=== PATIENT | male | born 1980 | race Two or more races ===

== ENCOUNTER 2020-06-02 22:15 | Inpatient (IN) | payer OTHER, SELFPAY ==
[2020-06-02 22:19] VITALS: BP 147/74; PULSE 101; RESP 20; TEMP 36.7; O2SAT 98; BMI 30.7
[2020-06-03 01:22] LABS: MANUAL DIFF FLAG NO
[2020-06-03 01:32] LABS: Basophils Percent Auto 0.3 % (0-2); Eosinophils Absolute Auto 0.1 X10*3/uL (0.0-0.4); Eosinophils Percent Auto 0.8 % (0-4); Hematocrit 43.1 % (42-52); Hemoglobin 14.4 g/dl (14.0-18.0); Imm Gran Abs Auto 0.09 X10*3/uL (0.00-0.03); Imm Gran Pct Auto 0.6 % (0.0-0.4); Lymphocytes Absolute Auto 3.4 X10*3/uL (1.2-4.9); Lymphocytes Percent Auto 22.2 % (20-40); Mean Corpuscular HGB Conc 33.4 g/dl (31.0-36.0); Mean Corpuscular Hemoglobin 28.8 pg (27.0-33.0); Mean Corpuscular Volume 86.2 fL (80-98); Mean Platelet Volume 9.8 fL (9.4-12.4); Monocytes Absolute Auto 1.2 X10*3/uL (0.1-1.2); Monocytes Percent Auto 7.8 % (2-11); Neutrophils Absolute Auto 10.4 X10*3/uL (2.0-8.3); Neutrophils Percent Auto 68.3 % (45-73); Platelet Count 327 X10*3/uL (160-400); Red Cell Distribution Width 13.2 % (11.0-16.0); White Blood Count 15.2 X10*3/uL (4.8-10.8)
[2020-06-03 01:47] LABS: Alanine Aminotransferase 82 U/L (0-40); Albumin Level 4.4 g/dL (3.5-5.0); Alkaline Phosphatase 220 U/L (39-117); Anion Gap 14 (12-20); Aspartate Amino Transferase 33 U/L (5-37); Blood Urea Nitrogen 10 mg/dL (9-16); Calcium 8.8 mg/dL (8.4-10.2); Carbon Dioxide 25 mmol/L (22-29); Chloride 101 mmol/L (96-108); Creatinine Clr Calc Pharmacy 116.5; Estimated Glomerular Filt Rate > 60; Glucose Random 114 mg/dL (60-115); Potassium 3.8 mmol/l (3.3-5.1); Sodium 136 mmol/L (135-145); Total Protein 8.1 g/dL (6.5-8.0)
--- NOTE | 2020-06-03 01:53 | CT_ITS ---
EXAMINATION: CT ABDOMEN AND PELVIS WITH CONTRAST CLINICAL INFORMATION: Left lower quadrant pain COMPARISON: None TECHNIQUE: Multidetector volumetric images were obtained from the superior aspect of the liver through the pubic symphysis following administration of 85 mL of Omnipaque 350 intravenous contrast. Sagittal and coronal reformatted images were obtained on the technologist's workstation. Oral contrast: No This CT examination was performed using dose optimization techniques as appropriate, variously including the following: *Automated exposure control *Adjustment of mA and/or kV according to patient size (this includes techniques or standardized protocols for targeted exams where dose is matched to indication/reason for exam; i.e. extremities or head) *Use of iterative reconstruction technique DLP: 642 mGy-cm FINDINGS: LUNG BASES: The visualized lung bases demonstrate mild subsegmental atelectasis. LIVER, GALLBLADDER, AND BILIARY TREE: The liver is normal in size, shape, and attenuation. No focal hepatic lesion or biliary ductal dilatation is present. The gallbladder is unremarkable with no evidence of radiopaque gallstones, gallbladder wall thickening, or obvious pericholecystic inflammatory changes. PANCREAS: Unremarkable. SPLEEN: Unremarkable. ADRENAL GLANDS: Unremarkable. KIDNEYS AND URETERS: The kidneys are normal in size, shape, and attenuation. No hydronephrosis, hydroureter, or obstructing calculi seen. Subcentimeter hypodensity off the lateral right kidney is suggestive of a cyst. No perinephric stranding. BLADDER: Unremarkable. GASTROINTESTINAL TRACT: There is a thick-walled appearance of the midportion of the descending colon with surrounding stranding, consistent with colitis. A few scattered colonic diverticula are noted. There is a small amount of fluid in the left paracolic gutter. No free air is seen. No evidence of bowel obstruction. ABDOMINAL WALL: No significant hernia is appreciated. LYMPH NODES: Normal. VASCULAR: Unremarkable. PELVIC VISCERA: Unremarkable. OSSEOUS STRUCTURES: Unremarkable. CT/CT abdomen pelvis w con IMPRESSION: Inflammation of the midportion of the descending colon, consistent with a colitis which may be infectious or inflammatory. A few scattered diverticula are present, though the length of inflamed colon is greater than typically seen with diverticulitis.
--- NOTE | 2020-06-03 01:54 | ED_ITS ---
HPI - Abdominal Pain General Chief Complaint: Abdominal Pain Stated Complaint: Abdominal Pain Time Seen by Provider: 06/02/20 22:44 Source: patient and chief technologist Mode of arrival: ambulatory Limitations: no limitations History of Present Illness HPI narrative: This is a 40-year-old male without significant past medical history who presents with 3-4 days of left lower quadrant pain that is worsening and sharp in nature but not associated with any fevers, nausea, vomiting, diarrhea, but does have chills. In addition, patient denies any urinary pain /burning /frequency or back pain. Related Data Home Medications Medication Instructions Recorded Confirmed diclofenac sodium 50 mg PO DAILY 06/03/20 06/03/20 Allergies Allergy/AdvReac Type Severity Reaction Status Date / Time No Known Allergies Allergy Verified 06/02/20 22:22 Review of Systems Review of Systems Pertinent positives and negatives as stated in HPI 10 point review systems is otherwise negative. Physical Exam Vital Signs: Vital Signs: Last Vital Signs Temp 99.1 F 06/03/20 02:48 Pulse 97 06/03/20 02:48 Resp 15 06/03/20 02:48 BP 144/76 H 06/03/20 02:48 Pulse Ox 95 06/03/20 02:48 Body Mass Index 30.7 VITAL SIGNS: Reviewed. GENERAL: Well developed, well nourished, in no acute distress. HEAD: Normocephalic/atraumatic, EYES: PERRLA, EOMI intact without pain, no nystagmus/pallor/icterus noted EARS: Ext canals without abnormality, TMs non-bulging and non-erythematous NOSE: Nares patent bilateral OROPHARYNX: no oral lesions noted, posterior pharynx clear and non-erythematous without noted tonsillar enlargement/erythema/exudates NECK: Supple, no adenopathy LUNGS: Normal breath sounds. No adventitious sounds or accessory muscle use. SpO2<98> CARDIOVASCULAR: Regular rate and rhythm without noted murmurs, no JVD or lower extremity edema. ABDOMEN: Soft, tenderness at the left lower quadrant without rebound, non- distended with bowel sounds. No rigidity. No guarding. No palpable masses or hernias noted MUSCULOSKELETAL: No tenderness, deformities, or effusions noted on gross inspec tion. EXTREMITIES: No cyanosis, clubbing or edema. SKIN: Inspection of the skin reveals no rashes, ulcerations, jaundice, pallor, or petechiae. NEUROLOGIC: Alert and oriented x 4. Strength and sensation to light touch were grossly intact x 4. Course Course Course Narrative: This is a 40-year-old male with history and clinical presentation consistent with diverticulitis and doubt constipation or renal colic or UTI. Patient also meets sepsis criteria in was given antibiotics and blood cultures as well as lactic acid were obtained. Sepsis fluids are not indicated at this time. On review of all investigations there is a noted leukocytosis and CT findings described as colitis with trace paracolic gutter fluid. This case was discussed with Dr Franklin who is agreeable for admission. MDM - Abdominal Pain Lab Data Result diagrams: 06/03/20 01:16 06/03/20 01:16 Labs: Lab Results 06/03/20 06/03/20 06/03/20 Range/Units 01:16 01:16 02:00 WBC 15.2 H (4.8-10.8) X10*3/uL RBC 5.00 (4.60-5.80) X10*6/uL Hgb 14.4 (14.0-18.0) g/dl Hct 43.1 (42-52) % MCV 86.2 (80-98) fL MCH 28.8 (27.0-33.0) pg MCHC 33.4 (31.0-36.0) g/dl RDW 13.2 (11.0-16.0) % Plt Count 327 (160-400) X10*3/uL MPV 9.8 (9.4-12.4) fL Immature Gran % (Auto) 0.6 H (0.0-0.4) % Neut % (Auto) 68.3 (45-73) % Lymph % (Auto) 22.2 (20-40) % Bremer % (Auto) 7.8 (2-11) % Eos % (Auto) 0.8 (0-4) % Baso % (Auto) 0.3 (0-2) % Lymph # (Auto) 3.4 (1.2-4.9) X10*3/uL Bremer # (Auto) 1.2 (0.1-1.2) X10*3/uL Eos # (Auto) 0.1 (0.0-0.4) X10*3/uL Baso # (Auto) 0.0 (0.0-0.2) X10*3/uL Abs Immat Gran (auto) 0.09 H (0.00-0.03) X10*3/uL Absolute Neuts (auto) 10.4 H (2.0-8.3) X10*3/uL Absolute Nucleated RBC 0.000 (0.0-0.012) X10*3/uL Nucleated RBC % (auto) 0.0 (0.0-0.2) /100WBC Sodium 136 (135-145) mmol/L Potassium 3.8 (3.3-5.1) mmol/l Chloride 101 (96-108) mmol/L Carbon Dioxide 25 (22-29) mmol/L Anion Gap 14 (12-20) BUN 10 (9-16) mg/dL Creatinine 0.84 (0.5-1.4) mg/dL Estim Creat Clear Calc 116.5 Estimated GFR > 60 Random Glucose 114 (60-115) mg/dL Lactic Acid 1.0 (0.5-2.0) mmol/L Calcium 8.8 (8.4-10.2) mg/dL Total Bilirubin 1.0 (0.0-1.0) mg/dL AST 33 (5-37) U/L ALT 82 H (0-40) U/L Alkaline Phosphatase 220 H (39-117) U/L Total Protein 8.1 H (6.5-8.0) g/dL Albumin 4.4 (3.5-5.0) g/dL Discharge Plan Discharge Clinical Impression: Colitis, Diverticulitis Patient Disposition: Admitted As Inpatient [facility] Past Medical History Source: nursing notes reviewed Surgical History (Updated 06/03/20 @ 02:31 by Romana Pendleton MD) Hx of appendectomy Social History Social History Advance Directives: No Advance Directives Information Provided: No
[2020-06-03] MEDS: iohexoL 350 MG/ML 100 ML INFUS..BTL 85 ML IV (02:23)
[2020-06-03] MEDS: 0.9 % Sodium Chloride 1,000 ML 999 ML IV (02:29)
[2020-06-03] MEDS: fentaNYL citrate/PF 100 MCG/2 ML VIAL 25 MCG IVPUSH (02:42)
[2020-06-03] MEDS: Piperacillin Sodium/Tazobactam 3.375 GM in 0.9 % Sodium Chloride 50 ML IV ×4 (02:44→23:54)
[2020-06-03 02:48] VITALS: BP 144/76; PULSE 97; RESP 15; TEMP 37.3; O2SAT 95
[2020-06-03 03:38] LABS: Influenza A PCR NEGATIVE (Negative); Influenza B PCR NEGATIVE (Negative); Resp Syncy Virus RNA Qual PCR NEGATIVE (Negative); SARS COV2 PCR INHOUSE NEGATIVE (Negative)
[2020-06-03 06:15] VITALS: BP 138/87; PULSE 89; RESP 16; O2SAT 99
--- NOTE | 2020-06-03 07:10 | PC.NURSE ---
report taken from nila ramos pt here as surgical admit r/t colitis dx. ambulating w steady gait in room upon first contact. asking if there is a garden consultant to use for his phone. nad, awaiting report from floor nurse.
--- NOTE | 2020-06-03 07:37 | PM.HPGS ---
History of Present Illness History of Present Illness Date of Service: 06/03/20 Chief complaint: SIGMOID DIVERTICULITIS Narrative: Bernardo Whalen is a 40 year old male Presenting with complaints of abdominal pain in the left lower quadrant. The symptoms began approximately 4 days ago and increased in severity. He denies migration of the pain to the other quadrants. The pain is not associated with nausea, vomiting, diarrhea, or constipation. He denies a previous history of similar pains. He denies a previous history of abdominal surgeries other than appendectomy. Patient presented to the emergency department and was noted to have an elevated WBC. CT of the abdomen revealed inflammation of the descending colon suggestive of colitis. This was felt to be either due to a colitis or diverticulitis. He is admitted to the surgical service for further management. Review of Systems Constitutional: Constitutional: Denies chills, Denies fever(s), Denies headache(s) and Reports poor appetite ENT: Denies dizziness and Denies headache(s) Cardiovascular: Cardiovascular: Denies chest pain, Denies rapid heart rate, Denies palpitations and Denies slow heart rate Respiratory: Respiratory: Denies chest congestion, Denies cough, Denies pain on inspiration and Denies wheezing Gastrointestinal: Gastrointestinal: Reports abdominal pain, Reports bloating, Denies change in stool character, Denies constipation, Denies diarrhea, Denies nausea, Denies vomiting and Denies hematemesis Musculoskeletal: Musculoskeletal: Denies back pain, Denies arthralgias, Denies joint swelling and Denies numbness Integumentary/Breasts: Skin/Breast: Denies change in pigmentation, Denies erythema and Denies rash Neurologic: Denies confusion, Denies dizziness, Denies headache(s) and Denies numbness Psychiatric: Psychiatric: Denies anxiety, Denies confusion and Denies depression Endocrine: Endocrine: Denies palpitations Hematologic/Lymphatic: Hematologic/Lymphatic: Denies easy bleeding, Denies easy bruising and Denies lymphadenopathy Allergic/Immunologic: Allergic/Immunologic: Denies wheezing PMFSH Surgical History Surgical History Hx of appendectomy Social History Social History Alcohol intake: never Smoked in Last 30 Days: No Use of substances other than those prescribed or required for medical reasons: No Advance Directives: No Advance Directives Information Provided: No Meds Allergies Allergy/AdvReac Type Severity Reaction Status Date / Time No Known Allergies Allergy Verified 06/02/20 22:22 Home Medications Medication Instructions Recorded Confirmed Type diclofenac sodium 50 mg PO DAILY 06/03/20 06/03/20 History Physical Exam Vital Signs: Vital Signs: Last Vital Signs Temp 99.1 F 06/03/20 02:48 Pulse 89 06/03/20 06:15 Resp 16 06/03/20 06:15 BP 138/87 06/03/20 06:15 Pulse Ox 99 06/03/20 06:15 Body Mass Index 30.7 Const: General: cooperative, comfortable and well developed; No confusion Nutritional Appearance: well nourished Orientation/consciousness: patient oriented x3 and No confusion Eyes: Sclerae: sclerae normal EOM: EOMs intact bilaterally Neck: Neck: Yes normal visual inspection Resp: Effort & Inspection: normal respiratory effort, no cough and no respiratory distress Cardio: Jugular venous distension: no JVD Rate: regular rate Rhythm: regular rhythm GI: Inspection: Yes normal to inspection Palpation (GI): Soft to palpation, Tenderness to palpation present (GI) in the LLQ, no guarding, not rigid and No hepatosplenomegaly present Percussion: Yes normal to percussion Auscultation: normal bowel sounds Skin: General skin exam: dry skin Rashes: no rashes Neuro: General: patient oriented x3, no focal motor deficits and No confusion Extrem: General: Yes full ROM and Yes no clubbing, cyanosis or edema Results Results Labs: Short CBC 06/03/20 Range/Units 01:16 WBC 15.2 H (4.8-10.8) X10*3/uL Hgb 14.4 (14.0-18.0) g/dl Hct 43.1 (42-52) % Plt Count 327 (160-400) X10*3/uL BMP 06/03/20 01:16 Sodium 136 Potassium 3.8 Chloride 101 Carbon Dioxide 25 BUN 10 Creatinine 0.84 Calcium 8.8 Liver Function 06/03/20 Range/Units 01:16 Total Bilirubin 1.0 (0.0-1.0) mg/dL AST 33 (5-37) U/L ALT 82 H (0-40) U/L Alkaline Phosphatase 220 H (39-117) U/L Albumin 4.4 (3.5-5.0) g/dL EXAMINATION: CT ABDOMEN AND PELVIS WITH CONTRAST CLINICAL INFORMATION: Left lower quadrant pain COMPARISON: None TECHNIQUE: Multidetector volumetric images were obtained from the superior aspect of the liver through the pubic symphysis following administration of 85 mL of Omnipaque 350 intravenous contrast. Sagittal and coronal reformatted images were obtained on the technologist's workstation. Oral contrast: No This CT examination was performed using dose optimization techniques as appropriate, variously including the following: *Automated exposure control *Adjustment of mA and/or kV according to patient size (this includes techniques or standardized protocols for targeted exams where dose is matched to indication/reason for exam; i.e. extremities or head) *Use of iterative reconstruction technique DLP: 642 mGy-cm FINDINGS: LUNG BASES: The visualized lung bases demonstrate mild subsegmental atelectasis. LIVER, GALLBLADDER, AND BILIARY TREE: The liver is normal in size, shape, and attenuation. No focal hepatic lesion or biliary ductal dilatation is present. The gallbladder is unremarkable with no evidence of radiopaque gallstones, gallbladder wall thickening, or obvious pericholecystic inflammatory changes. PANCREAS: Unremarkable. SPLEEN: Unremarkable. ADRENAL GLANDS: Unremarkable. KIDNEYS AND URETERS: The kidneys are normal in size, shape, and attenuation. No hydronephrosis, hydroureter, or obstructing calculi seen. Subcentimeter hypodensity off the lateral right kidney is suggestive of a cyst. No perinephric stranding. BLADDER: Unremarkable. GASTROINTESTINAL TRACT: There is a thick-walled appearance of the midportion of the descending colon with surrounding stranding, consistent with colitis. A few scattered colonic diverticula are noted. There is a small amount of fluid in the left paracolic gutter. No free air is seen. No evidence of bowel obstruction. ABDOMINAL WALL: No significant hernia is appreciated. LYMPH NODES: Normal. VASCULAR: Unremarkable. PELVIC VISCERA: Unremarkable. OSSEOUS STRUCTURES: Unremarkable. CT/CT abdomen pelvis w con IMPRESSION: Inflammation of the midportion of the descending colon, consistent with a colitis which may be infectious or inflammatory. A few scattered diverticula are present, though the length of inflamed colon is greater than typically seen with diverticulitis. Assessment and Plan (1) Colitis: Status: Acute The patient presents with a 4 day history of abdominal pain in the left lower quadrant increasing in [place] [address] revealing thickening of the descending colon suggestive of colitis in less likely diverticulitis. He is admitted to the surgical service for IV antibiotics. I will consult Gastroenterology to assist in the diagnosis and treatment. Patient understands and agrees with the plan.
--- NOTE | 2020-06-03 08:13 | PC.NURSE ---
first attempt to call for pt report unsuccesful, will call back
--- NOTE | 2020-06-03 08:57 | PC.NURSE ---
floor nurse w pt during time of second call for report, nurse will call back when available.
--- NOTE | 2020-06-03 09:29 | MHC.CM.PN ---
pt lives c his friend in their apt. he reports that he is independent in his care. his friend will provide transportation [place]. dc plan is home no svcs. cm to cont. to follow.
--- NOTE | 2020-06-03 09:33 | PC.NURSE ---
report given to s3 rn
[2020-06-03 09:52] VITALS: BP 147/78; PULSE 88; RESP 18; TEMP -13.4; TEMP 7.8
[2020-06-03] MEDS: Dextrose 5 % and Lactated Ring 1,000 ML 125 ML IVCONT (10:17)
[2020-06-03] MEDS: 0.9 % Sodium Chloride Flush 3 ML SYRINGE IVFLUSH (10:18)
[2020-06-03] MEDS: Morphine Sulfate 4 MG/ML CARTRIDGE IVPUSH (10:34)
--- NOTE | 2020-06-03 14:49 | P.CNGI_ITS ---
History of Present Illness Data of Consult Service Date: 06/03/20 Primary Care Provider: None Physician HPI Reason for consult: abdominal pain and abnormal colon on CT scan 40 Year old [place]egalese-speaking male presented to [facility] morning with abdominal pain: This is a 40-year-old male without significant past medical history who presents with 3-4 days of left lower quadrant pain that is worsening and sharp in nature but not associated with any fevers, nausea, vomiting, diarrhea, but does have chills. In addition, patient denies any urinary pain /burning /frequency or back pain. IMAGING STUDIES: 06/02/[address] SCAN SHOWED: Inflammation of the midportion of the descending colon, consistent with a colitis which may be infectious or inflammatory. A few scattered diverticula are present, though the length of inflamed colon is greater than typically seen with diverticulitis. Patient was started on IV Zosyn and admitted for further management TODAY'S VISIT: History was obtained with the help of a animal eviscerator. Patient complains of sudden onset of left-sided abdominal pain since 05/31/2020 few hours after he ate pasta and shrimp for lunch. Pain is 10/ 10 in intensity, squeezing in character and came in waves - every 5 minutes. The following day pain decreased to every 30 minutes in frequency. He noted chills and denies fever, nausea or vomiting, change in BM. Pain is associated with gas and bloating. Patient notes improvement in abdominal pain to 3/10 today He reports having a normal BM today without blood of mucous. Patient denies symptoms of heartburn, dysphagia, nausea, vomiting, change in appetite or weight. Pt reports having a similar episode of abd pain 1.5 yrs ago - pain resolved after 3 days. Patient denies major cardiac or pulmonary problems, and admits to having sleep apnea (does not use a CPAP machine) Denies problems with anesthesia in the past. Denies being on chronic anticoagulation. Patient denies known family history IBD, colon polyps, colon cancer or other GI malignancies. 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 He states he is unable to have scheduled meals or drink adequate amounts of fluids while at work due to his busy schedule. PAST EGD/COLONOSCOPY: Patient denies having an endoscopy or colonoscopy in the past. Review of Systems Constitutional: Constitutional: Denies headache(s) and Reports poor appetite Eyes: Eyes: Denies eye discharge and Denies irritation ENT: Denies dysphagia, Denies dizziness and Denies headache(s) Cardiovascular: Cardiovascular: Denies chest pain, Denies leg edema and Denies dyspnea on exertion Respiratory: Respiratory: Denies cough and Denies dyspnea on exertion Gastrointestinal: Gastrointestinal: Reports abdominal pain, Denies change in bowel habits, Denies dysphagia and Denies heartburn Genitourinary: Genitourinary: Denies dysuria Musculoskeletal: Musculoskeletal: Denies numbness Integumentary/Breasts: Skin/Breast: Denies pruritus, Denies rash and Denies jaundice Neurologic: Denies confusion, Denies dizziness, Denies headache(s) and Denies numbness Psychiatric: Psychiatric: Denies confusion Endocrine: Endocrine: Denies cold intolerance, Denies flushing and Denies heat intolerance PMFSH Surgical History Surgical History Hx of appendectomy Social History Social History Household Members: Friend(s) Housing: House Alcohol intake: never Smoking Status: Never smoker Second Hand Smoke Exposure: Yes service: No Current occupational status: unemployed Meds Allergies Allergy/AdvReac Type Severity Reaction Status Date / Time No Known Allergies Allergy Verified 06/02/20 22:22 Home Medications Medication Instructions Recorded Confirmed Type diclofenac sodium 50 mg PO DAILY 06/03/20 06/03/20 History Physical Exam Vital Signs: Vital Signs: Last Vital Signs Temp 7.8 F L 06/03/20 09:52 Pulse 88 06/03/20 09:52 Resp 18 06/03/20 09:52 BP 147/78 H 06/03/20 09:52 Pulse Ox 99 06/03/20 06:15 Body Mass Index 30.7 Const: General: No confusion Nutritional Appearance: average body habitus Orientation/consciousness: No confusion Limitations: no limitations HENMT: Head: Yes normal to inspection Ears: hearing grossly normal bilaterally Mouth: Normal oral and palatal mucosa present Eyes: Sclerae: sclerae normal Pupils: Equal, round and reactive pupils present Neck: Neck: Yes normal visual inspection Chest: Chest palpation & inspection: normal inspection of the chest Resp: Effort & Inspection: normal respiratory effort Auscultation: clear to auscultation bilaterally Cardio: Palpation: normal PMI Rate: regular rate Rhythm: regular rhythm Heart sounds: S1 normal heart sound present, S2 normal heart sound present and no murmurs GI: Palpation (GI): Soft to palpation, Tenderness to palpation present (GI) (LUQ and LLQ tenderness) and No hepatosplenomegaly present Auscultation: normal bowel sounds Rectal Exam - Male: Yes deferred Skin: General skin exam: no rashes or lesions noted Neuro: General: No confusion Cranial nerves: Yes Equal, round and reactive pupils present Psych: Appearance: grossly normal Mental Status: mental status grossly normal Results Labs CBC & Chem 7: 06/04/20 06:08 06/04/20 06:08 Labs: Short CBC 06/03/20 Range/Units 01:16 WBC 15.2 H (4.8-10.8) X10*3/uL Hgb 14.4 (14.0-18.0) g/dl Hct 43.1 (42-52) % Plt Count 327 (160-400) X10*3/uL BMP 06/03/20 01:16 Sodium 136 Potassium 3.8 Chloride 101 Carbon Dioxide 25 BUN 10 Creatinine 0.84 Calcium 8.8 Liver Function 06/03/20 Range/Units 01:16 Total Bilirubin 1.0 (0.0-1.0) mg/dL AST 33 (5-37) U/L ALT 82 H (0-40) U/L Alkaline Phosphatase 220 H (39-117) U/L Albumin 4.4 (3.5-5.0) g/dL Assessment and Plan (1) Left sided abdominal pain: Status: Acute (2) Colitis: Status: Acute 40 Year old [place]egalese-speaking male admitted with sudden onset of left sided abdominal pain for the past 2-3 days. patient denies any recent change in bowel habits. Abd CT scan showed inflammation of the midportion of the descending colon, consistent with colitis (?infectious or inflammatory). Symptoms are likely due to ischemic or infectious colitis. IBD is less likely given sudden onset of symptoms and lack of diarrhea. RECOMMENDATIONS: 1. Continue IV antibiotics 2. Ok to start on a liquid diet in the am and advance diet as tolerated. 3. If symptoms persist, I will schedule him for a left sided colonoscopy/flexible sigmoidoscopy on 06/06/2020. Procedure and potential complications including bleeding, perforation, reaction to anesthetics were reviewed with the patient with the help of a animal eviscerator.
[2020-06-03 15:10] VITALS: BP 139/66; PULSE 81; RESP 16; TEMP 36.9; O2SAT 99
[2020-06-03 23:41] VITALS: BP 135/68; PULSE 96; RESP 18; TEMP 36.7; O2SAT 99
[2020-06-04] MEDS: Morphine Sulfate 4 MG/ML CARTRIDGE IVPUSH (00:12)
[2020-06-04] MEDS: 0.9 % Sodium Chloride Flush 3 ML SYRINGE IVFLUSH (00:26)
[2020-06-04] MEDS: Dextrose 5 % and Lactated Ring 1,000 ML 125 ML IVCONT ×3 (00:26→17:53)
[2020-06-04] MEDS: Piperacillin Sodium/Tazobactam 3.375 GM in 0.9 % Sodium Chloride 50 ML IV ×4 (05:06→22:04)
[2020-06-04 06:32] LABS: MANUAL DIFF FLAG NO
[2020-06-04 07:12] LABS: Basophils Percent Auto 0.3 % (0-2); Eosinophils Absolute Auto 0.2 X10*3/uL (0.0-0.4); Eosinophils Percent Auto 1.8 % (0-4); Hematocrit 41.7 % (42-52); Hemoglobin 13.4 g/dl (14.0-18.0); Imm Gran Abs Auto 0.03 X10*3/uL (0.00-0.03); Imm Gran Pct Auto 0.3 % (0.0-0.4); Lymphocytes Absolute Auto 2.5 X10*3/uL (1.2-4.9); Lymphocytes Percent Auto 26.5 % (20-40); Mean Corpuscular HGB Conc 32.1 g/dl (31.0-36.0); Mean Corpuscular Hemoglobin 28.4 pg (27.0-33.0); Mean Corpuscular Volume 88.3 fL (80-98); Mean Platelet Volume 10.1 fL (9.4-12.4); Monocytes Percent Auto 10.3 % (2-11); Neutrophils Absolute Auto 5.6 X10*3/uL (2.0-8.3); Neutrophils Percent Auto 60.8 % (45-73); Platelet Count 312 X10*3/uL (160-400); Red Blood Count 4.72 X10*6/uL (4.60-5.80); Red Cell Distribution Width 13.2 % (11.0-16.0); White Blood Count 9.3 X10*3/uL (4.8-10.8)
[2020-06-04 07:21] LABS: Anion Gap 12 (12-20); Blood Urea Nitrogen 9 mg/dL (9-16); Carbon Dioxide 29 mmol/L (22-29); Chloride 101 mmol/L (96-108); Creatinine Clr Calc Pharmacy 111.2; Estimated Glomerular Filt Rate > 60; Glucose Random 101 mg/dL (60-115); Potassium 4.2 mmol/l (3.3-5.1); Sodium 138 mmol/L (135-145)
[2020-06-04 07:31] LABS: Calcium 8.4 mg/dL (8.4-10.2)
[2020-06-04 07:52] VITALS: BP 135/68; PULSE 77; RESP 18; TEMP 36.2; O2SAT 99
--- NOTE | 2020-06-04 10:21 | PM.PNGS ---
Subjective Subjective Date of Service: 06/04/20 <RUSTY Velazquez - Last Filed: 06/04/20 10:27> 06/04/20 <Carlin Penn MD - Last Filed: 06/04/20 12:52> Patient reports: no new complaints <RUSTY Velazquez - Last Filed: 06/04/20 10:27> Interval history: He states he is feeling well and denies any ongoing ABD discomfort. He is resting comfotably in bed. Continues to be NPO, Dneies N/V. <RUSTY Velazquez - Last Filed: 06/04/20 10:27> Physical Exam Vital Signs: Vital Signs: Last Vital Signs Temp 97.2 F 06/04/20 07:52 Pulse 77 06/04/20 07:52 Resp 18 06/04/20 07:52 BP 135/68 06/04/20 07:52 Pulse Ox 99 06/04/20 07:52 Body Mass Index 30.7 <RUSTY Velazquez - Last Filed: 06/04/20 10:27> Const: General: cooperative, healthy appearing and no acute distress <RUSTY Velazquez - Last Filed: 06/04/20 10:27> Resp: Effort & Inspection: normal respiratory effort <RUSTY Velazquez Last Filed: 06/04/20 10:27> Auscultation: clear to auscultation bilaterally <RUSTY Velazquez - Last Filed: 06/04/20 10:27> Cardio: Rate: regular rate <RUSTY Velazquez Last Filed: 06/04/20 10:27> Heart sounds: S1 normal heart sound present and S2 normal heart sound present <RUSTY Velazquez Last Filed: 06/04/20 10:27> GI: Other: Non tender to plapation <RUSTY Velazquez Last Filed: 06/04/20 10:27> Inspection: Yes normal to inspection <RUSTY Velazquez Last Filed: 06/04/20 10:27> Palpation (GI): Soft to palpation <RUSTY Velazquez Last Filed: 06/04/20 10:27> Auscultation: normal bowel sounds <RUSTY Velazquez Last Filed: 06/04/20 10:27> Skin: General skin exam: no rashes or lesions noted <RUSTY Velazquez Last Filed: 06/04/20 10:27> Extrem: General: Yes no calf tenderness <RUSTY Velazquez Last Filed: 06/04/20 10:27> Progress Note: A&P Assessment and plan (1) Diverticulitis: Problem details: WBC improving, WNL, from 15k---9.3K. ABD exam is benign, soft, non tender <RUSTY Velazquez - Last Filed: 06/04/20 10:27> Status: Acute <RUSTY Velazquez Last Filed: 06/04/20 10:27> Assessment and Plan: Continue NPO IV ABX and pain mgmt. May switch to PO. [place] OOB. Will consider advancing diet to liquids. <RUSTY Velazquez Last Filed: 06/04/20 10:27> (2) Colitis: Status: Acute <RUSTY Velazquez Last Filed: 06/04/20 10:27> (3) Left sided abdominal pain: Status: Acute <RUSTY Velazquez Last Filed: 06/04/20 10:27> Assessment and Plan: . General Surgery Attending - Radha Penn M.D. Patient was evaluated and examined at the bedside with Mr. Franklin Mckeon PA-C. I confirm above findings and plan as documented. Abdomen is only minimall tender. Improvement from last night per report. Continue same treatment principally with IV antibiotics and pain medication. <Carlin Penn MD - Last Filed: 06/04/20 12:52> Fall Risk Details Current Medications: Current Medications Generic Name Dose Route Start Last Admin Trade Name Freq PRN Reason Stop Dose Admin Acetaminophen 650 mg 06/03/20 09:51 Acetaminophen 325 Mg Tablet PO Q6H PRN Pain, Mild (Pain Scale 1-3) Piperacillin Sod/Tazobactam 50 mls @ 100 mls/hr 06/03/20 10:00 06/04/20 09:38 Sod 3.375 gm/ Sodium Chloride IV 100 mls/hr Q6H KIKO Administration Dextrose/Lactated Ringer's 1,000 mls @ 125 mls/hr 06/03/20 09:51 1205/20 09:41 D5lr IVCONT 0 mls/hr .Q8H KIKO Infusion Morphine Sulfate 4 mg 06/03/20 09:51 06/04/20 00:12 Morphine Sulfate 4 Mg/Ml Cartridge IVPUSH 4 mg Q4H PRN Administration Pain, Severe (Pain Scale 7-10) Ondansetron HCl 4 mg 06/03/20 09:51 Ondansetron Hcl 4 Mg/2 Ml Vial IVPUSH Q8H PRN Nausea and Vomiting Oxycodone HCl 5 mg 06/03/20 09:51 Oxycodone Hcl Immed Release 5 Mg Tablet PO Q6H PRN Pain, Moderate (Pain Scale 4-6 Sodium Chloride 3 ml 06/03/20 09:51 06/04/20 07:56 0.9 % Sodium Chloride Flush 3 Ml Syringe IVFLUSH Not Given QSHIFT KIKO Zolpidem Tartrate 5 mg 06/03/20 09:51 Zolpidem Tartrate 5 Mg Tablet PO BEDTIME PRN Insomnia <RUSTY Velazquez - Last Filed: 06/04/20 10:27> Time Spent With Patient Time: Total time spent is greater than 50% in coordination of care (as documented) at patient's floor/unit and/or counseling patient: <RUSTY Velazquez - Last Filed: 06/04/20 10:27> Time with patient: 15 - 24 minutes <Carlin Penn MD - Last Filed: 06/04/20 12:52>
[2020-06-04 15:27] VITALS: BP 134/76; PULSE 74; RESP 18; TEMP 36.4; O2SAT 99
[2020-06-04 23:43] VITALS: BP 149/64; PULSE 73; RESP 16; TEMP 36.4; O2SAT 99
[2020-06-05] MEDS: Dextrose 5 % and Lactated Ring 1,000 ML 125 ML IVCONT ×3 (00:50→16:30)
[2020-06-05 03:18] VITALS: BP 109/60; PULSE 77; RESP 16; TEMP 36.6; O2SAT 99
[2020-06-05] MEDS: Piperacillin Sodium/Tazobactam 3.375 GM in 0.9 % Sodium Chloride 50 ML IV ×4 (04:47→22:47)
[2020-06-05 07:55] VITALS: BP 102/58; PULSE 67; RESP 20; TEMP 36.1; O2SAT 98
[2020-06-05] MEDS: oxyCODONE HCl Immed Release 5 MG TABLET PO (08:30)
--- NOTE | 2020-06-05 10:13 | MHC.CM.PN ---
CASE MANAGEMENT FOLLOWING FOR DISCHARGE NEEDS. OF 06/04 NOTE, PLAN WAS TO ATTEMPT TO ADVANCE DIET.
--- NOTE | 2020-06-05 10:32 | MHC.CM.PN ---
PATIENT VERIFIES THAT HE DOES NOT HAVE INSURANCE BENEFITS. HE GIVES PERMISSION FOR THIS FINANCIAL DIRECTOR TO REACH OUT TO [facility] DEPT FACE SHEET FAXED TO [phone], ALONG WITH THIS FINANCIAL DIRECTOR'S NAME AND CONTACT INFO.
[2020-06-05 11:15] VITALS: BP 78/30; PULSE 82; RESP 18; TEMP 36.4; O2SAT 99
[2020-06-05 11:16] VITALS: BP 129/81; PULSE 80; RESP 15; TEMP 36.4; O2SAT 99
--- NOTE | 2020-06-05 12:34 | P.PNGS_ITS ---
Subjective Subjective Date of Service: 06/05/20 <RUSTY Velazquez - Last Filed: 06/05/20 12:38> 06/05/20 <Carlin Penn MD - Last Filed: 06/05/20 21:38> Patient reports: no new complaints <RUSTY Velazquez - Last Filed: 06/05/20 12:38> Interval history: Bernardo states that he is feeling much better. <RUSTY Velazquez - Last Filed: 06/05/20 12:38> Physical Exam Vital Signs: Vital Signs: Last Vital Signs Temp 97.6 F 06/05/20 11:16 Pulse 80 06/05/20 11:16 Resp 15 06/05/20 11:16 BP 129/81 06/05/20 11:16 Pulse Ox 99 06/05/20 11:16 Body Mass Index 30.7 <RUSTY Velazquez - Last Filed: 06/05/20 12:38> Const: General: healthy appearing, alert and awake <RUSTY Velazquez - Last Filed: 06/05/20 12:38> GI: Palpation (GI): Soft to palpation <RUTSY Velazquez - Last Filed: 06/05/20 12:38> Skin: General skin exam: no rashes or lesions noted <RUSTY Velazquez - Last Filed: 06/05/20 12:38> Extrem: General: Yes no calf tenderness <RUSTY Velazquez - Last Filed: 06/05/20 12:38> Progress Note: A&P Assessment and plan (1) Diverticulitis: Problem details: ABD exam is benign, soft, non tender <RUSTY Velazquez - Last Filed: 06/05/20 12:38> Status: Acute <RUSTY Velazquez - Last Filed: 06/05/20 12:38> Assessment and Plan: We will advance his diet to clear liquids Encourage OOB <RUSTY Velazquez - Last Filed: 06/05/20 12:38> . General Surgery Attending - Radha Penn M.D. Patient was evaluated and examined at the bedside with Mr. Franklin Mcekon PA-C. I confirm above findings and plan as documented. I agree w/ advancing to clear liquids. <Carlin Penn MD - Last Filed: 06/05/20 21:38> Fall Risk Details Current Medications: Current Medications Generic Name Dose Route Start Last Admin Trade Name Freq PRN Reason Stop Dose Admin Acetaminophen 650 mg 06/03/20 09:51 Acetaminophen 325 Mg Tablet PO Q6H PRN Pain, Mild (Pain Scale 1-3) Piperacillin Sod/Tazobactam 50 mls @ 100 mls/hr 06/03/20 10:00 06/05/20 12:27 Sod 3.375 gm/ Sodium Chloride IV 100 mls/hr Q6H KIKO Administration Dextrose/Lactated Ringer's 1,000 mls @ 125 mls/hr 06/03/20 09:51 06/05/20 08:24 D5lr IVCONT 125 mls/hr .Q8H KIKO Administration Morphine Sulfate 4 mg 06/03/20 09:51 06/04/20 00:12 Morphine Sulfate 4 Mg/Ml Cartridge IVPUSH 4 mg Q4H PRN Administration Pain, Severe (Pain Scale 7-10) Ondansetron HCl 4 mg 06/03/20 09:51 Ondansetron Hcl 4 Mg/2 Ml Vial IVPUSH Q8H PRN Nausea and Vomiting Oxycodone HCl 5 mg 06/03/20 09:51 06/05/20 08:30 Oxycodone Hcl Immed Release 5 Mg Tablet PO 5 mg Q6H PRN Administration Pain, Moderate (Pain Scale 4-6 Sodium Chloride 3 ml 06/03/20 09:51 06/05/20 08:25 0.9 % Sodium Chloride Flush 3 Ml Syringe IVFLUSH [facility] Zolpidem Tartrate 5 mg 06/03/20 09:51 Zolpidem Tartrate 5 Mg Tablet PO BEDTIME PRN Insomnia <RUSTY Velazquez - Last Filed: 06/05/20 12:38> Time Spent With Patient Time: Total time spent is greater than 50% in coordination of care (as documented) at patient's floor/unit and/or counseling patient: <RUSTY Velazquez - Last Filed: 06/05/20 12:38> Time with patient: 15 - 24 minutes <Carlin Penn MD - Last Filed: 06/05/20 21:38>
[2020-06-05 15:29] VITALS: BP 117/70; PULSE 69; RESP 17; TEMP 36.6; O2SAT 99
[2020-06-06] VITALS (12 sets, daily range): BP systolic 78–147; BP diastolic 30–79; PULSE 68–88; RESP 15–20; TEMP 36.1–36.6; O2SAT 97–100; BMI 30.7
[2020-06-06] MEDS: Dextrose 5 % and Lactated Ring 1,000 ML 125 ML IVCONT (00:52)
[2020-06-06] MEDS: Piperacillin Sodium/Tazobactam 3.375 GM in 0.9 % Sodium Chloride 50 ML IV (04:18)
--- NOTE | 2020-06-06 10:00 | HO.ANESPROP2 ---
HPI - Anesthesia Eval Consult details Narrative: 40 year old male patient here for colonoscopy [facility] Family History Family history of problems with anesthesia: No Surgical History Surgical History Hx of appendectomy History of Problems with Anesthesia: No Social History Social History Household Members: Friend(s) Housing: House Alcohol intake: never Smoking Status: Never smoker Second Hand Smoke Exposure: Yes service: No Current occupational status: unemployed Meds Allergies Allergy/AdvReac Type Severity Reaction Status Date / Time No Known Allergies Allergy Verified 06/02/20 22:22 Home Medications Medication Instructions Recorded Confirmed Type diclofenac sodium 50 mg PO DAILY 06/03/20 06/03/20 History Exam Exam Date and Time: June 06, 2020 1000 Height,Weight and Vital Signs: Height 5 ft 5 in Weight 83.915 kg Last Vital Signs Temp 97.6 F 06/06/20 09:27 Pulse 88 06/06/20 09:27 Resp 16 06/06/20 09:27 BP 147/71 H 06/06/20 09:27 Pulse Ox 99 06/06/20 09:27 Pertinent Lab Results Pertinent Lab Results: Laboratory Tests 06/03/20 06/03/20 06/03/20 01:16 01:16 02:00 WBC 15.2 H RBC 5.00 Hgb 14.4 Hct 43.1 MCV 86.2 MCH 28.8 MCHC 33.4 RDW 13.2 Plt Count 327 MPV 9.8 Immature Gran % (Auto) 0.6 H Neut % (Auto) 68.3 Lymph % (Auto) 22.2 [place] % (Auto) 7.8 Eos % (Auto) 0.8 Baso % (Auto) 0.3 Lymph # (Auto) 3.4 [place] # (Auto) 1.2 Eos # (Auto) 0.1 Baso # (Auto) 0.0 Abs Immat Gran (auto) 0.09 H Absolute Neuts (auto) 10.4 H Absolute Nucleated RBC 0.000 Nucleated RBC % (auto) 0.0 Sodium 136 Potassium 3.8 Chloride 101 Carbon Dioxide 25 Anion Gap 14 BUN 10 Creatinine 0.84 Estim Creat Clear Calc 116.5 Estimated GFR > 60 Random Glucose 114 Lactic Acid 1.0 Calcium 8.8 Total Bilirubin 1.0 AST 33 ALT 82 H Alkaline Phosphatase 220 H Total Protein 8.1 H Albumin 4.4 Coronavirus (PCR) Influenza Type A (PCR) Influenza Type B (PCR) RSV RNA Qual (PCR) 06/03/20 06/04/20 06/04/20 02:55 06:08 06:08 WBC Cancelled RBC Cancelled Hgb Cancelled Hct Cancelled MCV Cancelled MCH Cancelled MCHC Cancelled RDW Cancelled Plt Count Cancelled MPV Cancelled Immature Gran % (Auto) Cancelled Neut % (Auto) Cancelled Lymph % (Auto) Cancelled [place] % (Auto) Cancelled Eos % (Auto) Cancelled Baso % (Auto) Cancelled Lymph # (Auto) Cancelled [place] # (Auto) Cancelled Eos # (Auto) Cancelled Baso # (Auto) Cancelled Abs Immat Gran (auto) Cancelled Absolute Neuts (auto) Cancelled Absolute Nucleated RBC Cancelled Nucleated RBC % (auto) Cancelled Sodium 138 Potassium 4.2 Chloride 101 Carbon Dioxide 29 Anion Gap 12 BUN 9 Creatinine 0.88 Estim Creat Clear Calc 111.2 Estimated GFR > 60 Random Glucose 101 Lactic Acid Calcium 8.4 Total Bilirubin AST ALT Alkaline Phosphatase Total Protein Albumin Coronavirus (PCR) NEGATIVE Influenza Type A (PCR) NEGATIVE Influenza Type B (PCR) NEGATIVE RSV RNA Qual (PCR) NEGATIVE 06/04/20 06:08 WBC 9.3 RBC 4.72 Hgb 13.4 L Hct 41.7 L MCV 88.3 MCH 28.4 MCHC 32.1 RDW 13.2 Plt Count 312 MPV 10.1 Immature Gran % (Auto) 0.3 Neut % (Auto) 60.8 Lymph % (Auto) 26.5 [place] % (Auto) 10.3 Eos % (Auto) 1.8 Baso % (Auto) 0.3 Lymph # (Auto) 2.5 [place] # (Auto) 1.0 Eos # (Auto) 0.2 Baso # (Auto) 0.0 Abs Immat Gran (auto) 0.03 Absolute Neuts (auto) 5.6 Absolute Nucleated RBC 0.000 Nucleated RBC % (auto) 0.0 Sodium Potassium Chloride Carbon Dioxide Anion Gap BUN Creatinine Estim Creat Clear Calc Estimated GFR Random Glucose Lactic Acid Calcium Total Bilirubin AST ALT Alkaline Phosphatase Total Protein Albumin Coronavirus (PCR) Influenza Type A (PCR) Influenza Type B (PCR) RSV RNA Qual (PCR) Airway Mallampati Class: II TM Dist: >3cm Neck ROM: Full Loose/Missing/Broken Teeth: Yes (Broken top right back. Missing left back) Heart: RRR Lungs: CTAB Assessment and Plan Assessment Anesthesia Assessment: Anesthesia Plan Discussed Final Anesthetic Review NPO: Yes ASA Class: II Final Preanesthetic Review: No Changes in Pt Med Stat, Meds/Allgs Chart Reviewed, Consent Obtained/Reviewed and Anes Risks/Benef Reviewed Patient Risk: Low Procedure Risk: Low Anesthetic Plan Anesthetic Plan: MAC: Disposition: Standard PACU
--- NOTE | 2020-06-06 10:39 | MHC.SHP ---
Pre-Procedural Eval Section A The patient is an INPATIENT: Yes Changes since office visit: Yes New Medical Problems, Yes Changes in Medication and Yes Patient answered all questions; No Cold of Flu in the past 2 weeks The History & Physical has been completed within 30 days and I have reviewed it.: Yes Section B Chief Complaint: SIGMOID DIVERTICULITIS Allergies: Allergies Allergy/AdvReac Type Severity Reaction Status Date / Time No Known Allergies Allergy Verified 06/02/20 22:22 Plan Patient has been examined and remains a candidate for the planned procedure
--- NOTE | 2020-06-06 10:41 | P.OP_ITS ---
Operative Note Operative Note Date of Service: 06/06/20 Narrative: Pre-op diagnosis: Left sided abdominal pain, abnormal CT scan of descending colon Post-op diagnosis: other (Left sided colitis, diverticulosis, hemorrhoids) Procedure: COLONOSCOPY TILL CECUM WITH BIOPSIES Consent: Indications for the procedure and potential complications of bleeding, perforation, reaction to medications and missed diagnosis were discussed with the patient and informed consent was obtained. Instrument: Olympus PCF H 190 L variable stiffness pediatric colonoscope Monitoring: Vital signs and clinical assessment, intermittent blood pressure monitoring, continuous EKG monitoring, Pulse oximetry and Carbon Dioxide monitoring were done throughout the procedure. Colon withdrawl time was 18 minutes. Procedure: The patient was placed in the left lateral decubitis position and pre-procedure medications were administered. After a digital rectal examination of the ano-rectum, the video colonoscope was inserted into the rectum and advanced through the colon to the cecum. The colonoscope was slowly withdrawn in a retrograde panoramic fashion and the colon mucosa was carefully examined including a retroflexed view of the rectum. Findings and interventions are described below. Procedure Difficulty: Without difficulty Findings: Terminal Ileum: Not evaluated Cecum: Partially evaluated and mucosa appeared normal Ascending Colon: Partially evaluated and mucosa appeared normal Transverse Colon: Partially evaluated and mucosa appeared normal Descending Colon: Edema, patchy erythema with submucosal hemorrhages from 30 to 40 cms - biopsies were obtained. Sigmoid Colon: Partially evaluated and mucosa appeared normal. Moderate diverticulosis Rectum: Normal Ano-rectum: Small internal hemorrhoids Colon preparation: Fair to poor since procedure was performed on unprepped colon. Impression and Post Procedure Diagnosis: Colonoscopy Findings: No polyps were seen. Edema, patchy erythema with submucosal hemorrhages from 30 to 40 cms in the descending colon - likely resolving ischemic colitis - biopsies were obtained. Moderate diverticulosis seen in the sigmoid colon Small hemorrhoids on retroflexed exam. Plan: Await pathology results Patient will be contacted with biopsy results and can FU prn in the GI Clinic with Rupesh Marinelli M.D if he has continuing abdominal pain. Repeat Colonoscopy interval based on path results - in 5 years if biopsies are normal. Above findings were reviewed with the patient and diverticulosis handouts were given. Surgeon: Rupesh Marinelli MD Anesthesia: MAC (BUSINESS OBJECTS REPORT DEVELOPER Jose Airoarjun) Estimated blood loss (mL): 0 Pathology: other (A. Right colon, B. Left colon) Condition: stable Disposition: floor
--- NOTE | 2020-06-06 12:02 | MHC.CM.PN ---
THIS CHEMICAL MAKER RECEIVED A CALL FROM [facility] [employer]. PATIENT HAS HEALTH SAFETY NET, AND IS NOT YET ELIGIBLE FOR AN INCREASE IN INSURANCE BENEFIT COVERAGE, HE HAS BEEN HERE FOR LESS THAN 5 YEARS. INSURANCE UPDATED IN EXPANSE.
--- NOTE | 2020-06-06 14:32 | PM.PNGS ---
Subjective Subjective Date of Service: 06/06/20 Interval history: Patient seen following colonoscopy today. Feels comfortable. Colonoscopy results noted. Physical Exam Vital Signs: Vital Signs: Last Vital Signs Temp 97.5 F 06/06/20 11:15 Pulse 78 06/06/20 12:03 Resp 16 06/06/20 12:03 BP 127/79 06/06/20 12:03 Pulse Ox 99 06/06/20 12:03 Body Mass Index 30.7 Const: General: cooperative, healthy appearing, comfortable and no acute distress Resp: Effort & Inspection: normal respiratory effort, no cough, no stridor and not tachypneic GI: Inspection: Yes normal to inspection Palpation (GI): Soft to palpation, Tenderness to palpation present (GI) (LLQ) in the LLQ and no masses Skin: General skin exam: no rashes or lesions noted Progress Note: A&P Assessment and plan (1) Colitis: Status: Acute Assessment and Plan: Patient presents with complaints of abdominal pain left lower quadrant was found to have thickening of the descending colon on CT of the abdomen and pelvis. On examination the patient has tenderness in left lower quadrant. He subsequently underwent a colonoscopy today by Dr. Marinelli which revealed findings suggestive of ischemic colitis. Patient does feel improved today with decreased abdominal pain. Will advance diet as tolerated. Continue to monitor her his abdominal pain. Fall Risk Details Current Medications: Current Medications Generic Name Dose Route Start Last Admin Trade Name Freq PRN Reason Stop Dose Admin Acetaminophen 650 mg 06/06/20 12:48 Acetaminophen 325 Mg Tablet PO Q6H PRN Pain, Mild (Pain Scale 1-3) Diclofenac Sodium 50 mg 06/07/20 09:00 Diclofenac Sodium Delayed Rel 50 Mg Tablet.Dr PO DAILY KIKO Magnesium Hydroxide 30 ml 06/06/20 12:48 Milk Of Magnesia 30 Ml Oral.Susp PO DAILY PRN Constipation Morphine Sulfate 4 mg 06/06/20 12:55 Morphine Sulfate 4 Mg/Ml Cartridge IVPUSH Q4H PRN Pain, Severe (Pain Scale 7-10) Ondansetron HCl 4 mg 06/06/20 12:48 Ondansetron Hcl 4 Mg/2 Ml Vial IVPUSH Q8H PRN Nausea and Vomiting Oxycodone HCl 5 mg 06/06/20 12:55 Oxycodone Hcl Immed Release 5 Mg Tablet PO Q6H PRN Pain, Moderate (Pain Scale 4-6 Sodium Chloride 3 ml 06/06/20 16:00 0.9 % Sodium Chloride Flush 3 M[facility] Zolpidem Tartrate 5 mg 06/06/20 12:48 Zolpidem Tartrate 5 Mg Tablet PO BEDTIME PRN Insomnia Time Spent With Patient Time: Total time spent is greater than 50% in coordination of care (as documented) at patient's floor/unit and/or counseling patient: Time with patient: 15 - 24 minutes
[2020-06-06] MEDS: 0.9 % Sodium Chloride Flush 3 ML SYRINGE IVFLUSH (22:37)
[2020-06-06 22:52] LABS: Glucose Urine UA NEG (NEG); Leukocyte Esterase Urine NEG (NEG); Nitrite Urine NEG (NEG); Specific Gravity - Urine 1.015 (1.005-1.025); Urine Blood 1+ (NEG); Urine Ketones NEG (NEG); Urine Protein NEG (NEG-TRACE)
[2020-06-06 22:53] LABS: Appearance Urine CLEAR; Color Urine YELLOW
[2020-06-06 22:59] LABS: Squamous Epithelial Cell Urine 1+ /LPF; WBC Urine 0 /HPF (0-4)
[2020-06-07] MEDS: Diclofenac Sodium Delayed Rel 50 MG TABLET.DR PO (07:23)
[2020-06-07] MEDS: 0.9 % Sodium Chloride Flush 3 ML SYRINGE IVFLUSH (07:24)
--- NOTE | 2020-06-07 07:54 | PM.PNGS ---
Subjective Subjective Date of Service: 06/07/20 Interval history: Bernardo feels much improved today with no abdominal pain, nausea or vomiting. He reports not eating much but denies nausea. Feels hungry today. Physical Exam Vital Signs: Vital Signs: Last Vital Signs Temp 97.8 F 06/06/20 23:09 Pulse 79 06/06/20 23:09 Resp 20 06/06/20 23:09 BP 133/71 06/06/20 23:09 Pulse Ox 97 06/06/20 23:09 Body Mass Index 30.7 Const: General: cooperative, healthy appearing, comfortable and no acute distress Neck: Neck: Yes normal visual inspection Resp: Effort & Inspection: normal respiratory effort, no cough, no stridor and not tachypneic GI: Inspection: Yes normal to inspection Palpation (GI): Soft to palpation, nontender, no guarding and not rigid Skin: General skin exam: no rashes or lesions noted Extrem: General: Yes normal to inspection and Yes no clubbing, cyanosis or edema Psych: Affect: normal affect Progress Note: A&P Assessment and plan (1) Colitis: Status: Acute Assessment and Plan: Patient found to have findings suggestive of ischemic colitis, perhaps due to dehydration at work. He is much improved symptomatically today. Will see how he does with his diet today and possibly discharge to home later today. Fall Risk Details Current Medications: Current Medications Generic Name Dose Route Start Last Admin Trade Name Freq PRN Reason Stop Dose Admin Acetaminophen 650 mg 06/06/20 12:48 Acetaminophen 325 Mg Tablet PO Q6H PRN Pain, Mild (Pain Scale 1-3) Diclofenac Sodium 50 mg 06/07/20 09:00 06/07/20 07:23 Diclofenac Sodium Delayed Rel 50 Mg Tablet.Dr PO 50 mg DAILY KIKO Administration Magnesium Hydroxide 30 ml 06/06/20 12:48 Milk Of Magnesia 30 Ml Oral.Susp PO DAILY PRN Constipation Morphine Sulfate 4 mg 06/06/20 12:55 Morphine Sulfate 4 Mg/Ml Cartridge IVPUSH Q4H PRN Pain, Severe (Pain Scale 7-10) Ondansetron HCl 4 mg 06/06/20 12:48 Ondansetron Hcl 4 Mg/2 Ml Vial IVPUSH Q8H PRN Nausea and Vomiting Oxycodone HCl 5 mg 06/06/20 12:55 Oxycodone Hcl Immed Release 5 Mg Tablet PO Q6H PRN Pain, Moderate (Pain Scale 4-6 Sodium Chloride 3 ml 06/06/20 16:00 06/07/20 07:24 0.9 % Sodium Chloride Flush 3 Ml Syringe IVFLUSH 3 ml QSHIFT KIKO Administration Zolpidem Tartrate 5 mg 06/06/20 12:48 Zolpidem Tartrate 5 Mg Tablet PO BEDTIME PRN Insomnia Time Spent With Patient Time: Total time spent is greater than 50% in coordination of care (as documented) at patient's floor/unit and/or counseling patient: Time with patient: 15 - 24 minutes
[2020-06-07 07:55] VITALS: BP 131/61; PULSE 74; RESP 18; TEMP 36.6; O2SAT 97
--- NOTE | 2020-06-07 08:19 | HO.POSTANES ---
Post Anesthesia Evaluation Post Anesthesia Evaluation Vital Signs: Vital Signs Temp Pulse Resp BP Pulse Ox 06/07/20 07:55 97.9 F 74 18 131/61 97 06/06/20 23:09 97.8 F 79 20 133/71 97 Anesthesia: Monitored Mental Status: Awake Pain Control: Satisfactory Nausea/Vomiting: None Hydration: Adequate Anesthesia-Related Issues: No Anes. Related Issues
--- NOTE | 2020-06-07 13:11 | MHC.CM.PN ---
nurse care connector note electronic medical record reviewed ALONG WITH CASE DISCUSSED ON M[employer] DISCIPLINARY ROUNDS AND WITH STAFF NURSE . DISCHARGE HOME NO SERVICES\ PCP PATIENT TO CALL FOR POST HOSPITAL DISCHARGE FOLLOW UP TRANSPORTATION HIS
--- NOTE | 2020-06-07 17:20 | PM.DS ---
DS: Providers Provider Date of admission: 06/03/20 03:25 Date of discharge: 06/07/20 Primary care physician: Geoff Physician Admitting clinician: Anthony rFanklin Discharging clinician: Anthony Franklin DS: Diagnosis Discharge Diagnosis (1) Colitis: Status: Acute DS: Medications Discharge Medications Home Medications: Home Medications Medication Instructions Recorded Confirmed diclofenac sodium 50 mg PO DAILY 06/03/20 06/03/20 DS: Summary Hospital Course Hospital Course: Bernardo Whalen is a 40 year old male presenting with complaints of abdominal pain in the left lower quadrant. The symptoms began approximately 4 days prior to admission and increased in severity. He denied migration of the pain to the other quadrants. The pain was not associated with nausea, vomiting, diarrhea, or constipation. He denied a previous history of similar pains. He denied a previous history of abdominal surgeries other than appendectomy. Patient presented to the emergency department and was noted to have an elevated WBC. CT of the abdomen revealed inflammation of the descending colon suggestive of colitis. This was felt to be either due to a colitis or diverticulitis. He is admitted to the surgical service for further management. The patient was admitted to the hospitalist service, placed on IV antibiotics and IV fluids. Consultation was requested of gastroenterology. He was evaluated by Dr. Marinelli. Over the next two days he reported an improvement in his abdominal symptoms with decreased pain and no tenderness on examination. He was started on a clear liquid diet which was well tolerated without increased pain. On 06/06/2020, he underwent a colonoscopy by Dr. Marinelli which revealed mucosal changes in the left colon suggestive of ischemic colitis rather than an infectious colitis. He was subsequently advanced to a regular diet which again was well tolerated. He is discharged to home on 06/07/2020 in stable condition. He was encouraged to stay well hydrated especially at work. He will follow up with Dr. Marinelli as an outpatient and should follow up with his PCP. Time Spent with Patient Time attestation: Total time spent providing and/or coordinating discharge services: Physical Exam Vital Signs: Vital Signs: Last Vital Signs Temp 97.9 F 06/07/20 07:55 Pulse 74 06/07/20 07:55 Resp 18 06/07/20 07:55 BP 131/61 06/07/20 07:55 Pulse Ox 97 06/07/20 07:55 Body Mass Index 30.7 Const: General: cooperative, healthy appearing, comfortable and no acute distress Neck: Neck: Yes normal visual inspection Resp: Effort & Inspection: normal respiratory effort, no cough and no stridor GI: Inspection: Yes normal to inspection Palpation (GI): Soft to palpation, nontender, no guarding and not rigid Skin: General skin exam: no rashes or lesions noted Extrem: General: Yes full ROM DS: Data Data Completed and Pending Pending studies at discharge: Pending at discharge 06/06/20 10:54 Surgical [PTH] Routine Labs on day of discharge: 06/02/20 22:46 IV insert/maintain .Now Complete Blood Count Auto Diff Stat Comprehensive Met. Panel Stat 06/03/20 01:43 0.9 % Sodium Chloride [Ns] 1,000 ml IV 999 mls/hr Piperacillin Sodium/Tazobactam [Zosyn] 3.375 gm 0.9 % Sodium Chloride [Ns] 50 ml IV ONCE 06/03/20 01:53 CT abdomen pelvis w con Stat 06/03/20 02:00 Lactic Acid Stat 06/03/20 02:20 Piperacillin Sodium/Tazobactam [Zosyn] 3.375 gm IV .STK-MED ONE 06/03/20 02:23 iohexoL 350 MG/ML [Omnipaque 350 MG/ML] 85 ml IV ONCE ONE 06/03/20 02:27 fentaNYL citrate/PF [Sublimaze] 25 mcg IVPUSH ONCE ONE 06/03/20 02:55 SARS-CoV2/FLU/RSV Stat 06/03/20 03:19 Transfer Order Routine 06/03/20 03:20 Code Status Routine 06/03/20 09:51 0.9 % Sodium Chloride Flush [NS Flush] 3 ml IVFLUSH QSHIFT Acetaminophen [Tylenol] 650 mg PO Q6H PRN Dextrose 5 % and Lactated Ring [D5lr] 1,000 ml IVCONT 125 mls/hr Morphine Sulfate 4 mg IVPUSH Q4H PRN Zolpidem Tartrate [Ambien] 5 mg PO BEDTIME PRN ondansetron HCL [Zofran] 4 mg IVPUSH Q8H PRN oxyCODONE HCl Immed Release [Roxicodone] 5 mg PO Q6H PRN 06/03/20 09:51 Ambulate QSHIFT WHILE AWAKE Compression Therapy QSHIFT IV insert/maintain Q4HR Intake and Output QSHIFTE Vital Signs QSHIFT 06/03/20 10:00 Piperacillin Sodium/Tazobactam [Zosyn] 3.375 gm 0.9 % Sodium Chloride [Ns] 50 ml IV Q6H 06/03/20 10:27 Piperacillin Sodium/Tazobactam [Zosyn] 3.375 gm IV .STK-MED ONE 06/03/20 17:59 Piperacillin Sodium/Tazobactam [Zosyn] 3.375 gm IV .STK-MED ONE 06/03/20 23:43 Piperacillin Sodium/Tazobactam [Zosyn] 3.375 gm IV .STK-MED ONE 06/04/20 04:57 Piperacillin Sodium/Tazobactam [Zosyn] 3.375 gm IV .STK-MED ONE 06/04/20 06:08 Basic Metabolic Panel DAILY@0600 Complete Blood Count Auto Diff Routine 06/04/20 09:23 Piperacillin Sodium/Tazobactam [Zosyn] 3.375 gm IV .STK-MED ONE 06/04/20 15:08 Piperacillin Sodium/Tazobactam [Zosyn] 3.375 gm IV .STK-MED ONE 06/04/20 21:58 Piperacillin Sodium/Tazobactam [Zosyn] 3.375 gm IV .STK-MED ONE 06/05/20 04:42 Piperacillin Sodium/Tazobactam [Zosyn] 3.375 gm IV .STK-MED ONE 06/05/20 Breakfast Clear Liquid Diet 06/05/20 12:21 Piperacillin Sodium/Tazobactam [Zosyn] 3.375 gm IV .STK-MED ONE 06/05/20 16:15 Piperacillin Sodium/Tazobactam [Zosyn] 3.375 gm IV .STK-MED ONE 06/05/20 22:42 Piperacillin Sodium/Tazobactam [Zosyn] 3.375 gm IV .STK-MED ONE 06/06/20 03:49 Piperacillin Sodium/Tazobactam [Zosyn] 3.375 gm IV .STK-MED ONE 06/06/20 Breakfast NPO Diet 06/06/20 10:01 Continuous pulse oximetry CONT Vital Signs Q1H Vital Signs Q5MIN ondansetron HCL [Zofran] 4 mg IVPUSH ONCE PRN 06/06/20 10:02 Oxygen administration Nasal Cannula 2 lpm 06/06/20 10:15 Lactated Ringers [Lr] 1,000 ml IVCONT 100 mls/hr 06/06/20 10:33 Lidocaine HCl 2 % MPF [Xylocaine 2 % MPF] 5 ml .ROUTE .STK-MED ONE propofoL [Diprivan] 200 mg IVPUSH .STK-MED ONE 06/06/20 10:45 propofoL [Diprivan] 200 mg IVPUSH .STK-MED ONE 06/06/20 11:06 propofoL [Diprivan] 200 mg IVPUSH .STK-MED ONE 06/06/20 11:19 Phenylephrine HCL 1,000 mcg IVPUSH .STK-MED ONE 06/06/20 11:21 Transfer Order Routine 06/06/20 12:48 Acetaminophen [Tylenol] 650 mg PO Q6H PRN Milk of Magnesia [Mom] 30 ml PO DAILY PRN Zolpidem Tartrate [Ambien] 5 mg PO BEDTIME PRN ondansetron HCL [Zofran] 4 mg IVPUSH Q8H PRN 06/06/20 12:55 Morphine Sulfate 4 mg IVPUSH Q4H PRN oxyCODONE HCl Immed Release [Roxicodone] 5 mg PO Q6H PRN 06/06/20 16:00 0.9 % Sodium Chloride Flush [NS Flush] 3 ml IVFLUSH QSHIFT 06/07/20 09:00 Diclofenac Sodium Delayed Rel [Voltaren] 50 mg PO DAILY Laboratory Last Values WBC 9.3 X10*3/uL (4.8-10.8) 06/04/20 06:08 WBC Cancelled 06/04/20 06:08 RBC 4.72 X10*6/uL (4.60-5.80) 06/04/20 06:08 RBC Cancelled 06/04/20 06:08 Hgb 13.4 g/dl (14.0-18.0) L 06/04/20 06:08 Hgb Cancelled 06/04/20 06:08 Hct 41.7 % (42-52) L 06/04/20 06:08 Hct Cancelled 06/04/20 06:08 MCV 88.3 fL (80-98) 06/04/20 06:08 MCV Cancelled 06/04/20 06:08 MCH 28.4 pg (27.0-33.0) 06/04/20 06:08 MCH Cancelled 06/04/20 06:08 MCHC 32.1 g/dl (31.0-36.0) 06/04/20 06:08 MCHC Cancelled 06/04/20 06:08 RDW 13.2 % (11.0-16.0) 06/04/20 06:08 RDW Cancelled 06/04/20 06:08 Plt Count 312 X10*3/uL (160-400) 06/04/20 06:08 Plt Count Cancelled 06/04/20 06:08 MPV 10.1 fL (9.4-12.4) 06/04/20 06:08 MPV Cancelled 06/04/20 06:08 Immature Gran % (Auto) 0.3 % (0.0-0.4) 06/04/20 06:08 Immature Gran % (Auto) Cancelled 06/04/20 06:08 Neut % (Auto) 60.8 % (45-73) 06/04/20 06:08 Neut % (Auto) Cancelled 06/04/20 06:08 Lymph % (Auto) 26.5 % (20-40) 06/04/20 06:08 Lymph % (Auto) Cancelled 06/04/20 06:08 [place] % (Auto) 10.3 % (2-11) 06/04/20 06:08 [place] % (Auto) Cancelled 06/04/20 06:08 Eos % (Auto) 1.8 % (0-4) 06/04/20 06:08 Eos % (Auto) Cancelled 06/04/20 06:08 Baso % (Auto) 0.3 % (0-2) 06/04/20 06:08 Baso % (Auto) Cancelled 06/04/20 06:08 Lymph # (Auto) 2.5 X10*3/uL (1.2-4.9) 06/04/20 06:08 Lymph # (Auto) Cancelled 06/04/20 06:08 [place] # (Auto) 1.0 X10*3/uL (0.1-1.2) 06/04/20 06:08 [place] # (Auto) Cancelled 06/04/20 06:08 Eos # (Auto) 0.2 X10*3/uL (0.0-0.4) 06/04/20 06:08 Eos # (Auto) Cancelled 06/04/20 06:08 Baso # (Auto) 0.0 X10*3/uL (0.0-0.2) 06/04/20 06:08 Baso # (Auto) Cancelled 06/04/20 06:08 Abs Immat Gran (auto) 0.03 X10*3/uL (0.00-0.03) 06/04/20 06:08 Abs Immat Gran (auto) Cancelled 06/04/20 06:08 Absolute Neuts (auto) 5.6 X10*3/uL (2.0-8.3) 06/04/20 06:08 Absolute Neuts (auto) Cancelled 06/04/20 06:08 Absolute Nucleated RBC 0.000 X10*3/uL (0.0-0.012) 06/04/20 06:08 Absolute Nucleated RBC Cancelled 06/04/20 06:08 Nucleated RBC % (auto) 0.0 /100WBC (0.0-0.2) 06/04/20 06:08 Nucleated RBC % (auto) Cancelled 06/04/20 06:08 Sodium 138 mmol/L (135-145) 06/04/20 06:08 Potassium 4.2 mmol/l (3.3-5.1) 06/04/20 06:08 Chloride 101 mmol/L (96-108) 06/04/20 06:08 Carbon Dioxide 29 mmol/L (22-29) 06/04/20 06:08 Anion Gap 12 (-20) 06/04/20 06:08 BUN 9 mg/dL (9-16) 06/04/20 06:08 Creatinine 0.88 mg/dL (0.5-1.4) 06/04/20 06:08 Estim Creat Clear Calc 111.2 06/04/20 06:08 Estimated GFR > 60 06/04/20 06:08 Random Glucose 101 mg/dL (60-115) 06/04/20 06:08 Lactic Acid 1.0 mmol/L (0.5-2.0) 06/03/20 02:00 Calcium 8.4 mg/dL (8.4-10.2) 06/04/20 06:08 Total Bilirubin 1.0 mg/dL (0.0-1.0) 06/03/20 01:16 AST 33 U/L (5-37) 06/03/20 01:16 ALT 82 U/L (0-40) H 06/03/20 01:16 Alkaline Phosphatase 220 U/L (39-117) H 06/03/20 01:16 Total Protein 8.1 g/dL (6.5-8.0) H 06/03/20 01:16 Albumin 4.4 g/dL (3.5-5.0) 06/03/20 01:16 Urine Color YELLOW 06/06/20 22:30 Urine Appearance CLEAR 06/06/20 22:30 Urine pH 7.0 (5.0-8.0) 06/06/20 22:30 Ur Specific [place] 1.015 (1.005-1.025) 06/06/20 22:30 Urine Protein NEG MG/DL (NEG-TRACE) 06/06/20 22:30 Urine Glucose (UA) NEG MG/DL (NEG) 06/06/20 22:30 Urine Ketones NEG MG/DL (NEG) 06/06/20 22:30 Urine Blood 1+ (NEG) H 06/06/20 22:30 Urine Nitrite NEG (NEG) 06/06/20 22:30 Ur Leukocyte Esterase NEG (NEG) 06/06/20 22:30 Urine RBC 1-4 /HPF (0) 06/06/20 22:30 Urine WBC 0 /HPF (0-4) 06/06/20 22:30 Ur Squamous Epith Cells 1+ /LPF 06/06/20 22:30 Urine Bacteria NONE /LPF 06/06/20 22:30 Coronavirus (PCR) NEGATIVE (Negative) 06/03/20 02:55 Influenza Type A (PCR) NEGATIVE (Negative) 06/03/20 02:55 Influenza Type B (PCR) NEGATIVE (Negative) 06/03/20 02:55 RSV RNA Qual (PCR) NEGATIVE (Negative) 06/03/20 02:55 Preliminary micro results at discharge 06/03/20 02:16 Blood Culture - Preliminary Blood - Venous No growth after 48 hours. 06/03/20 02:01 Blood Culture - Preliminary Blood - Venous No growth after 48 hours. Discharge Plan Discharge Patient Disposition: Home, Self-Care Referrals: Rupesh Marinelli MD [Physician] - (As needed. Repeat colonoscopy in 5 years if biopsies normal.) Physician,None [Primary Care Provider] - Discharge Medications: Continued diclofenac sodium 50 mg Tablet,Delayed Release (Dr/Ec) 50 mg PO DAILY RF: 0 Discharge Orders: Discharge Order (Routine); Ordered 06/07/20 Ordered By: Viviana Luna Diet: advance to usual diet Activity on Discharge: As tolerated Discharge Date/Time: 06/07/20 16:04 Visit Report Forms: Patient Portal Discharge page Care Plan Goals: Return to baseline health and activity. Health Concerns: Colitis, likely ischemic. Plan of Treatment: Supportive treatment, colonoscopy.
== END 2020-06-07 16:04 | disposition home or self-care (01) | DRG 395 ==
LOC: HO.ED 06-03 03:33 → HO.S3 06-03 06:47
PROVIDERS: Internal Medicine Gastroenterology; Physician Assistant Surgical; Admitting Provider Surgery; Emergency Provider Student in an Organized Health Care Education/Training Program; Visit Provider Surgery
PROC: 0DJD8ZZ Inspection of Lower Intestinal Tract, Via Natural or Artificial Opening Endoscopic (ICD-10-PCS; CPT 45378; principal; 2020-06-06 12:50)
DX: K55.9 Vascular disorder of intestine, unspecified (principal); K57.30 Diverticulosis of large intestine without perforation or abscess without bleeding; K64.8 Other hemorrhoids; E86.0 Dehydration; Z20.828 Contact with and (suspected) exposure to other viral communicable diseases; Z79.899 Other long term (current) drug therapy
CPT/HCPCS: 0241U; 36415; 74177; 80048; 80053; 81001; 83605; 85025; 87040; 88305; 96361; 96374; 96375; 99231; 99285; J2270; J2370; J2543; J3010; Q9967

== ENCOUNTER 2023-11-06 17:48 | Inpatient (IN) | payer MEDICAID, OTHER, SELFPAY ==
--- NOTE | ~2023-11-06 | XR_ITS ---
EXAMINATION: XR ABDOMEN KUB CLINICAL INDICATION: Operating room instrument count COMPARISON: 11/06/2023 TECHNIQUE: AP view of the abdomen. FINDINGS: Jaden are present in the midline. Isabella type drain is seen overlying the left abdomen. An additional radiopacity is seen overlying the right hemipelvis which may be an inflatable reservoir. No metallic foreign bodies are seen. A new ostomy appears to be present in the left mid abdomen. The right colon remains distended with stool. Stool is present at the hepatic flexure as well. XR/XR KUB IMPRESSION: No unexpected radiopaque foreign body.
--- NOTE | ~2023-11-06 | XR_ITS ---
EXAMINATION: XR ABDOMEN KUB CLINICAL INDICATION: Constipation versus obstruction COMPARISON: None available. TECHNIQUE: AP view of the abdomen. FINDINGS: Large stool burden is present in the right colon. Very little stool is seen in the rectosigmoid and descending colon. There is no dilatation of small bowel. There is gaseous distention of the transverse colon. XR/XR KUB IMPRESSION: Large stool burden in the right colon.
--- NOTE | ~2023-11-06 | CT_ITS ---
EXAMINATION: CT ABDOMEN AND PELVIS WITH CONTRAST CLINICAL INFORMATION: Diffuse abdominal pain COMPARISON: KUB earlier today. CT abdomen pelvis 06/03/2020 TECHNIQUE: Multidetector volumetric images were obtained from the superior aspect of the liver through the pubic symphysis following administration 85 mL of Omnipaque 350 intravenous contrast. Sagittal and coronal reformatted images were obtained on the technologist's workstation. Oral contrast: No This CT examination was performed using dose optimization techniques as appropriate, variously including the following: *Automated exposure control *Adjustment of mA and/or kV according to patient size (this includes techniques or standardized protocols for targeted exams where dose is matched to indication/reason for exam; i.e. extremities or head) *Use of iterative reconstruction technique DLP: 601 mGy-cm FINDINGS: LUNG BASES: The visualized lung bases are unremarkable. LIVER, GALLBLADDER, AND BILIARY TREE: The liver is normal in size, shape, and attenuation. No focal hepatic lesion or biliary ductal dilatation is present. The gallbladder is unremarkable with no evidence of radiopaque gallstones, gallbladder wall thickening, or obvious pericholecystic inflammatory changes. PANCREAS: Unremarkable. SPLEEN: Unremarkable. ADRENAL GLANDS: Unremarkable. KIDNEYS AND URETERS: The kidneys are normal in size, shape, and attenuation. No hydronephrosis, hydroureter, or calculi seen. No perinephric stranding. BLADDER: Unremarkable. GASTROINTESTINAL TRACT: There is marked dilatation of the right colon measuring over 9 cm in size. There is some reflux at the ileocecal bowel with fecalization of the distal ileum. There is dilatation of the transverse colon and proximal descending colon as well. Of note, there is an obstructing lesion seen in the mid to distal descending colon with marked wall thickening and pericolonic inflammatory change. No extraluminal air is seen. No pneumatosis. No drainable fluid collections are seen. Is associated thickening of the lateral conal fascia and anterior pararenal fascia. ABDOMINAL WALL: No significant hernia is appreciated. LYMPH NODES: No retroperitoneal lymphadenopathy. VASCULAR: Unremarkable. PELVIC VISCERA: The prostate and seminal vesicles are unremarkable. OSSEOUS STRUCTURES: Unremarkable. CT/CT abdomen pelvis w IV con IMPRESSION: Obstructing lesion in the mid to distal descending colon with marked dilatation of colon proximal to this with reflux at the ileocecal valve. Differential diagnosis would include neoplasm as well as focal colitis and/or inflammatory processes such as diverticulitis although no diverticula are visualized. Fleischner guidelines were followed.
--- NOTE | ~2023-11-06 | XR_ITS ---
EXAMINATION: XR CHEST CLINICAL INFORMATION: NG tube placement COMPARISON: None available. TECHNIQUE: Frontal view of the chest was obtained. FINDINGS: There is an enteric tube coursing over the expected region of the esophagus. The tip is collimated from the [id number] but extends to at least the first portion of the duodenum. The trachea is in normal anatomic position. The cardiac silhouette is normal in size. There is a linear opacity within the right lower lung which may represent linear atelectasis. No consolidation. There is mild blunting of the left costophrenic angle. A small left pleural effusion cannot be excluded. There is no pneumothorax. XR/XR chest 1V IMPRESSION: There is an enteric tube coursing over the expected region of the esophagus. The tip is collimated from the [id number] but extends to at least the first portion of the duodenum. There is mild blunting of the left costophrenic angle. A small left pleural effusion cannot be excluded.
--- NOTE | ~2023-11-06 | CT_ITS ---
EXAMINATION: CT ABDOMEN AND PELVIS WITHOUT CONTRAST CLINICAL INFORMATION: Status post colostomy. Postoperative pain. COMPARISON: 11/06/2023 TECHNIQUE: Multidetector volumetric imaging was performed from the superior aspect of the liver through the pubic symphysis. Sagittal and coronal reformatted images were obtained on the technologist's workstation. This CT examination was performed using dose optimization techniques as appropriate, variously including the following: *Automated exposure control *Adjustment of mA and/or kV according to patient size (this includes techniques or standardized protocols for targeted exams where dose is matched to indication/reason for exam; i.e. extremities or head) *Use of iterative reconstruction technique DLP: 629 mGy-cm FINDINGS: LUNG BASES: Atelectasis in dependent aspect of each lung. Trace left pleural effusion. HEPATOBILIARY: Liver has normal size, shape, and attenuation. Gallbladder has a normal appearance. No dilated bile ducts. PANCREAS: No edema, pancreatic ductal dilatation or mass. SPLEEN: Normal. ADRENAL GLANDS: Normal. KIDNEYS AND URETERS: Kidneys have normal size and cortical thickness. No perinephric fluid collection, urolithiasis or hydroureteronephrosis. BLADDER: Normal. BOWEL AND PERITONEUM: Stomach is distended with fluid and gas and has normal wall thickness. Also, proximal small bowel is distended with fluid. The third portion of the duodenum, which is distended with fluid, measures 4 cm AP diameter proximally, and there is a gradual tapering of the small bowel. The distal small bowel is decompressed. The colon is not well evaluated due to lack of colonic distention. The lack of colonic distention and presence of postoperative edema in omental fat makes it difficult to entirely exclude a colitis. There is a transverse colostomy in the left abdominal wall and Bolanos's pouch consisting of sigmoid colon and rectum in the pelvis. Percutaneous drainage tube is present in the left mid abdomen. There is postoperative edema of mesenteric/omental fat. No focal organized fluid collection within the abdomen or pelvis. A trace amount of simple appearing free fluid is present within the pelvis. No pneumoperitoneum. ABDOMINAL WALL: Stable skin arnie of the midline abdominal wall. There is edema of the subcutaneous tissues of the abdominal wall, flanks and back. VASCULATURE: Unremarkable. LYMPH NODES: No pathologic sized lymph nodes in the abdomen or pelvis. No inguinal lymphadenopathy. PELVIC VISCERA: Unremarkable. MUSCULOSKELETAL: Unremarkable. CT/CT abdomen pelvis wo IV con IMPRESSION: * Status post partial colonic resection with Jill procedure. * Findings suggest likelihood of postoperative ileus/hypomotility involving proximal small bowel and stomach which are distended with fluid. There is no focal transition point; no overt bowel obstruction. * Postoperative edema of omental/mesenteric fat without abscess. Percutaneous drainage catheter is present in the left midabdomen.
--- NOTE | ~2023-11-06 | XR_ITS ---
EXAMINATION: XR ABDOMEN COMPLETE CLINICAL INDICATION: Reason for Exam Follow-up gastric distention, abdominal pain COMPARISON: CT abdomen pelvis 11/12/2023 TECHNIQUE: AP view of the abdomen. FINDINGS: Lines or devices: Midline soft tissue surgical arnie. EKG leads overlie the patient. Suture chain material overlies the left mid abdomen. Near complete paucity of bowel gas limits evaluation. Minimal gas and stool in the rectum. Supine technique limits evaluation for extraluminal air although no secondary findings are appreciated. No abnormal calcifications. XR/XR KUB IMPRESSION: Near complete paucity of bowel gas limits evaluation. Minimal gas and stool in the rectum.
--- NOTE | ~2023-11-06 | CT_ITS ---
EXAMINATION: CT ABDOMEN AND PELVIS WITH CONTRAST CLINICAL INFORMATION: Status post sigmoid resection now with elevated white blood cell count COMPARISON: 11/12/2023 TECHNIQUE: Multidetector volumetric images were obtained from the superior aspect of the liver through the pubic symphysis following administration 85 mL of Omnipaque 350 intravenous contrast. Sagittal and coronal reformatted images were obtained on the technologist's workstation. Oral contrast: No This CT examination was performed using dose optimization techniques as appropriate, variously including the following: *Automated exposure control *Adjustment of mA and/or kV according to patient size (this includes techniques or standardized protocols for targeted exams where dose is matched to indication/reason for exam; i.e. extremities or head) *Use of iterative reconstruction technique DLP: 383 mGy-cm FINDINGS: LUNG BASES: Minor bibasilar infiltrates left greater than right with a small left basilar pleural effusion. No significant change. LIVER, GALLBLADDER, AND BILIARY TREE: The liver is normal in size, shape, and attenuation. No focal hepatic lesion or biliary ductal dilatation is present. The gallbladder is unremarkable with no evidence of radiopaque gallstones, gallbladder wall thickening, or obvious pericholecystic inflammatory changes. PANCREAS: Unremarkable. SPLEEN: Unremarkable. ADRENAL GLANDS: Unremarkable. KIDNEYS AND URETERS: The kidneys are normal in size, shape, and attenuation. No hydronephrosis, hydroureter, or calculi seen. No perinephric stranding. BLADDER: Thick walled but decompressed GASTROINTESTINAL TRACT: Abnormal. The stomach is less distended on the prior study. Fluid-filled small bowel loops are seen throughout likely reflective of ileus but have improved from the prior study. There is a midline surgical defect with air and fluid and soft tissue attenuation extending up to the umbilicus but drainable collections are not seen. Surgical suture material is seen in the left mid abdomen in the area of prior sigmoid resection. Adjacent to the surgical clips, some ill-defined fluid and soft tissue attenuation remains. On the coronal reformats, the area of fluid along the inferior margin at 27 x 33 mm appears slightly more conspicuous and may reflect a recurring collection which may or may not be infected. Please see image(). It is noted that the drainage catheter has been removed. This area should be kept under continued surveillance has been drainage may be required. The transverse colostomy is again noted without evidence for obstruction. ABDOMINAL WALL: Please see above comments. The edema in the anterior abdominal wall extending up to the colostomy site has diminished. LYMPH NODES: Normal. VASCULAR: Unremarkable. PELVIC VISCERA: Unremarkable. OSSEOUS STRUCTURES: Unremarkable. CT/CT abdomen pelvis w IV con IMPRESSION: Status post partial colonic resection. Postoperative ileus has improved. Postoperative edema in the mesentery has improved. The percutaneous drainage catheter has been removed although one area of fluid collection near the suture line is more conspicuous therefore, this bears further close follow-up. Fleischner guidelines were followed.
[2023-11-06 18:21] VITALS: BP 141/91; PULSE 84; RESP 20; TEMP 37; O2SAT 97; BMI 38.6
--- NOTE | 2023-11-06 18:26 | ED_ITS ---
[facility] ER General Adult General Chief complaint: Abdominal Pain Stated complaint: colon issue? seen elsewhere this morning Time Seen by Provider: 11/06/23 21:10 Source: patient Mode of arrival: ambulatory History of Present Illness [facility] narrative: 43-year-old male presents with significant abdominal pain without nausea or vomiting, last bowel movement was Saturday, denies urinary symptoms, denies fevers or chills. Related Data Home Medications ?Medication ?Instructions ?Recorded ?Confirmed diclofenac sodium 50 mg 50 mg PO DAILY 06/03/20 06/03/20 tablet,delayed release Allergies Allergy/AdvReac Type Severity Reaction Status Date / Time No Known Allergies Allergy Verified 11/06/23 18:23 Review of Systems 2 Review of Systems: Pertinent positives and negatives as stated in [facility] Past Medical History Source: nursing notes reviewed Medical History Diverticulitis Surgical History Hx of appendectomy Social History Social History Household Members: Friend(s) Housing: House Alcohol intake: never Comment: resting in bed, eyes closed Smoked in Last 30 Days: No Second Hand Smoke Exposure: Yes Use of substances other than those prescribed or required for medical reasons: No Advance Directives: No Advance Directives Information Provided: No Do you have a plan to hurt others: No Plan service: No Current occupational status: unemployed Physical Exam ED Vital Signs: Vital Signs - 24 hr 11/06/23 18:21 11/06/23 21:30 Temperature 98.6 F 97.9 F Pulse Rate 84 86 Respiratory Rate 20 18 Blood Pressure 141/91 H 142/82 H Pulse Oximetry 97 99 Oxygen Delivery Method Room Air Room Air BMI result Body Mass Index 38.6 VITAL SIGNS: Reviewed. GENERAL: Well developed, well nourished, in no acute distress. HEAD: Normocephalic/atraumatic EYES: PERRLA, EOMI LUNGS: Normal breath sounds. No adventitious sounds or accessory muscle use. SpO2<99> CARDIOVASCULAR: Regular rate and rhythm without noted murmurs ABDOMEN: Soft, diffusely tender to palpation, non-distended with bowel sounds. MUSCULOSKELETAL: No tenderness, deformities, or effusions noted on gross inspection. EXTREMITIES: No cyanosis, clubbing or edema. SKIN: Inspection of the skin reveals no rashes NEUROLOGIC: Alert and oriented x 4. Strength and sensation to light touch were grossly intact x 4. Course Course Course Narrative: This is a Rapid Medical Examination (RME) performed by So Calixto PA-C in triage. Full HPI, ROS, assessment and treatment plan per primary provider in the Main ED. 43-year-old male presents to the ED today for evaluation of worsening abdominal pain and constipation x1 day. He has been unable to pass a BM since Saturday night (5 days). He is passing flatus. Patient was evaluated at [facility] yesterday for same. CT showed colitis and he was discharged home with senna, docusate, and MiraLax. He has taken 2 doses of this and has still not passed a bowel movement. He presents today with increased abdominal pain. Taking pain meds at home however vomited up the last dose. Patient in obvious discomfort in triage. Abdomen firm, distended, diffusely tender to palpation with guarding. No rebound tenderness. Plan: Medications Administered Discontinued Medications Generic Name Dose Route Start Last Admin Trade Name Freq PRN Reason Stop Dose Admin Sodium Chloride 1,000 mls @ 999 mls/hr 11/06/23 22:15 11/06/23 23:23 Ns IV 11/06/23 23:15 Infused .Q1H1M KIKO Infusion Piperacillin Sod/Tazobactam 50 mls @ 100 mls/hr 11/06/23 22:30 11/06/23 23:23 Sod 3.375 gm/ Sodium Chloride IV 11/06/23 22:59 Infused ONCE ONE Infusion Iohexol 85 ml 11/06/23 22:20 11/06/23 22:21 Iohexol 350 Mg/Ml 100 Ml Infus..Btl IV 11/06/23 22:21 85 ml ONCE ONE Administration Ketorolac Tromethamine 15 mg 11/06/23 22:30 11/06/23 22:40 Ketorolac Tromethamine 30 Mg/Ml Vial IVPUSH 11/06/23 22:31 15 mg ONCE ONE Administration Medical Decision Making Medical Decision Making [facility] Narrative: 0: 43-year-old male with history and clinical presentation, DDX: Diverticulitis, perforation, renal colic, lower clinical suspicion for appendicitis or obstruction. I reviewed all investigations and patient has hematologic indices demonstrate a mild leukocytosis with left shift but no anemia or thrombocytopenia. Chemistry indices negative for CURTIS/electrolyte derangements and patient has chronically elevated alkaline phosphatase. Urinalysis demonstrates hematuria but otherwise no evidence of infection. CT scan concerning for possible mid/distal obstructing lesion and sites possibility of neoplasm/focal colitis or possible diverticulitis but felt to be less likely as there are no visualized diverticula. INTERVENTION: IV fluids, pain medication, antiemetic and antibiotics. 2332: I discussed case with Dr. Brooks who accepts admission. 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 Please see the discussion above 11/06/23 18:42 11/06/23 18:42 Labs: Lab Results 11/06/23 11/06/23 11/06/23 Range/Units 18:42 21:27 22:46 WBC 10.9 H (4.8-10.8) X10*3/uL RBC 5.08 (4.60-5.80) X10*6/uL Hgb 14.9 (14.0-18.0) g/dl Hct 42.8 (42.0-52.0) % MCV 84.3 (80.0-98.0) fL MCH 29.3 (27.0-33.0) pg MCHC 34.8 (31.0-36.0) g/dl RDW 13.1 (11.0-16.0) % Plt Count 348 (160-400) X10*3/uL MPV 9.5 (9.4-12.4) fL Immature Gran % (Auto) 0.5 H (0.0-0.4) % Neut % (Auto) 84.2 H (45-73) % Lymph % (Auto) 10.9 L (20-40) % [place] % (Auto) 4.1 (2-11) % Eos % (Auto) 0.1 (0-4) % Baso % (Auto) 0.2 (0-2) % Lymph # (Auto) 1.2 (1.2-4.9) X10*3/uL [place] # (Auto) 0.5 (0.1-1.2) X10*3/uL Eos # (Auto) 0.0 (0.0-0.4) X10*3/uL Baso # (Auto) 0.0 (0.0-0.2) X10*3/uL Abs Immat Gran (auto) 0.05 H (0.00-0.03) X10*3/uL Absolute Neuts (auto) 9.2 H (2.0-8.3) x10*3/uL Absolute Nucleated RBC 0.000 (0.0-0.012) X10*3/uL Nucleated RBC % (auto) 0.0 (0.0-0.2) /100WBC Sodium 137 (135-145) mmol/L Potassium 3.6 (3.3-5.1) mmol/L Chloride 102 (96-108) mmol/L Carbon Dioxide 22 (22-29) mmol/L Anion Gap 17 (12-20) BUN 11 (9-16) mg/dL Creatinine 0.75 (0.5-1.4) mg/dL Estim Creat Clear Calc 137.1 Estimated GFR > 60 Random Glucose 146 H (60-115) mg/dL Lactic Acid 2.0 (0.5-2.0) mmol/L Calcium 9.5 D (8.4-10.2) mg/dL Magnesium 2.1 (1.6-2.6) mg/dL Total Bilirubin 0.8 (0.0-1.0) mg/dL AST 15 (5-37) U/L ALT 30 (0-40) U/L Alkaline Phosphatase 139 H (39-117) U/L Total Protein 8.3 H (6.5-8.0) g/dL Albumin 4.2 (3.5-5.0) g/dL Lipase 19 (8-78) U/L Urine Color Dark Yellow Urine Appearance Clear Urine pH 6.0 (5.0-9.0) Ur Specific [place] >= 1.030 H (1.005-1.025) Urine Protein 30 (1+) H (Neg-Trace) mg/dL Urine Glucose (UA) Negative (Negative) mg/dL Urine Ketones 40 (Negative) mg/dL Urine Blood Trace H (Negative) Urine Nitrite Negative (Negative) Ur Leukocyte Esterase Negative (Negative) Urine RBC >20 H (0-2) /HPF Urine WBC 0-5 (0-5) /HPF Ur Squamous Epith Cells 0-2 (0-2) /HPF Urine Bacteria None Seen (None Seen) Hyaline Casts 0-2 (0-2) /LPF Radiology Impression Discussion of test interpretation with radiology: I have reviewed the radiologist's reading. Radiologist Impression: Please see the discussion above Critical Care Time Critical Care Time Critical Care Time: Yes Total Critical Care Time: 60 Attestation: I personally attest to this time spent taking care of the patient. Discharge Plan Discharge Clinical Impression: Lesion of colon Patient Disposition: Admitted As Inpatient Prescriptions: No Action diclofenac sodium 50 mg Tablet,Delayed Release (Dr/Ec) 50 mg PO DAILY Print Language: Hungarian
[2023-11-06 18:48] LABS: Basophils Percent Auto 0.2 % (0-2); Eosinophils Percent Auto 0.1 % (0-4); Hematocrit 42.8 % (42.0-52.0); Hemoglobin 14.9 g/dl (14.0-18.0); Imm Gran Abs Auto 0.05 X10*3/uL (0.00-0.03); Imm Gran Pct Auto 0.5 % (0.0-0.4); Lymphocytes Absolute Auto 1.2 X10*3/uL (1.2-4.9); Lymphocytes Percent Auto 10.9 % (20-40); MANUAL DIFF FLAG NO; Mean Corpuscular HGB Conc 34.8 g/dl (31.0-36.0); Mean Corpuscular Hemoglobin 29.3 pg (27.0-33.0); Mean Corpuscular Volume 84.3 fL (80.0-98.0); Mean Platelet Volume 9.5 fL (9.4-12.4); Monocytes Absolute Auto 0.5 X10*3/uL (0.1-1.2); Monocytes Percent Auto 4.1 % (2-11); Neutrophils Absolute Auto 9.2 x10*3/uL (2.0-8.3); Neutrophils Percent Auto 84.2 % (45-73); Platelet Count 348 X10*3/uL (160-400); Red Blood Count 5.08 X10*6/uL (4.60-5.80); Red Cell Distribution Width 13.1 % (11.0-16.0); White Blood Count 10.9 X10*3/uL (4.8-10.8)
[2023-11-06 19:04] LABS: Alanine Aminotransferase 30 U/L (0-40); Albumin Level 4.2 g/dL (3.5-5.0); Alkaline Phosphatase 139 U/L (39-117); Anion Gap 17 (12-20); Aspartate Amino Transferase 15 U/L (5-37); Bilirubin Total 0.8 mg/dL (0.0-1.0); Blood Urea Nitrogen 11 mg/dL (9-16); Calcium 9.5 mg/dL (8.4-10.2); Carbon Dioxide 22 mmol/L (22-29); Chloride 102 mmol/L (96-108); Creatinine Clr Calc Pharmacy 137.1; Estimated Glomerular Filt Rate > 60; Glucose Random 146 mg/dL (60-115); Lipase 19 U/L (8-78); Magnesium 2.1 mg/dL (1.6-2.6); Potassium 3.6 mmol/L (3.3-5.1); Sodium 137 mmol/L (135-145); Total Protein 8.3 g/dL (6.5-8.0)
[2023-11-06 21:30] VITALS: BP 142/82; PULSE 86; RESP 18; TEMP 36.6; O2SAT 99
[2023-11-06 21:36] LABS: Appearance Urine Clear; Color Urine Dark Yellow; Glucose Urine UA Negative (Negative); Leukocyte Esterase Urine Negative (Negative); Nitrite Urine Negative (Negative); Specific Gravity - Urine >= 1.030 (1.005-1.025); UMIC TRIGGER UACC YES; Urine Blood Trace (Negative); Urine Ketones 40 mg/dL (Negative); Urine Protein 30 (1+) mg/dL (Neg-Trace)
[2023-11-06 21:47] LABS: Bacteria Urine None Seen (None Seen); Hyaline Casts Urine 0-2 /LPF (0-2); RBC Urine >20 /HPF (0-2); Squamous Epithelial Cell Urine 0-2 /HPF (0-2); WBC Urine 0-5 /HPF (0-5)
[2023-11-06] MEDS: 0.9 % Sodium Chloride 1,000 ML 999 ML IV (22:12)
--- NOTE | 2023-11-06 22:13 | PC.NURSE ---
a&ox4. vss and up to date. pt presents w/ ongoing abd pain/constipation x 5 days. pt seen at [facility] - dx w/ colitis. prescribed medication - used a few times w/ no good effect. pt presents today c/o 04/09 abd pain/n/v/constipation. abd distended/tender upon palpation. pt presents w/ excessive hiccups. 20gIV placed in the right AC - IVF administered per provider order. bladder scan obtained by tech. pt currently being transported to CT. will resume care of pt when he returns.
[2023-11-06] MEDS: iohexoL 350 MG/ML 100 ML INFUS..BTL 85 ML IV (22:21)
[2023-11-06] MEDS: Ketorolac Tromethamine 30 MG/ML VIAL 15 MG IVPUSH (22:40)
[2023-11-06] MEDS: Piperacillin Sodium/Tazobactam 3.375 GM in 0.9 % Sodium Chloride 50 ML IV (22:47)
--- NOTE | 2023-11-06 22:47 | PC.NURSE ---
cultures obtained/sent to lab. abx administered per provider order.
[2023-11-06] MEDS: ondansetron HCL 4 MG/2 ML VIAL IVPUSH (23:47)
[2023-11-06] MEDS: fentaNYL citrate/PF 100 MCG/2 ML VIAL 25 MCG IVPUSH (23:47)
--- NOTE | 2023-11-06 23:48 | PC.NURSE ---
pt rating pain at a 5/10 post medication administration. medication administered per provider order. effectiveness pending.
[2023-11-07] VITALS (21 sets, daily range): BP systolic 123–147; BP diastolic 68–84; PULSE 76–94; RESP 12–21; TEMP 36.2–37.4; O2SAT 96–100; BMI 34.0
[2023-11-07] MEDS: Lactated Ringers 1,000 ML 80 ML IVCONT (00:24)
--- NOTE | 2023-11-07 00:26 | PC.NURSE ---
pt verbalizing pain level decreased to a 2/10 post medication administration. LR running at 80mls/hr per provider order. respirations remain even and unlabored. plan of care ongoing. call mckeno placed within reach.
--- NOTE | 2023-11-07 03:42 | PC.NURSE ---
pt currently asleep/resting in no apparent distress. no sob/wob noted. respirations even and unlabored. pt awaiting bed assignment at this time. plan of care ongoing. call mckeon placed within reach.
--- NOTE | 2023-11-07 07:46 | P.HPGS_ITS ---
History of Present Illness History of Present Illness Date of Service: 11/08/23 Chief complaint: Sigmoid obstruction Narrative: Bernardo Whalen is a 43 year old male here for abdominal pain. He says he has had this problem with abdominal pain on and off for several years. This has been worsening the past 5 days. He describes the pain as diffuse. He has had not had a bowel movement for about 5 days. He says he is passing some flatus he says he has not eaten in 6 days because of pain. He has had a bowel movement in 5 days. Review of his records show that he was admitted in May, here in the hospital for abdominal pain and was diagnosed to have colitis of the sigmoid. Review of his CT scan shows thickening of the distal left colon at that time. He says that he has had abdominal pain on and off since then. He states that he was in [place] years ago as well and had undergone a colonoscopy and he says he thought that this was normal. His CT scan today shows that he has what appears to be an obstruction with marked thickening in the distal descending colon with severe proximal dilatation. The cecum is more than 9 cm in diameter now. Review of Systems Constitutional: Constitutional: Denies chills and Denies fever(s) Cardiovascular: Cardiovascular: Denies chest pain, Denies dyspnea and Denies dyspnea on exertion Respiratory: Respiratory: Denies cough, Denies dyspnea and Denies dyspnea on exertion Gastrointestinal: Gastrointestinal: Denies hematochezia and Denies change in bowel habits Genitourinary: Genitourinary: Denies hematuria and Denies difficulty urinating Musculoskeletal: Musculoskeletal: Denies back pain and Denies limited range of motion Neurologic: Denies focal weakness and Denies convulsions Psychiatric: Psychiatric: Denies depression and Denies mood swings [facility] Past Medical History Medical History Colon obstruction Diverticulitis Surgical History Surgical History Hx of appendectomy Social History Social History Household Members: Friend(s) Housing: House Do you presently have visiting nurse or other home services: No Alcohol intake: never Comment: resting in bed, eyes closed Patient Tobacco Use Status: Never used Tobacco Smoked in Last 30 Days: No Second Hand Smoke Exposure: Yes Use of substances other than those prescribed or required for medical reasons: No Currently Displaying Signs/Symptoms of Drug Intoxication Withdrawal: No Have you been hit, kicked, punched, or otherwise hurt by someone within the past year? If so, by whom?: No Do you feel safe in your current relationship?: No Current Relationship Is there a partner from a previous relationship who is making you feel unsafe now?: No Are you made to feel afraid or neglected: No Christianity Healthcare Practices: restoration Are you DNR?: No Advance Directives: No Advance Directives Information Provided: No Do you have a plan to hurt others: No Plan Recently lost weight without trying: No Nutrition Risks: No Nutritional Risk Poor oral hygiene: No service: No Current occupational status: unemployed Meds Allergies Allergy/AdvReac Type Severity Reaction Status Date / Time No Known Allergies Allergy Verified 11/06/23 18:23 Active Medications: Current Medications Lactated Ringer's (Lr) 1,000 mls @ 80 mls/hr IVCONT .[id number] [facility] Last Admin: 11/07/23 00:24 Dose: 80 mls/hr Morphine Sulfate (Morphine Sulfate 4 Mg/Ml Cartridge) 3 mg IVPUSH Q4H PRN; Protocol PRN Reason: Pain, Severe (Pain Scale 7-10) Ondansetron HCl (Ondansetron Hcl 4 Mg/2 Ml Vial) 4 mg IVPUSH Q6H PRN PRN Reason: nausea Sodium Chloride (0.9 % Sodium Chloride Flush 3 Ml Syringe) 3 ml IVFLUSH QSHIFT [facility] Last Admin: 11/07/23 00:25 Dose: Not Given Home Medications ?Medication ?Instructions ?Recorded ?Confirmed ?Last Taken ?Type No Known Home Meds 11/07/23 11/07/23 Unknown History Physical Exam Vital Signs: Vital Signs: Last Vital Signs Temp 98.3 F 11/07/23 03:50 Pulse 76 11/07/23 03:50 Resp 16 11/07/23 03:50 BP 129/71 11/07/23 03:50 Pulse Ox 96 11/07/23 03:50 O2 Del Method Room Air 11/07/23 03:50 BMI result Body Mass Index 38.6 Const: Other: Appears overweight General: comfortable and no acute distress Orientation/consciousness: patient oriented x3 Neck: Neck: Yes no lymphadenopathy Resp: Auscultation: clear to auscultation bilaterally Cardio: Rhythm: regular rhythm GI: Other: Diffuse tenderness Palpation (GI): Soft to palpation, not firm, Tenderness to palpation present (GI) and no guarding Neuro: General: patient oriented x3 Results Results Labs: Short CBC 11/06/23 Range/Units 18:42 WBC 10.9 H (4.8-10.8) X10*3/uL Hgb 14.9 (14.0-18.0) g/dl Hct 42.8 (42.0-52.0) % Plt Count 348 (160-400) X10*3/uL BMP 11/06/23 18:42 Sodium 137 Potassium 3.6 Chloride 102 Carbon Dioxide 22 BUN 11 Creatinine 0.75 Calcium 9.5 D Liver Function 11/06/23 Range/Units 18:42 Total Bilirubin 0.8 (0.0-1.0) mg/dL AST 15 (5-37) U/L ALT 30 (0-40) U/L Alkaline Phosphatase 139 H (39-117) U/L Albumin 4.2 (3.5-5.0) g/dL Urine 11/06/23 Range/Units 21:27 Urine Color Dark Yellow Urine Appearance Clear Urine pH 6.0 (5.0-9.0) Ur Specific [place] >= 1.030 H (1.005-1.025) Urine Protein 30 (1+) H (Neg-Trace) mg/dL Urine Glucose (UA) Negative (Negative) mg/dL Abdomen CT scan report/results: report reviewed and image reviewed CT scan - pelvis: report reviewed and image reviewed Additional studies: Laboratory Results WBC 10.9 X10*3/uL (4.8-10.8) H 11/06/23 18:42 RBC 5.08 X10*6/uL (4.60-5.80) 11/06/23 18:42 Hgb 14.9 g/dl (14.0-18.0) 11/06/23 18:42 Hct 42.8 % (42.0-52.0) 11/06/23 18:42 MCV 84.3 fL (80.0-98.0) 11/06/23 18:42 MCH 29.3 pg (27.0-33.0) 11/06/23 18:42 MCHC 34.8 g/dl (31.0-36.0) 11/06/23 18:42 RDW 13.1 % (11.0-16.0) 11/06/23 18:42 Plt Count 348 X10*3/uL (160-400) 11/06/23 18:42 MPV 9.5 fL (9.4-12.4) 11/06/23 18:42 Immature Gran % (Auto) 0.5 % (0.0-0.4) H 11/06/23 18:42 Neut % (Auto) 84.2 % (45-73) H 11/06/23 18:42 Lymph % (Auto) 10.9 % (20-40) L 11/06/23 18:42 [place] % (Auto) 4.1 % (2-11) 11/06/23 18:42 Eos % (Auto) 0.1 % (0-4) 11/06/23 18:42 Baso % (Auto) 0.2 % (0-2) 11/06/23 18:42 Lymph # (Auto) 1.2 X10*3/uL (1.2-4.9) 11/06/23 18:42 [place] # (Auto) 0.5 X10*3/uL (0.1-1.2) 11/06/23 18:42 Eos # (Auto) 0.0 X10*3/uL (0.0-0.4) 11/06/23 18:42 Baso # (Auto) 0.0 X10*3/uL (0.0-0.2) 11/06/23 18:42 Abs Immat Gran (auto) 0.05 X10*3/uL (0.00-0.03) H 11/06/23 18:42 Absolute Neuts (auto) 9.2 x10*3/uL (2.0-8.3) H 11/06/23 18:42 Absolute Nucleated RBC 0.000 X10*3/uL (0.0-0.012) 11/06/23 18:42 Nucleated RBC % (auto) 0.0 /100WBC (0.0-0.2) 11/06/23 18:42 Sodium 137 mmol/L (135-145) 11/06/23 18:42 Potassium 3.6 mmol/L (3.3-5.1) 11/06/23 18:42 Chloride 102 mmol/L (96-108) 11/06/23 18:42 Carbon Dioxide 22 mmol/L (22-29) 11/06/23 18:42 Anion Gap 17 (12-20) 11/06/23 18:42 BUN 11 mg/dL (9-16) 11/06/23 18:42 Creatinine 0.75 mg/dL (0.5-1.4) 11/06/23 18:42 Estim Creat Clear Calc 137.1 11/06/23 18:42 Estimated GFR > 60 11/06/23 18:42 Random Glucose 146 mg/dL (60-115) H 11/06/23 18:42 Lactic Acid 2.0 mmol/L (0.5-2.0) 11/06/23 22:46 Calcium 9.5 mg/dL (8.4-10.2) D 11/06/23 18:42 Magnesium 2.1 mg/dL (1.6-2.6) 11/06/23 18:42 Total Bilirubin 0.8 mg/dL (0.0-1.0) 11/06/23 18:42 AST 15 U/L (5-37) 11/06/23 18:42 ALT 30 U/L (0-40) 11/06/23 18:42 Alkaline Phosphatase 139 U/L (39-117) H 11/06/23 18:42 Total Protein 8.3 g/dL (6.5-8.0) H 11/06/23 18:42 Albumin 4.2 g/dL (3.5-5.0) 11/06/23 18:42 Lipase 19 U/L (8-78) 11/06/23 18:42 Urine Color Dark Yellow 11/06/23 21:27 Urine Appearance Clear 11/06/23 21: Urine pH 6.0 (5.0-9.0) 11/06/23 21:27 Ur Specific [place] >= 1.030 (1.005-1.025) H 11/06/23 21:27 Urine Protein 30 (1+) mg/dL (Neg-Trace) H 11/06/23 21:27 Urine Glucose (UA) Negative mg/dL (Negative) 11/06/23 21: Urine Ketones 40 mg/dL (Negative) 11/06/23 21: Urine Blood Trace (Negative) H 11/06/23 21:27 Urine Nitrite Negative (Negative) 11/06/23 21: Ur Leukocyte Esterase Negative (Negative) 11/06/23 21:27 Urine RBC >20 /HPF (0-2) H 11/06/23 21: Urine WBC 0-5 /HPF (0-5) 11/06/23 21: Ur Squamous Epith Cells 0-2 /HPF (0-2) 11/06/23 21: Urine Bacteria None Seen (None Seen) 11/06/23: Hyaline Casts 0-2 /LPF (0-2) 11/06/23 21: Impressions KUB X-Ray 11/06/23 19:00 IMPRESSION: Large stool burden in the right colon. Abdomen/Pelvis CT 11/06/23 22:27 IMPRESSION: Obstructing lesion in the mid to distal descending colon with marked dilatation of colon proximal to this with reflux at the ileocecal valve. Differential diagnosis would include neoplasm as well as focal colitis and/or inflammatory processes such as diverticulitis although no diverticula are visualized. Fleischner guidelines were followed. Assessment and Plan (1) Colon obstruction: Status: Acute 40-year-old male with abdominal pain and tenderness, with a CAT scan showing what appears to be focal obstruction of the distal descending colon. This may be from a neoplastic process but is most likely from an inflammatory etiology in this segment as this appears to be similar to a previous CT scan done in 2019. He now has significant stool volume proximally especially in the cecum which is distended to 9 cm He is at risk for cecal perforation because of this obstruction. I therefore told him that I recommend proceeding with laparotomy, likely colon resection and colostomy. I explained to him the technique of this procedure. I reviewed the risks including but not limited to bleeding, infections, injury to other organs, stoma complications, inherent risks of anesthesia, as well as the benefits and alternatives. I reviewed with him what to expect postoperatively He understands as well that with the progression of distention of the proximal colon, he is at risk for eventual perforation in the sigmoid. He has given consent for the procedure . I am trying to retrieve his colonoscopy report from [facility] Quality Stroke Does the patient have a stroke diagnosis?: No VTE Prior VTE?: No VTE Risk Level:: Medical - moderate - high VTE Device Contraindication: N/A - Device Ordered VTE Drug Contraindication: N/A - Med Ordered Procedures Date of Service Date of Service: 11/08/23
--- NOTE | 2023-11-07 08:11 | P.CONAN_ITS ---
[facility] Active Problems Active Problems: All Active Problems Colon obstruction (Acute) Lesion of colon (Acute) Left sided abdominal pain (Acute) Colitis (Acute) Past Medical History Medical History Colon obstruction Diverticulitis Family History Family history of problems with anesthesia: No Surgical History Surgical History Hx of appendectomy History of Problems with Anesthesia: No Social History Social History Household Members: Friend(s) Housing: House Alcohol intake: never Comment: resting in bed, eyes closed Patient Tobacco Use Status: Never used Tobacco Second Hand Smoke Exposure: Yes service: No Current occupational status: unemployed Meds Allergies Allergy/AdvReac Type Severity Reaction Status Date / Time No Known Allergies Allergy Verified 11/06/23 18:23 Active Medications: Current Medications Lactated Ringer's (Lr) 1,000 mls @ 80 mls/hr IVCONT .[id number] [facility] Last Admin: 11/07/23 00:24 Dose: 80 mls/hr Morphine Sulfate (Morphine Sulfate 4 Mg/Ml Cartridge) 3 mg IVPUSH Q4H PRN; Protocol PRN Reason: Pain, Severe (Pain Scale 7-10) Ondansetron HCl (Ondansetron Hcl 4 Mg/2 Ml Vial) 4 mg IVPUSH Q6H PRN PRN Reason: nausea Sodium Chloride (0.9 % Sodium Chloride Flush 3 Ml Syringe) 3 ml IVFLUSH QSHIFT [facility] Last Admin: 11/07/23 00:25 Dose: Not Given Home Medications ?Medication ?Instructions ?Recorded ?Confirmed ?Last Taken ?Type No Known Home Meds 11/07/23 11/07/23 Unknown History Exam Height,Weight and Vital Signs: Height 5 ft 4 in Weight 102.058 kg Last Vital Signs Temp 98.3 F 11/07/23 03:50 Pulse 76 11/07/23 03:50 Resp 16 11/07/23 03:50 BP 129/71 11/07/23 03:50 Pulse Ox 96 11/07/23 03:50 O2 Del Method Room Air 11/07/23 03:50 Pertinent Lab Results Pertinent Lab Results: Laboratory Tests 11/06/23 11/06/23 11/06/23 18:42 21:27 22:46 WBC 10.9 H RBC 5.08 Hgb 14.9 Hct 42.8 MCV 84.3 MCH 29.3 MCHC 34.8 RDW 13.1 Plt Count 348 MPV 9.5 Immature Gran % (Auto) 0.5 H Neut % (Auto) 84.2 H Lymph % (Auto) 10.9 L [place] % (Auto) 4.1 Eos % (Auto) 0.1 Baso % (Auto) 0.2 Lymph # (Auto) 1.2 [place] # (Auto) 0.5 Eos # (Auto) 0.0 Baso # (Auto) 0.0 Abs Immat Gran (auto) 0.05 H Absolute Neuts (auto) 9.2 H Absolute Nucleated RBC 0.000 Nucleated RBC % (auto) 0.0 Sodium 137 Potassium 3.6 Chloride 102 Carbon Dioxide 22 Anion Gap 17 BUN 11 Creatinine 0.75 Estim Creat Clear Calc 137.1 Estimated GFR > 60 Random Glucose 146 H Lactic Acid 2.0 Calcium 9.5 D Magnesium 2.1 Total Bilirubin 0.8 AST 15 ALT 30 Alkaline Phosphatase 139 H Total Protein 8.3 H Albumin 4.2 Lipase 19 Urine Color Dark Yellow Urine Appearance Clear Urine pH 6.0 Ur Specific [place] >= 1.030 H Urine Protein 30 (1+) H Urine Glucose (UA) Negative Urine Ketones 40 Urine Blood Trace H Urine Nitrite Negative Ur Leukocyte Esterase Negative Urine RBC >20 H Urine WBC 0-5 Ur Squamous Epith Cells 0-2 Urine Bacteria None Seen Hyaline Casts 0-2 Airway Mallampati Class: III TM Dist: >3cm Neck ROM: Full Loose/Missing/Broken Teeth: No Heart: RRR Lungs: CTA Assessment and Plan Assessment Anesthesia Assessment: Anesthesia Plan Discussed and Chart Reviewed Final Anesthetic Review Family History of Problems with Anesthesia: No History of Problems with Anesthesia: No NPO: Yes ASA Class: II and Emergency Final Preanesthetic Review: Meds/Allgs Chart Reviewed, Consent Obtained/Reviewed and Anes Risks/Benef Reviewed Patient Risk: Intermediate Procedure Risk: Intermediate Anesthetic Plan Anesthetic Plan: GA Disposition: Standard PACU
--- NOTE | 2023-11-07 08:11 | PC.NURSE ---
report given to zurdo ramos at [facility]
--- NOTE | 2023-11-07 08:13 | PHA.MEDREC ---
Pharmacy Consult ? Medication Reconciliation Pharmacy has completed the medication reconciliation. Used medical interpreter
--- NOTE | 2023-11-07 09:09 | MHC.CM.PN ---
Attempted to meet with patient in regards to discharge planning. Patient was already transferred to same day surgery. Will attempt to meet again. Continue to monitor for d/c needs.
--- NOTE | 2023-11-07 12:25 | P.OP_ITS ---
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 His CAT scan was suggestive of obstruction in this area markedly distended proximal colon with the cecum up to 9 cm I therefore explained to him it would be best to proceed with laparotomy because of this obstruction with a threat of perforation. He understood the technique of the procedure as well as the risks, benefits, and alternatives He was brought to the operating room placed supine under general anesthesia via endotracheal tube. The abdomen was prepped and draped in the usual sterile fashion. A surgical time-out was done. The patient received Cefotan 2 g IV preoperatively. A Youssef catheter was inserted. A generous midline laparotomy incision in the skin using blade 10 and this was carried down with electrocautery through the full-thickness of the skin and subcutaneous fat. The patient was obese and had a very thick amount of subcutaneous fat. We are able to expose the fascia and incised this to enter the peritoneum. We applied Bookwalter retractors. The patient had large amounts of omentum as well. To retract this with lap pads along with the rest of the small bowel to expose the left colon. We had difficulty with exposure in view of the patient's body habitus. Eventually, as able to visualize the left colon in the sigmoid. At the distal descending colon the junction with the sigmoid was note of what appeared to be very fibrotic and indurated short segment . This was densely adherent to the sidewall as well. I proceeded to start mobilizing the left colon from both proximal and distal to this indurated area. Exposure was difficult again in view of the patient's habitus and the distention on the proximal side. Eventually as able to separate and identify a plane to separate the left colon from the retroperitoneum along the white line of Toldt. We could not identify a good plane of dissection at this focally indurated and fibrotic segment. We had to carefully separate this from the rest of the retroperitoneum and the sidewall in a mm by mm fashion using the right angle clamp electrocautery to separate this fibrotic segment and start freeing up the entire left colon. Eventually, we are able to achieve this although with significant difficulty.. Furthermore, there was note of foreshortening of the mesentery in this area. I identified a viable segment distal this focal stricture and created a mesenteric defect. I used a KOREY 60 mm stapler divide this. I continued to separate the mesentery from the rest of this involved segment of colon in the LigaSure distally. I then proceeded to mobilize this segment some more allow us to transect proximally. I was able to achieve length proximal to this indurated short segment and created a mesenteric window. I used a TA 60 mm stapler to divide this. The short segment of this hold left colon was sent as a specimen We examined the proximal left colon and this was very foreshortened at the mesentery and would definitely not reach the abdominal wall. We attempted to see if we can mobilize the flexure and proceeded to free up more of this left colon but of the foreshortening, this became more and more difficult along with the patient's body habitus. Eventually I decided that it would be best to bring the distal colon as an end loop colostomy. I did up the transverse colon from the stomach rest of the omentum by dividing gastrocolic ligaments and the omentum itself away from the transverse colon. Once this was achieved, it appeared that we had adequate length to bring up the stoma I excised the discoid piece of skin from the left upper quadrant that had been previously marked using a blade 10. I divided through the thick subcutaneous fat all the way to the anterior rectus and incised this. We did muscle-splitting all the way to the posterior rectus to create our stoma opening I created a mesenteric defect and the distal this was colon and passed an umbilical tape through this. We pulled this up through the stoma opening but we had difficulty in view of the large size of the colon. We had to decompress this with a small colotomy and closed the colotomy with a Polysorb 3-0 stitch We again attempted but we still had difficulty with pulling up this entire loop passed the level. I multiple attempts, I decided to make the stomal opening bigger. By doing so we were eventually able to pull up the past the skin level and apply the stoma bridge her The loop of transfers that we brought up as a stoma appeared very bruised but otherwise viable I examined this as well from the underside of the fascial level and this segment appeared viable on both proximal and distal I matured the stoma with Polysorb 3-0 sutures to the full-thickness of the stoma opening to the subdermal layer I covered this with a towel. We then proceeded to irrigate. I positioned a 10. JOHNY drain at the line of the distal descending because of the distention of the colon from earlier. This was brought out through an exit site on the left lower quadrant and secured with nylon 3-0 anchoring stitch. I I examined the cecum and this was viable although distended. The fascia was closed with a running Maxon 1 stitch. Skin closure was achieved with skin arnie. The area was infiltrated with Marcaine 0.5% for postop a nalgesia. The patient tolerated procedure well. There were no immediate complications Initial final counts showed an over count of instruments so an x-ray was done which did not reveal any foreign body in the abdomen The procedure was then completed The patient tolerated procedure well. There were no immediate complication. Patient was extubated without difficulty and transferred to the recovery room with stable vital signs. We then proceeded to close the al
[2023-11-07] MEDS: fentaNYL citrate/PF 100 MCG/2 ML VIAL 25 MCG IVPUSH ×2 (13:00→13:29)
[2023-11-07] MEDS: Acetaminophen 1,000 MG/100 ML PIGGYBACK 400 MG IV ×2 (16:29→20:31)
[2023-11-07] MEDS: Lactated Ringers 1,000 ML 100 ML IVCONT (16:29)
--- NOTE | 2023-11-07 16:53 | PM.EVENT ---
Event Note Date of Service: 11/08/23 Event Note: Seen postop Underwent ex lap, segmental resection of distal left colon, transverse end-loop colostomy for obstruction Says she is ?okay? 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
[2023-11-07] MEDS: Morphine Sulfate/NS 100 MG/100 ML PLAST..BAG IVCONT (18:11)
[2023-11-08] MEDS: Lactated Ringers 1,000 ML 100 ML IVCONT ×3 (01:43→22:23)
[2023-11-08] MEDS: Acetaminophen 1,000 MG/100 ML PIGGYBACK 400 MG IV ×4 (02:31→22:26)
[2023-11-08 04:00] VITALS: BP 119/68; PULSE 90; RESP 20; TEMP 36.4; O2SAT 99
[2023-11-08 06:24] LABS: MANUAL DIFF FLAG NO
[2023-11-08 06:33] LABS: Basophils Percent Auto 0.2 % (0-2); Eosinophils Percent Auto 0.2 % (0-4); Hematocrit 42.4 % (42.0-52.0); Hemoglobin 13.9 g/dl (14.0-18.0); Imm Gran Abs Auto 0.07 X10*3/uL (0.00-0.03); Imm Gran Pct Auto 0.5 % (0.0-0.4); Lymphocytes Absolute Auto 2.1 X10*3/uL (1.2-4.9); Lymphocytes Percent Auto 15.8 % (20-40); Mean Corpuscular HGB Conc 32.8 g/dl (31.0-36.0); Mean Corpuscular Hemoglobin 28.8 pg (27.0-33.0); Mean Corpuscular Volume 87.8 fL (80.0-98.0); Monocytes Absolute Auto 0.9 X10*3/uL (0.1-1.2); Monocytes Percent Auto 6.9 % (2-11); Neutrophils Percent Auto 76.4 % (45-73); Platelet Count 314 X10*3/uL (160-400); Red Blood Count 4.83 X10*6/uL (4.60-5.80); Red Cell Distribution Width 13.6 % (11.0-16.0); White Blood Count 13.1 X10*3/uL (4.8-10.8)
[2023-11-08 06:49] LABS: Anion Gap 14 (12-20); Blood Urea Nitrogen 10 mg/dL (9-16); Calcium 8.3 mg/dL (8.4-10.2); Carbon Dioxide 26 mmol/L (22-29); Chloride 104 mmol/L (96-108); Creatinine Clr Calc Pharmacy 137.4; Estimated Glomerular Filt Rate > 60; Glucose Fasting 91 mg/dL (60-99); Potassium 3.7 mmol/L (3.3-5.1); Sodium 140 mmol/L (135-145)
[2023-11-08 07:20] VITALS: BP 111/71; PULSE 80; RESP 16; TEMP 36.3; O2SAT 100
[2023-11-08] MEDS: 0.9 % Sodium Chloride Flush 3 ML SYRINGE IVFLUSH ×2 (09:03→15:58)
--- NOTE | 2023-11-08 09:13 | PM.PNGS ---
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 output from stoma yet Physical Exam Vital Signs: Vital Signs: Last Vital Signs Temp 97.4 F 11/08/23 07:20 Pulse 80 11/08/23 07:20 Resp 16 11/08/23 07:20 BP 111/71 11/08/23 07:20 Pulse Ox 100 11/08/23 07:20 O2 Del Method Nasal Cannula 11/08/23 07:20 O2 Flow Rate 2 11/08/23 07:20 BMI result Body Mass Index 34.0 Const: General: no acute distress Resp: Effort & Inspection: normal respiratory effort Cardio: Rate: regular rate GI: Other: Tender along the incision, stoma dusky but appears viable, no significant output Objective Data Active Medications Morphine Sulfate (Morphine Sulfate/Ns) 100 mg in 100 mls @ 0 mls/hr IVCONT .Q0M [facility]S [facility]CLUDE 234 BEDS AT THE [facility]; Protocol Last Admin: 11/07/23 18:11 Dose: 0.01 mg/hr, 0.01 mls/hr Documented By: ISABEL Acetaminophen (Ofirmev) 1,000 mg in 100 mls @ 400 mls/hr IV Q6H COUNTS INCLUDE 234 BEDS AT THE [facility] Last Admin: 11/08/23 08:58 Dose: 400 mls/hr Documented By: JOSHUA Lactated Ringer's (Lr) 1,000 mls @ 100 mls/hr IVCONT .Q10H COUNTS INCLUDE 234 BEDS AT THE [facility] Last Admin: 11/08/23 01:43 Dose: 100 mls/hr Documented By: GIRMA Naloxone HCl (Naloxone Hcl 0.4 Mg/Ml Vial) 0.2 mg IVPUSH Q2M PRN PRN Reason: Excessive sedation or RR < 8 Ondansetron HCl (Ondansetron Hcl 4 Mg/2 Ml Vial) 4 mg IVPUSH Q6H PRN PRN Reason: nausea Sodium Chloride (0.9 % Sodium Chloride Flush 3 Ml Syringe) 3 ml IVFLUSH QSHIFT COUNTS INCLUDE 234 BEDS AT THE [facility] Last Admin: 11/08/23 09:03 Dose: 3 ml Documented By: JOSHUA Labs 11/10/23 05:17 11/08/23 05:55 Labs: Laboratory Results - last 24 hr 11/07/23 11/08/23 09:40 05:55 MCV 87.8 MCH 28.8 MCHC 32.8 RDW 13.6 Plt Count 314 MPV 10.0 Immature Gran % (Auto) 0.5 H Neut % (Auto) 76.4 H Lymph % (Auto) 15.8 L [place] % (Auto) 6.9 Eos % (Auto) 0.2 Baso % (Auto) 0.2 Lymph # (Auto) 2.1 [place] # (Auto) 0.9 Eos # (Auto) 0.0 Baso # (Auto) 0.0 Abs Immat Gran (auto) 0.07 H Absolute Neuts (auto) 10.0 H Absolute Nucleated RBC 0.000 Nucleated RBC % (auto) 0.0 Anion Gap 14 Estim Creat Clear Calc 137.4 Estimated GFR > 60 Fasting Glucose 91 Calcium 8.3 L D Blood Type O Positive Antibody Screen NEGATIVE Microbiology Microbiology Results: Microbiology 11/06/23 22:46 Blood Culture - Preliminary Blood - Venous No growth after 24 hours. 11/06/23 22:46 Blood Culture - Preliminary Blood - Venous No growth after 24 hours. Procedures Date of Service Date of Service: 11/11/23 Progress Note: A&P Assessment and plan (1) Colon obstruction: Status: Acute Assessment and Plan: Status post segmental resection of left colon, with a transverse end-loop colostomy Needs better pain control Will add Toradol Urine output adequate of appears concentrated Incentive spirometry Await return of GI function Keep on clear liquids Out of bed when with better pain control JOHNY scanty serosanguineous Time Spent With Patient Time: Total time managing care of this patient today ____ minutes. Quality Stroke Does the patient have a stroke diagnosis?: No VTE Prior VTE?: No VTE Risk Level:: Medical - moderate - high VTE Device Contraindication: N/A - Device Ordered VTE Drug Contraindication: N/A - Med Ordered
[2023-11-08] MEDS: Ketorolac Tromethamine 30 MG/ML VIAL IVPUSH ×3 (10:36→22:20)
[2023-11-08 11:24] VITALS: BP 127/70; PULSE 83; RESP 16; TEMP 36.1; O2SAT 98
--- NOTE | 2023-11-08 12:31 | HO.OSTOMY ---
Ostomy Consult : Initial 43yr old?[place] [facility] [place]d [place] - See progress notes and H&P for detailed history.? Ostomy consult placed for end loop colostomy creation by Dr. Brooks on 11/07/23. ? Patient is Sinhala speaking ? - [employer] Present throughout consultation. Upon entry into patient's room, he is in bed, he is alert and oriented x 3, he currently complains of mild pain and feeling tired but wishes to continue with ostomy teaching. ?Introductions were completed, he is agreeable to continuing with consult and photo documentation. ? He reports increasing the use of his IS and but not yet ambulating. ?We began by discussing general knowledge about the Colostomy and questions he had. ?We discussed opening and closing the ostomy pouch. He was able to independently provide a return demonstration on an empty pouch. ?He had not yet emptied his pouch. ?We discussed the importance of emptying pouch when 1/3 to 1/2 full, how to empty pouch, and lining water with toilet paper to prevent splash back. With an empty Coloplast pouch he performed a demonstration. ?Provided [employer]. Reviewed written education with patient and left at bedside for further review. ? Permission was granted for pouch assessment and a leak was noted?at the 9 o'clock area - he observed this sign for future?independent observation for s/s of leaking. Of importance the pouch was applied side facing and not at all conducive to independent emptying. He understands need for pouch change. ?? He was changed into a Coloplast 39717, 1 Piece cut to fit 50mm.?The stoma is moist dark red some areas of sloughing noted will monitor - no concern for stoma viability at this time - MCJ intact, clear plastic bridge noted. ?He observed the pouch change and had questions that lead to further duscussion. ? He seemed to have good understanding of care and material presented - will benefit from continued teaching but remains with good understanding at this time. ?After the pouch was changed he was able to open close on the pouch attached to his abdomen without coaching. ?He reported having no questions at this time. ?Patient will benefit from VNA services at time of d/c. All questions and concerns addressed at this time. Midline dressing changed - small oozing noted just about umbillicus - arnie remain intact well approximated and no erythema noted. Direct care nurse notified. We discussed the following steps: 1. Empty pouch before pouch change 2. Remove pouch using push/pull technique from top to bottom 3. Cleanse stoma and skin with tap water only - no soap or baby wipes 4. Pat dry 5. Measure stoma and cut new pouch no more than 1/8 inch larger than stoma and no smaller than stoma 6. If instructed by your ostomy nurse apply paste seal to the size of the stoma and press onto skin around stoma (up to the edge of the stoma but not onto the stoma) 7. Press the new pouch into place and hold for several minutes (close pouch tail) 8. Empty pouch when 1/3 to 1/2 full 9. Change pouch twice weekly on a schedule (for example, every Saturday and ) and as needed for any leaking (feels like intense itch or burn at edge of stoma) 10. May order pre-cut pouches (already cut to size of stoma) once stoma measures the same size consistently. ?
--- NOTE | 2023-11-08 14:08 | MHC.CM.PN ---
Met with pt with the assistance of a foundation relations director. Pt is self-care, lives at home with some friends. Pt states he will have his own ride at discharge. Pt does not have a HCP, and is not up to making one at this time due to not feeling well. Pt does not have a PCP, a local list of PCP's was given to pt.
--- NOTE | 2023-11-08 14:15 | HO.POSTANES ---
Post Anesthesia Evaluation Post Anesthesia Evaluation Date of Service: 11/07/23 Vital Signs: Vital Signs Temp Pulse Resp BP Pulse Ox O2 Del Method O2 Flow Rate 11/08/23 11:24 97.0 F 83 16 127/70 98 Nasal Cannula 2 11/08/23 07:20 97.4 F 80 16 111/71 100 Nasal Cannula 2 11/08/23 04:00 97.6 F 90 20 119/68 99 Nasal Cannula 2 Anesthesia: General Mental Status: Awake Pain Control: Satisfactory Nausea/Vomiting: None Hydration: Adequate Anesthesia-Related Issues: No Anes. Related Issues
--- NOTE | 2023-11-08 15:00 | P.CDIM_ITS ---
PROVIDER RESPONSE TEXT: To clarify, the appropriate diagnosis supported by the clinical indicators: Colon obstruction: complete QUERY TEXT: PHYSICIAN'S DOCUMENTATION REQUEST Date of Query: 11/08/2023 12:43 PM EDT Patient Name: SHARLENE BIANCHI Admit Date: 11/07/2023 Dear Dakota Brooks, A review of the medical record indicates additional documentation may be needed. Please review below and update the documentation accordingly. Clinical Indicators: Surgery - Colon obstruction S/P segmental resection of left colon, with a transverse end-loop colostomy Abdominal pain and absence of any bowel movement for 5 to 6 days. History of recurrent left colon inflammation CAT scan was suggestive of obstruction in this area marked distended proximal colon with the cecum up to 9cm. Based on the above, could you clarify any further specifics to the colon obstruction: Colon obstruction complete, incomplete, partial, etc, Other (explain) Clinically unable to determine (explain) Thank you, Shahida Farmer, CCS, CDIS Use of terms such as suspected, likely, concern for, or probable (associated with a specific diagnosi s that is being evaluated, monitored, or treated as if it exists) are acceptable and can be coded in the inpatient se tting, when documented at the time of discharge. Please use your independent medical judgment in providing your response. THIS QUERY IS PART OF THE PERMANENT MEDICAL RECORD
--- NOTE | 2023-11-08 15:15 | P.EN_ITS ---
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
[2023-11-08 15:29] VITALS: BP 133/72; PULSE 84; RESP 16; TEMP 36.2; O2SAT 99
[2023-11-08 20:00] VITALS: BP 114/66; PULSE 88; RESP 20; TEMP 36.2; O2SAT 94
[2023-11-08 22:35] VITALS: RESP 16
[2023-11-08] MEDS: Morphine Sulfate/NS 100 MG/100 ML PLAST..BAG IVCONT (22:35)
[2023-11-09] MEDS: Ketorolac Tromethamine 30 MG/ML VIAL IVPUSH ×4 (03:38→21:22)
[2023-11-09 03:41] VITALS: BP 99/61; PULSE 80; RESP 20; TEMP 36.8; O2SAT 92
[2023-11-09] MEDS: Acetaminophen 1,000 MG/100 ML PIGGYBACK 400 MG IV ×3 (03:41→16:39)
--- NOTE | 2023-11-09 06:06 | PC.NURSE ---
Pt's dent d/c this morning at 06:00, initially it was place on 11/06 for chris-op. Pt's due to void by 12:00, urinal at bedside. Will continue to monitor.
[2023-11-09 06:49] VITALS: BP 109/62; PULSE 83; RESP 16; TEMP 36.6; O2SAT 91
[2023-11-09] MEDS: 0.9 % Sodium Chloride Flush 3 ML SYRINGE IVFLUSH ×2 (08:00→16:43)
[2023-11-09] MEDS: Lactated Ringers 1,000 ML 100 ML IVCONT ×2 (09:28→19:47)
--- NOTE | 2023-11-09 11:33 | PM.PNGS ---
Subjective Subjective Date of Service: 11/09/23 Interval history: pt feeling ok - says has been passing gas into the bag but not stool - concerned about having the colostomy pain ok Physical Exam Vital Signs: Vital Signs: Last Vital Signs Temp 97.8 F 11/09/23 06:49 Pulse 83 11/09/23 06:49 Resp 16 11/09/23 06:49 BP 109/62 11/09/23 06:49 Pulse Ox 91 L 11/09/23 06:49 O2 Del Method Room Air 11/09/23 06:49 O2 Flow Rate 2 11/08/23 15:29 BMI result Body Mass Index 34.0 Const: General: cooperative, healthy appearing, comfortable and no acute distress Resp: Effort & Inspection: normal respiratory effort Auscultation: clear to auscultation bilaterally Cardio: Rate: regular rate Rhythm: regular rhythm GI: Other: abdo is distended and oolostomy swollen but viable - bag empty now some good bowel sounds starting the bnadages are clean Extrem: General: Yes normal to inspection Objective Data Active Medications Morphine Sulfate (Morphine Sulfate/Ns) 100 mg in 100 mls @ 0 mls/hr IVCONT .Q0M [facility]; Protocol Last Admin: 11/08/23 22:35 Dose: 0.01 mg/hr, 0.01 mls/hr Documented By: GIDEON Acetaminophen (Ofirmev) 1,000 mg in 100 mls @ 400 mls/hr IV Q6H [facility] Last Infusion: 11/09/23 08:59 Dose: Infused Documented By: SHYLA Lactated Ringer's (Lr) 1,000 mls @ 100 mls/hr IVCONT .Q10H [facility] Last Admin: 11/09/23 09:28 Dose: 100 mls/hr Documented By: SHYLA Ketorolac Tromethamine (Ketorolac Tromethamine 30 Mg/Ml Vial) 30 mg IVPUSH Q6H [facility] Last Admin: 11/09/23 09:24 Dose: 30 mg Documented By: SHYLA Naloxone HCl (Naloxone Hcl 0.4 Mg/Ml Vial) 0.2 mg IVPUSH Q2M PRN PRN Reason: Excessive sedation or RR < 8 Ondansetron HCl (Ondansetron Hcl 4 Mg/2 Ml Vial) 4 mg IVPUSH Q6H PRN PRN Reason: nausea Sodium Chloride (0.9 % Sodium Chloride Flush 3 Ml Syringe) 3 ml IVFLUSH QSHIFT [facility] Last Admin: 11/09/23 08:00 Dose: 3 ml Documented By: SHYLA Labs 11/08/23 05:55 11/08/23 05:55 Microbiology Microbiology Results: Microbiology 11/06/23 22:46 Blood Culture - Preliminary Blood - Venous No growth after 48 hours. 11/06/23 22:46 Blood Culture - Preliminary Blood - Venous No growth after 48 hours. 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 Quality Stroke Does the patient have a stroke diagnosis?: No VTE Prior VTE?: No VTE Risk Level:: Medical - moderate - high VTE Device Contraindication: N/A - Device Ordered VTE Drug Contraindication: N/A - Med Ordered
--- NOTE | 2023-11-09 12:43 | PC.NURSE ---
Patient due to void by 1200. Bladder scanned at 1230 for 247mL. Patient denied any urge, and encouraged to attempt to void. 1240- patient voided in urinal for 550mL of venkata colored clear urine. Tolerated well.
[2023-11-09 15:15] VITALS: BP 109/61; PULSE 90; RESP 20; TEMP 36.4; O2SAT 95
[2023-11-09 19:14] VITALS: BP 130/72; PULSE 92; RESP 20; TEMP 36.6; O2SAT 95
[2023-11-09 22:35] VITALS: RESP 18
[2023-11-09] MEDS: Morphine Sulfate/NS 100 MG/100 ML PLAST..BAG IVCONT (22:46)
[2023-11-10] MEDS: Acetaminophen 1,000 MG/100 ML PIGGYBACK 400 MG IV ×4 (00:35→23:02)
[2023-11-10 03:15] VITALS: BP 133/65; PULSE 79; RESP 18; TEMP 36.2; O2SAT 92
[2023-11-10] MEDS: Ketorolac Tromethamine 30 MG/ML VIAL IVPUSH ×4 (04:30→20:43)
[2023-11-10] MEDS: Lactated Ringers 1,000 ML 100 ML IVCONT ×2 (04:33→15:22)
[2023-11-10 06:40] LABS: MANUAL DIFF FLAG NO
[2023-11-10 06:47] LABS: Basophils Percent Auto 0.3 % (0-2); Eosinophils Absolute Auto 0.4 X10*3/uL (0.0-0.4); Eosinophils Percent Auto 3.8 % (0-4); Hemoglobin 11.7 g/dl (14.0-18.0); Imm Gran Abs Auto 0.06 X10*3/uL (0.00-0.03); Imm Gran Pct Auto 0.6 % (0.0-0.4); Lymphocytes Absolute Auto 1.2 X10*3/uL (1.2-4.9); Lymphocytes Percent Auto 11.9 % (20-40); Mean Corpuscular HGB Conc 34.4 g/dl (31.0-36.0); Mean Corpuscular Hemoglobin 29.5 pg (27.0-33.0); Mean Corpuscular Volume 85.9 fL (80.0-98.0); Mean Platelet Volume 9.9 fL (9.4-12.4); Monocytes Absolute Auto 0.5 X10*3/uL (0.1-1.2); Monocytes Percent Auto 4.6 % (2-11); Neutrophils Absolute Auto 8.2 x10*3/uL (2.0-8.3); Neutrophils Percent Auto 78.8 % (45-73); Platelet Count 316 X10*3/uL (160-400); Red Blood Count 3.96 X10*6/uL (4.60-5.80); Red Cell Distribution Width 13.2 % (11.0-16.0); White Blood Count 10.4 X10*3/uL (4.8-10.8)
[2023-11-10 06:54] VITALS: BP 116/69; PULSE 76; RESP 16; TEMP 36.7; O2SAT 92
[2023-11-10] MEDS: 0.9 % Sodium Chloride Flush 3 ML SYRINGE IVFLUSH ×3 (07:45→20:44)
--- NOTE | 2023-11-10 13:19 | PM.PNGS ---
Subjective Subjective Date of Service: 11/10/23 Interval history: Patient is doing well he is more comfortable today feeling good. Been passing a lot of gas and today his bag is full of stool. His abdomen is still distended but he denies any nausea he has been walking up and down in the hallway Physical Exam Vital Signs: Vital Signs: Last Vital Signs Temp 98.1 F 11/10/23 06:54 Pulse 76 11/10/23 06:54 Resp 16 11/10/23 06:54 BP 116/69 11/10/23 06:54 Pulse Ox 92 11/10/23 06:54 O2 Del Method Room Air 11/10/23 06:54 O2 Flow Rate 2 11/08/23 15:29 BMI result Body Mass Index 34.0 Const: General: cooperative, healthy appearing and tired appearing Resp: Effort & Inspection: normal respiratory effort Auscultation: clear to auscultation bilaterally Cardio: Rate: regular rate Rhythm: regular rhythm GI: Other: Abdomen is soft but distended he does have bowel sounds incision looks great ostomy is working and looks fine. Objective Data Active Medications Morphine Sulfate (Morphine Sulfate/Ns) 100 mg in 100 mls @ 0 mls/hr IVCONT .Q0M [facility]; Protocol Last Admin: 11/09/23 22:46 Dose: 0.01 mg/hr, 0.01 mls/hr Documented By: GIDEON Lactated Ringer's (Lr) 1,000 mls @ 100 mls/hr IVCONT .Q10H [facility] Last Admin: 11/10/23 04:33 Dose: 100 mls/hr Documented By: GIDEON Acetaminophen (Ofirmev) 1,000 mg in 100 mls @ 400 mls/hr IV RQ8H [facility] Last Infusion: 11/10/23 09:01 Dose: Infused Documented By: SHYLA Ketorolac Tromethamine (Ketorolac Tromethamine 30 Mg/Ml Vial) 30 mg IVPUSH Q6H [facility] Last Admin: 11/10/23 10:34 Dose: 30 mg Documented By: SHYLA Naloxone HCl (Naloxone Hcl 0.4 Mg/Ml Vial) 0.2 mg IVPUSH Q2M PRN PRN Reason: Excessive sedation or RR < 8 Ondansetron HCl (Ondansetron Hcl 4 Mg/2 Ml Vial) 4 mg IVPUSH Q6H PRN PRN Reason: nausea Sodium Chloride (0.9 % Sodium Chloride Flush 3 Ml Syringe) 3 ml IVFLUSH QSHIFT [facility] Last Admin: 11/10/23 07:45 Dose: 3 ml Documented By: SHYLA Labs 11/10/23 05:17 11/08/23 05:55 Labs: Laboratory Results - last 24 hr 11/10/23 05:17 MCV 85.9 MCH 29.5 MCHC 34.4 RDW 13.2 Plt Count 316 MPV 9.9 Immature Gran % (Auto) 0.6 H Neut % (Auto) 78.8 H Lymph % (Auto) 11.9 L [place] % (Auto) 4.6 Eos % (Auto) 3.8 Baso % (Auto) 0.3 Lymph # (Auto) 1.2 [place] # (Auto) 0.5 Eos # (Auto) 0.4 Baso # (Auto) 0.0 Abs Immat Gran (auto) 0.06 H Absolute Neuts (auto) 8.2 Absolute Nucleated RBC 0.000 Nucleated RBC % (auto) 0.0 Procedures Date of Service Date of Service: 11/10/23 Progress Note: A&P Assessment and plan (1) S/P left colectomy: Status: Acute Plan Patient is status post left colectomy for stenotic obstructive segment of colon and diverting loop transverse colostomy. Overall doing really well. Return of GI function. 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 pain meds encourage ambulation stool softeners. I am keeping him on clear liquids overnight into tomorrow venous his abdomen despite the bowel sounds and moving of stool in the bag he has quite some distention. We will re-evaluate tomorrow to advance Time Spent With Patient Time: Total time managing care of this patient today ____ minutes. Quality Stroke Does the patient have a stroke diagnosis?: No VTE Prior VTE?: No VTE Risk Level:: Medical - moderate - high VTE Device Contraindication: N/A - Device Ordered VTE Drug Contraindication: N/A - Med Ordered
--- NOTE | 2023-11-10 15:00 | PC.NURSE ---
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 Pump and medication removed from room with secondary RN as witness. Medication measured and wasted. Signed off with secondary RN. Pharmacy notified.
[2023-11-10 16:00] VITALS: BP 140/83; PULSE 90; RESP 16; TEMP 36.4; O2SAT 92
[2023-11-10 19:22] VITALS: BP 149/80; PULSE 92; RESP 16; TEMP 36.4; O2SAT 95
[2023-11-10] MEDS: Docusate Sodium 100 MG CAPSULE PO (20:43)
[2023-11-11 02:49] VITALS: BP 136/78; PULSE 85; RESP 16; TEMP 36.9; O2SAT 97
[2023-11-11] MEDS: Ketorolac Tromethamine 30 MG/ML VIAL IVPUSH ×4 (04:20→21:20)
[2023-11-11 07:06] VITALS: BP 143/70; PULSE 85; RESP 14; TEMP 36.2; O2SAT 97
[2023-11-11] MEDS: Acetaminophen 1,000 MG/100 ML PIGGYBACK 400 MG IV ×3 (07:14→22:59)
[2023-11-11] MEDS: oxyCODONE HCl Immed Release 5 MG TABLET 10 MG PO (07:14)
[2023-11-11] MEDS: 0.9 % Sodium Chloride Flush 3 ML SYRINGE IVFLUSH ×3 (07:14→21:21)
--- NOTE | 2023-11-11 08:09 | PM.PNGS ---
Subjective Subjective Date of Service: 11/12/23 Interval history: States he feels much better Tolerating clear liquid Good output from stoma with stool and gas Pain steadily improving Physical Exam Vital Signs: Vital Signs: Last Vital Signs Temp 97.2 F 11/11/23 07:06 Pulse 85 11/11/23 07:06 Resp 14 11/11/23 07:06 BP 143/70 H 11/11/23 07:06 Pulse Ox 97 11/11/23 07:06 O2 Del Method Room Air 11/11/23 07:06 O2 Flow Rate 2 11/08/23 15:29 BMI result Body Mass Index 34.0 Const: General: comfortable and no acute distress Resp: Effort & Inspection: normal respiratory effort Cardio: Rate: regular rate GI: Other: Good amount of stool and air in stoma appliance, midline incision dry Palpation (GI): Soft to palpation, not firm, Tenderness to palpation present (GI) (On incisions) and no guarding Objective Data Active Medications Docusate Sodium (Docusate Sodium 100 Mg Capsule) 100 mg PO BID [facility] Last Admin: 11/10/23 20:43 Dose: 100 mg Documented By: CIERRA Acetaminophen (irmev) 1,000 mg in 100 mls @ 400 mls/hr IV RQ8H [facility] Last Infusion: 11/11/23 07:47 Dose: Infused Documented By: SHYLA Ketorolac Tromethamine (Ketorolac Tromethamine 30 Mg/Ml Vial) 30 mg IVPUSH Q6H [facility] Last Admin: 11/11/23 04:20 Dose: 30 mg Documented By: CIERRA Morphine Sulfate (Morphine Sulfate 2 Mg/Ml Cartridge) 3 mg IVPUSH Q4H PRN; Protocol PRN Reason: Pain, Severe (Pain Scale 7-10) Naloxone HCl (Naloxone Hcl 0.4 Mg/Ml Vial) 0.2 mg IVPUSH Q2M PRN PRN Reason: Excessive sedation or RR < 8 Ondansetron HCl (Ondansetron Hcl 4 Mg/2 Ml Vial) 4 mg IVPUSH Q6H PRN PRN Reason: nausea Oxycodone HCl (Oxycodone Hcl Immed Release 5 Mg Tablet) 10 mg PO Q4H PRN PRN Reason: Pain, Severe (Pain Scale 7-10) Last Admin: 11/11/23 07:14 Dose: 10 mg Documented By: SHYLA Sodium Chloride (0.9 % Sodium Chloride Flush 3 Ml Syringe) 3 ml IVFLUSH QSHIFT [facility] Last Admin: 11/11/23 07:14 Dose: 3 ml Documented By: SHYLA Labs 11/10/23 05:17 11/08/23 05:55 Procedures Date of Service Date of Service: 11/12/23 Progress Note: A&P Assessment and plan (1) Colon obstruction: Status: Acute Assessment and Plan: Status post segmental resection left colon with end-loop transverse colostomy Good stoma function Okay to slowly advance diet Encouraged ambulation Pain management Looks well overall Await path report Stoma bridge removed Time Spent With Patient Time: Total time managing care of this patient today ____ minutes. Quality Stroke Does the patient have a stroke diagnosis?: No VTE Prior VTE?: No VTE Risk Level:: Medical - moderate - high VTE Device Contraindication: N/A - Device Ordered VTE Drug Contraindication: N/A - Med Ordered
--- NOTE | 2023-11-11 08:40 | HO.OSTOMY ---
Ostomy Consult : Follow up 43yr old?Male admitted to [facility] [place] on 11/06/23 for abd pain - See progress notes and H&P for detailed history.? Ostomy consult follow up for continue teaching regarding end loop colostomy creation by Dr. Brooks on 11/07/23. ? Patient is Czech speaking ? 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 Upon entry into patient's room, he is in bed, he is alert and oriented x 3, he currently complains of mild pain and reports feeling stronger. He reports he has been ambulating tolerating his diet and using his IS. Pouch assessed - intact no leaking noted - bridge observed inplace and stool and gas noted in pouch. Will continue teaching later in day with elementary spanish teacher present.
[2023-11-11] MEDS: Docusate Sodium 100 MG CAPSULE PO ×2 (09:15→21:20)
--- NOTE | 2023-11-11 13:03 | HO.OSTOMY ---
Ostomy Consult : Follow up 43yr old?Male admitted to [facility] [place] on 11/06/23 for abd pain - See progress notes and H&P for detailed history.? Ostomy consult follow up for continue teaching regarding end loop colostomy creation by Dr. Brooks on 11/07/23. ? Patient is Maltese speaking ? - Stone Grader present for continued teaching. Upon entry into patient's room, he is in the recliner chair, he is alert and oriented x 3, he currently reports he has no pain and reports feeling stronger. He reports he has been ambulating tolerating his diet and using his IS. Pouch assessed - intact no leaking noted - bridge observed in pouch no longer in place and stool and gas noted in pouch. Patient ambulated to and was able to empty pouch independently. I reinforced when to empty a pouch when a 1/3-1/2 full and to change every 3-4 days or when leaking. Patient is not due for a change at this time so we performed a pouch change on the stoma model. He had clear understanding and asked questions or futher discussion. He was able to verbally walk me through a pouch change and then carried out appropriate steps. Supplies for home left at bedside and outpt RN will order supplies for home. Patient agreeable to [employer] program for sample supplies to be sent to his home. Inpatient wound and ostomy nurse will continue to follow for continued teaching.
--- NOTE | 2023-11-11 13:18 | MHC.CM.PN ---
per rounds pt is not ready for dc when dc plam remains home
[2023-11-11 15:13] VITALS: BP 132/69; PULSE 87; RESP 16; TEMP 36.3; O2SAT 99
--- NOTE | 2023-11-11 15:56 | PM.EVENT ---
Event Note Date of Service: 11/11/23 Event Note: Seen on afternoon rounds Says he feels better More comfortable with pain level Stoma continues to function with stool and gas Tolerating regular diet Abdomen softl Stoma viable looking Continue pain management He says he had ambulated Seems to be doing well postop Time Spent With Patient Time: Total time managing care of this patient today ____ minutes.
[2023-11-11 19:17] VITALS: BP 132/72; PULSE 79; RESP 15; TEMP 36.8; O2SAT 98
[2023-11-12 03:14] VITALS: BP 152/81; PULSE 75; RESP 16; TEMP 36.6; O2SAT 98
[2023-11-12] MEDS: Ketorolac Tromethamine 30 MG/ML VIAL IVPUSH ×4 (03:18→21:05)
[2023-11-12 07:27] VITALS: BP 136/72; PULSE 72; RESP 12; TEMP 36.9; O2SAT 97
[2023-11-12] MEDS: Docusate Sodium 100 MG CAPSULE PO (08:36)
[2023-11-12] MEDS: Acetaminophen 1,000 MG/100 ML PIGGYBACK 400 MG IV ×3 (08:36→23:20)
--- NOTE | 2023-11-12 08:42 | PC.NURSE ---
Addendum entered by Omar Murillo RN 11/12/23 18:39: ?'ed if pt should be placed on tele, no new orders at this time Addendum entered by Omar Murillo RN 11/12/23 17:27: pt stated prn lozenge and xofran had + effect Addendum entered by Omar Murillo RN 11/12/23 17:08: informed md of pt's 1,500ml output of bile from NGT. per md administer PO K and hold for approx 30min and start cont IV K. ?'ed MD to order 4 bags of 10meq IV K, no new orders at this time Addendum entered by Omar Murillo RN 11/12/23 16:09: per post CXR, NGT pulled out by 2 inches Addendum entered by Omar Murillo RN 11/12/23 14:01: pt c/o severe abd pain after prev employee changed pt's ostomy bag. informed and assessed pt at bedside. pt RR increased to 40s d/t pain. meds administered as ordered. code number stamper at bedside Original Note: 50cc output from JOHNY drain fruit punch colored
--- NOTE | 2023-11-12 09:48 | P.PNGS_ITS ---
Subjective Subjective Date of Service: 11/14/23 Interval history: feels well tolerating diet stoma with good function Physical Exam 2 Vital Signs: Vital Signs: Last Vital Signs Temp 98.4 F 11/12/23 07:27 Pulse 72 11/12/23 07:27 Resp 12 11/12/23 07:27 BP 136/72 11/12/23 07:27 Pulse Ox 97 11/12/23 07:27 O2 Del Method Room Air 11/12/23 07:27 O2 Flow Rate 2 11/08/23 15:29 BMI result Body Mass Index 34.0 Const: General: comfortable and no acute distress Resp: Effort & Inspection: normal respiratory effort Cardio: Rate: regular rate GI: Other: incision clean, some drainage on lower part; stoma with god output, air and stool Palpation (GI): Soft to palpation Objective Data Active Medications Docusate Sodium (Docusate Sodium 100 Mg Capsule) 100 mg PO BID [facility] Last Admin: 11/12/23 08:36 Dose: 100 mg Documented By: SP Acetaminophen (Ofirmev) 1,000 mg in 100 mls @ 400 mls/hr IV RQ8H [facility] Last Infusion: 11/12/23 09:01 Dose: Infused Documented By: SP Ketorolac Tromethamine (Ketorolac Tromethamine 30 Mg/Ml Vial) 30 mg IVPUSH Q6H [facility] Last Admin: 11/12/23 08:36 Dose: 30 mg Documented By: SP Morphine Sulfate (Morphine Sulfate 2 Mg/Ml Cartridge) 3 mg IVPUSH Q4H PRN; Protocol PRN Reason: Pain, Severe (Pain Scale 7-10) Naloxone HCl (Naloxone Hcl 0.4 Mg/Ml Vial) 0.2 mg IVPUSH Q2M PRN PRN Reason: Excessive sedation or RR < 8 Ondansetron HCl (Ondansetron Hcl 4 Mg/2 Ml Vial) 4 mg IVPUSH Q6H PRN PRN Reason: nausea Oxycodone HCl (Oxycodone Hcl Immed Release 5 Mg Tablet) 10 mg PO Q4H PRN PRN Reason: Pain, Severe (Pain Scale 7-10) Last Admin: 11/11/23 07:14 Dose: 10 mg Documented By: SHYLA Sodium Chloride (0.9 % Sodium Chloride Flush 3 Ml Syringe) 3 ml IVFLUSH QSHIFT [facility] Last Admin: 11/12/23 07:24 Dose: Not Given Documented By: SP Non-Admin Reason: Previously Administered Labs 11/13/23 07:52 11/13/23 07:52 Microbiology Microbiology Results: Microbiology 11/06/23 22:46 Blood Culture - Final Blood - Venous No growth after 5 days. 11/06/23 22:46 Blood Culture - Final Blood - Venous No growth after 5 days. Procedures Date of Service Date of Service: 11/14/23 Progress Note: A&P Assessment and plan (1) Colon obstruction: Status: Acute Assessment and Plan: S/P resection, transverse end -loop colostomy doing well tolerating diet stoma with good function will patience comp field case manager re: need for VNA, stoma supplies path report - diverticular-associated segmental colitis Time Spent With Patient Time: Total time managing care of this patient today ____ minutes. Quality Stroke Does the patient have a stroke diagnosis?: No VTE Prior VTE?: No VTE Risk Level:: Medical - moderate - high VTE Device Contraindication: N/A - Device Ordered VTE Drug Contraindication: N/A - Med Ordered
[2023-11-12] MEDS: oxyCODONE HCl Immed Release 5 MG TABLET 10 MG PO ×2 (11:23→14:32)
--- NOTE | 2023-11-12 11:30 | HO.OSTOMY ---
Ostomy Consult : Follow up 43yr old?Male admitted to [facility] [place] on 11/06/23 for abd pain - See progress notes and H&P for detailed history.? Ostomy consult follow up for continue teaching regarding end loop colostomy creation by Dr. Brooks on 11/07/23. Patient was seen today by outpatient ostomy nurse from Dr. Brooks office - will defer continued teaching to tomorrow. Of note patient pouch was changed with outpt RN - Per outpt RN no concerns noted outside of stoma sloughing as was expected given previous stoma assessment. She reports MD aware. Will follow up tomorrow.
[2023-11-12] MEDS: Morphine Sulfate 2 MG/ML CARTRIDGE 3 MG IVPUSH (13:05)
[2023-11-12 13:57] VITALS: BP 159/75; PULSE 71; RESP 18; TEMP 36.1; O2SAT 96
[2023-11-12] MEDS: HYDROmorphone HCl 0.5 MG/0.5 ML SYRINGE IVPUSH (14:01)
[2023-11-12] MEDS: Lactated Ringers 1,000 ML 80 ML IVCONT (14:01)
[2023-11-12 14:16] VITALS: BP 153/76; PULSE 79; RESP 22; TEMP 36.6; O2SAT 97
--- NOTE | 2023-11-12 14:27 | PM.EVENT ---
Event Note Date of Service: 11/12/23 Event Note: Had been doing well all day but this afternoon, complained of severe pain on the left side Stable vital signs Stoma with output - bag had been changed earlierg with stoma education Mucosal sloughing seen on colostomy Ordered for CT scan and labs Switch to Dilaudid, plus Ofirmev and Toradol Time Spent With Patient Time: Total time managing care of this patient today ____ minutes.
[2023-11-12 15:13] VITALS: BP 143/73; PULSE 100; RESP 22; TEMP 36.4; O2SAT 95
[2023-11-12 15:31] LABS: Hematocrit 37.2 % (42.0-52.0); Hemoglobin 12.7 g/dl (14.0-18.0); Mean Corpuscular HGB Conc 34.1 g/dl (31.0-36.0); Mean Corpuscular Hemoglobin 28.9 pg (27.0-33.0); Mean Corpuscular Volume 84.7 fL (80.0-98.0); Mean Platelet Volume 9.1 fL (9.4-12.4); Platelet Count 464 X10*3/uL (160-400); Red Blood Count 4.39 X10*6/uL (4.60-5.80); Red Cell Distribution Width 13.2 % (11.0-16.0)
--- NOTE | 2023-11-12 15:32 | PM.EVENT ---
Event Note Date of Service: 11/13/23 Event Note: CT reviewed - markedly distended stomach, fluid-filled No obvious obstruction No other obvious intra-abdominal pathology except for postop changes Official report not in yet Explained patient that it would be best to insert NG tube to decompress stomach NG tube therefore inserted and about 700 cc of gastric contents were evacuated He felt much improved immediately after Delayed gastric emptying likely from postop physiologic stress, narcotics Restart IV fluids Looks a lot more comfortable now after NG tube insertion and decompression elevated WBC likely from stress response with severe pain earlier - no fever KUB seen- will withdraw NGT by about 2 inches replace K - likely low from GI losses Time Spent With Patient Time: Total time managing care of this patient today ____ minutes.
[2023-11-12 16:18] LABS: Anion Gap 19 (12-20); Blood Urea Nitrogen 11 mg/dL (9-16); Calcium 9.2 mg/dL (8.4-10.2); Carbon Dioxide 21 mmol/L (22-29); Chloride 102 mmol/L (96-108); Creatinine Clr Calc Pharmacy 143.6; Estimated Glomerular Filt Rate > 60; Glucose Random 246 mg/dL (60-115); Potassium 2.8 mmol/L (3.3-5.1); Sodium 139 mmol/L (135-145)
[2023-11-12] MEDS: ondansetron HCL 4 MG/2 ML VIAL IVPUSH (16:51)
[2023-11-12] MEDS: Potassium Chloride Packet 20 MEQ PACKET 40 MEQ PO ×2 (16:51→23:23)
[2023-11-12] MEDS: Throat Lozenge, Medicated LOZENGE 1 LOZENGE MUCOUS MEM ×2 (16:51→20:08)
[2023-11-12] MEDS: KCl 40 mEq in 0.9 % Sodium Chl 40 MEQ/1,000 ML IV.SOLN 100 MEQ IVCONT (16:51)
[2023-11-12 19:15] VITALS: BP 130/66; PULSE 98; RESP 18; TEMP 36.7; O2SAT 96
[2023-11-12] MEDS: 0.9 % Sodium Chloride Flush 3 ML SYRINGE IVFLUSH (21:06)
[2023-11-13] MEDS: KCl 40 mEq in 0.9 % Sodium Chl 40 MEQ/1,000 ML IV.SOLN 100 MEQ IVCONT (02:37)
[2023-11-13] MEDS: Ketorolac Tromethamine 30 MG/ML VIAL IVPUSH ×4 (03:07→21:07)
--- NOTE | 2023-11-13 03:10 | PC.NURSE ---
Pt's K level at 1514 on 11/11 was 2.8. Pt has 40 meq of K in NS running at 100 mls/hr. Pt had received 40 meq of PO K at 1651 through the NG tube, day nurse kept NG tube clamped for 30 minutes, but was concerned that pt may have gotten all the medication d/t increased output of NG tube once it was unclamped. There was a 2nd dose of 40 meq PO K due at 2014 on 11/11. [place] text sent to Dr. Collado to let her know and ask if it may be better to give 40 meq K through the IV instead. Dr. Collado gave orders to hold 2014 40 meq K. Another order of 40 meq PO K was ordered and administered at [address] Collado added a nursing notification to keep NG tube clamped for 90 minutes. She also ordered another dose to be given at 0600 and to keep NG tube clamped for another 90 minutes. Will continue to monitor pt.
[2023-11-13 03:14] VITALS: BP 122/67; PULSE 94; RESP 16; TEMP 36.6; O2SAT 95
[2023-11-13] MEDS: Potassium Chloride Packet 20 MEQ PACKET 40 MEQ PO (05:51)
[2023-11-13] MEDS: oxyCODONE HCl Immed Release 5 MG TABLET 10 MG PO ×3 (07:01→14:39)
[2023-11-13] MEDS: Acetaminophen 1,000 MG/100 ML PIGGYBACK 400 MG IV ×3 (07:01→23:47)
[2023-11-13 07:33] VITALS: BP 132/72; PULSE 89; RESP 18; TEMP 37.2; O2SAT 96
--- NOTE | 2023-11-13 08:16 | PM.PNGS ---
Subjective Subjective Date of Service: 11/13/23 <Viviana Luna PA-C - Last Filed: 11/13/23 08:19> 11/13/23 <Dakota Brooks MD - Last Filed: 11/13/23 08:23> Interval history: NGT continues with high output. Feels better overall this morning- less pain and nausea. <Viviana Luna PA-C - Last Filed: 11/13/23 08:19> Physical Exam Vital Signs: Vital Signs: Last Vital Signs Temp 99.0 F 11/13/23 07:33 Pulse 89 11/13/23 07:33 Resp 18 11/13/23 07:33 BP 132/72 11/13/23 07:33 Pulse Ox 96 11/13/23 07:33 O2 Del Method Room Air 11/13/23 07:33 O2 Flow Rate 2 11/08/23 15:29 BMI result Body Mass Index 34.0 <TY Knapp Last Filed: 11/13/23 08:19> Const: General: comfortable, no acute distress and alert <Viviana Luna PA-C - Last Filed: 11/13/23 08:19> Orientation/consciousness: patient oriented x3 <Viviana Luna PA-C - Last Filed: 11/13/23 08:19> Resp: Effort & Inspection: normal respiratory effort <Viviana Luna PA-C - Last Filed: 11/13/23 08:19> GI: Inspection: Yes distended (softly ) and Yes incision (some drainage from inferior aspect ) <Viviana Luna PA-C - Last Filed: 11/13/23 08:19> Palpation (GI): Soft to palpation, Tenderness to palpation present (GI) (incisional) and no guarding <TY Knapp Last Filed: 11/13/23 08:19> Skin: General skin exam: no rashes or lesions noted <TY Knapp Last Filed: 11/13/23 08:19> Neuro: General: patient oriented x3 and moves all extremities <TY Knapp Last Filed: 11/13/23 08:19> Objective Data Active Medications Benzocaine (Throat Lozenge, Medicated Lozenge) 1 lozenge MUCOUS MEM Q2H PRN PRN Reason: Sore Throat Last Admin: 11/12/23 20:08 Dose: 1 lozenge Documented By: KENROY Hydromorphone HCl (Hydromorphone Hcl 0.5 Mg/0.5 Ml Syringe) 0.5 mg IVPUSH Q2H PRN; Protocol PRN Reason: Pain, Severe (Pain Scale 7-10) Last Admin: 11/12/23 14:01 Dose: 0.5 mg Documented By: SP Acetaminophen (Ofirmev) 1,000 mg in 100 mls @ 400 mls/hr IV RQ8H [facility] Last Infusion: 11/13/23 07:19 Dose: Infused Documented By: KRISTYN Potassium Chloride/Sodium Chloride (Kcl 40 Meq In 0.9 % Sodium Chl) 40 meq in 1,000 mls @ 100 mls/hr IVCONT .Q10H [facility] Last Admin: 11/13/23 02:37 Dose: 100 mls/hr Documented By: KENROY Ketorolac Tromethamine (Ketorolac Tromethamine 30 Mg/Ml Vial) 30 mg IVPUSH Q6H [facility] Last Admin: 11/13/23 03:07 Dose: 30 mg Documented By: KENROY Morphine Sulfate (Morphine Sulfate 2 Mg/Ml Cartridge) 3 mg IVPUSH Q4H PRN; Protocol PRN Reason: Pain, Severe (Pain Scale 7-10) Last Admin: 11/12/23 13:05 Dose: 3 mg Documented By: BRIAN Naloxone HCl (Naloxone Hcl 0.4 Mg/Ml Vial) 0.2 mg IVPUSH Q2M PRN PRN Reason: Excessive sedation or RR < 8 Ondansetron HCl (Ondansetron Hcl 4 Mg/2 Ml Vial) 4 mg IVPUSH Q6H PRN PRN Reason: nausea Last Admin: 11/12/23 16:51 Dose: 4 mg Documented By: SP Oxycodone HCl (Oxycodone Hcl Immed Release 5 Mg Tablet) 10 mg PO Q4H PRN PRN Reason: Pain, Severe (Pain Scale 7-10) Last Admin: 11/13/23 07:01 Dose: 10 mg Documented By: KRISTYN Potassium Chloride (Potassium Chloride Packet 20 Meq Packet) 40 meq PO ONCE ONE Stop: 11/14/23 06:01 Sodium Chloride (0.9 % Sodium Chloride Flush 3 Ml Syringe) 3 ml IVFLUSH QSHIFT [facility] Last Admin: 11/12/23 21:06 Dose: 3 ml Documented By: JACQUELINQC <Viviana Luna PA-C - Last Filed: 11/13/23 08:19> Labs CBC & Chem 7: 11/12/23 15:14 11/12/23 15:14 <Viviana Luna PA-C - Last Filed: 11/13/23 08:19> Labs: Laboratory Results - last 24 hr 11/12/23 15:14 MCV 84.7 MCH 28.9 MCHC 34.1 RDW 13.2 Plt Count 464 H D MPV 9.1 L Absolute Nucleated RBC 0.000 Nucleated RBC % (auto) 0.0 Anion Gap 19 Estim Creat Clear Calc 143.6 Estimated GFR > 60 Random Glucose 246 H Calcium 9.2 D <Viviana Luna PA-C - Last Filed: 11/13/23 08:19> Procedures Date of Service Date of Service: 11/13/23 <Viviana Luna PA-C - Last Filed: 11/13/23 08:19> 11/13/23 <Dakota Brooks MD - Last Filed: 11/13/23 08:23> Progress Note: A&P Assessment and plan (1) S/P left colectomy: Status: Acute <Viviana Luna PA-C - Last Filed: 11/13/23 08:19> Assessment and Plan: Feels better this morning with NG tube in place Stoma with good output Abdomen soft though mildly distended Incision clean Monitor NG tube output Encourage ambulation Slow down on narcotics for pain Awaiting repeat potassium Seen and examined independently <Dakota Brooks MD - Last Filed: 11/13/23 08:23> (2) Colon obstruction: Status: Acute <TY Knapp Last Filed: 11/13/23 08:19> Assessment and Plan: S/P resection, transverse end -loop colostomy Now with delayed gastric emptying, slow GI function- requiring NGT insertion yesterday Improved this morning, keep NGT in place, increase activity, avoid narcotics Cont IVF path report - diverticular-associated segmental colitis <Viviana Luna PA-C - Last Filed: 11/13/23 08:19> Time Spent With Patient Time: Total time managing care of this patient today ____ minutes. <Viviana Luna PA-C - Last Filed: 11/13/23 08:19> Quality Stroke Does the patient have a stroke diagnosis?: No <Viviana Luna PA-C - Last Filed: 11/13/23 08:19> VTE Prior VTE?: No <TY Knapp Last Filed: 11/13/23 08:19> VTE Risk Level:: Medical - moderate - high <TY Knapp Last Filed: 11/13/23 08:19> VTE Device Contraindication: N/A - Device Ordered <TY Knapp Last Filed: 11/13/23 08:19> VTE Drug Contraindication: N/A - Med Ordered <TY Knapp Last Filed: 11/13/23 08:19>
[2023-11-13 09:10] LABS: Hematocrit 34.5 % (42.0-52.0); Hemoglobin 11.5 g/dl (14.0-18.0); Mean Corpuscular HGB Conc 33.3 g/dl (31.0-36.0); Mean Corpuscular Volume 86.9 fL (80.0-98.0); Mean Platelet Volume 9.3 fL (9.4-12.4); Platelet Count 467 X10*3/uL (160-400); Red Blood Count 3.97 X10*6/uL (4.60-5.80); Red Cell Distribution Width 13.8 % (11.0-16.0); White Blood Count 14.6 X10*3/uL (4.8-10.8)
[2023-11-13 09:37] LABS: Anion Gap 14 (12-20); Blood Urea Nitrogen 15 mg/dL (9-16); Carbon Dioxide 26 mmol/L (22-29); Chloride 108 mmol/L (96-108); Creatinine Clr Calc Pharmacy 124.9; Estimated Glomerular Filt Rate > 60; Glucose Random 100 mg/dL (60-115); Potassium 3.9 mmol/L (3.3-5.1); Sodium 144 mmol/L (135-145)
[2023-11-13] MEDS: KCl 20 mEq in 0.9 % Sodium ChL 20 MEQ/1,000 ML IV.SOLN 100 MEQ IVCONT ×2 (11:08→21:11)
--- NOTE | 2023-11-13 15:25 | MHC.CM.PN ---
PT NOT DCD TODAY ,PER DC PLAN INDICATED PT WILL NEED VNA WHEN DCD
--- NOTE | 2023-11-13 15:33 | HO.OSTOMY ---
Ostomy Consult : Follow up 43yr old?Male admitted to [facility] [place] 11/06/23 for abd pain - See progress notes and H&P for detailed history.? Ostomy consult follow up for continue teaching regarding end loop colostomy creation by Dr. Brooks on 11/07/23. Patient remains with NG tube to wall suction. He denies pain, denies Nausea. He reports feeling tired but better than yesterday reports the NG is very bothersome to him. Pouch remains intact will defer teaching to tomorrow when patient more appropriate for teaching.
[2023-11-13 15:45] VITALS: BP 141/67; PULSE 88; RESP 18; TEMP 36.7; O2SAT 93
--- NOTE | 2023-11-13 16:16 | PM.EVENT ---
Event Note Date of Service: 11/14/23 Event Note: says he is tired but ok comfortable abd soift stoma with output NGT in - not much output today ffup K now normal repeat BMP tomorrow seems to be doing better clinically now Time Spent With Patient Time: Total time managing care of this patient today ____ minutes.
[2023-11-13 19:29] VITALS: BP 136/75; PULSE 85; RESP 17; TEMP 36.1; O2SAT 96
[2023-11-13] MEDS: 0.9 % Sodium Chloride Flush 3 ML SYRINGE IVFLUSH (23:48)
[2023-11-14 03:29] VITALS: BP 134/76; PULSE 84; RESP 16; TEMP 37.1; O2SAT 98
[2023-11-14] MEDS: Ketorolac Tromethamine 30 MG/ML VIAL IVPUSH ×4 (05:10→21:05)
[2023-11-14] MEDS: Potassium Chloride Packet 20 MEQ PACKET 40 MEQ PO (05:11)
[2023-11-14 07:39] VITALS: BP 146/79; PULSE 92; RESP 12; TEMP 36.4; O2SAT 95
--- NOTE | 2023-11-14 08:03 | PM.PNGS ---
Subjective Subjective Date of Service: 11/14/23 Interval history: Feels well Denies significant abdominal pain Says it is the NG tube that bothers him Stoma continues to function with good output NG tube out put I overnight but the patient says he has been taking a lot of ice chips Physical Exam Vital Signs: Vital Signs: Last Vital Signs Temp 97.5 F 11/14/23 07:39 Pulse 92 11/14/23 07:39 Resp 12 11/14/23 07:39 BP 146/79 H 11/14/23 07:39 Pulse Ox 95 11/14/23 07:39 O2 Del Method Room Air 11/14/23 07:39 O2 Flow Rate 2 11/08/23 15:29 BMI result Body Mass Index 34.0 Const: General: comfortable and no acute distress Resp: Effort & Inspection: normal respiratory effort Cardio: Rate: regular rate GI: Other: Incision with some serosanguineous drainage at the bottom part, likely with subcutaneous fat necrosis; stoma with good output; a patch of mucosal scabbing noted but stoma viable overall Palpation (GI): Soft to palpation Objective Data Active Medications Benzocaine (Throat Lozenge, Medicated Lozenge) 1 lozenge MUCOUS MEM Q2H PRN PRN Reason: Sore Throat Last Admin: 11/12/23 20:08 Dose: 1 lozenge Documented By: KENROY Hydromorphone HCl (Hydromorphone Hcl 0.5 Mg/0.5 Ml Syringe) 0.5 mg IVPUSH Q2H PRN; Protocol PRN Reason: Pain, Severe (Pain Scale 7-10) Last Admin: 11/12/23 14:01 Dose: 0.5 mg Documented By: SP Acetaminophen (Ofirmev) 1,000 mg in 100 mls @ 400 mls/hr IV RQ8H [facility] Last Infusion: 11/14/23 00:38 Dose: Infused Documented By: LATISHA Potassium Chloride/Sodium Chloride (Kcl 20 Meq In 0.9 % Sodium Chl) 20 meq in 1,000 mls @ 100 mls/hr IVCONT .Q10H [facility] Last Infusion: 11/14/23 07:18 Dose: Infused Documented By: TERRA Ketorolac Tromethamine (Ketorolac Tromethamine 30 Mg/Ml Vial) 30 mg IVPUSH Q6H [facility] Last Admin: 11/14/23 05:10 Dose: 30 mg Documented By: LATISHA Morphine Sulfate (Morphine Sulfate 2 Mg/Ml Cartridge) 3 mg IVPUSH Q4H PRN; Protocol PRN Reason: Pain, Severe (Pain Scale 7-10) Last Admin: 11/12/23 13:05 Dose: 3 mg Documented By: BRIAN Naloxone HCl (Naloxone Hcl 0.4 Mg/Ml Vial) 0.2 mg IVPUSH Q2M PRN PRN Reason: Excessive sedation or RR < 8 Ondansetron HCl (Ondansetron Hcl 4 Mg/2 Ml Vial) 4 mg IVPUSH Q6H PRN PRN Reason: nausea Last Admin: 11/12/23 16:51 Dose: 4 mg Documented By: SOFFAWilfredo Oxycodone HCl (Oxycodone Hcl Immed Release 5 Mg Tablet) 10 mg PO Q4H PRN PRN Reason: Pain, Severe (Pain Scale 7-10) Last Admin: 11/13/23 14:39 Dose: 10 mg Documented By: KRISTYN Sodium Chloride (0.9 % Sodium Chloride Flush 3 Ml Syringe) [facility] Last Admin: 11/13/23 23:48 Dose: 3 ml Documented By: LATISHA Labs 11/13/23 07:52 11/13/23 07:52 Labs: Laboratory Results - last 24 hr 11/13/23 07:52 MCV 86.9 MCH 29.0 MCHC 33.3 RDW 13.8 Plt Count 467 H MPV 9.3 L Absolute Nucleated RBC 0.000 Nucleated RBC % (auto) 0.0 Anion Gap 14 Estim Creat Clear Calc 124.9 Estimated GFR > 60 Random Glucose 100 Calcium 9.0 Procedures Date of Service Date of Service: 11/14/23 Progress Note: A&P Assessment and plan (1) S/P left colectomy: Status: Acute Assessment and Plan: Looks well overall Patient taking a lot of ice chips Plan to clamp NG tube this morning and check residuals later on today Stoma functioning well with good output Ambulate more and get out of bed Denies pain Recheck BMP Time Spent With Patient Time: Total time managing care of this patient today ____ minutes. Quality Stroke Does the patient have a stroke diagnosis?: No VTE Prior VTE?: No VTE Risk Level:: Medical - moderate - high VTE Device Contraindication: N/A - Device Ordered VTE Drug Contraindication: N/A - Med Ordered
[2023-11-14 08:38] LABS: Anion Gap 14 (12-20); Blood Urea Nitrogen 15 mg/dL (9-16); Carbon Dioxide 26 mmol/L (22-29); Chloride 110 mmol/L (96-108); Creatinine Clr Calc Pharmacy 128.3; Estimated Glomerular Filt Rate > 60; Glucose Random 84 mg/dL (60-115); Potassium 4.2 mmol/L (3.3-5.1); Sodium 146 mmol/L (135-145)
[2023-11-14] MEDS: 0.9 % Sodium Chloride Flush 3 ML SYRINGE IVFLUSH ×3 (09:13→23:33)
[2023-11-14] MEDS: Acetaminophen 1,000 MG/100 ML PIGGYBACK 400 MG IV ×3 (09:15→23:31)
[2023-11-14] MEDS: KCl 20 mEq in 0.9 % Sodium ChL 20 MEQ/1,000 ML IV.SOLN 100 MEQ IVCONT ×3 (11:03→23:33)
--- NOTE | 2023-11-14 13:43 | HO.OSTOMY ---
Ostomy Consult : Follow up 43yr old?Male admitted to [facility] [place] on 11/06/23 for abd pain - See progress notes and H&P for detailed history.? Ostomy consult follow up for continue teaching regarding end loop colostomy creation by Dr. Brooks on 11/07/23. Patient remains with NG tube currently clamped tolerating well. Denies N/V and denies pain at this time. He reports he has no questions at this time. He reports overnight nurse emptied his pouch since he was not feeling well and the NG tube was to suction. Advised to ambulate to today if he remains off wall suction to practice emptying independently. He demonstrates understanding. Pouch assessed - intact no leaking noted. The pouch was noted for liquid brown clear with some flecks. Will follow up for teaching.
--- NOTE | 2023-11-14 15:11 | PM.EVENT ---
Event Note Date of Service: 11/14/23 Event Note: NG tube had been clamped since 08:00 He did not complain of any nausea or discomfort I checked for residuals - less than 20 cc suctioned I therefore removed the NG tube We will keep with ice chips for now Stoma continues to have output He looks well overall Encouraged to ambulate more Potassium is 4.2 Time Spent With Patient Time: Total time managing care of this patient today ____ minutes.
[2023-11-14 15:31] VITALS: BP 137/81; PULSE 92; RESP 18; TEMP 36.1; O2SAT 97
[2023-11-14 19:30] VITALS: BP 151/77; PULSE 79; RESP 18; TEMP 36.1; O2SAT 98
[2023-11-15] MEDS: Ketorolac Tromethamine 30 MG/ML VIAL IVPUSH (03:09)
[2023-11-15 03:43] VITALS: BP 136/77; PULSE 75; RESP 16; TEMP 36.2; O2SAT 99
[2023-11-15] MEDS: oxyCODONE HCl Immed Release 5 MG TABLET 10 MG PO ×2 (06:56→10:52)
[2023-11-15] MEDS: Acetaminophen 1,000 MG/100 ML PIGGYBACK 400 MG IV (06:56)
[2023-11-15 07:59] VITALS: BP 146/80; PULSE 82; RESP 16; TEMP 36.3; O2SAT 98
[2023-11-15 09:13] VITALS: BMI 34.0
--- NOTE | 2023-11-15 09:24 | MHC.CLN ---
NUTRITION DIET ADVANCED TODAY TO CLEAR LIQUIDS. S/P LEFT COLECTOMY. NGT OUT 11/13. ADDING ENSURE CLEAR TID (720 KCALS, 24 G PROTEIN). ADM 11/05 WITH DIET=NPO OR CL EXCLUDING 11/10-11/11 WHEN DIET=REGULAR, BLAND. IF UNABLE TO TOLERATE SOLIDS, MAY BENEFIT FROM PARENTERAL NUTRITION. FOLLOW FOR DIET TOLERANCE AND PO INTAKE. SEE CLINICAL NUTRITION ASSESSMENT 11/15/23.
--- NOTE | 2023-11-15 09:42 | P.PNGS_ITS ---
Subjective Subjective Date of Service: 11/15/23 Interval history: Feels much better Hungry and wants to eat No nausea or vomiting Physical Exam 2 Vital Signs: Vital Signs: Last Vital Signs Temp 97.4 F 11/15/23 07:59 Pulse 82 11/15/23 07:59 Resp 16 11/15/23 07:59 BP 146/80 H 11/15/23 07:59 Pulse Ox 98 11/15/23 07:59 O2 Del Method Room Air 11/15/23 03:43 O2 Flow Rate 2 11/08/23 15:29 BMI result Body Mass Index 34.0 Const: Other: Looks well General: comfortable and no acute distress Resp: Effort & Inspection: normal respiratory effort GI: Other: Stoma with good output Palpation (GI): Soft to palpation, not firm and no guarding Objective Data Active Medications Benzocaine (Throat Lozenge, Medicated Lozenge) 1 lozenge MUCOUS MEM Q2H PRN PRN Reason: Sore Throat Last Admin: 11/12/23 20:08 Dose: 1 lozenge Documented By: KENROY Hydromorphone HCl (Hydromorphone Hcl 0.5 Mg/0.5 Ml Syringe) 0.5 mg IVPUSH Q2H PRN; Protocol PRN Reason: Pain, Severe (Pain Scale 7-10) Last Admin: 11/12/23 14:01 Dose: 0.5 mg Documented By: SP Potassium Chloride/Sodium Chloride (Kcl 20 Meq In 0.9 % Sodium Chl) 20 meq in 1,000 mls @ 100 mls/hr IVCONT .Q10H KIKO Last Infusion: 11/15/23 09:34 Dose: Infused Documented By: KRISTYN Morphine Sulfate (Morphine Sulfate 2 Mg/Ml Cartridge) 3 mg IVPUSH Q4H PRN; Protocol PRN Reason: Pain, Severe (Pain Scale 7-10) Last Admin: 11/12/23 13:05 Dose: 3 mg Documented By: BRIAN Naloxone HCl (Naloxone Hcl 0.4 Mg/Ml Vial) 0.2 mg IVPUSH Q2M PRN PRN Reason: Excessive sedation or RR < 8 Ondansetron HCl (Ondansetron Hcl 4 Mg/2 Ml Vial) 4 mg IVPUSH Q6H PRN PRN Reason: nausea Last Admin: 11/12/23 16:51 Dose: 4 mg Documented By: SP Oxycodone HCl (Oxycodone Hcl Immed Release 5 Mg Tablet) 10 mg PO Q4H PRN PRN Reason: Pain, Severe (Pain Scale 7-10) Last Admin: 11/15/23 06:56 Dose: 10 mg Documented By: KRISTYN Sodium Chloride (0.9 % Sodium Chloride Flush 3 Ml Syringe) 3 ml IVFLUSH [facility] Last Admin: 11/15/23 06:58 Dose: Not Given Documented By: KRISTYN Non-Admin Reason: IV Running Labs 11/13/23 07:52 11/14/23 08:19 Procedures Date of Service Date of Service: 11/15/23 Progress Note: A&P Assessment and plan (1) S/P left colectomy: Status: Acute Assessment and Plan: Doing very well after NG tube was removed yesterday Stoma with good output Abdomen remained soft We will restart on clear liquids and advance in her own He has been ambulating Denies significant pain Time Spent With Patient Time: Total time managing care of this patient today ____ minutes. Quality Stroke Does the patient have a stroke diagnosis?: No VTE Prior VTE?: No VTE Risk Level:: Medical - moderate - high VTE Device Contraindication: N/A - Device Ordered VTE Drug Contraindication: N/A - Med Ordered
--- NOTE | 2023-11-15 11:32 | PC.NURSE ---
Took over this patient from previous RN. Surgical sites noted with strike through and drainage, PA notifed at this time to come see the patient.
--- NOTE | 2023-11-15 11:58 | PC.NURSE ---
Ostomy changed at this time per PA request.
--- NOTE | 2023-11-15 13:21 | MHC.CM.PN ---
per jimenez in financial pt is not a [place] citizen hgenhas limited [facility] and secondary is health safety net pt is covered for er visits and hsopitial stay pt would need to go to health centers to obtain medications
[2023-11-15] MEDS: KCl 20 mEq in 0.9 % Sodium ChL 20 MEQ/1,000 ML IV.SOLN 100 MEQ IVCONT (13:36)
--- NOTE | 2023-11-15 14:39 | PM.EVENT ---
Event Note Date of Service: 11/18/23 Time Spent With Patient Time: Total time managing care of this patient today ____ minutes.
[2023-11-15 16:18] VITALS: BP 131/77; PULSE 105; RESP 18; TEMP 36.2; O2SAT 97
[2023-11-15 17:31] VITALS: PULSE 100
[2023-11-15 20:00] VITALS: BP 133/66; PULSE 99; RESP 18; TEMP 37.1; O2SAT 97
[2023-11-15] MEDS: KCl 20 mEq in 0.9 % Sodium ChL 20 MEQ/1,000 ML IV.SOLN 60 MEQ IVCONT (23:33)
[2023-11-16 04:00] VITALS: BP 120/59; PULSE 89; RESP 18; TEMP 36.2; O2SAT 98
[2023-11-16 07:38] VITALS: BP 136/84; PULSE 88; RESP 14; TEMP 36.1; O2SAT 97
--- NOTE | 2023-11-16 08:16 | P.PNGS_ITS ---
Subjective Subjective Date of Service: 11/16/23 Interval history: Patient feels improved today, tolerated the regular diet without nausea or vomiting. Abdominal pain improving. Physical Exam 2 Vital Signs: Vital Signs: Last Vital Signs Temp 97.0 F 11/16/23 07:38 Pulse 88 11/16/23 07:38 Resp 14 11/16/23 07:38 BP 136/84 11/16/23 07:38 Pulse Ox 97 11/16/23 07:38 O2 Del Method Room Air 11/16/23 07:38 O2 Flow Rate 2 11/08/23 15:29 BMI result Body Mass Index 34.0 Const: Other: Looks well General: comfortable and no acute distress Resp: Effort & Inspection: normal respiratory effort GI: Other: Ostomy with liquid bilious output. Palpation (GI): Soft to palpation, not firm and no guarding Percussion: Yes normal to percussion Auscultation: no high pitched sounds Skin: Other: warm, dry, no rash Objective Data Active Medications Benzocaine (Throat Lozenge, Medicated Lozenge) 1 lozenge MUCOUS MEM Q2H PRN PRN Reason: Sore Throat Last Admin: 11/12/23 20:08 Dose: 1 lozenge Documented By: KENROY Hydromorphone HCl (Hydromorphone Hcl 0.5 Mg/0.5 Ml Syringe) 0.5 mg IVPUSH Q2H PRN; Protocol PRN Reason: Pain, Severe (Pain Scale 7-10) Last Admin: 11/12/23 14:01 Dose: 0.5 mg Documented By: SP Potassium Chloride/Sodium Chloride (Kcl 20 Meq In 0.9 % Sodium Chl) 20 meq in 1,000 mls @ 60 mls/hr IVCONT .[id number] KIKO Last Admin: 11/15/23 23:33 Dose: 60 mls/hr Documented By: CIERRA Naloxone HCl (Naloxone Hcl 0.4 Mg/Ml Vial) 0.2 mg IVPUSH Q2M PRN PRN Reason: Excessive sedation or RR < 8 Ondansetron HCl (Ondansetron Hcl 4 Mg/2 Ml Vial) 4 mg IVPUSH Q6H PRN PRN Reason: nausea Last Admin: 11/12/23 16:51 Dose: 4 mg Documented By: SP Oxycodone HCl (Oxycodone Hcl Immed Release 5 Mg Tablet) 5 mg PO Q4H PRN PRN Reason: Pain, Moderate(Pain Scale 4-6) Sodium Chloride (0.9 % Sodium Chloride Flush 3 Ml Syringe) 3 ml IVFLUSH QSHIFT KIKO Last Admin: 11/15/23 20:05 Dose: Not Given Documented By: CIERRA Non-Admin Reason: IV Running Labs 11/13/23 07:52 11/14/23 08:19 Procedures Date of Service Date of Service: 11/16/23 Progress Note: A&P Assessment and plan (1) S/P left colectomy: Status: Acute Assessment and Plan: Patient much improved, tolerating regular diet without nausea or vomiting. Abdominal exam: soft and non-distended. Incision clean. Ostomy functioning well. Encouraged ambulation and IS. Time Spent With Patient Time: Total time managing care of this patient today ____ minutes. Quality Stroke Does the patient have a stroke diagnosis?: No VTE Prior VTE?: No VTE Risk Level:: Medical - moderate - high VTE Device Contraindication: N/A - Device Ordered VTE Drug Contraindication: N/A - Med Ordered
[2023-11-16] MEDS: HYDROmorphone HCl 0.5 MG/0.5 ML SYRINGE IVPUSH ×4 (09:15→21:14)
--- NOTE | 2023-11-16 09:18 | PC.NURSE ---
Addendum entered by Deisy Stafford RN 11/16/23 18:42: Rigoberto made aware via tiger text pt continues to endorse severe pain at 16:15 pt has +BS and 100Ml of brown stool output this shift. Pt given PRN Dilaudid with good effect. No new orders at this time. Original Note: MD Franklin made aware via tiger text pt c/o 01/07 LL abd pain after eating breakfast, abd round, distended, +BS all 4 quads, liquid brown stool in ostomy bag. Per Rigoberto make Pt NPO. PRN pain med given IVP, pending effectiveness.
[2023-11-16] MEDS: Dextrose 5 % and Lactated Ring 1,000 ML 80 ML IVCONT ×2 (10:26→21:18)
[2023-11-16 13:29] VITALS: BP 137/90; PULSE 87; RESP 16; O2SAT 96
[2023-11-16 15:16] VITALS: BP 144/72; PULSE 93; RESP 20; TEMP 37.2; O2SAT 98
[2023-11-16 20:00] VITALS: BP 137/65; PULSE 97; RESP 16; TEMP 37.1; O2SAT 96
[2023-11-17] MEDS: HYDROmorphone HCl 0.5 MG/0.5 ML SYRINGE IVPUSH ×5 (03:51→23:44)
[2023-11-17 04:00] VITALS: BP 121/60; PULSE 95; RESP 18; TEMP 36; O2SAT 95
[2023-11-17 07:01] VITALS: BP 140/72; PULSE 88; RESP 18; TEMP 37; O2SAT 96
--- NOTE | 2023-11-17 08:16 | P.PNGS_ITS ---
Subjective Subjective Date of Service: 11/17/23 Interval history: Patient developed increased abdominal pain yesterday after eating regular diet. Patient changed to NPO status, IV fluids started. Patient feels somewhat improved this morning but continues to have abdominal pain. Ostomy is functioning with semi solid stool. Physical Exam 2 Vital Signs: Vital Signs: Last Vital Signs Temp 98.6 F 11/17/23 07:01 Pulse 88 11/17/23 07:01 Resp 18 11/17/23 07:01 BP 140/72 H 11/17/23 07:01 Pulse Ox 96 11/17/23 07:01 O2 Del Method Room Air 11/17/23 07:01 O2 Flow Rate 2 11/08/23 15:29 BMI result Body Mass Index 34.0 Const: General: no acute distress Nutritional Appearance: well nourished Resp: Effort & Inspection: normal respiratory effort GI: Other: Ostomy with semi formed stool. Inspection: Yes distended and Yes incision (Slight separation in the skin between arnie. ) Palpation (GI): Soft to palpation Percussion: Yes tympanic to percussion Auscultation: Hypoactive bowel sounds present Objective Data Active Medications Benzocaine (Throat Lozenge, Medicated Lozenge) 1 lozenge MUCOUS MEM Q2H PRN PRN Reason: Sore Throat Last Admin: 11/12/23 20:08 Dose: 1 lozenge Documented By: KENROY Hydromorphone HCl (Hydromorphone Hcl 0.5 Mg/0.5 Ml Syringe) 0.5 mg IVPUSH Q2H PRN; Protocol PRN Reason: Pain, Severe (Pain Scale 7-10) Last Admin: 11/17/23 03:51 Dose: 0.5 mg Documented By: CIERRA Dextrose/Lactated Ringer's (D5lr) 1,000 mls @ 80 mls/hr IVCONT .[id number] KIKO Last Admin: 11/16/23 21:18 Dose: 80 mls/hr Documented By: CIERRA Naloxone HCl (Naloxone Hcl 0.4 Mg/Ml Vial) 0.2 mg IVPUSH Q2M PRN PRN Reason: Excessive sedation or RR < 8 Ondansetron HCl (Ondansetron Hcl 4 Mg/2 Ml Vial) 4 mg IVPUSH Q6H PRN PRN Reason: nausea Last Admin: 11/12/23 16:51 Dose: 4 mg Documented By: SP Oxycodone HCl (Oxycodone Hcl Immed Release 5 Mg Tablet) 5 mg PO Q4H PRN PRN Reason: Pain, Moderate(Pain Scale 4-6) Sodium Chloride (0.9 % Sodium Chloride Flush 3 Ml Syringe) 3 ml IVFLUSH QSHIFT KIKO Last Admin: 11/17/23 07:30 Dose: Not Given Documented By: LORETA Non-Admin Reason: IV Running Labs 11/13/23 07:52 11/14/23 08:19 Procedures Date of Service Date of Service: 11/17/23 Progress Note: A&P Assessment and plan (1) S/P left colectomy: Status: Acute Assessment and Plan: Increased abdominal pain yesterday after eating. Patient switch to NPO status and started on IV fluids. Will check abdominal x-ray today. Encouraged out of bed and ambulation. Does not appear obstructed but peristalsis maybe slow. Continue IV fluids, NPO. Time Spent With Patient Time: Total time managing care of this patient today ____ minutes. Quality Stroke Does the patient have a stroke diagnosis?: No VTE Prior VTE?: No VTE Risk Level:: Medical - moderate - high VTE Device Contraindication: N/A - Device Ordered VTE Drug Contraindication: N/A - Med Ordered
[2023-11-17] MEDS: ondansetron HCL 4 MG/2 ML VIAL IVPUSH (11:26)
[2023-11-17] MEDS: Dextrose 5 % and Lactated Ring 1,000 ML 80 ML IVCONT (11:29)
--- NOTE | 2023-11-17 11:50 | PC.NURSE ---
Addendum entered by Deisy Stafford RN 11/17/23 17:56: Pt was able to ambulate in hallway and up to bathroom multiple times this shift. Original Note: MD Franklin made aware pt continues to endorse abd pain, relived with PRN Dilaudid. Pt continues to produce clear/brown liquid stool from ostomy, +BS in all 4 quads, LUQ and LLQ hypoactive. Pt stoma is beefy red with some brown discoloration, pictures sent to MD via tiger text at 09:55, per MD Franklin, This is some bowl mesentery which pushed out. Everything looks perfectly viable . Pt continues to be NPO, KUB ordered this shift. Skin surrounding stoma is slightly pink but intact, skin prep applied and new ostomy bag applied d/t leaking. Pt educated on importance of ambulation and encouraged to do so, vital signs stable.
[2023-11-17 15:10] VITALS: BP 124/77; PULSE 84; RESP 18; TEMP 37.1; O2SAT 97
[2023-11-17 18:58] VITALS: BP 120/64; PULSE 85; RESP 18; TEMP 36.2; O2SAT 97
[2023-11-18] MEDS: 0.9 % Sodium Chloride Flush 3 ML SYRINGE IVFLUSH ×2 (00:12→20:10)
[2023-11-18] MEDS: Dextrose 5 % and Lactated Ring 1,000 ML 80 ML IVCONT ×2 (00:12→11:59)
[2023-11-18 04:00] VITALS: BP 123/71; PULSE 80; RESP 16; TEMP 36.1; O2SAT 98
[2023-11-18 06:45] LABS: Hematocrit 31.5 % (42.0-52.0); Hemoglobin 10.7 g/dl (14.0-18.0); Mean Corpuscular Hemoglobin 29.2 pg (27.0-33.0); Mean Corpuscular Volume 86.1 fL (80.0-98.0); Platelet Count 701 X10*3/uL (160-400); Red Blood Count 3.66 X10*6/uL (4.60-5.80); Red Cell Distribution Width 13.3 % (11.0-16.0); White Blood Count 15.3 X10*3/uL (4.8-10.8)
[2023-11-18 07:43] VITALS: BP 121/61; PULSE 79; RESP 12; TEMP 36; O2SAT 96
--- NOTE | 2023-11-18 07:54 | PM.PNGS ---
Subjective Subjective Date of Service: 11/18/23 Interval history: was distended oer the weekend so placed on NPO says he had pain after eating breakfast last Saturday feels much better this morning stoma continues to function Physical Exam Vital Signs: Vital Signs: Last Vital Signs Temp 96.8 F 11/18/23 07:43 Pulse 79 11/18/23 07:43 Resp 12 11/18/23 07:43 BP 121/61 11/18/23 07:43 Pulse Ox 96 11/18/23 07:43 O2 Del Method Room Air 11/18/23 07:43 O2 Flow Rate 2 11/08/23 15:29 BMI result Body Mass Index 34.0 Const: Other: sitting up on chair General: comfortable and no acute distress Resp: Effort & Inspection: normal respiratory effort Cardio: Rate: regular rate GI: Other: stoma with good output Palpation (GI): Soft to palpation, not firm and no guarding Objective Data Active Medications Benzocaine (Throat Lozenge, Medicated Lozenge) 1 lozenge MUCOUS MEM Q2H PRN PRN Reason: Sore Throat Last Admin: 11/12/23 20:08 Dose: 1 lozenge Documented By: KENROY Hydromorphone HCl (Hydromorphone Hcl 0.5 Mg/0.5 Ml Syringe) 0.5 mg IVPUSH Q2H PRN; Protocol PRN Reason: Pain, Severe (Pain Scale 7-10) Last Admin: 11/17/23 23:44 Dose: 0.5 mg Documented By: EH Dextrose/Lactated Ringer's (D5lr) 1,000 mls @ 80 mls/hr IVCONT .[id number] KIKO Last Admin: 11/18/23 00:12 Dose: 80 mls/hr Documented By: GUICHO Naloxone HCl (Naloxone Hcl 0.4 Mg/Ml Vial) 0.2 mg IVPUSH Q2M PRN PRN Reason: Excessive sedation or RR < 8 Ondansetron HCl (Ondansetron Hcl 4 Mg/2 Ml Vial) 4 mg IVPUSH Q6H PRN PRN Reason: nausea Last Admin: 11/17/23 11:26 Dose: 4 mg Documented By: LORETA Oxycodone HCl (Oxycodone Hcl Immed Release 5 Mg Tablet) 5 mg PO Q4H PRN PRN Reason: Pain, Moderate(Pain Scale 4-6) Sodium Chloride (0.9 % Sodium Chloride Flush 3 Ml Syringe) 3 ml IVFLUSH QSHIFT [facility] Last Admin: 11/18/23 00:12 Dose: 3 ml Documented By: GUICHO Labs 11/18/23 05:35 11/18/23 05:35 Labs: Laboratory Results - last 24 hr 11/18/23 05:35 MCV 86.1 MCH 29.2 MCHC 34.0 RDW 13.3 Plt Count 701 H D MPV 9.0 L Absolute Nucleated RBC 0.000 Nucleated RBC % (auto) 0.0 Procedures Date of Service Date of Service: 11/18/23 Progress Note: A&P Assessment and plan (1) S/P left colectomy: Status: Acute Assessment and Plan: looks well WBC up but no fever try clear liquids again OOB - he says he had been ambulating abd soft stoma functioning well Time Spent With Patient Time: Total time managing care of this patient today ____ minutes. Quality Stroke Does the patient have a stroke diagnosis?: No VTE Prior VTE?: No VTE Risk Level:: Medical - moderate - high VTE Device Contraindication: N/A - Device Ordered VTE Drug Contraindication: N/A - Med Ordered
[2023-11-18] MEDS: HYDROmorphone HCl 0.5 MG/0.5 ML SYRINGE IVPUSH ×4 (09:42→20:06)
--- NOTE | 2023-11-18 10:59 | MHC.CLN ---
NUTRITION PATIENT CONTINUES TO BE UNABLE TO TOLERATE SOLID FOODS. LIMITED PO X >7 DAYS. PER MD, OK TO START PPN TODAY. COMMUNICATED WITH PHARMACY. RECOMMEND PPN: DAY 1 (11/18/23) PPN AT 40 ML PER HOUR, 41 G PROTEIN, 98 G DEXTROSE, 490 KCALS. CHECK LABS. REPLETE LYTES NEEDED. DAY 2 (11/19/23) PPN AT 60 ML PER HOUR, 61 G PROTEIN, 144 G DEXTROSE, 734 KCALS. REPLETE LYTES NEEDED. CHECK TRIGLYCERIDES. DAY 3 (11/20/23) ADVANCE PPN TO MAX GOAL RATE: PPN AT 80 ML PER HOUR, ADD 85 G LIPIDS. PROVIDE 82 G PROTEIN, 192 G DEXTROSE, 1829 TOTAL KCALS. CHECK LABS. REPLETE LYTES NEEDED. PROTEIN IS 1.23 G/KG CMW. TOTAL KCALS 27.4 KCALS/KG CMW. FOLLOW FOR PPN TOLERANCE AND DIET ADVANCEMENT.
[2023-11-18 11:10] LABS: Magnesium 2.2 mg/dL (1.6-2.6); Phosphorus 3.5 mg/dL (2.7-4.5)
[2023-11-18 11:32] LABS: Albumin Level 3.1 g/dL (3.5-5.0); Anion Gap 17 (12-20)
[2023-11-18 11:35] LABS: Blood Urea Nitrogen 14 mg/dL (9-16); Calcium 8.5 mg/dL (8.4-10.2); Carbon Dioxide 22 mmol/L (22-29); Chloride 102 mmol/L (96-108); Creatinine Clr Calc Pharmacy 139.4; Estimated Glomerular Filt Rate > 60; Glucose Random 95 mg/dL (60-115); Potassium 3.5 mmol/L (3.3-5.1); Sodium 137 mmol/L (135-145)
[2023-11-18] MEDS: oxyCODONE HCl Immed Release 5 MG TABLET PO (12:02)
--- NOTE | 2023-11-18 14:11 | HO.OSTOMY ---
Ostomy Consult : Follow up 43yr old?Male admitted to [facility] on 11/06/23 for abd pain - See progress notes and H&P for detailed history.? Ostomy consult follow up for continue teaching regarding end loop colostomy creation by Dr. Brooks on 11/07/23. Patient without NG tube - reports feeling unwell and reports pain - direct care nurse and provider aware. Stoma assessed through the pouch pink red viable - green liquid noted in pouch no stool noted. Patient reports he had no output on Saturday from the stoma. The midline incision was assessed creamy serosang drainage noted with significant distention noted. Jaden remain in place with areas of dehiscence noted. Discussed with Dr Brooks and photo reviewed. Will follow up for teaching when patient is more appropriate for teaching and retention. .
--- NOTE | 2023-11-18 14:13 | MHC.CM.PN ---
PT NOT YET CLEARED TO DC DCP HOME NO SERVICES, PT WILL NOT BE ELIGIBLE FOR VNA DUE TO INSURANCE HE WILL NEED TO FILL PRESCRIPTIONS AT [facility] PT WILL ARRANGE TRANSPORTATION
--- NOTE | 2023-11-18 14:45 | PM.EVENT ---
Event Note Date of Service: 11/20/23 Event Note: seen on afternoon rounds says he had pain with oral intake stoma continues to have good output abd remains soft I released 2 more arnie - thick serosanguinous fluid drained from incision c/w subcutaneous fat necrosis ambulate Ofirmev reordered PPN Time Spent With Patient Time: Total time managing care of this patient today ____ minutes.
[2023-11-18 15:39] VITALS: BP 122/70; PULSE 87; RESP 18; TEMP 36; O2SAT 97
[2023-11-18] MEDS: Acetaminophen 1,000 MG/100 ML PIGGYBACK 400 MG IV ×2 (16:24→19:54)
[2023-11-18 19:11] VITALS: BP 132/79; PULSE 67; RESP 18; TEMP 36.4; O2SAT 99
[2023-11-18] MEDS: Parenteral Nutrition 960 ML 40 ML IV (20:07)
[2023-11-19] MEDS: Dextrose 5 % and Lactated Ring 1,000 ML 80 ML IVCONT (00:34)
[2023-11-19 02:40] VITALS: BP 156/84; PULSE 82; RESP 18; TEMP 36.4; O2SAT 98
[2023-11-19] MEDS: HYDROmorphone HCl 0.5 MG/0.5 ML SYRINGE IVPUSH ×7 (02:41→21:26)
[2023-11-19] MEDS: Acetaminophen 1,000 MG/100 ML PIGGYBACK 400 MG IV ×2 (02:44→07:54)
[2023-11-19 06:40] LABS: Anion Gap 17 (12-20); Blood Urea Nitrogen 9 mg/dL (9-16); Calcium 8.7 mg/dL (8.4-10.2); Carbon Dioxide 21 mmol/L (22-29); Chloride 99 mmol/L (96-108); Creatinine Clr Calc Pharmacy 155.2; Estimated Glomerular Filt Rate > 60; Glucose Random 140 mg/dL (60-115); Magnesium 2.1 mg/dL (1.6-2.6); Phosphorus 3.2 mg/dL (2.7-4.5); Potassium 3.6 mmol/L (3.3-5.1); Sodium 133 mmol/L (135-145)
[2023-11-19 07:44] VITALS: BP 129/70; PULSE 78; RESP 18; TEMP 36.4; O2SAT 98
--- NOTE | 2023-11-19 08:29 | P.PNGS_ITS ---
Subjective Subjective Date of Service: 11/19/23 <Viviana Luna PA-C - Last Filed: 11/19/23 08:32> 11/19/23 <Dakota Brooks MD - Last Filed: 11/19/23 14:15> Interval history: Feels a little better today. Tolerating clear liquids. Ostomy functioning well. <Viviana Luna PA-C - Last Filed: 11/19/23 08:32> Physical Exam 2 Vital Signs: Vital Signs: Last Vital Signs Temp 97.5 F 11/19/23 07:44 Pulse 78 11/19/23 07:44 Resp 18 11/19/23 07:44 BP 129/70 11/19/23 07:44 Pulse Ox 98 11/19/23 07:44 O2 Del Method Room Air 11/19/23 07:44 O2 Flow Rate 2 11/08/23 15:29 BMI result Body Mass Index 34.0 <Viviana Luna PA-C - Last Filed: 11/19/23 08:32> Const: General: comfortable, no acute distress and alert <Viviana Luna PA-C - Last Filed: 11/19/23 08:32> Orientation/consciousness: patient oriented x3 <Viviana Luna PA-C - Last Filed: 11/19/23 08:32> Resp: Effort & Inspection: normal respiratory effort <Viviana Luna PA-C - Last Filed: 11/19/23 08:32> GI: Other: incision with drainage from superior aspect now ostomy viable appearing with large amount of soft stool just emptied <Viviana Luna PA-C - Last Filed: 11/19/23 08:32> Inspection: Yes distended (mild ) <TY Knapp Last Filed: 11/19/23 08:32> Palpation (GI): Soft to palpation and Tenderness to palpation present (GI) < TY Knapp Last Filed: 11/19/23 08:32> Skin: General skin exam: no rashes or lesions noted <TY Knapp Last Filed: 11/19/23 08:32> Neuro: General: patient oriented x3 <Viviana Luna PA-C - Last Filed: 11/19/23 08:32> Objective Data Active Medications Benzocaine (Throat Lozenge, Medicated Lozenge) 1 lozenge MUCOUS MEM Q2H PRN PRN Reason: Sore Throat Last Admin: 11/12/23 20:08 Dose: 1 lozenge Documented By: KENROY Hydromorphone HCl (Hydromorphone Hcl 0.5 Mg/0.5 Ml Syringe) 0.5 mg IVPUSH Q2H PRN; Protocol PRN Reason: Pain, Severe (Pain Scale 7-10) Last Admin: 11/19/23 06:38 Dose: 0.5 mg Documented By: GUICHO Dextrose/Lactated Ringer's (D5lr) 1,000 mls @ 80 mls/hr IVCONT .[id number] KIKO Last Admin: 11/19/23 00:34 Dose: 80 mls/hr Documented By: GUICHO Nutrition (Parenteral) (Parenteral Nutrition) 960 mls @ 40 mls/hr IV .Q24H KIKO; Protocol Stop: 11/19/23 20:59 Last Admin: 11/18/23 20:07 Dose: 40 mls/hr Documented By: GUICHO Acetaminophen (Ofirmev) 1,000 mg in 100 mls @ 400 mls/hr IV Q6H [facility] Stop: 11/19/23 08:59 Last Infusion: 11/19/23 08:20 Dose: Infused Documented By: CHEYENNE Naloxone HCl (Naloxone Hcl 0.4 Mg/Ml Vial) 0.2 mg IVPUSH Q2M PRN PRN Reason: Excessive sedation or RR < 8 Ondansetron HCl (Ondansetron Hcl 4 Mg/2 Ml Vial) 4 mg IVPUSH Q6H PRN PRN Reason: nausea Last Admin: 11/17/23 11:26 Dose: 4 mg Documented By: LORETA Oxycodone HCl (Oxycodone Hcl Immed Release 5 Mg Tablet) 5 mg PO Q4H PRN PRN Reason: Pain, Moderate(Pain Scale 4-6) Last Admin: 11/18/23 12:02 Dose: 5 mg Documented By: CHEYENNE Pharmacy Consult (Consult Rx Parenteral Nutrition Ordering) 1 each MISCELLANE DAILY PRN PRN Reason: Consult order Sodium Chloride (0.9 % Sodium Chloride Flush 3 Ml Syringe) 3 ml IVFLUSH QSHIFT [facility] Last Admin: 11/19/23 07:17 Dose: Not Given Documented By: CHEYENNE Non-Admin Reason: IV Running <Viviana Luna PA-C - Last Filed: 11/19/23 08:32> Labs CBC & Chem 7: 11/18/23 05:35 11/19/23 05:22 <Viviana Luna PA-C - Last Filed: 11/19/23 08:32> Labs: Laboratory Results - last 24 hr 11/18/23 11/19/23 05:35 05:22 Hold Purple Top SEE NOTE Anion Gap 17 17 Estim Creat Clear Calc 139.4 155.2 Estimated GFR > 60 > 60 Random Glucose 95 140 H Calcium 8.5 8.7 Phosphorus 3.5 3.2 Magnesium 2.2 2.1 Albumin 3.1 L 3.0 L <Viviana Luna PA-C - Last Filed: 11/19/23 08:32> Procedures Date of Service Date of Service: 11/19/23 <Viviana Luna PA-C - Last Filed: 11/19/23 08:32> 11/19/23 <Dakota Brooks MD - Last Filed: 11/19/23 14:15> Progress Note: A&P Assessment and plan (1) S/P left colectomy: Status: Acute <Viviana Luna PA-C - Last Filed: 11/19/23 08:32> Assessment and Plan: Looks well Stoma with good output No vomiting Still complains of periodic pain Keep on clear liquids for now and hope to advance tomorrow PPN started last night Seen and examined independently <Dakota Brooks MD - Last Filed: 11/19/23 14:15> (2) Colon obstruction: Status: Acute <Viviana Luna PA-C - Last Filed: 11/19/23 08:32> Assessment and Plan: Ostomy with increasing output. INcision with continued drainage, some more arnie removed from superior aspect and wound probed without significant drainage. Cont daily dry dressings. Cont PPN, clear liquids for now. Encouraged OOB/ambulation and IS use. Repeat CBC in am. Slowly improving. <Viviana Luna PA-C - Last Filed: 11/19/23 08:32> Time Spent With Patient Time: Total time managing care of this patient today ____ minutes. <Viviana Luna PA-C - Last Filed: 11/19/23 08:32> Quality Stroke Does the patient have a stroke diagnosis?: No <Viviana Luna PA-C - Last Filed: 11/19/23 08:32> VTE Prior VTE?: No <Viviana Luna PA-C - Last Filed: 11/19/23 08:32> VTE Risk Level:: Medical - moderate - high <Viviana Luna PA-C - Last Filed: 11/19/23 08:32> VTE Device Contraindication: N/A - Device Ordered <Viviana Luna PA-C - Last Filed: 11/19/23 08:32> VTE Drug Contraindication: N/A - Med Ordered <Viviana Luna PA-C - Last Filed: 11/19/23 08:32>
--- NOTE | 2023-11-19 10:40 | MHC.CLN ---
F/U PO INTAKE REMAINS POOR ON CLEARS REVIEWED LABS-NOTED LOW SERUM NA DISCUSS WITH PHARMACY RECOMMEND INCREASING PPN TO 60 ML PER HOUR TO PROVIDE 734KCALS, 61 G PROTEIN, 144 G DEXTROSE REPLETE LYTES NEEDED CHECK TRIGLYCERIDES
--- NOTE | 2023-11-19 11:42 | HO.OSTOMY ---
Ostomy Consult : Follow up 43yr old?Male admitted to [facility] [place] 11/06/23 for abd pain - See progress notes and H&P for detailed history.? Ostomy consult follow up for continue teaching regarding end loop colostomy creation by Dr. Brooks on 11/07/23. Arrival to bedside patient reports feeling unwell and reports pain and belching. He reports mild nausea at times. Direct care nurse aware. Stoma assessed through the pouch pink red viable - green liquid noted in pouch no stool noted. Patient reports he has not been emptying his pouch since he is so uncomfortable and he has had very little output - nurse confirms 50cc for total output yesterday. Patient encouraged to participate when able. General Surgery continued to follow up. Will follow up for teaching when patient is more appropriate for teaching and retention. .
[2023-11-19 15:12] VITALS: BP 128/79; PULSE 80; RESP 18; TEMP 36.2; O2SAT 99
--- NOTE | 2023-11-19 16:49 | PM.EVENT ---
Event Note Date of Service: 11/20/23 Event Note: still says he has pain with PO intake stoma continues to have output abd soft he says he has been ambulating more keep on clears PPN hope to advance diet tomorrow Time Spent With Patient Time: Total time managing care of this patient today ____ minutes.
[2023-11-19 19:02] VITALS: BP 137/76; PULSE 88; RESP 18; TEMP 36.7; O2SAT 98
[2023-11-19] MEDS: Parenteral Nutrition 1,440 ML 60 ML IV (21:13)
[2023-11-20] MEDS: HYDROmorphone HCl 0.5 MG/0.5 ML SYRINGE IVPUSH ×2 (02:34→07:47)
[2023-11-20 02:35] VITALS: BP 119/62; PULSE 93; RESP 18; TEMP 36.6; O2SAT 97
[2023-11-20 06:52] LABS: MANUAL DIFF FLAG NO
[2023-11-20 07:03] LABS: Basophils Absolute Auto 0.1 X10*3/uL (0.0-0.2); Basophils Percent Auto 0.3 % (0-2); Eosinophils Absolute Auto 0.2 X10*3/uL (0.0-0.4); Eosinophils Percent Auto 0.9 % (0-4); Hematocrit 31.8 % (42.0-52.0); Hemoglobin 10.7 g/dl (14.0-18.0); Imm Gran Abs Auto 0.29 X10*3/uL (0.00-0.03); Imm Gran Pct Auto 1.6 % (0.0-0.4); Lymphocytes Absolute Auto 1.8 X10*3/uL (1.2-4.9); Lymphocytes Percent Auto 9.9 % (20-40); Mean Corpuscular HGB Conc 33.6 g/dl (31.0-36.0); Mean Corpuscular Hemoglobin 28.5 pg (27.0-33.0); Mean Corpuscular Volume 84.6 fL (80.0-98.0); Mean Platelet Volume 9.3 fL (9.4-12.4); Monocytes Absolute Auto 1.2 X10*3/uL (0.1-1.2); Monocytes Percent Auto 6.4 % (2-11); Neutrophils Absolute Auto 14.6 x10*3/uL (2.0-8.3); Neutrophils Percent Auto 80.9 % (45-73); Platelet Count 797 X10*3/uL (160-400); Red Blood Count 3.76 X10*6/uL (4.60-5.80); Red Cell Distribution Width 13.1 % (11.0-16.0); White Blood Count 18.1 X10*3/uL (4.8-10.8)
[2023-11-20 07:15] LABS: Albumin Level 3.3 g/dL (3.5-5.0); Anion Gap 17 (12-20); Blood Urea Nitrogen 9 mg/dL (9-16); Carbon Dioxide 22 mmol/L (22-29); Chloride 96 mmol/L (96-108); Creatinine Clr Calc Pharmacy 165.9; Estimated Glomerular Filt Rate > 60; Glucose Random 116 mg/dL (60-115); Magnesium 2.1 mg/dL (1.6-2.6); Phosphorus 3.2 mg/dL (2.7-4.5); Potassium 3.8 mmol/L (3.3-5.1); Sodium 131 mmol/L (135-145)
[2023-11-20 07:45] VITALS: BP 138/68; PULSE 79; RESP 18; TEMP 36.8; O2SAT 97
--- NOTE | 2023-11-20 07:45 | PM.PNGS ---
Subjective Subjective Date of Service: 11/21/23 Interval history: Continues to have pain with oral intake Stoma functioning well Says she has been ambulating Physical Exam Vital Signs: Vital Signs: Last Vital Signs Temp 97.8 F 11/20/23 02:35 Pulse 93 11/20/23 02:35 Resp 18 11/20/23 02:35 BP 119/62 11/20/23 02:35 Pulse Ox 97 11/20/23 02:35 O2 Del Method Room Air 11/20/23 02:35 O2 Flow Rate 2 11/08/23 15:29 BMI result Body Mass Index 34.0 Const: General: no acute distress Resp: Effort & Inspection: normal respiratory effort Cardio: Rate: regular rate GI: Other: Stoma with good out incision with some scanty drainage Palpation (GI): Soft to palpation, not firm and no guarding Objective Data Active Medications Benzocaine (Throat Lozenge, Medicated Lozenge) 1 lozenge MUCOUS MEM Q2H PRN PRN Reason: Sore Throat Last Admin: 11/12/23 20:08 Dose: 1 lozenge Documented By: KENROY Hydromorphone HCl (Hydromorphone Hcl 0.5 Mg/0.5 Ml Syringe) 0.5 mg IVPUSH Q2H PRN; Protocol PRN Reason: Pain, Severe (Pain Scale 7-10) Last Admin: 11/20/23 02:34 Dose: 0.5 mg Documented By: EH Nutrition (Parenteral) (Parenteral Nutrition) 1,440 mls @ 60 mls/hr IV .Q24H [facility]; Protocol Stop: 11/20/23 20:59 Last Admin: 11/19/23 21:13 Dose: 60 mls/hr Documented By: EH Naloxone HCl (Naloxone Hcl 0.4 Mg/Ml Vial) 0.2 mg IVPUSH Q2M PRN PRN Reason: Excessive sedation or RR < 8 Ondansetron HCl (Ondansetron Hcl 4 Mg/2 Ml Vial) 4 mg IVPUSH Q6H PRN PRN Reason: nausea Last Admin: 11/17/23 11:26 Dose: 4 mg Documented By: LORETA Oxycodone HCl (Oxycodone Hcl Immed Release 5 Mg Tablet) 5 mg PO Q4H PRN PRN Reason: Pain, Moderate(Pain Scale 4-6) Last Admin: 11/18/23 12:02 Dose: 5 mg Documented By: CHEYENNE Pharmacy Consult (Consult Rx Parenteral Nutrition Ordering) 1 each MISCELLANE DAILY PRN PRN Reason: Consult order Sodium Chloride (0.9 % Sodium Chloride Flush 3 Ml Syringe) 3 ml IVFLUSH QSHIFT [facility] Last Admin: 11/19/23 22:43 Dose: Not Given Documented By: EH Non-Admin Reason: IV Running Labs 11/20/23 05:35 11/21/23 05:49 Labs: Laboratory Results - last 24 hr 11/20/23 05:35 MCV 84.6 MCH 28.5 MCHC 33.6 RDW 13.1 Plt Count 797 H MPV 9.3 L Immature Gran % (Auto) 1.6 H Neut % (Auto) 80.9 H Lymph % (Auto) 9.9 L [place] % (Auto) 6.4 Eos % (Auto) 0.9 Baso % (Auto) 0.3 Lymph # (Auto) 1.8 [place] # (Auto) 1.2 Eos # (Auto) 0.2 Baso # (Auto) 0.1 Abs Immat Gran (auto) 0.29 H Absolute Neuts (auto) 14.6 H Absolute Nucleated RBC 0.000 Nucleated RBC % (auto) 0.0 Anion Gap 17 Estim Creat Clear Calc 165.9 Estimated GFR > 60 Random Glucose 116 H Calcium 9.0 Phosphorus 3.2 Magnesium 2.1 Albumin 3.3 L Procedures Date of Service Date of Service: 11/21/23 Progress Note: A&P Assessment and plan (1) S/P left colectomy: Status: Acute Assessment and Plan: Colostomy functioning well He continues to have periodic pain with oral intake WBC elevated Will repeat CT scan today Exam otherwise benign No fever Time Spent With Patient Time: Total time managing care of this patient today ____ minutes. Quality Stroke Does the patient have a stroke diagnosis?: No VTE Prior VTE?: No VTE Risk Level:: Medical - moderate - high VTE Device Contraindication: N/A - Device Ordered VTE Drug Contraindication: N/A - Med Ordered
[2023-11-20] MEDS: 0.9 % Sodium Chloride Flush 3 ML SYRINGE IVFLUSH ×2 (07:46→16:32)
[2023-11-20 07:47] VITALS: RESP 18
[2023-11-20] MEDS: iohexoL 350 MG/ML 75 ML INFUS..BTL 85 ML IV (10:02)
--- NOTE | 2023-11-20 10:07 | MHC.CLN ---
F/U DIET=CLEAR LIQUIDS. CONTINUES WITH USUALLY POOR PO INTAKE. REVIEWED LABS. COMMUNICATED WITH PHARMACY. RECOMMEND ADVANCE PPN TODAY TO: PPN AT 80 ML PER HOUR, 82 G PROTEIN, 192 G DEXTROSE, 979 KCALS. REPLETE LYTES NEEDED. CHECK TRIGLYCERIDES. IF TRIGLYCERIDES WITHIN ACCEPTABLE LIMITS MAY ADD 85 G LIPIDS TO ACHIEVE MAX GOAL RATE: PPN AT 80 ML PER HOUR WITH 85 G LIPIDS, 82 G PROTEIN, 182 G DEXTROSE, 1829 TOTAL KCALS. PROTEIN IS 1.23 G/KG CMW. TOTAL KCALS 27.4 KCALS/KG CMW. FOLLOW FOR PPN TOLERANCE AND DIET ADVANCEMENT.
[2023-11-20 11:23] LABS: Triglycerides 142 mg/dL (<150)
[2023-11-20] MEDS: oxyCODONE HCl Immed Release 5 MG TABLET PO (12:34)
--- NOTE | 2023-11-20 12:58 | PM.EVENT ---
Event Note Date of Service: 11/20/23 Event Note: CT seen - no signs of obstruction, no fluid collection stomach appears distended will start on Erthromycin for gastric motility encouraged ambulation try to slow down on narcotics next of kin (his employer) updated at bedside stoma funcitoning well Time Spent With Patient Time: Total time managing care of this patient today ____ minutes.
[2023-11-20 15:08] VITALS: BP 120/73; PULSE 91; RESP 18; TEMP 36.8; O2SAT 96
--- NOTE | 2023-11-20 15:47 | MHC.CM.PN ---
per rounds pt not medically ready dc plans remains home with vna
[2023-11-20] MEDS: Erythromycin Base 250 MG TABLET PO ×2 (16:32→20:36)
[2023-11-20] MEDS: Pantoprazole Sodium 40 MG/10 ML VIAL IVPUSH (16:32)
[2023-11-20 19:02] VITALS: BP 121/64; PULSE 97; RESP 18; TEMP 36.4; O2SAT 96
[2023-11-20] MEDS: Parenteral Nutrition 1,920 ML 80 ML IV (20:39)
[2023-11-21 04:00] VITALS: BP 123/84; PULSE 80; RESP 16; TEMP 36.3; O2SAT 98
[2023-11-21] MEDS: Pantoprazole Sodium 40 MG/10 ML VIAL IVPUSH ×2 (05:23→15:41)
--- NOTE | 2023-11-21 06:05 | PC.NURSE ---
pt has bilateral lower arms redness from iv s warm compresses aplied and we will continue to monitor. minimal pain reported
[2023-11-21 07:22] LABS: Albumin Level 3.5 g/dL (3.5-5.0); Anion Gap 16 (12-20); Blood Urea Nitrogen 11 mg/dL (9-16); Calcium 9.2 mg/dL (8.4-10.2); Carbon Dioxide 20 mmol/L (22-29); Chloride 102 mmol/L (96-108); Creatinine Clr Calc Pharmacy 145.8; Estimated Glomerular Filt Rate > 60; Glucose Random 100 mg/dL (60-115); Magnesium 2.3 mg/dL (1.6-2.6); Phosphorus 3.1 mg/dL (2.7-4.5); Sodium 134 mmol/L (135-145); Triglycerides 140 mg/dL (<150)
[2023-11-21 07:25] VITALS: BP 111/62; PULSE 82; RESP 17; TEMP 36.2; O2SAT 98
--- NOTE | 2023-11-21 07:45 | P.PNGS_ITS ---
Subjective Subjective Date of Service: 11/21/23 <Viviana Luna PA-C - Last Filed: 11/21/23 08:22> 11/21/23 <Dakota Brooks MD - Last Filed: 11/21/23 14:13> Interval history: Feels improved this morning, less bloated. Feels hungry. <Viviana Luna PA-C - Last Filed: 11/21/23 08:22> Physical Exam 2 Vital Signs: Vital Signs: Last Vital Signs Temp 97.2 F 11/21/23 07:25 Pulse 82 11/21/23 07:25 Resp 17 11/21/23 07:25 BP 111/62 11/21/23 07:25 Pulse Ox 98 11/21/23 07:25 O2 Del Method Room Air 11/21/23 07:25 O2 Flow Rate 2 11/08/23 15:29 BMI result Body Mass Index 34.0 <Viviana Luna PA-C - Last Filed: 11/21/23 08:22> Const: General: comfortable, no acute distress and alert <Viviana Luna PA-C - Last Filed: 11/21/23 08:22> Resp: Effort & Inspection: normal respiratory effort <TY Knapp Last Filed: 11/21/23 08:22> GI: Other: incision with some fibroserous output no erythema ostomy viable with liquid output <Viviana Luna PA-C - Last Filed: 11/21/23 08:22> Inspection: No distended <Viviana Luna PA-C - Last Filed: 11/21/23 08:22> Palpation (GI): Soft to palpation, Tenderness to palpation present (GI) (incisional) and no guarding <Viviana Luna PA-C - Last Filed: 11/21/23 08:22> Percussion: Yes normal to percussion <TY Knapp Last Filed: 11/21/23 08:22> Skin: General skin exam: no rashes or lesions noted <TY Knapp Last Filed: 11/21/23 08:22> Objective Data Active Medications Benzocaine (Throat Lozenge, Medicated Lozenge) 1 lozenge MUCOUS MEM Q2H PRN PRN Reason: Sore Throat Last Admin: 11/12/23 20:08 Dose: 1 lozenge Documented By: KENROY Erythromycin (Erythromycin Base 250 Mg Tablet) 250 mg PO TID [facility] Last Admin: 11/20/23 20:36 Dose: 250 mg Documented By: WILEY Hydromorphone HCl (Hydromorphone Hcl 0.5 Mg/0.5 Ml Syringe) 0.5 mg IVPUSH Q2H PRN; Protocol PRN Reason: Pain, Severe (Pain Scale 7-10) Last Admin: 11/20/23 07:47 Dose: 0.5 mg Documented By: BURKE Nutrition (Parenteral) (Parenteral Nutrition) 1,920 mls @ 80 mls/hr IV .Q24H [facility]; Protocol Stop: 11/21/23 20:59 Last Admin: 11/20/23 20:39 Dose: 80 mls/hr Documented By: WILEY Naloxone HCl (Naloxone Hcl 0.4 Mg/Ml Vial) 0.2 mg IVPUSH Q2M PRN PRN Reason: Excessive sedation or RR < 8 Ondansetron HCl (Ondansetron Hcl 4 Mg/2 Ml Vial) 4 mg IVPUSH Q6H PRN PRN Reason: nausea Last Admin: 11/17/23 11:26 Dose: 4 mg Documented By: LORETA Pantoprazole Sodium (Pantoprazole Sodium 40 Mg/10 Ml Vial) 40 mg IVPUSH BID@0630,1630 [facility] Last Admin: 11/21/23 05:23 Dose: 40 mg Documented By: WILEY Pharmacy Consult (Consult Rx Parenteral Nutrition Ordering) 1 each MISCELLANE DAILY PRN PRN Reason: Consult order Sodium Chloride (0.9 % Sodium Chloride Flush 3 Ml Syringe) 3 ml IVFLUSH QSHIFT [facility] Last Admin: 11/20/23 21:27 Dose: Not Given Documented By: WILEY Non-Admin Reason: IV Running <Viviana Luna PA-C - Last Filed: 11/21/23 08:22> Labs CBC & Chem 7: 11/20/23 05:35 11/21/23 05:49 <Viviana Luna PA-C - Last Filed: 11/21/23 08:22> Labs: Laboratory Results - last 24 hr 11/20/23 11/21/23 10:44 05:49 Anion Gap 16 Estim Creat Clear Calc 145.8 Estimated GFR > 60 Random Glucose 100 Calcium 9.2 Phosphorus 3.1 Magnesium 2.3 Albumin 3.5 Triglycerides 142 140 <Viviana Luna PA-C - Last Filed: 11/21/23 08:22> Procedures Date of Service Date of Service: 11/21/23 <Viviana Luna PA-C - Last Filed: 11/21/23 08:22> 11/21/23 <Dakota Brooks MD - Last Filed: 11/21/23 14:13> Progress Note: A&P Assessment and plan (1) S/P left colectomy: Status: Acute <Viviana Luna PA-C - Last Filed: 11/21/23 08:22> (2) Colon obstruction: Status: Acute <Viviana Luna PA-C - Last Filed: 11/21/23 08:22> Assessment and Plan: feels better looks well stoma functioning started on Erythromycin for promotility advance diet slowly improving slowly seen and examined independently <Dakota Brooks MD - Last Filed: 11/21/23 14:13> Assessment and Plan: Cont PPN for now until PO intake adequate. Advance diet. Daily dressing changes for drainage. Increase ambulation. Ostomy functioning well. <Viviana Luna PA-C - Last Filed: 11/21/23 08:22> Time Spent With Patient Time: Total time managing care of this patient today ____ minutes. <Viviana Luna PA-C - Last Filed: 11/21/23 08:22> Quality Stroke Does the patient have a stroke diagnosis?: No <Viviana Luna PA-C - Last Filed: 11/21/23 08:22> VTE Prior VTE?: No <Viviana Luna PA-C - Last Filed: 11/21/23 08:22> VTE Risk Level:: Medical - moderate - high <Viviana Luna PA-C - Last Filed: 11/21/23 08:22> VTE Device Contraindication: N/A - Device Ordered <Viviana Luna PA-C - Last Filed: 11/21/23 08:22> VTE Drug Contraindication: N/A - Med Ordered <Viviana Luna PA-C - Last Filed: 11/21/23 08:22>
--- NOTE | 2023-11-21 07:55 | P.PNGS_ITS ---
Subjective Subjective Date of Service: 11/21/23 Interval history: Feels well this morning Stoma continues to function Physical Exam 2 Vital Signs: Vital Signs: Last Vital Signs Temp 97.2 F 11/21/23 07:25 Pulse 82 11/21/23 07:25 Resp 17 11/21/23 07:25 BP 111/62 11/21/23 07:25 Pulse Ox 98 11/21/23 07:25 O2 Del Method Room Air 11/21/23 07:25 O2 Flow Rate 2 11/08/23 15:29 BMI result Body Mass Index 34.0 Const: General: comfortable and no acute distress Resp: Effort & Inspection: normal respiratory effort Cardio: Rate: regular rate GI: Other: Stoma with good output Palpation (GI): Soft to palpation, not firm and no guarding Objective Data Active Medications Benzocaine (Throat Lozenge, Medicated Lozenge) 1 lozenge MUCOUS MEM Q2H PRN PRN Reason: Sore Throat Last Admin: 11/12/23 20:08 Dose: 1 lozenge Documented By: KENROY Erythromycin (Erythromycin Base 250 Mg Tablet) 250 mg PO TID [facility] Last Admin: 11/20/23 20:36 Dose: 250 mg Documented By: WILEY Hydromorphone HCl (Hydromorphone Hcl 0.5 Mg/0.5 Ml Syringe) 0.5 mg IVPUSH Q2H PRN; Protocol PRN Reason: Pain, Severe (Pain Scale 7-10) Last Admin: 11/20/23 07:47 Dose: 0.5 mg Documented By: BURKE Nutrition (Parenteral) (Parenteral Nutrition) 1,920 mls @ 80 mls/hr IV .Q24H [facility]; Protocol Stop: 11/21/23 20:59 Last Admin: 11/20/23 20:39 Dose: 80 mls/hr Documented By: WILEY Naloxone HCl (Naloxone Hcl 0.4 Mg/Ml Vial) 0.2 mg IVPUSH Q2M PRN PRN Reason: Excessive sedation or RR < 8 Ondansetron HCl (Ondansetron Hcl 4 Mg/2 Ml Vial) 4 mg IVPUSH Q6H PRN PRN Reason: nausea Last Admin: 11/17/23 11:26 Dose: 4 mg Documented By: LORETA Pantoprazole Sodium (Pantoprazole Sodium 40 Mg/10 Ml Vial) 40 mg IVPUSH BID@0630,1630 [facility] Last Admin: 11/21/23 05:23 Dose: 40 mg Documented By: WILEY Pharmacy Consult (Consult Rx Parenteral Nutrition Ordering) 1 each MISCELLANE DAILY PRN PRN Reason: Consult order Sodium Chloride (0.9 % Sodium Chloride Flush 3 Ml Syringe) 3 ml IVFLUSH QSHIFT [facility] Last Admin: 11/20/23 21:27 Dose: Not Given Documented By: WILEY Non-Admin Reason: IV Running Labs 11/20/23 05:35 11/21/23 05:49 Labs: Laboratory Results - last 24 hr 11/20/23 11/21/23 10:44 05:49 Anion Gap 16 Estim Creat Clear Calc 145.8 Estimated GFR > 60 Random Glucose 100 Calcium 9.2 Phosphorus 3.1 Magnesium 2.3 Albumin 3.5 Triglycerides 142 140 Laboratory Results WBC 18.1 X10*3/uL (4.8-10.8) H 11/20/23 05:35 RBC 3.76 X10*6/uL (4.60-5.80) L 11/20/23 05:35 Hgb 10.7 g/dl (14.0-18.0) L 11/20/23 05:35 Hct 31.8 % (42.0-52.0) L 11/20/23 05:35 MCV 84.6 fL (80.0-98.0) 11/20/23 05:35 MCH 28.5 pg (27.0-33.0) 11/20/23 05:35 MCHC 33.6 g/dl (31.0-36.0) 11/20/23 05:35 RDW 13.1 % (11.0-16.0) 11/20/23 05:35 Plt Count 797 X10*3/uL (160-400) H 11/20/23 05:35 MPV 9.3 fL (9.4-12.4) L 11/20/23 05:35 Immature Gran % (Auto) 1.6 % (0.0-0.4) H 11/20/23 05:35 Neut % (Auto) 80.9 % (45-73) H 11/20/23 05:35 Lymph % (Auto) 9.9 % (20-40) L 11/20/23 05:35 [place] % (Auto) 6.4 % (2-11) 11/20/23 05:35 Eos % (Auto) 0.9 % (0-4) 11/20/23 05:35 Baso % (Auto) 0.3 % (0-2) 11/20/23 05:35 Lymph # (Auto) 1.8 X10*3/uL (1.2-4.9) 11/20/23 05:35 [place] # (Auto) 1.2 X10*3/uL (0.1-1.2) 11/20/23 05:35 Eos # (Auto) 0.2 X10*3/uL (0.0-0.4) 11/20/23 05:35 Baso # (Auto) 0.1 X10*3/uL (0.0-0.2) 11/20/23 05:35 Abs Immat Gran (auto) 0.29 X10*3/uL (0.00-0.03) H 11/20/23 05:35 Absolute Neuts (auto) 14.6 x10*3/uL (2.0-8.3) H 11/20/23 05:35 Absolute Nucleated RBC 0.000 X10*3/uL (0.0-0.012) 11/20/23 05:35 Nucleated RBC % (auto) 0.0 /100WBC (0.0-0.2) 11/20/23 05:35 Hold Purple Top SEE NOTE 11/19/23 05:22 Sodium 134 mmol/L (135-145) L 11/21/23 05:49 Potassium 4.0 mmol/L (3.3-5.1) 11/21/23 05:49 Chloride 102 mmol/L (96-108) 11/21/23 05:49 Carbon Dioxide 20 mmol/L (22-29) L 11/21/23 05:49 Anion Gap 16 (12-20) 11/21/23 05:49 BUN 11 mg/dL (9-16) 11/21/23 05:49 Creatinine 0.66 mg/dL (0.5-1.4) 11/21/23 05:49 Estim Creat Clear Calc 145.8 11/21/23 05:49 Estimated GFR > 60 11/21/23 05:49 Random Glucose 100 mg/dL (60-115) 11/21/23 05:49 Fasting Glucose 91 mg/dL (60-99) 11/08/23 05:55 Lactic Acid 2.0 mmol/L (0.5-2.0) 11/06/23 22:46 Calcium 9.2 mg/dL (8.4-10.2) 11/21/23 05:49 Phosphorus 3.1 mg/dL (2.7-4.5) 11/21/23 05:49 Magnesium 2.3 mg/dL (1.6-2.6) 11/21/23 05:49 Total Bilirubin 0.8 mg/dL (0.0-1.0) 11/06/23 18:42 AST 15 U/L (5-37) 11/06/23 18:42 ALT 30 U/L (0-40) 11/06/23 18:42 Alkaline Phosphatase 139 U/L (39-117) H 11/06/23 18:42 Total Protein 8.3 g/dL (6.5-8.0) H 11/06/23 18:42 Albumin 3.5 g/dL (3.5-5.0) 11/21/23 05:49 Triglycerides 140 mg/dL (<150) 11/21/23 05:49 Lipase 19 U/L (8-78) 11/06/23 18:42 Urine Color Dark Yellow 11/06/23 21:27 Urine Appearance Clear 11/06/23 21:27 Urine pH 6.0 (5.0-9.0) 11/06/23 21:27 Ur Specific [place] >= 1.030 (1.005-1.025) H 11/06/23 21:27 Urine Protein 30 (1+) mg/dL (Neg-Trace) H 11/06/23 21:27 Urine Glucose (UA) Negative mg/dL (Negative) 11/06/23 21:27 Urine Ketones 40 mg/dL (Negative) 11/06/23 21:27 Urine Blood Trace (Negative) H 11/06/23 21:27 Urine Nitrite Negative (Negative) 11/06/23 21: Ur Leukocyte Esterase Negative (Negative) 11/06/23 21:27 Urine RBC >20 /HPF (0-2) H 11/06/23 21:27 Urine WBC 0-5 /HPF (0-5) 11/06/23 21:27 Ur Squamous Epith Cells 0-2 /HPF (0-2) 11/06/23 21:27 Urine Bacteria None Seen (None Seen) 11/06/23 21:27 Hyaline Casts 0-2 /LPF (0-2) 11/06/23 21:27 Blood Type O Positive 11/07/23 09:40 Antibody Screen NEGATIVE 11/07/23 09:40 Impressions Chest X-Ray 11/12/23 15:54 IMPRESSION: There is an enteric tube coursing over the expected region of the esophagus. The tip is collimated from the [id number] but extends to at least the first portion of the duodenum. There is mild blunting of the left costophrenic angle. A small left pleural effusion cannot be excluded. KUB X-Ray 11/17/23 09:29 IMPRESSION: Near complete paucity of bowel gas limits evaluation. Minimal gas and stool in the rectum. Procedures Date of Service Date of Service: 11/21/23 Progress Note: A&P Assessment and plan (1) S/P left colectomy: Status: Acute Assessment and Plan: CT scan yesterday shows distended stomach as before Started on erythromycin as a promotility agent We will see how he does today hopefully advance his diet Stoma continues to function well good output Clinically looks well Has been ambulating Time Spent With Patient Time: Total time managing care of this patient today ____ minutes. Quality Stroke Does the patient have a stroke diagnosis?: No VTE Prior VTE?: No VTE Risk Level:: Medical - moderate - high VTE Device Contraindication: N/A - Device Ordered VTE Drug Contraindication: N/A - Med Ordered
[2023-11-21] MEDS: Erythromycin Base 250 MG TABLET PO ×3 (09:00→21:10)
[2023-11-21] MEDS: 0.9 % Sodium Chloride Flush 3 ML SYRINGE IVFLUSH ×2 (09:03→15:40)
--- NOTE | 2023-11-21 10:29 | MHC.CLN ---
F/U REVIEWED LABS DIET=CLEAR LIQUIDS CONTINUES WITH USUALLY POOR PO INTAKE DISCUSSED WITH PHARMACY RECOMMEND ADVANCE PPN TODAY: PPN AT 80 ML PER HOUR WITH 85G LIPIDS TO PROVIDE 1829KCALS (27KCALS/KG), 82 G PROTEIN (1.2G/KG), 192 G DEXTROSE REPLETE LYTES NEEDED
--- NOTE | 2023-11-21 12:08 | HO.OSTOMY ---
Ostomy Consult : Follow up 43yr old?Male admitted to [facility] on 11/06/23 for abd pain - See progress notes and H&P for detailed history.? Ostomy consult follow up for end loop colostomy teaching created by Dr. Brooks on 11/07/23. ? Patient is Tristanian speaking ? 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 Upon entry into patient's room, he is in bed, he is alert and oriented x 3, he currently reports feeling significantly improved wishes to continue with ostomy teaching. ? He reports increasing ambulating. ?He reports he is independent with emptying the pouch and he was able to provide a return demonstrate on an empty pouch. We discussed the importance of emptying pouch when 1/3 to 1/2 full, how to empty pouch, and lining water with toilet paper to prevent splash back.. Reviewed written education with patient and left at bedside for further review. ?He was able to verbally walk me through a pouch change with some minor coaching. He was agreeable to a pouch change. He was changed into a Coloplast [id number], 1 Piece cut to fit [id number] oval.?The stoma is moist and pink - no concern for stoma viability at this time - MCJ intact, clear plastic bridge no longer in place. ?He participated in the pouch change and had questions that lead to further discussion. ? He has good understanding of care and material presented. ?He reported having no questions at this time. ? Midline dressing changed - small oozing noted in three areas of dehiscence with arnie removed previously by surgery team per chart review. Direct care nurse notified. We discussed the following steps: 1. Empty pouch before pouch change 2. Remove pouch using push/pull technique from top to bottom 3. Cleanse stoma and skin with tap water only - no soap or baby wipes 4. Pat dry 5. Measure stoma and cut new pouch no more than 1/8 inch larger than stoma and no smaller than stoma 6. If instructed by your ostomy nurse apply paste seal to the size of the stoma and press onto skin around stoma (up to the edge of the stoma but not onto the stoma) 7. Press the new pouch into place and hold for several minutes (close pouch tail) 8. Empty pouch when 1/3 to 1/2 full 9. Change pouch twice weekly on a schedule (for example, every Saturday and ) and as needed for any leaking (feels like intense itch or burn at edge of stoma) 10. May order pre-cut pouches (already cut to size of stoma) once stoma measures the same size consistently. ?
[2023-11-21 15:12] VITALS: BP 123/69; PULSE 85; RESP 18; TEMP 36.4; O2SAT 99
[2023-11-21 20:00] VITALS: BP 122/66; PULSE 92; RESP 18; TEMP 36.6; O2SAT 98
[2023-11-21] MEDS: Parenteral Nutrition 1,920 ML 80 ML IV (21:23)
--- NOTE | 2023-11-22 | ECG_ITS ---
Test Reason : tachy Blood Pressure : / mmHG Vent. Rate : 104 BPM Atrial Rate : 104 BPM P-R Int : 132 ms QRS Dur : 078 ms QT Int : 324 ms P-R-T Axes : 000 196 177 degrees QTc Int : 426 ms Limb leads reversal Sinus tachycardia Right superior axis deviation Low voltage QRS Inferior infarct , age undetermined Abnormal ECG No previous ECGs available Referred By: Thomas Larios Electronically Signed By:Hardy Garibay
[2023-11-22 04:00] VITALS: BP 105/69; PULSE 75; RESP 16; TEMP 36.1; O2SAT 98
[2023-11-22] MEDS: Pantoprazole Sodium 40 MG/10 ML VIAL IVPUSH ×2 (05:41→15:40)
[2023-11-22 06:13] LABS: MANUAL DIFF FLAG NO
[2023-11-22 06:25] LABS: Basophils Absolute Auto 0.1 X10*3/uL (0.0-0.2); Basophils Percent Auto 0.6 % (0-2); Eosinophils Absolute Auto 0.4 X10*3/uL (0.0-0.4); Eosinophils Percent Auto 2.7 % (0-4); Hematocrit 34.6 % (42.0-52.0); Hemoglobin 11.7 g/dl (14.0-18.0); Imm Gran Pct Auto 4.9 % (0.0-0.4); Lymphocytes Absolute Auto 2.4 X10*3/uL (1.2-4.9); Lymphocytes Percent Auto 17.1 % (20-40); Mean Corpuscular HGB Conc 33.8 g/dl (31.0-36.0); Mean Corpuscular Hemoglobin 28.7 pg (27.0-33.0); Mean Platelet Volume 9.2 fL (9.4-12.4); Monocytes Absolute Auto 0.9 X10*3/uL (0.1-1.2); Monocytes Percent Auto 6.2 % (2-11); Neutrophils Absolute Auto 9.8 x10*3/uL (2.0-8.3); Neutrophils Percent Auto 68.5 % (45-73); Platelet Count 889 X10*3/uL (160-400); Red Blood Count 4.07 X10*6/uL (4.60-5.80); White Blood Count 14.2 X10*3/uL (4.8-10.8)
[2023-11-22 06:41] LABS: Albumin Level 3.3 g/dL (3.5-5.0); Anion Gap 13 (12-20); Anion Gap 14 (12-20); Blood Urea Nitrogen 11 mg/dL (9-16); Calcium 8.8 mg/dL (8.4-10.2); Calcium 8.9 mg/dL (8.4-10.2); Carbon Dioxide 20 mmol/L (22-29); Carbon Dioxide 21 mmol/L (22-29); Chloride 103 mmol/L (96-108); Creatinine Clr Calc Pharmacy 143.6; Estimated Glomerular Filt Rate > 60; Glucose Fasting 123 mg/dL (60-99); Glucose Random 123 mg/dL (60-115); Magnesium 2.3 mg/dL (1.6-2.6); Phosphorus 3.1 mg/dL (2.7-4.5); Potassium 3.8 mmol/L (3.3-5.1); Sodium 133 mmol/L (135-145); Triglycerides 241 mg/dL (<150)
[2023-11-22 07:21] VITALS: BP 115/73; PULSE 85; RESP 20; TEMP 36.7; O2SAT 98
[2023-11-22] MEDS: Erythromycin Base 250 MG TABLET PO ×3 (07:45→20:25)
[2023-11-22] MEDS: 0.9 % Sodium Chloride Flush 3 ML SYRINGE IVFLUSH ×2 (07:45→15:40)
--- NOTE | 2023-11-22 08:23 | PM.PNGS ---
Subjective Subjective Date of Service: 11/22/23 <Viviana Luna PA-C - Last Filed: 11/22/23 08:27> 11/22/23 <Dakota Brooks MD - Last Filed: 11/22/23 09:05> Interval history: Tolerating full liquids without nausea, vomiting, worsening distention. Feels hungry. <Viviana Luna PA-C - Last Filed: 11/22/23 08:27> Physical Exam Vital Signs: Vital Signs: Last Vital Signs Temp 98.1 F 11/22/23 07:21 Pulse 85 11/22/23 07:21 Resp 20 11/22/23 07:21 BP 115/73 11/22/23 07:21 Pulse Ox 98 11/22/23 07:21 O2 Del Method Room Air 11/22/23 07:21 O2 Flow Rate 2 11/08/23 15:29 BMI result Body Mass Index 34.0 <TY Knapp Last Filed: 11/22/23 08:27> Const: General: comfortable, no acute distress and alert <Viviana Luna PA-C - Last Filed: 11/22/23 08:27> Orientation/consciousness: patient oriented x3 <Viviana Luna PA-C - Last Filed: 11/22/23 08:27> Resp: Effort & Inspection: normal respiratory effort <Viviana Luna PA-C - Last Filed: 11/22/23 08:27> GI: Other: incision without any erythema, draining from open areas ostomy viable appearing, liquid stool in appliance <Viviana Luna PA-C - Last Filed: 11/22/23 08:27> Inspection: Yes distended (very mild, softly) <TY Knapp Last Filed: 11/22/23 08:27> Palpation (GI): Soft to palpation, Tenderness to palpation present (GI) (incisional) and no guarding <TY Knapp Last Filed: 11/22/23 08:27> Skin: General skin exam: no rashes or lesions noted <TY Knapp Last Filed: 11/22/23 08:27> Neuro: General: patient oriented x3 <Viviana Luna PA-C - Last Filed: 11/22/23 08:27> Objective Data Active Medications Benzocaine (Throat Lozenge, Medicated Lozenge) 1 lozenge MUCOUS MEM Q2H PRN PRN Reason: Sore Throat Last Admin: 11/12/23 20:08 Dose: 1 lozenge Documented By: KENROY Erythromycin (Erythromycin Base 250 Mg Tablet) 250 mg PO TID [facility] Last Admin: 11/22/23 07:45 Dose: 250 mg Documented By: NILDA Hydromorphone HCl (Hydromorphone Hcl 0.5 Mg/0.5 Ml Syringe) 0.5 mg IVPUSH Q2H PRN; Protocol PRN Reason: Pain, Severe (Pain Scale 7-10) Last Admin: 11/20/23 07:47 Dose: 0.5 mg Documented By: BURKE Nutrition (Parenteral) (Parenteral Nutrition) 1,920 mls @ 80 mls/hr IV .Q24H [facility]; Protocol Stop: 11/22/23 20:59 Last Admin: 11/21/23 21:23 Dose: 80 mls/hr Documented By: GIRMA Naloxone HCl (Naloxone Hcl 0.4 Mg/Ml Vial) 0.2 mg IVPUSH Q2M PRN PRN Reason: Excessive sedation or RR < 8 Ondansetron HCl (Ondansetron Hcl 4 Mg/2 Ml Vial) 4 mg IVPUSH Q6H PRN PRN Reason: nausea Last Admin: 11/17/23 11:26 Dose: 4 mg Documented By: LORETA Pantoprazole Sodium (Pantoprazole Sodium 40 Mg/10 Ml Vial) 40 mg IVPUSH BID@0630,1630 [facility] Last Admin: 11/22/23 05:41 Dose: 40 mg Documented By: GIRMA Pharmacy Consult (Consult Rx Parenteral Nutrition Ordering) 1 each MISCELLANE DAILY PRN PRN Reason: Consult order Sodium Chloride (0.9 % Sodium Chloride Flush 3 Ml Syringe) 3 ml IVFLUSH QSHIFT [facility] Last Admin: 11/22/23 07:45 Dose: 3 ml Documented By: NILDA <Viviana Luna PA-C - Last Filed: 11/22/23 08:27> Labs CBC & Chem 7: 11/22/23 05:25 11/22/23 05:25 <Viviana Luna PA-C - Last Filed: 11/22/23 08:27> Labs: Laboratory Results - last 24 hr 11/22/23 11/22/23 11/22/23 05:25 05:25 05:25 MCV 85.0 MCH 28.7 MCHC 33.8 RDW 13.0 Plt Count 889 H MPV 9.2 L Immature Gran % (Auto) 4.9 H Neut % (Auto) 68.5 Lymph % (Auto) 17.1 L [place] % (Auto) 6.2 Eos % (Auto) 2.7 Baso % (Auto) 0.6 Lymph # (Auto) 2.4 [place] # (Auto) 0.9 Eos # (Auto) 0.4 Baso # (Auto) 0.1 Abs Immat Gran (auto) 0.70 H Absolute Neuts (auto) 9.8 H Absolute Nucleated RBC 0.000 Nucleated RBC % (auto) 0.0 Anion Gap 13 14 Estim Creat Clear Calc 148.0 143.6 Estimated GFR > 60 Random Glucose Fasting Glucose Calcium Phosphorus Magnesium Albumin Triglycerides 11/22/23 11/22/23 05:25 05:25 MCV MCH MCHC RDW Plt Count MPV Immature Gran % (Auto) Neut % (Auto) Lymph % (Auto) [place] % (Auto) Eos % (Auto) Baso % (Auto) Lymph # (Auto) [place] # (Auto) Eos # (Auto) Baso # (Auto) Abs Immat Gran (auto) Absolute Neuts (auto) Absolute Nucleated RBC Nucleated RBC % (auto) Anion Gap Estim Creat Clear Calc Estimated GFR > 60 Random Glucose 123 H Fasting Glucose 123 H Calcium 8.9 8.8 Phosphorus 3.1 Magnesium 2.3 Albumin 3.3 L Triglycerides 241 H <Viviana Luna PA-C - Last Filed: 11/22/23 08:27> Procedures Date of Service Date of Service: 11/22/23 <Viviana Luna PA-C - Last Filed: 11/22/23 08:27> 11/22/23 <Dakota Brooks MD - Last Filed: 11/22/23 09:05> Progress Note: A&P Assessment and plan (1) S/P left colectomy: Status: Acute <Viviana Luna PA-C - Last Filed: 11/22/23 08:27> Assessment and Plan: Feels much better Denies pain Stoma continues to function well Abdomen is soft and very benign Some drainage from the incision Advance diet Wound care Stoma care Continues to improve Seen and examined independently <Dakota Brooks MD - Last Filed: 11/22/23 09:05> (2) Colon obstruction: Status: Acute <Viviana Luna PA-C - Last Filed: 11/22/23 08:27> Assessment and Plan: s/p ex lap, sigmoid resection, transverse loop colostomy Delayed return of GI function, started on erythromycin for prokinetic with good effect. Tolerating full liquids, mild remaining distention, soft Will advance to solid diet. Cont PPN for now until PO intake adequate, hopefully last day. Daily incisional dressing changes for drainage and as needed. Increase ambulation. Ostomy functioning well. WBC downtrending. <Viviana Luna PA-C - Last Filed: 11/22/23 08:27> Time Spent With Patient Time: Total time managing care of this patient today ____ minutes. <Viviana Luna PA-C - Last Filed: 11/22/23 08:27> Quality Stroke Does the patient have a stroke diagnosis?: No <Viviana Luna PA-C - Last Filed: 11/22/23 08:27> VTE Prior VTE?: No <Viviana Luna PA-C - Last Filed: 11/22/23 08:27> VTE Risk Level:: Medical - moderate - high <Viviana uLna PA-C - Last Filed: 11/22/23 08:27> VTE Device Contraindication: N/A - Device Ordered <Viviana Luna PA-C - Last Filed: 11/22/23 08:27> VTE Drug Contraindication: N/A - Med Ordered <TY Knapp Last Filed: 11/22/23 08:27>
--- NOTE | 2023-11-22 10:13 | MHC.CLN ---
F/U TOLERATING FULL LIQUIDS AND DIET ADVANCED TODAY TO REGULAR. REVIEWED LABS. TRIG=24I H. COMMUNICATED WITH PHARMACY. RECOMMEND DISCONTINUE LIPIDS TODAY. RUN PPN TODAY AT 80 ML PER HOUR TO PROVIDE 979 KCALS , 82 G PROTEIN (1.2G/KG), 192 G DEXTROSE. REPLETE LYTES NEEDED. IF TOLERATES REGULAR DIET, PROVIDER ANTICIPATES WILL BE ABLE TO DISCONTINUE PPN.
--- NOTE | 2023-11-22 10:52 | MHC.CM.PN ---
EMR REVIEWED. PT IS NOT MEDICALLY CLEARED FOR DC, REMAINS ON PPN UNTIL ABLE TO TOLERATE FULL DIET. CM WILL CONTINUE TO FOLLOW FOR ANY CHANGE TO DC PLAN.
--- NOTE | 2023-11-22 13:53 | PM.EVENT ---
Event Note Date of Service: 11/25/23 Event Note: tolerated lunch stoma working well looks well abd soft hopefully ready to be discharged over the weekend patient will need stoma appliance supplies, gauze for dressings no visiting nurse services available for pt Time Spent With Patient Time: Total time managing care of this patient today ____ minutes.
[2023-11-22 15:22] VITALS: BP 130/77; PULSE 96; RESP 18; TEMP 37.2; O2SAT 98
--- NOTE | 2023-11-22 18:31 | PM.IMCN ---
History of Present Illness Data of Consult Service Date: 11/22/23 Primary Care Provider: None Physician HPI Reason for consult: sinus tachycardia 43M no significant pmh presented 11/07/23 with abdominal pain, found to have obstruction in distal descending colon. was admitted to surgical service and underwent Laparotomy, segmental resection of distal left colon, end-loop colostomy from the transverse colon. postop course complicated by post op ileus requiring ppn, has since improved and started to take po, stoma functioning. hospitalist consult requested for sinus tachycardia. patient reporting pain at IV site and swelling with ppn running. denies sob, fever, chills. Review of Systems Review of Systems: Yes all other systems are reviewed and are negative [facility] Medical History Colon obstruction Diverticulitis Surgical History Hx of appendectomy Social History Household Members: Friend(s) Housing: House Do you presently have visiting nurse or other home services: No Alcohol intake: never Comment: resting in bed, eyes closed Patient Tobacco Use Status: Never used Tobacco Smoked in Last 30 Days: No Second Hand Smoke Exposure: Yes Use of substances other than those prescribed or required for medical reasons: No Currently Displaying Signs/Symptoms of Drug Intoxication Withdrawal: No Have you been hit, kicked, punched, or otherwise hurt by someone within the past year? If so, by whom?: No Do you feel safe in your current relationship?: No Current Relationship Is there a partner from a previous relationship who is making you feel unsafe now?: No Are you made to feel afraid or neglected: No [facility] Practices: advent Are you DNR?: No Advance Directives: No Advance Directives Information Provided: No Do you have a plan to hurt others: No Plan Recently lost weight without trying: No Nutrition Risks: No Nutritional Risk Poor oral hygiene: No service: No Current occupational status: unemployed Meds Allergies Allergy/AdvReac Type Severity Reaction Status Date / Time No Known Allergies Allergy Verified 11/06/23 18:23 Active Medications: Current Medications Benzocaine (Throat Lozenge, Medicated Lozenge) 1 lozenge MUCOUS MEM Q2H PRN PRN Reason: Sore Throat Last Admin: 11/12/23 20:08 Dose: 1 lozenge Erythromycin (Erythromycin Base 250 Mg Tablet) 250 mg PO TID [facility] Last Admin: 11/22/23 15:40 Dose: 250 mg Hydromorphone HCl (Hydromorphone Hcl 0.5 Mg/0.5 Ml Syringe) 0.5 mg IVPUSH Q2H PRN; Protocol PRN Reason: Pain, Severe (Pain Scale 7-10) Last Admin: 11/20/23 07:47 Dose: 0.5 mg Nutrition (Parenteral) (Parenteral Nutrition) 1,920 mls @ 80 mls/hr IV .Q24H [facility]; Protocol Stop: 11/22/23 20:59 Last Admin: 11/21/23 21:23 Dose: 80 mls/hr Nutrition (Parenteral) (Parenteral Nutrition) 1,920 mls @ 80 mls/hr IV .Q24H [facility]; Protocol Stop: 11/23/23 20:59 Naloxone HCl (Naloxone Hcl 0.4 Mg/Ml Vial) 0.2 mg IVPUSH Q2M PRN PRN Reason: Excessive sedation or RR < 8 Ondansetron HCl (Ondansetron Hcl 4 Mg/2 Ml Vial) 4 mg IVPUSH Q6H PRN PRN Reason: nausea Last Admin: 11/17/23 11:26 Dose: 4 mg Pantoprazole Sodium (Pantoprazole Sodium 40 Mg/10 Ml Vial) 40 mg IVPUSH BID@0630,1630 [facility] Last Admin: 11/22/23 15:40 Dose: 40 mg Pharmacy Consult (Consult Rx Parenteral Nutrition Ordering) 1 each MISCELLANE DAILY PRN PRN Reason: Consult order Sodium Chloride (0.9 % Sodium Chloride Flush 3 Ml Syringe) 3 ml IVFLUSH QSHIFT [facility] Last Admin: 11/22/23 15:40 Dose: 3 ml Physical Exam Vital Signs and Narrative: Vital Signs: Last Vital Signs Temp 98.9 F 11/22/23 15:22 Pulse 96 11/22/23 15:22 Resp 18 11/22/23 15:22 BP 130/77 11/22/23 15:22 Pulse Ox 98 11/22/23 15:22 O2 Del Method Room Air 11/22/23 15:22 O2 Flow Rate 2 11/08/23 15:29 BMI result Body Mass Index 34.0 right arm erythema, swelling, warmth, tenderness at IV site, abd benign, lungs clear appears in discomfort Results Labs 11/22/23 05:25 11/22/23 05:25 Labs: Laboratory Results - last 24 hr 11/22/23 11/22/23 11/22/23 05:25 05:25 05:25 MCV 85.0 MCH 28.7 MCHC 33.8 RDW 13.0 Plt Count 889 H MPV 9.2 L Immature Gran % (Auto) 4.9 H Neut % (Auto) 68.5 Lymph % (Auto) 17.1 L [place] % (Auto) 6.2 Eos % (Auto) 2.7 Baso % (Auto) 0.6 Lymph # (Auto) 2.4 [place] # (Auto) 0.9 Eos # (Auto) 0.4 Baso # (Auto) 0.1 Abs Immat Gran (auto) 0.70 H Absolute Neuts (auto) 9.8 H Absolute Nucleated RBC 0.000 Nucleated RBC % (auto) 0.0 Anion Gap 13 14 Estim Creat Clear Calc 148.0 143.6 Estimated GFR > 60 Random Glucose Fasting Glucose Calcium Phosphorus Magnesium Albumin Triglycerides 11/22/23 11/22/23 05:25 05:25 MCV MCH MCHC RDW Plt Count MPV Immature Gran % (Auto) Neut % (Auto) Lymph % (Auto) [place] % (Auto) Eos % (Auto) Baso % (Auto) Lymph # (Auto) [place] # (Auto) Eos # (Auto) Baso # (Auto) Abs Immat Gran (auto) Absolute Neuts (auto) Absolute Nucleated RBC Nucleated RBC % (auto) Anion Gap Estim Creat Clear Calc Estimated GFR > 60 Random Glucose 123 H Fasting Glucose 123 H Calcium 8.9 8.8 Phosphorus 3.1 Magnesium 2.3 Albumin 3.3 L Triglycerides 241 H Assessment and Plan (1) Colitis: Status: Acute Plan 43M admitted for colonic obstruction, consulted for sinus tachycardia sinus tachycardia likely due to pain from IV infiltration would stop ppn and remove iv pain control monitor colitis with obstruction consider gi referal to evaluate underlying etiology of recurrent colitis thank you for consultation, will sign off for now, please recall if needed
[2023-11-22 19:47] VITALS: BP 122/69; PULSE 93; RESP 16; TEMP 36.6; O2SAT 98
[2023-11-22] MEDS: Parenteral Nutrition 1,920 ML 80 ML IV (21:35)
[2023-11-23 03:11] VITALS: BP 114/67; PULSE 89; RESP 16; TEMP 36.4; O2SAT 97
[2023-11-23] MEDS: Pantoprazole Sodium 40 MG/10 ML VIAL IVPUSH (05:34)
[2023-11-23 06:52] LABS: Albumin Level 3.3 g/dL (3.5-5.0); Anion Gap 13 (12-20); Blood Urea Nitrogen 13 mg/dL (9-16); Calcium 8.6 mg/dL (8.4-10.2); Carbon Dioxide 21 mmol/L (22-29); Chloride 104 mmol/L (96-108); Creatinine Clr Calc Pharmacy 141.5; Estimated Glomerular Filt Rate > 60; Glucose Random 129 mg/dL (60-115); Magnesium 2.3 mg/dL (1.6-2.6); Sodium 134 mmol/L (135-145); Triglycerides 160 mg/dL (<150)
[2023-11-23 08:00] VITALS: BP 124/61; PULSE 81; RESP 12; TEMP 36.6; O2SAT 98
[2023-11-23] MEDS: Erythromycin Base 250 MG TABLET PO ×3 (08:01→21:38)
--- NOTE | 2023-11-23 10:44 | PC.NURSE ---
Cristina Mitchell MD to d/c PPN.
--- NOTE | 2023-11-23 11:34 | PC.NURSE ---
Pt HR 110 while ambulating in the hallway, no resp distress.
--- NOTE | 2023-11-23 13:27 | PC.NURSE ---
Unable to obtain IV access, notified.
--- NOTE | 2023-11-23 15:32 | PM.PNGS ---
Subjective Subjective Date of Service: 11/23/23 Interval history: Patient was evaluated with family present. He is tolerating his diet. He has no peripheral IV access so was hypermobile will be stopped because of this and because he is tolerating his diet. He is having good ostomy output. Physical Exam Vital Signs: Vital Signs: Last Vital Signs Temp 97.9 F 11/23/23 08:00 Pulse 81 11/23/23 08:00 Resp 12 11/23/23 08:00 BP 124/61 11/23/23 08:00 Pulse Ox 98 11/23/23 08:00 O2 Del Method Room Air 11/23/23 08:00 O2 Flow Rate 2 11/08/23 15:29 BMI result Body Mass Index 34.0 GI: Other: Ostomy functioning quite well with copious amounts of stool. Midline wound healing uneventfully with few areas of secondary intention healing but remainder of 1st intention healing. No evidence of any infection or purulence. Objective Data Active Medications Benzocaine (Throat Lozenge, Medicated Lozenge) 1 lozenge MUCOUS MEM Q2H PRN PRN Reason: Sore Throat Last Admin: 11/12/23 20:08 Dose: 1 lozenge Documented By: KENROY Erythromycin (Erythromycin Base 250 Mg Tablet) 250 mg PO TID [facility] Last Admin: 11/23/23 14:22 Dose: 250 mg Documented By: MINO Hydromorphone HCl (Hydromorphone Hcl 0.5 Mg/0.5 Ml Syringe) 0.5 mg IVPUSH Q2H PRN; Protocol PRN Reason: Pain, Severe (Pain Scale 7-10) Last Admin: 11/20/23 07:47 Dose: 0.5 mg Documented By: BURKE Naloxone HCl (Naloxone Hcl 0.4 Mg/Ml Vial) 0.2 mg IVPUSH Q2M PRN PRN Reason: Excessive sedation or RR < 8 Omeprazole (Omeprazole 40 Mg Capsule.) 40 mg PO BID@0630,1630 [facility] Ondansetron HCl (Ondansetron Hcl 4 Mg/2 Ml Vial) 4 mg IVPUSH Q6H PRN PRN Reason: nausea Last Admin: 11/17/23 11:26 Dose: 4 mg Documented By: LORETA Pharmacy Consult (Consult Rx Parenteral Nutrition Ordering) 1 each MISCELLANE DAILY PRN PRN Reason: Consult order Sodium Chloride (0.9 % Sodium Chloride Flush 3 Ml Syringe) 3 ml IVFLUSH QSHIFT [facility] Last Admin: 11/23/23 13:33 Dose: Not Given Documented By: MINO Non-Admin Reason: no iv Labs 11/22/23 05:25 11/23/23 05:26 Labs: Laboratory Results - last 24 hr 11/23/23 05:26 Hold Purple Top SEE NOTE Anion Gap 13 Estim Creat Clear Calc 141.5 Estimated GFR > 60 Random Glucose 129 H Calcium 8.6 Phosphorus 3.0 Magnesium 2.3 Albumin 3.3 L Triglycerides 160 H Procedures Date of Service Date of Service: 11/23/23 Progress Note: A&P Assessment and plan (1) S/P left colectomy: Status: Acute Plan Patient has been encouraged to ambulate/out of bed, incentive spirometry, diet as tolerated. If all goes well he thinks he might be ready for home tomorrow. All questions answered. Time Spent With Patient Time: Total time managing care of this patient today ____ minutes. Quality Stroke Does the patient have a stroke diagnosis?: No VTE Prior VTE?: No VTE Risk Level:: Medical - moderate - high VTE Device Contraindication: N/A - Device Ordered VTE Drug Contraindication: N/A - Med Ordered
[2023-11-23 16:00] VITALS: BP 140/84; PULSE 102; RESP 12; TEMP 36.8; O2SAT 99
--- NOTE | 2023-11-23 16:06 | PC.NURSE ---
MD Mitchell aware, no IV access, unable to obtain r/t infiltrates? Skin warm, red, warm packs applied, IV meds switched to PO.
[2023-11-23] MEDS: Omeprazole 40 MG CAPSULE.DR PO (16:08)
[2023-11-23 20:00] VITALS: BP 129/74; PULSE 99; RESP 13; TEMP 36.3; O2SAT 99
[2023-11-24 03:19] VITALS: BP 132/76; PULSE 96; RESP 16; TEMP 36.4; O2SAT 97
[2023-11-24] MEDS: Omeprazole 40 MG CAPSULE.DR PO (05:33)
[2023-11-24 06:16] LABS: Triglycerides 163 mg/dL (<150)
[2023-11-24 06:23] LABS: Albumin Level 3.2 g/dL (3.5-5.0); Anion Gap 13 (12-20); Blood Urea Nitrogen 10 mg/dL (9-16); Calcium 8.7 mg/dL (8.4-10.2); Carbon Dioxide 21 mmol/L (22-29); Chloride 103 mmol/L (96-108); Creatinine Clr Calc Pharmacy 139.4; Estimated Glomerular Filt Rate > 60; Glucose Random 103 mg/dL (60-115); Magnesium 2.1 mg/dL (1.6-2.6); Phosphorus 3.5 mg/dL (2.7-4.5); Potassium 3.6 mmol/L (3.3-5.1); Sodium 133 mmol/L (135-145)
[2023-11-24 07:58] VITALS: BP 128/68; PULSE 81; RESP 12; TEMP 36.3; O2SAT 98
[2023-11-24] MEDS: Erythromycin Base 250 MG TABLET PO ×2 (08:06→14:20)
--- NOTE | 2023-11-24 10:36 | PC.NURSE ---
Pt states he has a family member to help him with dressing changes for his ABD.
--- NOTE | 2023-11-24 13:26 | PM.DS ---
DS: Providers Provider Date of Service: 11/24/23 Date of admission: 11/06/23 23:48 Date of discharge: 11/24/23 Primary care physician: None Physician Attending physician on admission: Dakota Brooks Consults: 11/07/23 14:58 Consult to Ostomy Care Routine 11/22/23 17:52 Consult to Hospitalist Routine Comment: Consulting Provider: Hospitalist Reason For Exam: tachycardia Attending physician on discharge: Dakota Brooks DS: Diagnosis Discharge Diagnosis (1) S/P left colectomy: Status: Acute DS: Summary Hospital Course Hospital Course: HPI AT ADMISSION: Bernardo Whalen is a 43 year old male here for abdominal pain. He says he has had this problem with abdominal pain on and off for several years. This has been worsening the past 5 days. He describes the pain as diffuse. He has had not had a bowel movement for about 5 days. He says he is passing some flatus he says he has not eaten in 6 days because of pain. He has had a bowel movement in 5 days. Review of his records show that he was admitted in May, here in the hospital for abdominal pain and was diagnosed to have colitis of the sigmoid. Review of his CT scan shows thickening of the distal left colon at that time. He says that he has had abdominal pain on and off since then. He states that he was in [place] years ago as well and had undergone a colonoscopy and he says he thought that this was normal. His CT scan today shows that he has what appears to be an obstruction with marked thickening in the distal descending colon with severe proximal dilatation. The cecum is more than 9 cm in diameter now. HOSPITAL COURSE: He was admitted to the surgical service for further treatment of the LBO. He was at risk for cecal perforation because of this obstruction and it was therefore recommend to proceed with laparotomy, likely colon resection and colostomy. He agreed and was added onto the OR schedule for that day. On 11/07/23, laparotomy, segmental resection of distal left colon, end-loop colostomy from the transverse colon was performed by Dr. Brooks without immediate complications. 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 He had a very slow recovery course. He initially was doing fairly well post operatively. He was on a [employer], ofirmev and ketorolac for pain with adequate control. His dent was removed. His abdominal distention slowly improved and his ostomy began to pass flatus and then liquid stools. He was attempted to be weaned off IV analgesics. His diet was slowly advanced. He however developed severe pain following solid food initiation and CT scan was obtained which showed markedly distended stomach, fluid-filled without obvious obstruction, no other obvious intra-abdominal pathology, likely had delayed gastric emptying from postop physiologic stress, narcotics. NG tube was therefore inserted with improvement of symptoms. His NGT output decreased and pain improved, his ostomy continued to function. His NGT was removed and diet slowly advanced. However again after solids he developed increasing distention. His diet was deescalated again and restarted on IVF. PPN was initiated. His diet was slowly advanced again. He however continued to have periodic pain with oral intake with a leukocytosis. Repeat CT scan was therefore performed which showed no signs of obstruction, no fluid collection with distended stomach. Erythromycin for gastric motility was initiated. His diet was again slowly advanced following this. On the day of discharge, he was tolerating a solid diet without nausea or vomiting and had good oral intake. His pain was managed well on oral analgesics. He was ambulating without difficulty. His abdomen was benign with clean incision with scant serosanguineous drainage from open areas from where his incision had to be opened and probed post operatively. His ostomy was functioning well. He was discharged to home on 11/24/23 in stable condition with VNA services. Time Attestation Discharge Coordination Time (in mins): 50 Quality: Safe Use of Opioids Does Pt have an Active Cancer Diagnosis on the Problem List?: No Quality: Stroke Does the patient have a stroke diagnosis?: No Physical Exam Vital Signs: Vital Signs: Last Vital Signs Temp 97.4 F 11/24/23 07:58 Pulse 81 11/24/23 07:58 Resp 12 11/24/23 07:58 BP 128/68 11/24/23 07:58 Pulse Ox 98 11/24/23 07:58 O2 Del Method Room Air 11/24/23 07:58 O2 Flow Rate 2 11/08/23 15:29 BMI result Body Mass Index 34.0 DS: Data Data Completed and Pending Completed studies during hospitalization [Text1]: 11/07/23 11:19 Surgical [PTH] Routine Colon, sigmoid, segmental resection: - Diverticular associated segmental colitis. - Inflammatory pseudopolyps. Procedures Bypass Transverse Colon to Cutaneous, Open Approach (11/06/23) Excision of Descending Colon, Via Natural or Artificial Opening Endoscopic, Diagnostic (06/03/20) Excision of Left Large Intestine, Open Approach (11/06/23) Discharge Plan Discharge Anticipated Discharge Date/Time: 11/12/23 10:29 Patient Disposition: Home Health Service Discharge Diagnosis: s/p sigmoid resection, diverting tranverse loop colostomy Referrals: Dakota Brooks MD [Physician] - 2 Weeks Physician,None [Primary Care Provider] - 1 Week Discharge Medications: New oxycodone 5 mg tablet 5 mg PO Q4H PRN (Reason: pain (scale score 7-10)) Qty: 26 0RF Rx Instructions: Partial Fill upon patient request. Discharge Orders: Discharge Order (Routine); Ordered 11/24/23 Ordered By: Lukas Mitchell Diet: Advance to usual diet Activity on Discharge: No heavy lifting Stand Alone Forms: Patient Portal Discharge page Print Language: Romansh Activity Restrictions/Additional Instructions: If the incision area is tender, you may apply an ice pack for short intervals (No more than 20 minutes on, followed by at least 20 minutes off). Do not apply heat. Do not use creams, lotions, or topical antibiotics. These can cause infection or allergic reaction. Ok to shower. You have arnie closing your incision and these will be removed approximately 10-14 days after surgery. Colostomy care: change appliance every 3-4 days and as needed. NO HEAVY LIFTING (>10lbs) or strenuous activity. Follow up in office. ([phone]) Call Your Doctor If: -Your temperature exceeds 101.5? F -You experience excessive pain or swelling -You have an unexpected reaction to medication -You have excessive bleeding -You experience continued vomiting/nausea -Your incision begins to separate -Your incision shows signs of infection such as increased redness, swelling, excessive pain, drainage (light blood or clear fluid is normal) or heat Care Plan Goals: Return to baseline health and resume normal activities following recovery period. Health Concerns: colon obstruction secondary to sigmoid stricture Plan of Treatment: s/p ex lap, sigmoid resection, diverting loop transverse colostomy VNA services F/u in office in 2 weeks Assessment: Doing well post op Patient Instructions: Erythromycin (By mouth), Colostomy Care (DC), Surgical Site Infections (DC), Staple Care (GEN), Colectomy Diet (DC) Discharge Date/Time: 11/24/23 16:29
--- NOTE | 2023-11-24 14:06 | PM.PNGS ---
Subjective Subjective Date of Service: 11/24/23 Interval history: Patient feels he is ready for home. Tolerating diet. Ostomy functioning well. No wound issues or complaints Physical Exam Vital Signs: Vital Signs: Last Vital Signs Temp 97.4 F 11/24/23 07:58 Pulse 81 11/24/23 07:58 Resp 12 11/24/23 07:58 BP 128/68 11/24/23 07:58 Pulse Ox 98 11/24/23 07:58 O2 Del Method Room Air 11/24/23 07:58 O2 Flow Rate 2 11/08/23 15:29 BMI result Body Mass Index 34.0 GI: Other: Abdomen mildly distended/corpulent. Ostomy with much stool. Incision status quo. No evidence of any infection. Some superficial granulating draining areas. [place] intact Objective Data Active Medications Benzocaine (Throat Lozenge, Medicated Lozenge) 1 lozenge MUCOUS MEM Q2H PRN PRN Reason: Sore Throat Last Admin: 11/12/23 20:08 Dose: 1 lozenge Documented By: KENROY Erythromycin (Erythromycin Base 250 Mg Tablet) 250 mg PO TID [facility] Last Admin: 11/24/23 08:06 Dose: 250 mg Documented By: MINO Hydromorphone HCl (Hydromorphone Hcl 0.5 Mg/0.5 Ml Syringe) 0.5 mg IVPUSH Q2H PRN; Protocol PRN Reason: Pain, Severe (Pain Scale 7-10) Last Admin: 11/20/23 07:47 Dose: 0.5 mg Documented By: BURKE Naloxone HCl (Naloxone Hcl 0.4 Mg/Ml Vial) 0.2 mg IVPUSH Q2M PRN PRN Reason: Excessive sedation or RR < 8 Omeprazole (Omeprazole 40 Mg Capsule.) 40 mg PO BID@0630,1630 [facility] Last Admin: 11/24/23 05:33 Dose: 40 mg Documented By: JEREMÍAS Ondansetron HCl (Ondansetron Hcl 4 Mg/2 Ml Vial) 4 mg IVPUSH Q6H PRN PRN Reason: nausea Last Admin: 11/17/23 11:26 Dose: 4 mg Documented By: LORETA Pharmacy Consult (Consult Rx Parenteral Nutrition Ordering) 1 each MISCELLANE DAILY PRN PRN Reason: Consult order Sodium Chloride (0.9 % Sodium Chloride Flush 3 Ml Syringe) 3 ml IVFLUSH QSHIFT [facility] Last Admin: 11/24/23 07:38 Dose: Not Given Documented By: MINO Non-Admin Reason: no iv Labs 11/22/23 05:25 11/24/23 05:19 Labs: Laboratory Results - last 24 hr 11/24/23 05:19 Anion Gap 13 Estim Creat Clear Calc 139.4 Estimated GFR > 60 Random Glucose 103 Calcium 8.7 Phosphorus 3.5 Magnesium 2.1 Albumin 3.2 L Triglycerides 163 H Procedures Date of Service Date of Service: 11/24/23 Progress Note: A&P Assessment and plan (1) S/P left colectomy: Status: Acute Plan Current plan is to discharge patient home. Discharge instructions provided. Patient will follow up with Dr. Brooks as outpatient. All questions answered. Time Spent With Patient Time: Total time managing care of this patient today ____ minutes. Quality Stroke Does the patient have a stroke diagnosis?: No VTE Prior VTE?: No VTE Risk Level:: Medical - moderate - high VTE Device Contraindication: N/A - Device Ordered VTE Drug Contraindication: N/A - Med Ordered
--- NOTE | 2023-11-24 14:23 | MHC.CM.PN ---
PT BEING DISCHARGED, HOME HEALTH SERVICES ORDERED HOWEVER HIS INSURANCE DOES NOT COVER THIS AND HE DOES NOT HAVE A PCP. DISCHARGING PROVIDER INFORMED VIA [employer] PT AND FAMILY ALSO INFORMED AT BEDSIDE PT WILL DC HOME WITH NO SERVICES VIA FAMILY TRANSPORT
--- NOTE | 2023-11-24 14:26 | PC.NURSE ---
MD Mitchell no need for PO ABT. Will educate patient.
== END 2023-11-24 16:29 | disposition home health service (06) | DRG 231 ==
LOC: HO.ED 23:37 → HO.EDOVER 23:52 → HO.IMC 11-07 14:24 → HO.S3 11-08 19:11
PROVIDERS: Physician Assistant Medical; Physician Assistant Surgical; Surgery; Admitting Provider Surgery; Emergency Provider Student in an Organized Health Care Education/Training Program; Visit Provider Surgery
PROC: 0DBG0ZZ Excision of Left Large Intestine, Open Approach (ICD-10-PCS; CPT 49000; principal; 2023-11-07 09:30)
DX: K56.691 Other complete intestinal obstruction (principal); R00.0 Tachycardia, unspecified; K56.7 Ileus, unspecified
CPT/HCPCS: 36415; 71045; 74018; 74176; 74177; 80048; 80053; 81001; 82040; 83605; 83690; 83735; 84100; 84478; 85025; 85027; 86850; 86900; 86901; 87040; 88307; 93005; 99285; C1758; C9113; J0131; J0330; J1100; J1170; J1885; J2270; J2371; J2405; J2543; J2704; J2795; J3010; J3480; J7120; Q9967

== ENCOUNTER 2023-11-06 23:48 | Outpatient (BNV) | payer MEDICAID, SELFPAY | END 2023-11-22 18:18 | PROVIDERS: Admitting Provider Surgery; Emergency Provider Student in an Organized Health Care Education/Training Program; Visit Provider Internal Medicine Cardiovascular Disease | DX: R00.0 Tachycardia, unspecified (principal) | CPT/HCPCS: 93010 ==

== ENCOUNTER → 2023-11-06 23:48 | Outpatient (BNV) | payer MEDICAID, SELFPAY | PROVIDERS: Admitting Provider Surgery; Emergency Provider Student in an Organized Health Care Education/Training Program; Visit Provider Internal Medicine | DX: K52.9 Noninfective gastroenteritis and colitis, unspecified (principal); R00.0 Tachycardia, unspecified | CPT/HCPCS: 99222 ==

== ENCOUNTER → 2023-11-06 23:48 | Outpatient (BNV) | payer MEDICAID, SELFPAY | PROVIDERS: Admitting Provider Surgery; Emergency Provider Student in an Organized Health Care Education/Training Program; Visit Provider Surgery | DX: Z90.49 Acquired absence of other specified parts of digestive tract (principal) | CPT/HCPCS: 44146; 99024; 99223; 99499 ==

== ENCOUNTER → 2023-12-06 11:58 | Outpatient (BNVA) | payer MEDICAID, OTHER, SELFPAY | PROVIDERS: Visit Provider Surgery | DX: Z48.02 Encounter for removal of sutures (principal) | CPT/HCPCS: 99211 ==

== ENCOUNTER 2023-12-09 14:09 | Outpatient (AMB) | payer MEDICAID, SELFPAY ==
--- NOTE | 2023-12-09 14:09 | A.OFFVIS_ITS ---
Vital Signs 12/09/23 14:30 Weight 165 lb Intake Visit Reasons: s/p Laparotomy, colostomy in place Intake Note: This patient presents for a post-op assessment status post Laparotomy, segmental resection of distal left colon, end-loop colostomy from the transverse colon. Patient c/o; reports no complaints. Resource Development Manager Required: Yes Resource Development Manager Name: Dm Information Interpreted: non-clinical & clinical Accompanied by: Self / Same As Patient Allergies No Known Allergies Allergy (Verified 12/09/23 14:12) HPI HPI s/p Laparotomy, colostomy in place: Details: 43-year-old male here for a postop visit. He had undergone urgent laparotomy, segmental left colon resection and a transverse end-loop colostomy last 11/07/2023 because of obstruction. He was in the hospital for 2 weeks because of some gastric distention. He says he has been doing well since he has been home. He has had no issues with this colostomy. He arnie have been removed last week. He is some skin separation of the mid part. He describes some drainage from this. [facility] Medical History Colon obstruction Diverticulitis Surgical History Hx of surgical procedure (~11/07/23) Hx of appendectomy Social History Household Members: Friend(s) Housing: House Do you presently have visiting nurse or other home services: No Alcohol intake: never Comment: resting in bed, eyes closed Patient Tobacco Use Status: Never used Tobacco Second Hand Smoke Exposure: Yes service: No Current occupational status: unemployed Review of Systems Const Denies chills and Denies fever(s) Card Denies chest pain, Denies dyspnea and Denies dyspnea on exertion Resp Denies cough, Denies dyspnea and Denies dyspnea on exertion GI Denies hematochezia and Denies change in bowel habits Denies hematuria and Denies difficulty urinating Musc Denies back pain and Denies limited range of motion Neuro Denies focal weakness and Denies convulsions Psych Denies depression and Denies mood swings Physical Exam Const General: comfortable and no acute distress Resp Effort & Inspection: normal respiratory effort GI Other: Colostomy functioning well, appears viable Midline incision with skin separation but with good granulation on the mid part, no evidence of any Palpation (GI): Soft to palpation, not firm, nontender and no guarding Assessment & Plan Assessment & Plan (1) S/P left colectomy: Code(s): Z90.49 - Acquired absence of other specified parts of digestive tract Category: Surgical Plan: He is doing well postop. I changes dressings. I advised him to continue to do daily dressing changes for the open wound on the laparotomy site. He stoma is functioning well. His path report shows findings consistent with diverticular disease I will see him again in the office in about a month. He will eventually need to have a colonoscopy prior to having the reversal. Coding Level of Care Code Global (67112) Diagnoses S/P left colectomy Z90.49
== END 2023-12-09 14:23 | disposition home or self-care (01) ==
PROVIDERS: Visit Provider Surgery
DX: Z90.49 Acquired absence of other specified parts of digestive tract (principal)
CPT/HCPCS: 99024

== ENCOUNTER → 2023-12-09 14:09 | Outpatient (BNVA) | payer MEDICAID, OTHER, SELFPAY | PROVIDERS: Visit Provider Surgery | DX: Z48.815 Encounter for surgical aftercare following surgery on the digestive system (principal); Z93.3 Colostomy status; Z90.49 Acquired absence of other specified parts of digestive tract | CPT/HCPCS: 99212 ==

== ENCOUNTER 2024-01-08 10:18 | Outpatient (AMB) | payer MEDICAID, SELFPAY ==
--- NOTE | 2024-01-08 10:19 | MHC.OFFVIS ---
Vital Signs 01/08/24 10:23 Weight 179 lb BP 119/68 Blood Pressure Location Rt brachial Position Sitting Pulse 71 Intake Visit Reasons: 1 mth follow up s/p Laparotomy, colostomy in place Intake Note: This patient presents for a one month follow-up status post laparotomy, colostomy in place Patient c/o; reports no complaints. Human Resources Benefits Manager Required: Yes Human Resources Benefits Manager Language: Manager Pathology Services: Human Resources Benefits Manager Present (No) Accompanied by: Self / Same As Patient Allergies No Known Allergies Allergy (Verified 01/08/24 10:24) HPI HPI 1 mth follow up s/p Laparotomy, colostomy in place: Details: He is here for follow-up after sigmoid resection and end- loop transverse colostomy last Oct, 2023. He continues to feel better He has good oral intake. He has stoma has been functioning well. He denies complaints and says he is back to work. [facility] Medical History Colon obstruction Diverticulitis Surgical History Hx of surgical procedure (~11/07/23) Hx of appendectomy Social History Household Members: Friend(s) Housing: House Do you presently have visiting nurse or other home services: No Alcohol intake: never Comment: resting in bed, eyes closed Patient Tobacco Use Status: Never used Tobacco Second Hand Smoke Exposure: Yes service: No Current occupational status: unemployed Review of Systems Const Denies chills and Denies fever(s) Card Denies chest pain, Denies dyspnea and Denies dyspnea on exertion Resp Denies cough, Denies dyspnea and Denies dyspnea on exertion GI Details: Has colostomy Denies hematochezia and Denies change in bowel habits Denies hematuria and Denies difficulty urinating Musc Denies back pain and Denies limited range of motion Neuro Denies focal weakness and Denies convulsions Psych Denies depression and Denies mood swings Physical Exam Vital Signs: Last Vital Signs Pulse 71 01/08/24 10:23 BP 119/68 01/08/24 10:23 Const General: comfortable and no acute distress Resp Effort & Inspection: normal respiratory effort GI Other: Laparotomy incision well healed, colostomy functioning well Palpation (GI): Soft to palpation Assessment & Plan Assessment & Plan (1) S/P left colectomy: Code(s): Z90.49 - Acquired absence of other specified parts of digestive tract Category: Surgical Plan: He continues to do well. His incision is well healed. He has good stoma function. I had advised him to continue to try to lose some weight. I will see him in the office in about a month and prepare him for reversal of his colostomy. This may require an open procedure, and a diverting loop ileostomy because of the presence of his end-loop colostomy. Coding Level of Care Code Global (63505) Diagnoses S/P left colectomy Z90.49
[2024-01-08 10:23] VITALS: BP 119/68; PULSE 71
== END 2024-01-08 10:30 | disposition home or self-care (01) ==
PROVIDERS: Visit Provider Surgery
DX: Z90.49 Acquired absence of other specified parts of digestive tract (principal)
CPT/HCPCS: 99024

== ENCOUNTER → 2024-01-08 10:18 | Outpatient (BNVA) | payer MEDICAID, SELFPAY | PROVIDERS: Visit Provider Surgery | DX: Z48.815 Encounter for surgical aftercare following surgery on the digestive system (principal); Z90.49 Acquired absence of other specified parts of digestive tract | CPT/HCPCS: 99212 ==

== ENCOUNTER 2024-02-12 09:14 | Outpatient (AMB) | payer SELFPAY ==
--- NOTE | 2024-02-12 09:15 | MHC.OFFVIS ---
Vital Signs 02/12/24 09:16 Height 5 ft 5 in Weight 190 lb BMI 31.6 BP 135/71 Blood Pressure Location Rt brachial Position Sitting Pulse 72 Intake Visit Reasons: 1 mth follow up s/p Laparotomy, colostomy in place Intake Note: This patient presents for one month follow up s/p Laparotomy, colostomy in place. Pt c/o; reports no complaints. Show Operations Supervisor Required: Yes Show Operations Supervisor Language: Sorority Mother Services: Show Operations Supervisor Present Show Operations Supervisor Name: Dm Information Interpreted: non-clinical & clinical Accompanied by: Self / Same As Patient Allergies No Known Allergies Allergy (Verified 02/12/24 09:17) Medication List - Last Reconciled 02/12/24 by Dakota Brooks MD oxycodone 5 mg PO Q4H PRN HPI HPI 1 mth follow up s/p Laparotomy, colostomy in place: Details: He is here for follow-up after a Jill's procedure for an obstructing diverticular stricture. He says that he is doing well. He has colostomy has been functioning well. He denies any significant complaints. He does admit that this has been gaining weight since the surgery. [facility] Medical History (Updated 02/12/24 @ 09:36 by Dakota Brooks MD) Colostomy in place Colon obstruction Diverticulitis Surgical History Hx of surgical procedure (~11/07/23) Hx of appendectomy Social History Household Members: Friend(s) Housing: House Do you presently have visiting nurse or other home services: No Alcohol intake: never Comment: resting in bed, eyes closed Patient Tobacco Use Status: Never used Tobacco Second Hand Smoke Exposure: Yes service: No Current occupational status: unemployed Review of Systems Const Denies chills and Denies fever(s) Card Denies chest pain, Denies dyspnea and Denies dyspnea on exertion Resp Denies cough, Denies dyspnea and Denies dyspnea on exertion GI Details: Has colostomy Denies hematochezia and Denies change in bowel habits Denies hematuria and Denies difficulty urinating Musc Denies back pain and Denies limited range of motion Neuro Denies focal weakness and Denies convulsions Psych Denies depression and Denies mood swings Physical Exam Vital Signs: Last Vital Signs Pulse 72 02/12/24 09:16 BP 135/71 02/12/24 09:16 BMI result Body Mass Index 31.6 Const Other: Appears obese General: comfortable and no acute distress Resp Effort & Inspection: normal respiratory effort Cardio Rate: regular rate GI Other: Colostomy in place, functioning well, long midline incision well healed Palpation (GI): Soft to palpation Assessment & Plan Assessment & Plan (1) Colostomy in place: Code(s): Z93.3 - Colostomy status Category: Medical Plan: He is doing well. He denies any significant complaints. He is stoma has been functioning well He has gained some weight recently. I had been advising him to drop some weight prior to reversal of his colostomy as I anticipate procedure to be with some degree of difficulty. I will see him again in the office in about 2 months. He understands the plan and is comfortable with this. Medications: Refilled oxycodone Partial Fill upon patient request. 5 mg PO Q4H PRN 26 tabs 0RF pain (scale score 7-10) Coding Level of Care Code Est Pt Level 3 (80399) Diagnoses Colostomy in place Z93.3
[2024-02-12 09:16] VITALS: BP 135/71; PULSE 72; BMI 31.6
== END 2024-02-12 09:37 | disposition home or self-care (01) ==
PROVIDERS: Visit Provider Surgery
DX: Z93.3 Colostomy status (principal)
CPT/HCPCS: 99213

== ENCOUNTER → 2024-02-12 09:14 | Outpatient (BNVA) | payer MEDICAID, SELFPAY | PROVIDERS: Visit Provider Surgery | DX: Z48.815 Encounter for surgical aftercare following surgery on the digestive system (principal); Z93.3 Colostomy status | CPT/HCPCS: 99212 ==

== ENCOUNTER 2024-02-29 11:49 | Inpatient (IN) | payer MEDICAID, OTHER, SELFPAY ==
--- NOTE | ~2024-02-29 | CT_ITS ---
EXAMINATION: CT ABDOMEN AND PELVIS WITH CONTRAST CLINICAL INFORMATION: Abdominal pain. Question is small bowel obstruction. COMPARISON: None available. TECHNIQUE: Multidetector volumetric images were obtained from the superior aspect of the liver through the pubic symphysis following administration 85 mL of Omnipaque 350 intravenous contrast. Sagittal and coronal reformatted images were obtained on the technologist's workstation. Oral contrast: No This CT examination was performed using dose optimization techniques as appropriate, variously including the following: *Automated exposure control *Adjustment of mA and/or kV according to patient size (this includes techniques or standardized protocols for targeted exams where dose is matched to indication/reason for exam; i.e. extremities or head) *Use of iterative reconstruction technique DLP: 588 mGy-cm FINDINGS: LUNG BASES: There is bibasilar atelectasis. LIVER, GALLBLADDER, AND BILIARY TREE: The liver is normal in size, shape, and attenuation. No focal hepatic lesion or biliary ductal dilatation is present. The gallbladder is unremarkable with no evidence of radiopaque gallstones, gallbladder wall thickening, or obvious pericholecystic inflammatory changes. PANCREAS: Unremarkable. SPLEEN: Unremarkable. ADRENAL GLANDS: Unremarkable. KIDNEYS AND URETERS: The kidneys are normal in size, shape, and attenuation. No hydronephrosis, hydroureter, or calculi seen. No perinephric stranding. BLADDER: The bladder is mildly distended but otherwise unremarkable.. GASTROINTESTINAL TRACT: There is a left mid quadrant transverse colon colostomy with resection of the distal descending and sigmoid colon. There is mild mural thickening and adjacent fluid collection and edema involving small bowel loops in abdomen and adjacent to the descending colon stump. However there is antegrade gas collection adjacent to the loop of small bowel on sagittal image 26/8. There is suspicion for bowel perforation or inflammatory or infectious etiology. Similar finding was seen on the previous exam. 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 The stomach is partially distended oral contrast and food residue. Appendix is not visualized. ABDOMINAL WALL: The left mid abdomen colostomy. LYMPH NODES: Normal. VASCULAR: The abdominal aorta is of normal caliber. No retroperitoneal lymph nodes or mass seen. PELVIC VISCERA: Unremarkable. OSSEOUS STRUCTURES: No aggressive lytic or sclerotic process seen. CT/CT abdomen pelvis w IV con IMPRESSION: Inflammatory changes along the loop of small bowel and adjacent to the descending colon stump in left mid abdomen, similar to previous exam. Small bowel enteritis is not excluded. There is mild mural thickening of small bowel loops in left midabdomen. Midline ending sigmoid colon stump is normal. There is punctate EXTRALUMINAL GAS COLLECTION suspicious for colonic stump rupture or small bowel perforation. Underlying small bowel enteritis is not excluded. This is a new finding since the last exam 11/20/2023 Fleischner guidelines were followed. Electronically signed by: Jose Sandoval MD 02/29/2024 04:48 PM EDT
[2024-02-29 11:57] VITALS: BP 129/84; PULSE 84; RESP 18; TEMP 36.7; O2SAT 100; BMI 23.5
--- NOTE | 2024-02-29 11:57 | ED.ABDPAIN ---
HPI - Abdominal Pain General Chief Complaint: Abdominal Pain Stated Complaint: abd pain Time Seen by Provider: 02/29/24 12:11 History of Present Illness HPI narrative: See additional note from Dr. Lang Related Data Home Medications ?Medication ?Instructions ?Recorded ?Confirmed No Known Home Meds 02/29/24 02/29/24 Allergies Allergy/AdvReac Type Severity Reaction Status Date / Time No Known Allergies Allergy Verified 02/29/24 12:00 PMFSH Past Medical History Medical History Colostomy in place Colon obstruction Diverticulitis Surgical History Hx of surgical procedure (~11/07/23) Hx of appendectomy Social History Social History Household Members: Friend(s) Housing: House Do you presently have visiting nurse or other home services: No Alcohol intake: never Comment: resting in bed, eyes closed Patient Tobacco Use Status: Never used Tobacco Smoked in Last 30 Days: No Second Hand Smoke Exposure: Yes Use of substances other than those prescribed or required for medical reasons: No Advance Directives: No Advance Directives Information Provided: No Do you have a plan to hurt others: No Plan Nutrition Risks: No Nutritional Risk service: No Current occupational status: unemployed Physical Exam ED Vital Signs: Vital Signs - 24 hr 02/29/24 11:57 02/29/24 14:37 02/29/24 17:06 Temperature 98.0 F 98.3 F 98.5 F Pulse Rate 84 96 95 Respiratory Rate 18 18 12 Blood Pressure 129/84 135/78 115/65 Pulse Oximetry 100 100 99 Oxygen Delivery Method Room Air Room Air Room Air BMI result Body Mass Index 23.5 Course Course Course Narrative: This is an RME performed by Rodolfo Martinez CNP: Additional HPI, ROS, PE not included below will be deferred to primary provider. Patient is a 44 old male who presents emergency department for evaluation. He states 1 hour prior to arrival he developed severe abdominal pain diffusely throughout, states that he had an episode of vomiting that had blood in it. He is s/p left colectomy in October of 2023 due to obstruction with Dr. Brooks. He states that when driving here every bump in the road resulted in significant increase in pain. Denies associated fevers or chills. Exam: Diffuse tenderness throughout on palpation, worse on the left abdomen is rounded, semifirm, hypoactive bowel sounds. Medical Decision Making Lab Data 02/29/24 12:12 02/29/24 12:12 Labs: Lab Results 02/29/24 Range/Units 12:12 WBC 17.6 H (4.8-10.8) X10*3/uL RBC 5.43 D (4.60-5.80) X10*6/uL Hgb 15.3 D (14.0-18.0) g/dl Hct 45.9 D (42.0-52.0) % MCV 84.5 (80.0-98.0) fL MCH 28.2 (27.0-33.0) pg MCHC 33.3 (31.0-36.0) g/dl RDW 13.9 (11.0-16.0) % Plt Count 281 D (160-400) X10*3/uL MPV 9.4 (9.4-12.4) fL Immature Gran % (Auto) 0.5 H (0.0-0.4) % Neut % (Auto) 80.6 H (45-73) % Lymph % (Auto) 15.3 L (20-40) % [place] % (Auto) 2.9 (2-11) % Eos % (Auto) 0.4 (0-4) % Baso % (Auto) 0.3 (0-2) % Lymph # (Auto) 2.7 (1.2-4.9) X10*3/uL [place] # (Auto) 0.5 (0.1-1.2) X10*3/uL Eos # (Auto) 0.1 (0.0-0.4) X10*3/uL Baso # (Auto) 0.1 (0.0-0.2) X10*3/uL Abs Immat Gran (auto) 0.08 H (0.00-0.03) X10*3/uL Absolute Neuts (auto) 14.2 H (2.0-8.3) x10*3/uL Absolute Nucleated RBC 0.000 (0.0-0.012) X10*3/uL Nucleated RBC % (auto) 0.0 (0.0-0.2) /100WBC PT 10.4 L (11.1-13.3) SEC INR 0.9 (0.9-1.1) Sodium 140 (135-145) mmol/L Potassium 3.9 (3.3-5.1) mmol/L Chloride 108 (96-108) mmol/L Carbon Dioxide 22 (22-29) mmol/L Anion Gap 14 (12-20) BUN 14 (9-16) mg/dL Creatinine 0.84 (0.5-1.4) mg/dL Estim Creat Clear Calc 104.9 Estimated GFR > 60 Random Glucose 145 H (60-115) mg/dL Calcium 9.2 (8.4-10.2) mg/dL Total Bilirubin 0.4 (0.0-1.0) mg/dL AST 24 (5-37) U/L ALT 31 (0-40) U/L Alkaline Phosphatase 145 H (39-117) U/L Total Protein 7.6 (6.5-8.0) g/dL Albumin 4.0 (3.5-5.0) g/dL Lipase 30 (8-78) U/L Medications Administered Generic Name Dose Route Start Last Admin Trade Name Freq PRN Reason Stop Dose Admin Lactated Ringer's 1,000 mls @ 125 mls/hr 02/29/24 17:15 02/29/24 17:13 Lr IVCONT 125 mls/hr .Q8H KIKO Administration Acetaminophen 1,000 mg in 100 mls @ 400 mls/hr 02/29/24 17:45 02/29/24 18:55 Ofirmev IV 03/01/24 05:59 Infused Q6H KIKO Infusion Discontinued Medications Generic Name Dose Route Start Last Admin Trade Name Freq PRN Reason Stop Dose Admin Barium Sulfate 450 ml 02/29/24 15:50 02/29/24 15:51 Barium Sulfate Oral (Mocha) 450 Ml Oral.Susp PO 02/29/24 15:51 450 ml ONCE ONE Administration Barium Sulfate 450 ml 02/29/24 15:51 02/29/24 15:51 Barium Sulfate Oral (Mocha) 450 Ml Oral.Susp PO 02/29/24 15:52 450 ml ONCE ONE Administration Hydromorphone HCl 0.5 mg 02/29/24 13:10 02/29/24 13:15 Hydromorphone Hcl 0.5 Mg/0.5 Ml Syringe IVPUSH 02/29/24 13:11 0.5 mg ONCE ONE Administration Protocol Hydromorphone HCl 1 mg 02/29/24 14:30 02/29/24 14:34 Hydromorphone Hcl 1 Mg/Ml Syringe IVPUSH 02/29/24 14:31 1 mg ONCE ONE Administration Protocol Hydromorphone HCl 1 mg 02/29/24 17:05 02/29/24 17:17 Hydromorphone Hcl 1 Mg/Ml Syringe IVPUSH 02/29/24 17:06 1 mg ONCE STA Administration Protocol Sodium Chloride 1,000 mls @ 999 mls/hr 02/29/24 13:15 02/29/24 14:18 Ns IVCONT 02/29/24 14:15 Infused .Q1H1M KIKO Infusion Piperacillin Sod/Tazobactam 100 mls @ 200 mls/hr 02/29/24 17:02 02/29/24 17:46 Sod 4.5 gm/ Sodium Chloride IV 02/29/24 17:31 Infused ONCE ONE Infusion Iohexol 100 ml 02/29/24 15:50 02/29/24 15:50 Iohexol 350 Mg/Ml 100 Ml Infus..Btl IV 02/29/24 15:51 85 ml ONCE ONE Administration Ondansetron HCl 4 mg 02/29/24 13:16 02/29/24 13:48 Ondansetron Hcl 4 Mg/2 Ml Vial IVPUSH 02/29/24 13:17 4 mg ONCE ONE Administration Discharge Plan Discharge Clinical Impression: Abdominal pain Qualifiers: Abdominal location: generalized Qualified Code(s): R10.84 - Generalized abdominal pain Patient Disposition: Admitted As Inpatient Interventions: Admission Worksheet (ED) Last Done: 02/29/24 19:50 Discharge Date/Time: 02/29/24 20:43
[2024-02-29 12:16] LABS: MANUAL DIFF FLAG NO
[2024-02-29 12:20] LABS: Basophils Absolute Auto 0.1 X10*3/uL (0.0-0.2); Basophils Percent Auto 0.3 % (0-2); Eosinophils Absolute Auto 0.1 X10*3/uL (0.0-0.4); Eosinophils Percent Auto 0.4 % (0-4); Hematocrit 45.9 % (42.0-52.0); Hemoglobin 15.3 g/dl (14.0-18.0); Imm Gran Abs Auto 0.08 X10*3/uL (0.00-0.03); Imm Gran Pct Auto 0.5 % (0.0-0.4); Lymphocytes Absolute Auto 2.7 X10*3/uL (1.2-4.9); Lymphocytes Percent Auto 15.3 % (20-40); Mean Corpuscular HGB Conc 33.3 g/dl (31.0-36.0); Mean Corpuscular Hemoglobin 28.2 pg (27.0-33.0); Mean Corpuscular Volume 84.5 fL (80.0-98.0); Mean Platelet Volume 9.4 fL (9.4-12.4); Monocytes Absolute Auto 0.5 X10*3/uL (0.1-1.2); Monocytes Percent Auto 2.9 % (2-11); Neutrophils Absolute Auto 14.2 x10*3/uL (2.0-8.3); Neutrophils Percent Auto 80.6 % (45-73); Platelet Count 281 X10*3/uL (160-400); Red Blood Count 5.43 X10*6/uL (4.60-5.80); Red Cell Distribution Width 13.9 % (11.0-16.0); White Blood Count 17.6 X10*3/uL (4.8-10.8)
[2024-02-29 12:34] LABS: INTERNATIONAL NORM RATIO 0.9 (0.9-1.1); Prothrombin Time 10.4 SEC (11.1-13.3)
[2024-02-29 12:38] LABS: Alanine Aminotransferase 31 U/L (0-40); Alkaline Phosphatase 145 U/L (39-117); Anion Gap 14 (12-20); Aspartate Amino Transferase 24 U/L (5-37); Bilirubin Total 0.4 mg/dL (0.0-1.0); Blood Urea Nitrogen 14 mg/dL (9-16); Calcium 9.2 mg/dL (8.4-10.2); Carbon Dioxide 22 mmol/L (22-29); Chloride 108 mmol/L (96-108); Creatinine Clr Calc Pharmacy 104.9; Estimated Glomerular Filt Rate > 60; Glucose Random 145 mg/dL (60-115); Lipase 30 U/L (8-78); Potassium 3.9 mmol/L (3.3-5.1); Sodium 140 mmol/L (135-145); Total Protein 7.6 g/dL (6.5-8.0)
--- NOTE | 2024-02-29 12:54 | PC.NURSE ---
a&ox4. vss and up to date. 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 pt presents to the ED w/ sudden onset nonradiating 10/10 generalized abd pain w/ 1 episode of bloody emesis. pt denies any episodes of fever/chills but chills noticed during assessment. pt currently afebrile. colostomy bag placed in left side of abdomen - recently placed this last october. beefy red stoma noted. incision noted down center of abdomen - well approximated. no signs of infection noted to incision. abd distended/tender w/ palpation. pt seemingly uncomfortable/in pain as he is restless. labs obtained in triage. 20gIV placed in the left forearm - patent/intact. pt waiting to be seen by ED provider. no sob/wob noted. respirations even/unlabored. family bedside for support. plan of care ongoing. call mckeon placed within reach.
--- NOTE | 2024-02-29 13:12 | ED.ABDPAIN ---
HPI - Abdominal Pain General Chief Complaint: Abdominal Pain Stated Complaint: abd pain Time Seen by Provider: 02/29/24 12:11 Source: patient Mode of arrival: ambulatory Limitations: no limitations History of Present Illness HPI narrative: This is 44 years old patient with history of left colectomy/Jill procedure October 2023 presented to the emergency department complaining of severe abdominal pain since this morning. He also has history of appendectomy in the past. No vomiting but complaining of nausea MD elicited complaint: abdominal pain Pertinent past history: other (colectomy) Onset (ago): hour(s) (6) Pain Consistency: constant Severity: severe Quality: aching Radiation: none Migration to: no migration Exacerbating factors: nothing Relieving factors: nothing Related Data Previous Rx's ?Medication ?Instructions ?Recorded oxycodone 5 mg tablet 5 mg PO Q4H PRN pain (scale score 02/12/24 7-10) #26 tabs Allergies Allergy/AdvReac Type Severity Reaction Status Date / Time No Known Allergies Allergy Verified 02/29/24 12:00 Review of Systems Constitutional: Reports no additional constitutional complaints Cardiovascular: Reports no additional cardiovascular complaints Reports system reviewed and no additional complaints, except as documented PMFSH Past Medical History Attestation statement: The following information was validated with the patient. Medical History Colostomy in place Colon obstruction Diverticulitis Surgical History Hx of surgical procedure (~11/07/23) Hx of appendectomy Social History Social History Household Members: Friend(s) Housing: House Do you presently have visiting nurse or other home services: No Alcohol intake: never Comment: resting in bed, eyes closed Patient Tobacco Use Status: Never used Tobacco Smoked in Last 30 Days: No Second Hand Smoke Exposure: Yes Use of substances other than those prescribed or required for medical reasons: No Advance Directives: No Advance Directives Information Provided: No Do you have a plan to hurt others: No Plan service: No Current occupational status: unemployed Physical Exam ED Vital Signs: Vital Signs - 24 hr 02/29/24 11:57 02/29/24 14:37 Temperature 98.0 F 98.3 F Pulse Rate 84 96 Respiratory Rate 18 18 Blood Pressure 129/84 135/78 Pulse Oximetry 100 100 Oxygen Delivery Method Room Air Room Air BMI result Body Mass Index 23.5 Const General: cooperative Nutritional Appearance: well nourished Orientation/consciousness: patient oriented x3 Limitations: no limitations HENMT Head: Yes normal to inspection General nose exam: Normal external nose present Face and sinus: Yes normal facial exam Mouth: Normal oral and palatal mucosa present Neck Neck: Yes normal visual inspection Chest Chest palpation & inspection: normal inspection of the chest Resp Effort & Inspection: normal respiratory effort Auscultation: clear to auscultation bilaterally GI Other: Colostomy bag is present with stools in the bag Inspection: Yes normal to inspection Palpation (GI): Tenderness to palpation present (GI) Neuro General: patient oriented x3 Course Reevaluation(s) Reevaluation #1: signed out to Dr Vargas ct pending Time: 15:56 Medical Decision Making Medical Decision Making [facility] Narrative: Patient presented with abdominal pain status post left colectomy November 21 will administer analgesia IV fluid CT Differential Diagnosis Differential Diagnoses: The differential diagnosis associated with the presentation includes SBO/colitis/diverticulitis/perforated bowel Lab Data [facility] Lab Attestation statement: I reviewed the patient's lab results. 02/29/24 12:12 02/29/24 12:12 Labs: Lab Results 02/29/24 Range/Units 12:12 WBC 17.6 H (4.8-10.8) X10*3/uL RBC 5.43 D (4.60-5.80) X10*6/uL Hgb 15.3 D (14.0-18.0) g/dl Hct 45.9 D (42.0-52.0) % MCV 84.5 (80.0-98.0) fL MCH 28.2 (27.0-33.0) pg MCHC 33.3 (31.0-36.0) g/dl RDW 13.9 (11.0-16.0) % Plt Count 281 D (160-400) X10*3/uL MPV 9.4 (9.4-12.4) fL Immature Gran % (Auto) 0.5 H (0.0-0.4) % Neut % (Auto) 80.6 H (45-73) % Lymph % (Auto) 15.3 L (20-40) % [place] % (Auto) 2.9 (2-11) % Eos % (Auto) 0.4 (0-4) % Baso % (Auto) 0.3 (0-2) % Lymph # (Auto) 2.7 (1.2-4.9) X10*3/uL [place] # (Auto) 0.5 (0.1-1.2) X10*3/uL Eos # (Auto) 0.1 (0.0-0.4) X10*3/uL Baso # (Auto) 0.1 (0.0-0.2) X10*3/uL Abs Immat Gran (auto) 0.08 H (0.00-0.03) X10*3/uL Absolute Neuts (auto) 14.2 H (2.0-8.3) x10*3/uL Absolute Nucleated RBC 0.000 (0.0-0.012) X10*3/uL Nucleated RBC % (auto) 0.0 (0.0-0.2) /100WBC PT 10.4 L (11.1-13.3) SEC INR 0.9 (0.9-1.1) Sodium 140 (135-145) mmol/L Potassium 3.9 (3.3-5.1) mmol/L Chloride 108 (96-108) mmol/L Carbon Dioxide 22 (22-29) mmol/L Anion Gap 14 (12-20) BUN 14 (9-16) mg/dL Creatinine 0.84 (0.5-1.4) mg/dL Estim Creat Clear Calc 104.9 Estimated GFR > 60 Random Glucose 145 H (60-115) mg/dL Calcium 9.2 (8.4-10.2) mg/dL Total Bilirubin 0.4 (0.0-1.0) mg/dL AST 24 (5-37) U/L ALT 31 (0-40) U/L Alkaline Phosphatase 145 H (39-117) U/L Total Protein 7.6 (6.5-8.0) g/dL Albumin 4.0 (3.5-5.0) g/dL Lipase 30 (8-78) U/L Medications Administered Discontinued Medications Generic Name Dose Route Start Last Admin Trade Name Freq PRN Reason Stop Dose Admin Barium Sulfate 450 ml 02/29/24 15:50 02/29/24 15:51 Barium Sulfate Oral (Mocha) 450 Ml Oral.Susp PO 02/29/24 15:51 450 ml ONCE ONE Administration Barium Sulfate 450 ml 02/29/24 15:51 02/29/24 15:51 Barium Sulfate Oral (Mocha) 450 Ml Oral.Susp PO 02/29/24 15:52 450 ml ONCE ONE Administration Hydromorphone HCl 0.5 mg 02/29/24 13:10 02/29/24 13:15 Hydromorphone Hcl 0.5 Mg/0.5 Ml Syringe IVPUSH 02/29/24 13:11 0.5 mg ONCE ONE Administration Protocol Hydromorphone HCl 1 mg 02/29/24 14:30 02/29/24 14:34 Hydromorphone Hcl 1 Mg/Ml Syringe IVPUSH 02/29/24 14:31 1 mg ONCE ONE Administration Protocol Sodium Chloride 1,000 mls @ 999 mls/hr 02/29/24 13:15 02/29/24 14:18 Ns IVCONT 02/29/24 14:15 Infused .Q1H1M KIKO Infusion Iohexol 100 ml 02/29/24 15:50 02/29/24 15:50 Iohexol 350 Mg/Ml 100 Ml Infus..Btl IV 02/29/24 15:51 85 ml ONCE ONE Administration Ondansetron HCl 4 mg 02/29/24 13:16 02/29/24 13:48 Ondansetron Hcl 4 Mg/2 Ml Vial IVPUSH 02/29/24 13:17 4 mg ONCE ONE Administration Discharge Plan Discharge Clinical Impression: Abdominal pain Qualifiers: Abdominal location: generalized Qualified Code(s): R10.84 - Generalized abdominal pain Patient Disposition: Still a Patient Prescriptions: No Action oxycodone 5 mg tablet 5 mg PO Q4H PRN (Reason: pain (scale score 7-10)) Qty: 26 0RF Rx Instructions: Partial Fill upon patient request. Print Language: Japanese
[2024-02-29] MEDS: HYDROmorphone HCl 0.5 MG/0.5 ML SYRINGE IVPUSH (13:15)
[2024-02-29] MEDS: 0.9 % Sodium Chloride 1,000 ML 999 ML IVCONT (13:15)
--- NOTE | 2024-02-29 13:45 | PC.NURSE ---
IVF/medication administered per provider order. effectiveness pending. pt waiting to go to CT at this time. plan of care ongoing.
[2024-02-29] MEDS: ondansetron HCL 4 MG/2 ML VIAL IVPUSH (13:48)
[2024-02-29] MEDS: HYDROmorphone HCl 1 MG/ML SYRINGE IVPUSH ×2 (14:34→17:17)
[2024-02-29 14:37] VITALS: BP 135/78; PULSE 96; RESP 18; TEMP 36.8; O2SAT 100
--- NOTE | 2024-02-29 14:39 | PC.NURSE ---
pt verbalizing increase in abd pain - medicated per provider order. effectiveness pending.
--- NOTE | 2024-02-29 15:35 | PC.NURSE ---
pt to CT at this time.
[2024-02-29] MEDS: iohexoL 350 MG/ML 100 ML INFUS..BTL IV (15:50)
[2024-02-29] MEDS: Barium Sulfate Oral (Mocha) 450 ML ORAL.SUSP PO ×2 (15:51)
[2024-02-29 17:06] VITALS: BP 115/65; PULSE 95; RESP 12; TEMP 36.9; O2SAT 99
--- NOTE | 2024-02-29 17:10 | P.HPGS_ITS ---
History of Present Illness History of Present Illness Date of Service: 03/01/24 Chief complaint: abd pain Narrative: Bernardo Artis is a 44 year old male here in the ED for abdominal pain. He says this started around 10 am this morning after he drank some milk. He says he was totally fine prior to that. He says the pain persisted and was severe so he came to the ED. He says that because of his pain, he had one episode of vomitting with small amount of blood prior to him coming to the ED. He says he is not nauseous at this time. He denies fever or chills. He says he has had good oral intake. 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 He had an end-loop transverse colostomy at that time in view of his left colon unable to be brought up to the abdominal wall due to foreshortening.His stoma has been functioning well. Review of Systems Constitutional: Constitutional: Denies chills and Denies fever(s) Cardiovascular: Cardiovascular: Denies chest pain, Denies dyspnea and Denies dyspnea on exertion Respiratory: Respiratory: Denies cough, Denies dyspnea and Denies dyspnea on exertion Gastrointestinal: Gastrointestinal: Denies hematochezia and Denies change in bowel habits Comments: has good colostomy, with good output Genitourinary: Genitourinary: Denies hematuria and Denies difficulty urinating Musculoskeletal: Musculoskeletal: Denies back pain and Denies limited range of motion Neurologic: Denies focal weakness and Denies convulsions Psychiatric: Psychiatric: Denies depression and Denies mood swings PMFSH Past Medical History Medical History Colostomy in place Colon obstruction Diverticulitis Surgical History Surgical History Hx of surgical procedure (~11/07/23) Hx of appendectomy Social History Social History Household Members: Family Housing: House Do you presently have visiting nurse or other home services: No Alcohol intake: never Comment: resting in bed, eyes closed Patient Tobacco Use Status: Never used Tobacco Smoked in Last 30 Days: No Second Hand Smoke Exposure: Yes Use of substances other than those prescribed or required for medical reasons: No Currently Displaying Signs/Symptoms of Drug Intoxication Withdrawal: No Any prior treatment program specific to substance use: No Have you been hit, kicked, punched, or otherwise hurt by someone within the past year? If so, by whom?: No Do you feel safe in your current relationship?: Yes Is there a partner from a previous relationship who is making you feel unsafe now?: No Are you made to feel afraid or neglected: No Advance Directives: No Advance Directives Information Provided: No Do you have a plan to hurt others: No Plan Recently lost weight without trying: No Eating poorly because of decreased appetite: Yes Nutrition Risks: No Nutritional Risk Poor oral hygiene: No service: No Current occupational status: unemployed Meds Allergies Allergy/AdvReac Type Severity Reaction Status Date / Time No Known Allergies Allergy Verified 02/29/24 12:00 Active Medications: Current Medications Piperacillin Sod/Tazobactam (Sod 4.5 gm/ Sodium Chloride) 100 mls @ 200 mls/hr IV ONCE ONE Stop: 02/29/24 17:31 Lactated Ringer's (Lr) 1,000 mls @ 125 mls/hr IVCONT .Q8H KIKO Home Medications ?Medication ?Instructions ?Recorded ?Confirmed ?Last Taken ?Type No Known Home Meds 02/29/24 02/29/24 Unknown History Physical Exam Vital Signs: Vital Signs: Last Vital Signs Temp 98.5 F 02/29/24 17:06 Pulse 95 02/29/24 17:06 Resp 12 02/29/24 17:06 BP 115/65 02/29/24 17:06 Pulse Ox 99 02/29/24 17:06 O2 Del Method Room Air 02/29/24 17:06 BMI result Body Mass Index 23.5 Const: Other: obese, anxious-looking General: comfortable and no acute distress Orientation/consciousness: p atient oriented x3 Neck: Neck: Yes no lymphadenopathy Resp: Auscultation: clear to auscultation bilaterally Cardio: Rhythm: regular rhythm GI: Other: colostomy functioning on left upper quadrant, functioning well Palpation (GI): Soft to palpation, Tenderness to palpation present (GI) (diffusely, left more than right), no guarding and not rigid Neuro: General: patient oriented x3 Results Results Labs: Short CBC 02/29/24 Range/Units 12:12 WBC 17.6 H (4.8-10.8) X10*3/uL Hgb 15.3 D (14.0-18.0) g/dl Hct 45.9 D (42.0-52.0) % Plt Count 281 D (160-400) X10*3/uL BMP 02/29/24 12:12 Sodium 140 Potassium 3.9 Chloride 108 Carbon Dioxide 22 BUN 14 Creatinine 0.84 Calcium 9.2 Liver Function 02/29/24 Range/Units 12:12 Total Bilirubin 0.4 (0.0-1.0) mg/dL AST 24 (5-37) U/L ALT 31 (0-40) U/L Alkaline Phosphatase 145 H (39-117) U/L Albumin 4.0 (3.5-5.0) g/dL Abdomen CT scan report/results: report reviewed and image reviewed CT scan - pelvis: report reviewed and image reviewed Assessment and Plan (1) Abdominal pain: Qualifiers: Abdominal location: generalized Qualified Code(s): R10.84 - Generalized abdominal pain Status: Acute He has abdominal and his CT scan shows some inflammatory changes in a loop of small bowel adjacent to the staple line stump on the left colon distal to his loop colostomy. There is some very small amounts of punctate air adjacent to this. It is likely that he hay have leaked from the staple line on the blind pouch distal to the loop colostomy as this was an end-loop. Diverticulitis of the stump also is a possibility. This area is already diverted. The inflammatory changes in the adjacent small bowel may be reactive. He says his pain is improved compared to earlier. I will start him on IV Zosyn and put him on bowel rest. He will have some narcotics for pain control. I explained to him that it is unlikely he will need surgery but this may be necessary if he has clinical worsening. He understands the plan well. He is hemdynamically stable and not septic looking. Quality Stroke Does the patient have a stroke diagnosis?: No VTE Prior VTE?: No VTE Risk Level:: Medical - moderate - high VTE Device Contraindication: N/A - Device Ordered VTE Drug Contraindication: N/A - Med Ordered Procedures Date of Service Date of Service: 03/01/24
[2024-02-29] MEDS: Lactated Ringers 1,000 ML 125 ML IVCONT (17:13)
[2024-02-29] MEDS: Piperacillin Sodium/Tazobactam 4.5 GM in 0.9 % Sodium Chloride 100 ML IV (17:16)
--- NOTE | 2024-02-29 17:17 | PC.NURSE ---
pt seen by ED provider/admitting provider and discussed results of CT. pt aware of plan of care moving forward. IVF/abx administered per provider order. per MD, blood cultures are not needed at this time. pt also endorsing increase in abd pain - rating it a 10/10. pt medicated per provider order - effectiveness pending. pt otherwise resting in no apparent distress. pending admission at this time. no sob/wob noted. respirations even/unlabored. plan of care ongoing. call mckeon placed within reach.
--- NOTE | 2024-02-29 17:42 | PHA.MEDREC ---
Addendum entered by Vitor Lockwood RPh 02/29/24 17:45: Med rec was reviewed by [facility]. Original Note: Pharmacy Consult ? Medication Reconciliation Pharmacy has completed the medication reconciliation. Used an health information assistant.
[2024-02-29 17:45] LABS: Appearance Urine Clear; Color Urine Yellow; Glucose Urine UA Negative (Negative); Leukocyte Esterase Urine Negative (Negative); Nitrite Urine Negative (Negative); PH 5.5 (5.0-9.0); Specific Gravity - Urine >= 1.030 (1.005-1.025); Urine Blood Negative (Negative); Urine Ketones Negative (Negative); Urine Protein Negative (Neg-Trace)
[2024-02-29] MEDS: Acetaminophen 1,000 MG/100 ML PIGGYBACK 400 MG IV ×2 (18:33→23:46)
[2024-02-29 19:28] VITALS: BP 102/66; PULSE 85; RESP 17; TEMP 36.6; O2SAT 97
[2024-02-29 20:55] VITALS: BP 122/67; PULSE 87; RESP 17; TEMP 36.2; O2SAT 100
[2024-02-29 21:55] VITALS: BMI 29.2
[2024-02-29] MEDS: HYDROmorphone HCl 1 MG/ML SYRINGE 0.5 MG IVPUSH (22:35)
[2024-03-01] VITALS (7 sets, daily range): BP systolic 104–132; BP diastolic 58–65; PULSE 83–104; RESP 14–18; TEMP 36.1–37.1; O2SAT 95–98
[2024-03-01] MEDS: Lactated Ringers 1,000 ML 125 ML IVCONT ×4 (00:01→23:48)
[2024-03-01] MEDS: Acetaminophen 1,000 MG/100 ML PIGGYBACK 400 MG IV ×3 (04:50→22:37)
[2024-03-01] MEDS: HYDROmorphone HCl 1 MG/ML SYRINGE 0.5 MG IVPUSH ×3 (07:57→15:48)
[2024-03-01 09:12] LABS: Hematocrit 42.4 % (42.0-52.0); Hemoglobin 14.2 g/dl (14.0-18.0); Mean Corpuscular HGB Conc 33.5 g/dl (31.0-36.0); Mean Corpuscular Hemoglobin 28.5 pg (27.0-33.0); Mean Corpuscular Volume 85.1 fL (80.0-98.0); Platelet Count 280 X10*3/uL (160-400); Red Blood Count 4.98 X10*6/uL (4.60-5.80); Red Cell Distribution Width 14.5 % (11.0-16.0); White Blood Count 22.1 X10*3/uL (4.8-10.8)
[2024-03-01 09:27] LABS: Alanine Aminotransferase 22 U/L (0-40); Albumin Level 3.4 g/dL (3.5-5.0); Alkaline Phosphatase 93 U/L (39-117); Anion Gap 12 (12-20); Aspartate Amino Transferase 14 U/L (5-37); Bilirubin Total 1.4 mg/dL (0.0-1.0); Blood Urea Nitrogen 12 mg/dL (9-16); Calcium 8.4 mg/dL (8.4-10.2); Carbon Dioxide 26 mmol/L (22-29); Chloride 104 mmol/L (96-108); Creatinine Clr Calc Pharmacy 132.5; Estimated Glomerular Filt Rate > 60; Glucose Random 84 mg/dL (60-115); Potassium 3.9 mmol/L (3.3-5.1); Sodium 138 mmol/L (135-145); Total Protein 6.4 g/dL (6.5-8.0)
--- NOTE | 2024-03-01 09:42 | PM.PNGS ---
Subjective Subjective Date of Service: 03/01/24 Interval history: Still with pain especially with movement but much improved No nausea or vomiting overnight States he was able to sleep Physical Exam Vital Signs: Vital Signs: Last Vital Signs Temp 97.4 F 03/01/24 08:00 Pulse 93 03/01/24 08:00 Resp 14 03/01/24 08:00 BP 104/58 L 03/01/24 08:00 Pulse Ox 95 03/01/24 08:00 O2 Del Method Room Air 03/01/24 08:00 BMI result Body Mass Index 29.2 Const: General: comfortable and no acute distress Resp: Effort & Inspection: normal respiratory effort Cardio: Rate: regular rate GI: Other: Soft with no guarding or rebound but tender mid abdomen, stoma with good output Objective Data Active Medications Heparin Sodium (Porcine) (Heparin Sodium,Porcine 5,000 Unit/Ml Vial) 5,000 unit SUBCUT Q8H KIKO Hydromorphone HCl (Hydromorphone Hcl 1 Mg/Ml Syringe) 0.5 mg IVPUSH Q3H PRN; Protocol PRN Reason: Pain, Severe (Pain Scale 7-10) Last Admin: 03/01/24 07:57 Dose: 0.5 mg Documented By: KODI Lactated Ringer's (Lr) 1,000 mls @ 125 mls/hr IVCONT .Q8H [facility] Last Admin: 03/01/24 07:51 Dose: 125 mls/hr Documented By: KODI Magnesium Hydroxide (Milk Of Magnesia 30 Ml Oral.Susp) 30 ml PO DAILY PRN PRN Reason: Constipation Melatonin (Melatonin 3 Mg Tablet) 6 mg PO BEDTIME PRN PRN Reason: Insomnia Ondansetron HCl (Ondansetron Hcl 4 Mg/2 Ml Vial) 4 mg IVPUSH Q6H PRN PRN Reason: nausea Sodium Chloride (0.9 % Sodium Chloride Flush 3 Ml Syringe) 3 ml IVFLUSH QSHIFT [facility] Last Admin: 03/01/24 07:52 Dose: Not Given Documented By: KODI Non-Admin Reason: IV Running Labs 03/01/24 06:45 03/01/24 06:45 Labs: Laboratory Results - last 24 hr 02/29/24 02/29/24 03/01/24 12:12 17:36 06:45 MCV 84.5 85.1 MCH 28.2 28.5 MCHC 33.3 33.5 RDW 13.9 14.5 Plt Count 281 D 280 MPV 9.4 10.0 Immature Gran % (Auto) 0.5 H Neut % (Auto) 80.6 H Lymph % (Auto) 15.3 L [place] % (Auto) 2.9 Eos % (Auto) 0.4 Baso % (Auto) 0.3 Lymph # (Auto) 2.7 [place] # (Auto) 0.5 Eos # (Auto) 0.1 Baso # (Auto) 0.1 Abs Immat Gran (auto) 0.08 H Absolute Neuts (auto) 14.2 H Absolute Nucleated RBC 0.000 0.000 Nucleated RBC % (auto) 0.0 0.0 PT 10.4 L INR 0.9 Anion Gap 14 12 Estim Creat Clear Calc 104.9 132.5 Estimated GFR > 60 > 60 Random Glucose 145 H 84 Calcium 9.2 8.4 D Total Bilirubin 0.4 1.4 H AST 24 14 ALT 31 22 Alkaline Phosphatase 145 H 93 Total Protein 7.6 6.4 L Albumin 4.0 3.4 L Lipase 30 Urine Color Yellow Urine Appearance Clear Urine pH 5.5 Ur Specific [place] >= 1.030 H Urine Protein Negative Urine Glucose (UA) Negative Urine Ketones Negative Urine Blood Negative Urine Nitrite Negative Ur Leukocyte Esterase Negative Procedures Date of Service Date of Service: 03/01/24 Progress Note: A&P Assessment and plan (1) Abdominal pain: Status: Acute Assessment and Plan: CT showing inflammatory changes near end-loop left colon stump and adjacent small bowel loops with punctate air May have had leak from the distal staple line past the transverse loop colostomy Diverticulitis of the remnant left colon also possibility Describes pain with movement Abdominal pain and tenderness improved compared to yesterday Clinically looks well despite pain level Stoma functioning well Abdomen nondistended and soft WBC still rising Meds reviewed - only 1 dose of Zosyn given so far We will keep on IV antibiotics Bowel rest Repeat WBC May need follow-up CT scan in 1 or 2 days He understands the plan well Time Spent With Patient Time: Total time managing care of this patient today ____ minutes. Quality Stroke Does the patient have a stroke diagnosis?: No VTE Prior VTE?: No VTE Risk Level:: Medical - moderate - high VTE Device Contraindication: N/A - Device Ordered VTE Drug Contraindication: N/A - Med Ordered
[2024-03-01] MEDS: Piperacillin Sodium/Tazobactam 3.375 GM in 0.9 % Sodium Chloride 50 ML IV ×3 (10:14→23:06)
[2024-03-01] MEDS: Heparin Sodium,Porcine 5,000 UNIT/ML VIAL 5000 UNIT SUBCUT ×2 (10:15→18:41)
--- NOTE | 2024-03-01 15:15 | PM.EVENT ---
Event Note Date of Service: 03/03/24 Event Note: Seen on afternoon rounds Says he still has significant pain but this is much improved compared to yesterday He actually appears more comfortable Still with tenderness No guarding Stable vital signs He looks well overall despite his pain We will continue with current IV antibiotic treatment Repeat CBC tomorrow Plan on doing a CT scan down the line He has boss at work [place] who [place] was at bedside and understands the plan well Time Spent With Patient Time: Total time managing care of this patient today ____ minutes.
[2024-03-01] MEDS: 0.9 % Sodium Chloride Flush 3 ML SYRINGE IVFLUSH (16:09)
[2024-03-01] MEDS: HYDROmorphone HCl 1 MG/ML SYRINGE IVPUSH ×2 (18:42→23:00)
[2024-03-02 03:13] VITALS: BP 108/64; PULSE 90; RESP 17; TEMP 36.6; O2SAT 94
[2024-03-02] MEDS: Heparin Sodium,Porcine 5,000 UNIT/ML VIAL 5000 UNIT SUBCUT ×3 (03:16→17:42)
[2024-03-02] MEDS: Acetaminophen 1,000 MG/100 ML PIGGYBACK 400 MG IV ×2 (03:20→10:19)
[2024-03-02] MEDS: Piperacillin Sodium/Tazobactam 3.375 GM in 0.9 % Sodium Chloride 50 ML IV ×4 (03:39→20:41)
[2024-03-02 06:29] LABS: Hematocrit 38.7 % (42.0-52.0); Hemoglobin 12.9 g/dl (14.0-18.0); Mean Corpuscular HGB Conc 33.3 g/dl (31.0-36.0); Mean Corpuscular Hemoglobin 28.1 pg (27.0-33.0); Mean Corpuscular Volume 84.3 fL (80.0-98.0); Mean Platelet Volume 9.6 fL (9.4-12.4); Platelet Count 248 X10*3/uL (160-400); Red Blood Count 4.59 X10*6/uL (4.60-5.80); Red Cell Distribution Width 14.4 % (11.0-16.0); White Blood Count 20.2 X10*3/uL (4.8-10.8)
[2024-03-02 07:23] VITALS: BP 123/66; PULSE 88; RESP 14; TEMP 36.8; O2SAT 95
[2024-03-02] MEDS: HYDROmorphone HCl 1 MG/ML SYRINGE IVPUSH ×3 (08:12→21:11)
[2024-03-02] MEDS: Lactated Ringers 1,000 ML 125 ML IVCONT ×2 (08:12→15:08)
--- NOTE | 2024-03-02 08:53 | PM.PNGS ---
Subjective Subjective Date of Service: 03/02/24 Interval history: Patient continues to report left upper quadrant abdominal pain but feels much improved compared to yesterday. Pain currently 5/10 in severity and well controlled with current pain medication. Physical Exam Vital Signs: Vital Signs: Last Vital Signs Temp 98.3 F 03/02/24 07:23 Pulse 88 03/02/24 07:23 Resp 14 03/02/24 07:23 BP 123/66 03/02/24 07:23 Pulse Ox 95 03/02/24 07:23 O2 Del Method Room Air 03/02/24 07:23 BMI result Body Mass Index 29.2 Const: General: well developed Nutritional Appearance: well nourished Orientation/consciousness: patient oriented x3 Resp: Effort & Inspection: normal respiratory effort, no audible wheezes, no cough and no respiratory distress GI: Other: Midline incision is clean and intact. Ostomy is patent and functioning. Mild tenderness in the left upper quadrant but no abdominal wall erythema or edema Neuro: General: patient oriented x3 Objective Data Active Medications Heparin Sodium (Porcine) (Heparin Sodium,Porcine 5,000 Unit/Ml Vial) 5,000 unit SUBCUT Q8H [facility] Last Admin: 03/02/24 03:16 Dose: 5,000 unit Documented By: GIDEON Hydromorphone HCl (Hydromorphone Hcl 1 Mg/Ml Syringe) 1 mg IVPUSH Q3H PRN; Protocol PRN Reason: Pain, Severe (Pain Scale 7-10) Last Admin: 03/02/24 08:12 Dose: 1 mg Documented By: NILDA Lactated Ringer's (Lr) 1,000 mls @ 125 mls/hr IVCONT .Q8H [facility] Last Admin: 03/02/24 08:12 Dose: 125 mls/hr Documented By: NILDA Piperacillin Sod/Tazobactam (Sod 3.375 gm/ Sodium Chloride) 50 mls @ 100 mls/hr IV Q6H [facility] Last Infusion: 03/02/24 04:26 Dose: Infused Documented By: GIDEON Acetaminophen (Ofirmev) 1,000 mg in 100 mls @ 400 mls/hr IV Q6H [facility] Stop: 03/02/24 10:29 Last Infusion: 03/02/24 03:36 Dose: Infused Documented By: GIDEON Magnesium Hydroxide (Milk Of Magnesia 30 Ml Oral.Susp) 30 ml PO DAILY PRN PRN Reason: Constipation Melatonin (Melatonin 3 Mg Tablet) 6 mg PO BEDTIME PRN PRN Reason: Insomnia Ondansetron HCl (Ondansetron Hcl 4 Mg/2 Ml Vial) 4 mg IVPUSH Q6H PRN PRN Reason: nausea Sodium Chloride (0.9 % Sodium Chloride Flush 3 Ml Syringe) 3 ml IVFLUSH QSHIFT [facility] Last Admin: 03/02/24 07:12 Dose: Not Given Documented By: NILDA Non-Admin Reason: IV Running Labs 03/02/24 06:07 03/01/24 06:45 Labs: Laboratory Results - last 24 hr 03/01/24 03/02/24 06:45 06:07 MCV 85.1 84.3 MCH 28.5 28.1 MCHC 33.5 33.3 RDW 14.5 14.4 Plt Count 280 248 MPV 10.0 9.6 Absolute Nucleated RBC 0.000 0.000 Nucleated RBC % (auto) 0.0 0.0 Anion Gap 12 Estim Creat Clear Calc 132.5 Estimated GFR > 60 Random Glucose 84 Calcium 8.4 D Total Bilirubin 1.4 H AST 14 ALT 22 Alkaline Phosphatase 93 Total Protein 6.4 L Albumin 3.4 L Procedures Date of Service Date of Service: 03/02/24 Progress Note: A&P Assessment and plan (1) Abdominal pain: Status: Acute Assessment and Plan: 44-year-old male patient admitted yesterday for increased abdominal pain in the left upper quadrant. CT abdomen and pelvis revealed inflammatory changes near the end loop of the left colon stump with a adjacent fluid and adherent small bowel loops possibly representing a small leak. Overall the patient does feel improved and his white count is decreasing slightly. We will continue with IV antibiotics. Recheck labs in a.m.. Continue bowel rest. Time Spent With Patient Time: Total time managing care of this patient today ____ minutes. Quality Stroke Does the patient have a stroke diagnosis?: No VTE Prior VTE?: No VTE Risk Level:: Medical - moderate - high VTE Device Contraindication: N/A - Device Ordered VTE Drug Contraindication: N/A - Med Ordered
[2024-03-02 15:17] VITALS: BP 128/63; PULSE 100; RESP 18; TEMP 37.4; O2SAT 94
--- NOTE | 2024-03-02 16:27 | MHC.CM.PN ---
CN ATTEMPTED TO MEET WITH PT X 2 PT SLEEPING CM TO RETURN
[2024-03-02 17:38] VITALS: TEMP 37.9
[2024-03-02] MEDS: Acetaminophen 325 MG TABLET 650 MG PO (17:53)
[2024-03-02 19:16] VITALS: BP 131/63; PULSE 100; RESP 17; TEMP 36.8; O2SAT 95
[2024-03-03] MEDS: HYDROmorphone HCl 1 MG/ML SYRINGE IVPUSH ×3 (01:50→21:28)
[2024-03-03] MEDS: Heparin Sodium,Porcine 5,000 UNIT/ML VIAL 5000 UNIT SUBCUT ×3 (01:50→17:26)
[2024-03-03] MEDS: Piperacillin Sodium/Tazobactam 3.375 GM in 0.9 % Sodium Chloride 50 ML IV ×4 (01:51→21:26)
[2024-03-03 03:01] VITALS: BP 112/57; PULSE 99; RESP 18; TEMP 36.3; O2SAT 95
[2024-03-03 05:58] LABS: MANUAL DIFF FLAG NO
[2024-03-03 06:16] LABS: Basophils Percent Auto 0.2 % (0-2); Eosinophils Absolute Auto 0.1 X10*3/uL (0.0-0.4); Eosinophils Percent Auto 0.4 % (0-4); Hematocrit 37.4 % (42.0-52.0); Hemoglobin 12.7 g/dl (14.0-18.0); Imm Gran Abs Auto 0.12 X10*3/uL (0.00-0.03); Imm Gran Pct Auto 0.7 % (0.0-0.4); Lymphocytes Absolute Auto 1.8 X10*3/uL (1.2-4.9); Lymphocytes Percent Auto 11.4 % (20-40); Mean Corpuscular Hemoglobin 28.9 pg (27.0-33.0); Mean Corpuscular Volume 85.2 fL (80.0-98.0); Mean Platelet Volume 9.7 fL (9.4-12.4); Monocytes Absolute Auto 0.7 X10*3/uL (0.1-1.2); Monocytes Percent Auto 4.4 % (2-11); Neutrophils Absolute Auto 13.3 x10*3/uL (2.0-8.3); Neutrophils Percent Auto 82.9 % (45-73); Platelet Count 273 X10*3/uL (160-400); Red Blood Count 4.39 X10*6/uL (4.60-5.80); White Blood Count 16.1 X10*3/uL (4.8-10.8)
[2024-03-03 07:14] VITALS: BP 138/72; PULSE 96; RESP 16; TEMP 36.8; O2SAT 98
[2024-03-03] MEDS: Lactated Ringers 1,000 ML 125 ML IVCONT ×3 (07:48→21:28)
--- NOTE | 2024-03-03 08:22 | PM.PNGS ---
Subjective Subjective Date of Service: 03/04/24 Interval history: States he feels much better this morning cubing machine tender in the left side but much improved Stoma functioning Physical Exam Vital Signs: Vital Signs: Last Vital Signs Temp 98.2 F 03/03/24 07:14 Pulse 96 03/03/24 07:14 Resp 16 03/03/24 07:14 BP 138/72 03/03/24 07:14 Pulse Ox 98 03/03/24 07:14 O2 Del Method Room Air 03/03/24 07:14 BMI result Body Mass Index 29.2 Const: General: comfortable and no acute distress Resp: Effort & Inspection: normal respiratory effort Cardio: Rate: regular rate GI: Other: Soft, still has tenderness left side but less, stoma with output Palpation (GI): no guarding and not rigid Objective Data Active Medications Acetaminophen (Acetaminophen 325 Mg Tablet) 650 mg PO QID PRN PRN Reason: headache, temp > 101 Last Admin: 03/02/24 17:53 Dose: 650 mg Documented By: NILDA Heparin Sodium (Porcine) (Heparin Sodium,Porcine 5,000 Unit/Ml Vial) 5,000 unit SUBCUT Q8H [facility] Last Admin: 03/03/24 01:50 Dose: 5,000 unit Documented By: RADHA Hydromorphone HCl (Hydromorphone Hcl 1 Mg/Ml Syringe) 1 mg IVPUSH Q3H PRN; Protocol PRN Reason: Pain, Severe (Pain Scale 7-10) Last Admin: 03/03/24 08:09 Dose: 1 mg Documented By: NILDA Piperacillin Sod/Tazobactam (Sod 3.375 gm/ Sodium Chloride) 50 mls @ 100 mls/hr IV Q6H [facility] Last Infusion: 03/03/24 02:30 Dose: Infused Documented By: RADHA Lactated Ringer's (Lr) 1,000 mls @ 125 mls/hr IVCONT .Q8H [facility] Last Admin: 03/03/24 07:48 Dose: 125 mls/hr Documented By: NILDA Magnesium Hydroxide (Milk Of Magnesia 30 Ml Oral.Susp) 30 ml PO DAILY PRN PRN Reason: Constipation Melatonin (Melatonin 3 Mg Tablet) 6 mg PO BEDTIME PRN PRN Reason: Insomnia Ondansetron HCl (Ondansetron Hcl 4 Mg/2 Ml Vial) 4 mg IVPUSH Q6H PRN PRN Reason: nausea Sodium Chloride (0.9 % Sodium Chloride Flush 3 Ml Syringe) 3 ml IVFLUSH QSHIFT [facility] Last Admin: 03/03/24 07:30 Dose: Not Given Documented By: NILDA Non-Admin Reason: IV Running Labs 03/03/24 05:41 03/01/24 06:45 Labs: Laboratory Results - last 24 hr 03/03/24 05:41 MCV 85.2 MCH 28.9 MCHC 34.0 RDW 14.0 Plt Count 273 MPV 9.7 Immature Gran % (Auto) 0.7 H Neut % (Auto) 82.9 H Lymph % (Auto) 11.4 L [place] % (Auto) 4.4 Eos % (Auto) 0.4 Baso % (Auto) 0.2 Lymph # (Auto) 1.8 [place] # (Auto) 0.7 Eos # (Auto) 0.1 Baso # (Auto) 0.0 Abs Immat Gran (auto) 0.12 H Absolute Neuts (auto) 13.3 H Absolute Nucleated RBC 0.000 Nucleated RBC % (auto) 0.0 Procedures Date of Service Date of Service: 03/04/24 Progress Note: A&P Assessment and plan (1) Abdominal pain: Status: Acute Assessment and Plan: With inflammatory changes near the stump of left colon as the stoma Slowly improving with regards to tenderness WBC continues to decrease Clear liquids Continue IV antibiotics Encouraged ambulation Pain management Time Spent With Patient Time: Total time managing care of this patient today ____ minutes. Quality Stroke Does the patient have a stroke diagnosis?: No VTE Prior VTE?: No VTE Risk Level:: Medical - moderate - high VTE Device Contraindication: N/A - Device Ordered VTE Drug Contraindication: N/A - Med Ordered
--- NOTE | 2024-03-03 08:37 | PC.NURSE ---
Pt complaining of 7/10 abd pain- medicated with Dilaudid per AUG, colostomy emptied for 300ml of liquid brown stool, Diet advanced to clear liquid, Pt resting in bed, respirations even and unlabored, call mckeon within reach.
--- NOTE | 2024-03-03 15:34 | MHC.CM.PN ---
PATIENT LIVES WITH FRIEND AND IS INDEPENDENT WITH ADLS HE USES NO DME OR VNA SERVICES. NO HCP ON FILE AND HE IS AWARE THAT HE CAN ASK FOR ASSISTANCE IF NEEDED TO COMPLETE ONE. PATIENT IS HOPING TO GO HOME WITH NO SERVICES AT DE.
[2024-03-03 16:00] VITALS: BP 133/79; PULSE 95; RESP 18; TEMP 36.8; O2SAT 97
[2024-03-03 19:16] VITALS: BP 129/73; PULSE 98; RESP 18; TEMP 36.8; O2SAT 96
[2024-03-04] MEDS: Heparin Sodium,Porcine 5,000 UNIT/ML VIAL 5000 UNIT SUBCUT ×3 (02:42→17:51)
[2024-03-04] MEDS: Piperacillin Sodium/Tazobactam 3.375 GM in 0.9 % Sodium Chloride 50 ML IV ×4 (02:42→22:21)
[2024-03-04] MEDS: HYDROmorphone HCl 1 MG/ML SYRINGE IVPUSH ×3 (02:47→15:37)
[2024-03-04 03:06] VITALS: BP 120/78; PULSE 92; RESP 20; TEMP 36.3; O2SAT 98
[2024-03-04] MEDS: Lactated Ringers 1,000 ML 125 ML IVCONT (05:40)
[2024-03-04 07:36] VITALS: BP 116/73; PULSE 84; RESP 18; TEMP 36.2; O2SAT 97
--- NOTE | 2024-03-04 07:59 | P.PNGS_ITS ---
Subjective Subjective Date of Service: 03/04/24 Interval history: continues to feel better still with some pain on left side but improving stoma with output tolerating clears Physical Exam 2 Vital Signs: Vital Signs: Last Vital Signs Temp 97.1 F 03/04/24 07:36 Pulse 84 03/04/24 07:36 Resp 18 03/04/24 07:36 BP 116/73 03/04/24 07:36 Pulse Ox 97 03/04/24 07:36 O2 Del Method Room Air 03/04/24 07:36 BMI result Body Mass Index 29.2 Const: General: comfortable and no acute distress Resp: Effort & Inspection: normal respiratory effort Cardio: Rate: regular rate GI: Other: some tenderness on left stoma with output, air and stool Palpation (GI): Soft to palpation, not firm and no guarding Objective Data Active Medications Acetaminophen (Acetaminophen 325 Mg Tablet) 650 mg PO QID PRN PRN Reason: headache, temp > 101 Last Admin: 03/02/24 17:53 Dose: 650 mg Documented By: NILDA Heparin Sodium (Porcine) (Heparin Sodium,Porcine 5,000 Unit/Ml Vial) 5,000 unit SUBCUT Q8H [facility] Last Admin: 03/04/24 02:42 Dose: 5,000 unit Documented By: RADHA Hydromorphone HCl (Hydromorphone Hcl 1 Mg/Ml Syringe) 1 mg IVPUSH Q3H PRN; Protocol PRN Reason: Pain, Severe (Pain Scale 7-10) Last Admin: 03/04/24 02:47 Dose: 1 mg Documented By: RADHA Piperacillin Sod/Tazobactam (Sod 3.375 gm/ Sodium Chloride) 50 mls @ 100 mls/hr IV Q6H [facility] Last Infusion: 03/04/24 03:15 Dose: Infused Documented By: RADHA Lactated Ringer's (Lr) 1,000 mls @ 125 mls/hr IVCONT .Q8H [facility] Last Admin: 03/04/24 05:40 Dose: 125 mls/hr Documented By: RADHA Magnesium Hydroxide (Milk Of Magnesia 30 Ml Oral.Susp) 30 ml PO DAILY PRN PRN Reason: Constipation Melatonin (Melatonin 3 Mg Tablet) 6 mg PO BEDTIME PRN PRN Reason: Insomnia Ondansetron HCl (Ondansetron Hcl 4 Mg/2 Ml Vial) 4 mg IVPUSH Q6H PRN PRN Reason: nausea Sodium Chloride (0.9 % Sodium Chloride Flush 3 Ml Syringe) 3 ml IVFLUSH QSHIFT [facility] Last Admin: 03/04/24 07:36 Dose: Not Given Documented By: CAROL Non-Admin Reason: IV Running Labs 03/03/24 05:41 03/01/24 06:45 Procedures Date of Service Date of Service: 03/04/24 Progress Note: A&P Assessment and plan (1) Abdominal pain: Status: Acute Assessment and Plan: continues to improve abdomine soft and benign stoma functioning tolerating clears ok to try regular diet today encouraged ambulation clinically much improved contine IV abx Time Spent With Patient Time: Total time managing care of this patient today ____ minutes. Quality Stroke Does the patient have a stroke diagnosis?: No VTE Prior VTE?: No VTE Risk Level:: Medical - moderate - high VTE Device Contraindication: N/A - Device Ordered VTE Drug Contraindication: N/A - Med Ordered
--- NOTE | 2024-03-04 10:00 | PC.NURSE ---
Colostomy pouch emptied for 150ml brown liquid stool, small amount of air released
--- NOTE | 2024-03-04 13:33 | MHC.CM.PN ---
Per MD patient not medically cleared for dc. CM will continue to follow.
[2024-03-04 15:35] VITALS: BP 140/79; PULSE 93; RESP 18; TEMP 36.8; O2SAT 97
[2024-03-04] MEDS: 0.9 % Sodium Chloride Flush 3 ML SYRINGE IVFLUSH ×2 (15:35→22:23)
[2024-03-04 19:41] VITALS: BP 143/76; PULSE 99; RESP 18; TEMP 36.2; O2SAT 96
[2024-03-05] MEDS: HYDROmorphone HCl 1 MG/ML SYRINGE IVPUSH ×2 (00:03→10:18)
[2024-03-05 03:46] VITALS: BP 126/75; PULSE 83; RESP 16; TEMP 36.4; O2SAT 98
[2024-03-05] MEDS: Piperacillin Sodium/Tazobactam 3.375 GM in 0.9 % Sodium Chloride 50 ML IV ×4 (03:50→22:05)
[2024-03-05] MEDS: Heparin Sodium,Porcine 5,000 UNIT/ML VIAL 5000 UNIT SUBCUT ×3 (03:50→17:32)
[2024-03-05 07:39] VITALS: BP 117/75; PULSE 86; RESP 18; TEMP 36.1; O2SAT 97
--- NOTE | 2024-03-05 08:25 | P.PNGS_ITS ---
Subjective Subjective Date of Service: 03/06/24 Interval history: Continues to feel better Tolerating diet well Stoma with good function Says he had been ambulating a lot yesterday Physical Exam 2 Vital Signs: Vital Signs: Last Vital Signs Temp 97.0 F 03/05/24 07:39 Pulse 86 03/05/24 07:39 Resp 18 03/05/24 07:39 BP 117/75 03/05/24 07:39 Pulse Ox 97 03/05/24 07:39 O2 Del Method Room Air 03/05/24 07:39 BMI result Body Mass Index 29.2 Const: General: comfortable and no acute distress Resp: Effort & Inspection: normal respiratory effort Cardio: Rate: regular rate GI: Other: Much less tenderness, now just on the left side, stoma functioning well Palpation (GI): Soft to palpation, not firm, no guarding and not rigid Objective Data Active Medications Acetaminophen (Acetaminophen 325 Mg Tablet) 650 mg PO QID PRN PRN Reason: headache, temp > 101 Last Admin: 03/02/24 17:53 Dose: 650 mg Documented By: NILDA Heparin Sodium (Porcine) (Heparin Sodium,Porcine 5,000 Unit/Ml Vial) 5,000 unit SUBCUT Q8H [facility] Last Admin: 03/05/24 03:50 Dose: 5,000 unit Documented By: GIDEON Hydromorphone HCl (Hydromorphone Hcl 1 Mg/Ml Syringe) 1 mg IVPUSH Q3H PRN; Protocol PRN Reason: Pain, Severe (Pain Scale 7-10) Last Admin: 03/05/24 00:03 Dose: 1 mg Documented By: GIDEON Piperacillin Sod/Tazobactam (Sod 3.375 gm/ Sodium Chloride) 50 mls @ 100 mls/hr IV Q6H [facility] Last Infusion: 03/05/24 04:26 Dose: Infused Documented By: GIDEON Magnesium Hydroxide (Milk Of Magnesia 30 Ml Oral.Susp) 30 ml PO DAILY PRN PRN Reason: Constipation Melatonin (Melatonin 3 Mg Tablet) 6 mg PO BEDTIME PRN PRN Reason: Insomnia Ondansetron HCl (Ondansetron Hcl 4 Mg/2 Ml Vial) 4 mg IVPUSH Q6H PRN PRN Reason: nausea Sodium Chloride (0.9 % Sodium Chloride Flush 3 Ml Syringe) 3 ml IVFLUSH QSHIFT [facility] Last Admin: 03/04/24 22:23 Dose: 3 ml Documented By: GIDEON Labs 03/03/24 05:41 03/01/24 06:45 Procedures Date of Service Date of Service: 03/06/24 Progress Note: A&P Assessment and plan (1) Abdominal pain: Status: Acute Assessment and Plan: With CT scan showing inflammatory changes in the left side adjacent to the end of the left colon past the transverse loop colostomy Much improved No fever Tolerating diet well Has been ambulating Possible DC home today with oral antibiotics Will re-evaluate this afternoon May need to do colonoscopy to re-evaluate the entire colon prior to any reversal Time Spent With Patient Time: Total time managing care of this patient today ____ minutes. Quality Stroke Does the patient have a stroke diagnosis?: No VTE Prior VTE?: No VTE Risk Level:: Medical - moderate - high VTE Device Contraindication: N/A - Device Ordered VTE Drug Contraindication: N/A - Med Ordered
[2024-03-05] MEDS: 0.9 % Sodium Chloride Flush 3 ML SYRINGE IVFLUSH ×3 (10:19→22:08)
[2024-03-05 15:15] VITALS: BP 123/65; PULSE 86; RESP 18; TEMP 36.4; O2SAT 97
--- NOTE | 2024-03-05 15:51 | PM.EVENT ---
Event Note Date of Service: 03/05/24 Event Note: He stated that he feels much better However, he did get a dose of IV Dilaudid earlier today His abdomen soft and benign He still has a little bit of tenderness on the left side He stoma is functioning well I had a long discussion with him - I told him that since he still got some IV pain meds earlier today, I would hold off on discharging him until it was clear that he has no significant pain anymore that may not be controlled by oral pain meds I will re-evaluate in the morning He is comfortable with the plan Continue IV antibiotics for now He was seen to be ambulating well Looks well overall I have discussed the above with his healthcare proxy Haim Time Spent With Patient Time: Total time managing care of this patient today ____ minutes.
[2024-03-05 20:00] VITALS: BP 125/75; PULSE 94; RESP 16; TEMP 36.4; O2SAT 97
[2024-03-05] MEDS: oxyCODONE HCl Immed Release 5 MG TABLET 10 MG PO (22:54)
[2024-03-06] MEDS: Heparin Sodium,Porcine 5,000 UNIT/ML VIAL 5000 UNIT SUBCUT ×2 (03:11→09:49)
[2024-03-06] MEDS: Piperacillin Sodium/Tazobactam 3.375 GM in 0.9 % Sodium Chloride 50 ML IV ×2 (03:11→09:49)
[2024-03-06] MEDS: HYDROmorphone HCl 1 MG/ML SYRINGE IVPUSH (03:23)
[2024-03-06 04:00] VITALS: BP 118/71; PULSE 86; RESP 15; TEMP 36.6; O2SAT 97
[2024-03-06] MEDS: oxyCODONE HCl Immed Release 5 MG TABLET 10 MG PO (07:02)
[2024-03-06] MEDS: 0.9 % Sodium Chloride Flush 3 ML SYRINGE IVFLUSH (07:03)
[2024-03-06 07:46] VITALS: BP 120/76; PULSE 81; RESP 18; TEMP 36.1; O2SAT 96
--- NOTE | 2024-03-06 08:32 | PM.PNGS ---
Subjective Subjective Date of Service: 03/06/24 Interval history: States he is ready to go home Pain continues to improve Stoma functioning well Tolerating diet well Has been ambulating Has had no fever for several days Physical Exam Vital Signs: Vital Signs: Last Vital Signs Temp 96.9 F 03/06/24 07:46 Pulse 81 03/06/24 07:46 Resp 18 03/06/24 07:46 BP 120/76 03/06/24 07:46 Pulse Ox 96 03/06/24 07:46 O2 Del Method Room Air 03/06/24 07:46 BMI result Body Mass Index 29.2 Const: General: comfortable and no acute distress Resp: Effort & Inspection: normal respiratory effort Cardio: Rate: regular rate GI: Other: Stoma functioning well Minimal tenderness on the left side Palpation (GI): Soft to palpation, not firm and no guarding Objective Data Active Medications Acetaminophen (Acetaminophen 325 Mg Tablet) 650 mg PO QID PRN PRN Reason: headache, temp > 101 Last Admin: 03/02/24 17:53 Dose: 650 mg Documented By: NILDA Heparin Sodium (Porcine) (Heparin Sodium,Porcine 5,000 Unit/Ml Vial) 5,000 unit SUBCUT Q8H [facility] Last Admin: 03/06/24 03:11 Dose: 5,000 unit Documented By: IVETTE Hydromorphone HCl (Hydromorphone Hcl 1 Mg/Ml Syringe) 1 mg IVPUSH Q3H PRN; Protocol PRN Reason: Pain, Severe (Pain Scale 7-10) Last Admin: 03/06/24 03:23 Dose: 1 mg Documented By: IVETTE Piperacillin Sod/Tazobactam (Sod 3.375 gm/ Sodium Chloride) 50 mls @ 100 mls/hr IV Q6H [facility] Last Infusion: 03/06/24 03:51 Dose: Infused Documented By: IVETTE Magnesium Hydroxide (Milk Of Magnesia 30 Ml Oral.Susp) 30 ml PO DAILY PRN PRN Reason: Constipation Melatonin (Melatonin 3 Mg Tablet) 6 mg PO BEDTIME PRN PRN Reason: Insomnia Ondansetron HCl (Ondansetron Hcl 4 Mg/2 Ml Vial) 4 mg IVPUSH Q6H PRN PRN Reason: nausea Oxycodone HCl (Oxycodone Hcl Immed Release 5 Mg Tablet) 10 mg PO Q4H PRN PRN Reason: Pain, Moderate(Pain Scale 4-6) Last Admin: 03/06/24 07:02 Dose: 10 mg Documented By: KRISTYN Sodium Chloride (0.9 % Sodium Chloride Flush 3 Ml Syringe) [facility] Last Admin: 03/06/24 07:03 Dose: 3 ml Documented By: KRISTYN Labs 03/03/24 05:41 03/01/24 06:45 Procedures Date of Service Date of Service: 03/06/24 Progress Note: A&P Assessment and plan (1) Abdominal pain: Status: Acute Assessment and Plan: Clinically looks well Says he is ready to be discharged Has been ambulating Good oral intake Good stoma function Nurse stated that he asked for Dilaudid overnight - he says he as for this because he could not sleep saying that the bed was uncomfortable and Dilaudid always relaxes him at night Otherwise states that his pain level is much improved We will DC home Follow up in the office Oral antibiotics Time Spent With Patient Time: Total time managing care of this patient today ____ minutes. Quality Stroke Does the patient have a stroke diagnosis?: No VTE Prior VTE?: No VTE Risk Level:: Medical - moderate - high VTE Device Contraindication: N/A - Device Ordered VTE Drug Contraindication: N/A - Med Ordered
--- NOTE | 2024-03-06 08:46 | MHC.CM.PN ---
Patient medically cleared for dc home self care via private transport.
--- NOTE | 2024-03-10 09:08 | P.DS_ITS ---
DS: Providers Provider Date of Service: 03/06/24 Date of admission: 02/29/24 17:29 Date of discharge: 03/06/24 Primary care physician: [facility] DS: Diagnosis Discharge Diagnosis (1) Abdominal pain: Status: Acute (2) Colostomy in place: Status: Acute (3) S/P left colectomy: Status: Acute DS: Summary Hospital Course Hospital Course: 44-year-old male with a history of emergency sigmoid resection, with an end loop transverse colostomy in Oct, 2023, admitted on 02/29/2024 because of abdominal pain. He had a CAT scan showing inflammatory changes surrounding the remaining left colon along with punctate air. The adjacent small bowel loops were also thickened. Etiology was uncertain but this was possibly because of staple line breakdown at the left colon distal to the transverse colostomy. He may also have had some diverticulitis from the left colon. He was started on IV antibiotics with Zosyn and was kept NPO . He was on IV fluids. His white count was elevated at 22 on his 1st hospital day. This was followed closely. This started to trend down the day after. He was therefore started on sips of clear liquids and this was slowly advanced. He had slow improvement of his abdominal pain. He did not have any nausea or vomiting. His colostomy continues to function well. He had remained afebrile after his 1st hospital day He had steady although slow improvement overall. He tolerated advancement of his diet well. On the day of his discharge, he was tolerating regular diet. He will had good pain control on oral pain meds. He had remained afebrile for several days. His abdomen is soft and benign. He was discharged was prescription for oral antibiotics. He was also instructed on follow-up with me in the office. We are also planning to do a colonoscopy to evaluate his colon prior to reversal of his colostomy. Time Attestation Discharge Coordination Time (in mins): 30 minutes Quality: Safe Use of Opioids Does Pt have an Active Cancer Diagnosis on the Problem List?: No Quality: Stroke Does the patient have a stroke diagnosis?: No Physical Exam Vital Signs: Vital Signs: Last Vital Signs Temp 96.9 F 03/06/24 07:46 Pulse 81 03/06/24 07:46 Resp 18 03/06/24 07:46 BP 120/76 03/06/24 07:46 Pulse Ox 96 03/06/24 07:46 O2 Del Method Room Air 03/06/24 07:46 BMI result Body Mass Index 29.2 Const: General: comfortable and no acute distress Orientation/consciousness: patient oriented x3 Neck: Neck: Yes no lymphadenopathy Resp: Auscultation: clear to auscultation bilaterally Cardio: Rhythm: regular rhythm GI: Other: Colostomy functioning well the left Palpation (GI): Soft to palpation, nontender and no guarding Neuro: General: patient oriented x3 DS: Data Data Completed and Pending Completed studies during hospitalization [Text1]: Procedures Bypass Transverse Colon to Cutaneous, Open Approach (11/06/23) Excision of Descending Colon, Via Natural or Artificial Opening Endoscopic, Diagnostic (06/03/20) Excision of Left Large Intestine, Open Approach (11/06/23) Discharge Plan Discharge Anticipated Discharge Date/Time: 03/05/24 12:03 Patient Disposition: Home, Self-Care Discharge Diagnosis: abdominal pain Referrals: [facility] [Primary Care Provider] - 1 Week Dakota Brooks MD [Physician] - 2 Weeks Discharge Medications: New amoxicillin-pot clavulanate 875-125 mg tablet 1 tab PO BID Qty: 14 0RF oxycodone 5 mg tablet 5 mg PO TID PRN (Reason: pain) Qty: 10 0RF Rx Instructions: Partial Fill upon patient request. Discharge Orders: Discharge Order (Routine); Ordered 03/06/24 Ordered By: Dakota Brooks Diet: Advance to usual diet Activity on Discharge: As tolerated Stand Alone Forms: Patient Portal Discharge page Print Language: Mongolian Activity Restrictions/Additional Instructions: Follow up in office in two weeks. ([phone]) Call Your Doctor If: ? ? -Your temperature exceeds 101.5? F? ? ? -You experience excessive pain or swelling ? ? -You have an unexpected reaction to medication ? ? -You experience continued vomiting/nausea Care Plan Goals: Return to baseline health and resume normal activities. Health Concerns: colostomy in place abdominal pain Plan of Treatment: supportive treatment with IV transitioned to PO abx colonoscopy down the line f/u in office in 2 weeks Assessment: Improved Discharge Date/Time: 03/06/24 14:55
== END 2024-03-06 14:55 | disposition home or self-care (01) | DRG 813 ==
LOC: HO.ED 17:07 → HO.EDOVER 17:38 → HO.S3 19:43
PROVIDERS: Nurse Practitioner Family; Surgery; Admitting Provider Surgery; Emergency Provider Emergency Medicine Emergency Medical Services; Visit Provider Surgery
DX: T81.32XA Disruption of internal operation (surgical) wound, not elsewhere classified, initial encounter (principal); K57.32 Diverticulitis of large intestine without perforation or abscess without bleeding; Z93.3 Colostomy status; Y83.2 Surgical operation with anastomosis, bypass or graft as the cause of abnormal reaction of the patient, or of later complication, without mention of misadventure at the time of the procedure
CPT/HCPCS: 36415; 74177; 80053; 81003; 83690; 85025; 85027; 85610; 99285; J0131; J1170; J1644; J2405; J2543; J7120; Q9967

== ENCOUNTER → 2024-02-29 17:29 | Outpatient (BNV) | payer MEDICAID, SELFPAY | PROVIDERS: Admitting Provider Surgery; Emergency Provider Emergency Medicine Emergency Medical Services; Visit Provider Surgery | DX: R10.84 Generalized abdominal pain (principal); Z93.3 Colostomy status; Z90.49 Acquired absence of other specified parts of digestive tract | CPT/HCPCS: 99222; 99232; 99238; 99499 ==

== ENCOUNTER 2024-04-15 09:35 | Outpatient (AMB) | payer MEDICAID, SELFPAY ==
--- NOTE | 2024-04-15 09:40 | MHC.OFFVIS ---
Vital Signs 04/15/24 09:47 Height 5 ft 5 in Weight 185 lb BMI 30.8 BP 134/68 Blood Pressure Location Rt brachial Position Sitting Pulse 79 Intake Visit Reasons: 2 mth follow up s/p Laparotomy, colostomy in place Intake Note: This patient presents for two month follow-up status post laparotomy, colostomy in place. Pt c/o; reports had an episode of severe abdominal pain about 3 weeks ago, he also noticed white hard ball per rectum. Hydro Technician Required: Yes Hydro Technician Services: Hydro Technician Present Hydro Technician Name: Dm Information Interpreted: non-clinical & clinical Accompanied by: Self / Same As Patient Allergies No Known Allergies Allergy (Verified 04/15/24 09:55) HPI HPI 2 mth follow up s/p Laparotomy, colostomy in place: Details: He is here for follow-up after resection of the proximal sigmoid and distal left colon with an end colostomy last Oct, 2023. I had admitted him to the hospital last February 28 because of the abdominal pain and this had shown inflammatory changes in the area of the left hemiabdomen. He had improved with antibiotics. He says he is doing well. He has good function with a stoma. He did mention having an episode of pain in the left side about 3 weeks ago lasting about 2 days. He has good oral intake. [facility] Medical History Colostomy in place Colon obstruction Diverticulitis Surgical History Hx of surgical procedure (~11/07/23) Hx of appendectomy Social History Household Members: Family Housing: House Do you presently have visiting nurse or other home services: No Alcohol intake: never Comment: resting in bed, eyes closed Patient Tobacco Use Status: Never used Tobacco Second Hand Smoke Exposure: Yes service: No Current occupational status: unemployed Review of Systems Const Denies chills and Denies fever(s) Card Denies chest pain at rest Resp Denies cough GI Details: Stoma functioning Physical Exam Const General: comfortable and no acute distress Resp Effort & Inspection: normal respiratory effort GI Other: Colostomy functioning Palpation (GI): Soft to palpation, not firm and nontender Assessment & Plan Assessment & Plan (1) Colostomy in place: Code(s): Z93.3 - Colostomy status Category: Medical Plan: He had an episode of pain a month ago requiring admission. He did have inflammatory changes in the left abdomen at that time. He currently looks well and I am going to repeat his CT scan to reimage the area. If this is unremarkable, I will schedule him for reversal of his colostomy. I did advise him as well as the benefits of weight loss prior to that He understands the plan. He already had a colonoscopy about 2 years ago in [place] and this showed diverticulosis. Orders: Orders Blood Urea Nitrogen Today Z93.3 - Colostomy status Creatinine Today Z93.3 - Colostomy status CT abdomen pelvis w IV con Today Z93.3 - Colostomy status Coding Level of Care Code Est Pt Level 3 (48224) Diagnoses Colostomy in place Z93.3
[2024-04-15 09:47] VITALS: BP 134/68; PULSE 79; BMI 30.8
== END 2024-04-15 09:55 | disposition home or self-care (01) ==
PROVIDERS: Visit Provider Surgery
DX: Z93.3 Colostomy status (principal)
CPT/HCPCS: 99213

== ENCOUNTER 2024-06-17 08:58 | Outpatient (REF) | payer MEDICAID, SELFPAY ==
[2024-06-17] MEDS: iohexoL 350 MG/ML 75 ML INFUS..BTL 85 ML IV (09:51)
== END 2024-06-17 08:59 | disposition home or self-care (01) ==
LOC: HO.CT 08:58
PROVIDERS: PCP Internal Medicine; Visit Provider Surgery
DX: Z93.3 Colostomy status (principal)
CPT/HCPCS: 74177; Q9967

== ENCOUNTER → 2024-06-17 09:00 | Outpatient (BNV) | payer MEDICAID, SELFPAY | PROVIDERS: PCP Internal Medicine; Visit Provider Radiology Diagnostic Radiology | DX: Z93.3 Colostomy status (principal) | CPT/HCPCS: 74177 ==

== ENCOUNTER 2024-07-15 09:52 | Outpatient (AMB) | payer MEDICAID, SELFPAY ==
[2024-07-15 09:53] VITALS: BP 127/72; PULSE 92; BMI 33.3
--- NOTE | 2024-07-15 09:53 | A.OFFVIS_ITS ---
Vital Signs 07/15/24 09:53 Height 5 ft 5 in Weight 200 lb BMI 33.3 BP 127/72 Blood Pressure Location Rt brachial Position Sitting Pulse 92 Intake Visit Reasons: CT Results Intake Note: This patient presents for Ct-Scan follow-up. Pt c/o; no concerns. 06/17/2024: Abd/pelvis CT Excel Developer Required: Yes Excel Developer Language: Splunk Dashboard Developer Services: Excel Developer Present Excel Developer Name: Dm Information Interpreted: non-clinical & clinical Accompanied by: Self / Same As Patient Allergies No Known Allergies Allergy (Verified 07/15/24 09:59) Medication List - Last Reconciled 07/22/24 by Dakota Brooks MD amoxicillin-pot clavulanate 875-125 mg 1 tab PO BID oxycodone 5 mg PO TID PRN HPI HPI CT Results: Details: He is here for follow-up for his end-loop colostomy. I had sent him for a CT scan last month. He says that he is doing well. He denies problems with his stoma. He says he has has had no episodes of abdominal pain. He has good oral intake. He admits that he has not lost weight. [facility] Medical History Colostomy in place Colon obstruction Diverticulitis Surgical History Hx of surgical procedure (~11/07/23) Hx of appendectomy Social History Household Members: Family Housing: House Do you presently have visiting nurse or other home services: No Alcohol intake: never Comment: resting in bed, eyes closed Patient Tobacco Use Status: Never used Tobacco Second Hand Smoke Exposure: Yes service: No Current occupational status: unemployed Review of Systems Const Denies chills and Denies fever(s) Card Denies chest pain, Denies dyspnea and Denies dyspnea on exertion Resp Denies cough, Denies dyspnea and Denies dyspnea on exertion GI Details: Has end-loop colostomy Denies hematochezia and Denies change in bowel habits Denies hematuria and Denies difficulty urinating Musc Denies back pain and Denies limited range of motion Neuro Denies focal weakness and Denies convulsions Psych Denies depression and Denies mood swings Physical Exam Vital Signs: Last Vital Signs Pulse 92 07/15/24 09:53 BP 127/72 07/15/24 09:53 BMI result Body Mass Index 33.3 Const General: comfortable and no acute distress Resp Effort & Inspection: normal respiratory effort Cardio Rate: regular rate GI Other: Colostomy in place left upper quadrant Palpation (GI): Soft to palpation, not firm, nontender and no guarding Assessment & Plan Assessment & Plan (1) Colostomy in place: Code(s): Z93.3 - Colostomy status Category: Medical Plan: He has not end-loop colostomy after distal left colon resection for diverticular obstruction last Oct, 2023. There are no residual inflammatory changes seen on his repeat CT scan. His colostomy has been functioning well . I anticipate difficulty with reversing this colostomy and doing an anastomosis in the pelvis in view of his morbid obesity in the inflammatory changes preoperatively I therefore had been discussing with him the benefit of significant weight loss to make the procedure technically less difficult as well as to less in his perioperative risks. He says that he will try to do it this time I will see him again in the office in about 3 months to see how is doing. Coding Level of Care Code Est Pt Level 3 (87565) Diagnoses Colostomy in place Z93.3
== END 2024-07-15 10:09 | disposition home or self-care (01) ==
PROVIDERS: PCP Internal Medicine; Visit Provider Surgery
DX: Z93.3 Colostomy status (principal)
CPT/HCPCS: 99213

== ENCOUNTER → 2024-07-15 09:52 | Outpatient (BNVA) | payer MEDICAID, SELFPAY | PROVIDERS: PCP Internal Medicine; Visit Provider Surgery | DX: Z93.3 Colostomy status (principal) | CPT/HCPCS: 99212 ==

== ENCOUNTER 2025-03-04 12:53 | Outpatient (AMB) | payer MEDICAID, SELFPAY ==
--- NOTE | 2025-03-04 12:58 | MHC.OFFVIS ---
Vital Signs 03/04/25 13:06 Height 5 ft 5 in Weight 202 lb BMI 33.6 BP 119/61 Blood Pressure Location Rt brachial Position Sitting Pulse 80 Intake Visit Reasons: discuss surgery Intake Note: Patient here to discuss colostomy reversal surgery. Patient c/o: uncomfortable. Reports ostomy working well. YANY: 07-15-2024 Service Planner Required: Yes Information Interpreted: clinical only (Xin PORTER) Accompanied by: Self / Same As Patient Allergies No Known Allergies Allergy (Verified 03/04/25 13:04) HPI HPI discuss surgery: Details: 45-year-old male here for a follow-up after resection of the proximal sigmoid and distal left colon with an end-loop colostomy last Oct, 2023. This was because of a diverticular stricture with a obstruction. I had also admitted him to the hospital last February 28 because of the abdominal pain and this had shown inflammatory changes in the area of the left hemiabdomen. He says he has been doing well since that time. He has good function with a stoma. He has good oral intake I have been following him in the office and had been recommending significant weight loss for reversal. He says that his weight is ?up and down?. He has BMI is currently at 33 and he weighs 202 lb. He says he has difficulty with maintaining his weight. He says he does not feel that he will be able to lose any weight but he is desperate to have this colostomy reversed. [facility] Medical History Colostomy in place Colon obstruction Diverticulitis Surgical History Hx of surgical procedure (~11/07/23) Hx of appendectomy Social History Household Members: Family Housing: House Do you presently have visiting nurse or other home services: No Alcohol intake: never Comment: resting in bed, eyes closed Patient Tobacco Use Status: Never used Tobacco Second Hand Smoke Exposure: Yes service: No Current occupational status: unemployed Review of Systems Const Denies chills and Denies fever(s) Card Denies chest pain, Denies dyspnea and Denies dyspnea on exertion Resp Denies cough, Denies dyspnea and Denies dyspnea on exertion GI Details: Has colostomy Denies hematochezia and Denies change in bowel habits Denies hematuria and Denies difficulty urinating Musc Denies back pain and Denies limited range of motion Neuro Denies focal weakness and Denies convulsions Psych Denies depression and Denies mood swings Physical Exam Vital Signs: Last Vital Signs Pulse 80 03/04/25 13:06 BP 119/61 03/04/25 13:06 BMI result Body Mass Index 33.6 Const Other: Obese General: comfortable and no acute distress Orientation/consciousness: patient oriented x3 Neck Neck: Yes no lymphadenopathy Resp Auscultation: clear to auscultation bilaterally Cardio Rhythm: regular rhythm GI Other: Has a long midline laparotomy scar, stoma on the left side upper quadrant is functioning Palpation (GI): Soft to palpation, nontender and no guarding Neuro General: patient oriented x3 Assessment & Plan Assessment & Plan (1) Colostomy in place: Code(s): Z93.3 - Colostomy status Category: Medical Plan: He had undergone laparotomy with sigmoid resection and an end loop colostomy from the proximal left colon last Oct, 2023. We has been trying to lose weight in preparation for reversal of his colostomy. He admits that he has had no significant success with this. He says that he tries his best but he continues to have fluctuation of his weight and he feels that he is unable to lose any significant weight anymore. He says he is desperate to have this, reverse I had a long discussion with him about the technique of hand assisted laparoscopic reversal of his colostomy and likely diverting loop ileostomy. We have to take down the stoma, anastomose the limbs of the loop colostomy, and bring down the rest of the left colon to the rectum as another anastomosis. I told him that we will have to divert this in view of the to anastomosis I explained to him that he presents with significant perioperative risks in view of his obesity. I explained the risks of bleeding, infections, injury to other organs, anastomotic leak, stoma complications, hernias, as well as the benefits and alternatives. He says he wants to proceed. I have ordered for a CAT scan to re-evaluate intra-abdominal anatomy and allow planning for approach in surgery. Coding Level of Care Code Est Pt Level 4 (04522) Diagnoses Colostomy in place Z93.3
[2025-03-04 13:06] VITALS: BP 119/61; PULSE 80; BMI 33.6
--- OUTSIDE RECORDS SUMMARY | 2025-03-04 14:11 | XMS_ITS | Encounter Summary ---
Author Organization [facility] Address [address] [place] [id number] Phone Care Team Providers Care District Sales Coordinator Name Role Phone Pcp, Unknown Primary Care Provider Unavailabl e Encounter Details Date Type Department Care Team ([facility] st Contact Info) Description 12/28/2021 Procedure Pass [facility] Endoscopy Admitting Dept Virtual Department [address] [place] [address] Social History Tobacco Use Types Packs/Day Years Used Date Smoking Tobacco: Never Smokeless Tobacco: Never Alcohol Use Standard Drinks/Week Comments Never 0 (1 standard drink = 0.6 oz pur e alcohol) Sex and Gender Information Value Date Recorded Sex Assigned at Male 12/27/2021 7:32 AM EDT Legal Sex Male 7:06 AM EDT Gender Identity Male 12/27/2021 7:32 AM EDT Sexual Orientation Not on file documented as of this encounter Plan of Treatment Not on file documented as of this encounter Visit Diagnoses Not on filedocumented in this encounter Care Teams District Sales Coordinator Relationship Specialty Start Date End Date Pcp, Unknown PCP - General 12/27/21 documented as of this encounter Additional Source Comments The information contained in this document represents components of the legal health record. It is not the complete legal health record.[facility]
--- OUTSIDE RECORDS SUMMARY | 2025-03-04 14:11 | XMS_ITS | Clinical Summary ---
Author Organization [facility] Address [address] [place] [phone] Phone Care Team Providers Care Manager Technology Name Role Phone Pcp, Unknown Primary Care Provider Unavailabl e Allergies Active Allergy Reactions Criticality Noted Date Comments Morphine Palpitations Low 11/05/2023 Medications No known medications Active Problems Problem Noted Date Diagnosed Date Partial bowel obstruction 12/27/2021 Assessment & Plan (12/28/2021 6:46 PM EDT): Resolving -Patient had constipation for 3 days followed by 4 days of mild abdominal pain but worsening on the day of admission with an episode of diarrhea -CT abdomen/pelvis shows constellation of findings in the mid descending colon most likely primary malignancy, the mass extends over a length of approximately 6.7 cm with features of partial large bowel obstruction. Status post colonoscopy with Dr. Domingo, biopsies taken. Dr. Domingo does not think colon cancer is present after reviewing the CT and performing a colonoscopy. GI recommends starting regular diet If he tolerates diet, he may be able to be discharged tomorrow to follow-up with GI for biopsy results. -Pain management with as needed IV morphine Family History Medical History Relation Comments Heart attack Brother Diabetes Father Heart attack Father Relation Status Comments Brother Father Social History Tobacco Use Types Packs/Day Years Used Date Smoking Tobacco: Never Smokeless Tobacco: Never Alcohol Use Standard Drinks/Week Comments Never 0 (1 standard drink = 0.6 oz pur e alcohol) Education Answer Date Recorded Are you interested in more education? Not on zay e 10/27/2022 Are you concerned about learning? Not on file 10/27/2022 No 10/27/2022 No 10/27/2022 Digital Access Answer Date Recorded No 11/25/2022 No 11/25/2022 No 11/25/2022 Reliable internet access at home? Not on file 11/25/2022 Device with a working camera? Not on file Intimate Partner Violence Answer Date R ecorded Are you denied basic needs s uch as food, clothing, or medical care? No 11/05/2023 In the past 12 months have y ou been in a relationship with a person who hurts, threatens, or tries to control you? No 11/05/2023 Are you denied basic needs s uch as food, clothing, or medical care? No 11/05/2023 In the past 12 months have y ou been in a relationship with a person who hurts, threatens, or tries to control you? No 11/05/2023 Sex and Gender Information Value Date Recorded Sex Assigned at Male 12/27/2021 7:32 AM EDT Legal Sex Male 7:06 AM EDT Gender Identity Male 12/27/2021 7:32 AM EDT Sexual Orientation Not on file Last Filed Vital Signs Vital Sign Reading Time Taken Comments Blood Pressure 118/82 11/06/2023 3:00 AM EDT Pulse 75 11/06/2023 3:00 AM EDT Temperature 36.9 C (98.4 F) 11/05/2023 7:39 PM EDT Respiratory Rate 22 11/06/2023 3:00 AM EDT Oxygen Saturation 95% 11/06/2023 2:00 AM EDT Inhaled Oxygen Concentration - - Weight 81.5 kg (179 lb 10.8 oz) 12/28/2021 6:00 AM EDT Height 170.2 cm (5' 7 ) 12/27/2021 7:28 AM EDT Body Mass Index 28.14 12/27/2021 7:28 AM EDT Plan of Treatment Health Maintenance Due Date Last Done Comments Adult Td,Tdap Booster 1980 LIPID PANEL 1980 DEPRESSION SCREENING 1992 HEPATITIS C SCREENING 02/17/1998 HIV ONE-TIME SCREENING (18-6 5 YEARS) 02/17/1998 COVID-19 VACCINE (2023-2 5 season) 2024 SMOKING STATUS SCREENING (On ce After 26 Yrs) Completed 12/27/2021 HEPATITIS A VACCINES Aged Out No long er eligible based on patient's age to complete this topic HIB VACCINES Aged Out No longer eligi ble based on patient's age to complete this topic MENINGOCOCCAL VACCINES (ACWY) Aged Out No longer eligible based on patient's age to complete this topic MENINGOCOCCAL VACCINES (B) Aged Out N o longer eligible based on patient's age to complete this topic PNEUMOCOCCAL VACCINES (0-49 years) Aged Out No longer eligible based on patient's age to complete this topic Medical Devices Not on file Insurance FULL Member Subscriber Plan / Payer (Ef fective 2021-Present) Name:Bernardo Wasserman Relation to Subscriber:Self Name:Bernardo Wasserman Payer ID:Not on file Group ID:Not on file Type:Medicaid Address: [address] [place] [address] FULL [facility] LIMITED SAFETY NET FULL FULL HEALTH SAFETY NET FULL Member Subscriber Plan / Payer (Ef fective 2021-Present) Name:Bernardo Wasserman Relation to Subscriber:Self Name:Artis Koby Bernardo Payer ID:Not on file Group ID:Not on file Type:Medicaid Address: [address] LIMITED HEALTH [facility] NET FULL HEALTH [facility] NET FULL Member Subscriber Plan / Payer (Ef fective 2021-Present) Name:Bernardo Wasserman Relation to Subscriber:Self Name:Bernardo Wasserman Payer ID:Not on file Group ID:Not on file Type:Medicaid Address: [address] LIMITED [employer] [place] [address] [address] [place] [address] NET FULL [employer] LIMITED Advance Directives For more information, please contact: [phone] (9AM - 5PM Diana/[facility], Saturday-Saturday) * Full Code (Latest Code Status on File) Date Activated Date Inactivated Comments 12/27/2021 2:45 PM Question Answer Comments Code Status Confirmed With: Patient Care Teams Manager Technology Relationship Specialty Start Date End Date Pcp, Unknown PCP - General 12/27/21 Additional Source Comments The information contained in this document represents components of the legal health record. It is not the complete legal health record.[facility]
--- OUTSIDE RECORDS SUMMARY | 2025-03-04 14:12 | XMS_ITS | Clinical Summary ---
Author Organization [employer] Address [address] [place] [address] [address] [place] [address] Care Team Providers Care [employer] Name Role Phone Rafael Carroll MD Primary Care Prov ider Allergies No known active allergies Medications No known medications Active Problems Problem Noted Date Diagnosed Date S/P colostomy 12/05/2023 Assessment & Plan (12/05/2023 12:29 PM EDT): Patient underwent exploratory laparotomy s/p colostomy after presenting with colonic obstruction, he refers no cancer diagnosis has been given (no information on chart). Patient will follow up surgery on 12/09/23 Encounter for medical examination to establish c are 12/05/2023 Assessment & Plan (12/05/2023 12:31 PM EDT): Patient hospitalized recently due to colonic obstruction s/p colostomy No er visit besides [facility] No provider follow up in over 15 years Pmhx: Colon obstruction Pshx appendectomy 1998/elap s/p colostomy 2023 Allergies: none Meds: None Immunizations Immunization Administration Dates Next Due Tdap 12/05/2023 Family History Medical History Relation Name Comments Diabetes Father No Known Problems Mother Relation Name Status Comments Father Mother Social History Tobacco Use Types Packs/Day Years Used Date Smoking Tobacco: Never Smokeless Tobacco: Never Tobacco Cessation:Counseling Given: Not Answered Alcohol Use Standard Drinks/Week Comments Never 0 (1 standard drink = 0.6 oz pur e alcohol) Depression Answer Date Recorded Patient Health Questionnaire-9 Score 0 12/05/2023 Patient Health Questionnaire-9 Score 0 12/05/2023 Last PHQ-9: Questionnaire Data Not on file 0 12/05/2023 Housing Stability Answer Date Recorded What is your housing situation today? I have maikel headley 12/05/[address] you li ve. Do you have problems with any of the following? None of the above 12/05/2023 Food Insecurity Answer Date Recorded Within the past 12 months, y ou worried that your food would run out before you got money to buy more: Never True 12/05/2023 Within the past 12 months,th e food you bought just didn't last and you didn't have enough money to get more: Never True 11/2023 Transportation Answer Date Recorded In the past 12 months, has l ack of transportation kept you from medical appts, meetings, work or from getting things needed for daily living? No 12/05/2023 Utilities Answer Date Recorded In the past 12 months, has t he electric, gas, oil or water company threatened to shut off services in your home? No 12/05/2023 Depression Answer Date Recorded Patient Health Questionnaire-2 Score 0 12/05/2023 Sex and Gender Information Value Date Recorded Sex Assigned at Male 11/27/2023 10:35 AM EDT Legal Sex Male 10:34 AM EDT Gender Identity Male 12/05/2023 9:37 AM EDT Sexual Orientation Straight 12/05/2023 4: 39 PM EDT Last Filed Vital Signs Vital Sign Reading Time Taken Comments Blood Pressure 126/82 02/05/2024 9:17 AM EDT Pulse 60 02/05/2024 9:17 AM EDT Temperature 36.6 C (97.8 F) 02/05/2024 9:17 AM EDT Respiratory Rate 20 02/05/2024 9:17 AM EDT Oxygen Saturation - - Inhaled Oxygen Concentration - - Weight 83.5 kg (184 lb) 02/05/2024 9:17 AM EDT Height 161.9 cm (5' 3.75 ) 02/05/2024 9:17 AM ED T Body Mass Index 31.83 02/05/2024 9:17 AM EDT Plan of Treatment Health Maintenance Due Date Last Done Comments CT Colonography 1980 Colonoscopy 1980 Colorectal Cancer Screening 1980 FIT DNA/Cologuard 1980 FIT 1980 FOBT 1980 HIV Screening 1980 Lipid Panel 1980 Sigmoidoscopy 1980 Disability Screening 1980 Alcohol/Substance Use Screening 1992 Family Planning (PISQ) 02/17/1995 HPV Vaccines (1 - Male 3-dos e series) 02/17/1995 Hepatitis C Screening 02/17/1998 Hepatitis B Vaccines (1 of 3 - 19+ 3-dose series) 02/17/1999 Depression Screening 12/04/2024 12/05/2023, 12/05/2023 SDOH Screening 12/04/2024 12/05/2023 Tobacco Screening 02/04/2025 02/05/2024 COVID-19 Vaccine (3 - 2024-2 6 season) 2025 11/09/2020, 10/12/2020 Influenza Vaccine (#1) 2025 Zoster Vaccines (1 of 2) 02/17/2030 DTaP/Tdap/Td Vaccines (2 - T d or Tdap) 12/04/2033 12/05/2023 RSV Patients and Patients Aged 60 years or older (1 - 1-dose 75+ series) 02/17/2055 HIB Vaccines Aged Out No longer eligi ble based on patient's age to complete this topic Hepatitis A Vaccines Aged Out No long er eligible based on patient's age to complete this topic IPV Vaccines Aged Out No longer eligi ble based on patient's age to complete this topic Meningococcal B Vaccine Aged Out No l onger eligible based on patient's age to complete this topic Meningococcal Vaccine Aged Out No nicole catalina eligible based on patient's age to complete this topic Pneumococcal Vaccine: Pediatrics (0 to 5 Years) and At-Risk Patients (6 to 49) Years Aged Out No longer eligible b ased on patient's age to complete this topic RSV under 20 months Aged Out No longe r eligible based on patient's age to complete this topic Rotavirus Vaccines Aged Out No longer eligible based on patient's age to complete this topic Insurance [employer] H[employer] FULL Care Teams [employer] Relationship Specialty Start Date End Date Rafael Carroll MD [address] [place] [id number] PCP - General Internal Medicine 12/05/23
--- OUTSIDE RECORDS SUMMARY | 2025-03-04 14:12 | XMS_ITS | Encounter Summary ---
Author Organization [facility] Address [address] [place] [address] Phone Care Team Providers Care Director Of Vocational Guidance Name Role Phone Pcp, Unknown Primary Care Provider Unavailabl e Encounter Details Date Type Department Care Team (Late st Contact Info) Description 11/05/2023 Procedure Pass [facility], Ct Scan - [facility] [address] [place] [address] Social History Tobacco Use Types Packs/Day Years [...] on file documented as of this encounter Functional Status * Calculated C-SSRS Risk Score (Lifetime/Recent) Answer Date of Assessment Author No Risk Indicated 11/05/2023 7:43 PM EDT Silva Renee RN * [place] Suicide Severity Rating Scale (Screener/Recent Self-Report) Question Answer Date of Assessment Author 1. Wish to be (Past 1 Month) No 11/05/2023 7:43 PM EDT Silva Samano RN 2. Non-Specific Active Suicidal Thoughts (Past 1 Month) No 11/05/2023 7:43 PM EDT Silva Samano RN 6. Suicidal Behavior (Lifetime) No 11/05/2023 7:43 PM EDT Silva Samano RN documented as of this encounter Plan of Treatment Not on file documented as of this encounter Visit Diagnoses Not on filedocumented in this encounter Care Teams Director Of Vocational Guidance Relationship Specialty Start Date End Date Pcp, Unknown PCP - General 12/27/21 documented as of this encounter Additional Source Comments The information contained in this document represents components of the legal health record. It is not the complete legal health record.[facility]
--- OUTSIDE RECORDS SUMMARY | 2025-03-04 14:12 | XMS_ITS | Encounter Summary ---
Author Organization [facility] Address [address] [place] [address] Phone Care Team Providers Care Small Craft Operator Name Role Phone Pcp, Unknown Primary Care Provider Unavailabl e Encounter Details Date Type Department Care Team (Late st Contact Info) Description 12/27/2021 Procedure Pass [facility], Ct Scan - [facility] [address] [place] [address] Social History Tobacco Use Types Packs/Day Years [...] Date of Assessment Author No Risk Indicated 12/27/2021 7:29 AM EDT Radha Jones, PASCUAL * [place] Suicide Severity Rating Scale (Screener/Recent Self-Report) Question Answer Date of Assessment Author 1. Wish to be (Past 1 Month) No 022 7:29 AM EDT Radha Jones, PASCUAL 2. Non-Specific Active Suici kalpesh Thoughts (Past 1 Month) No 12/27/2021 7:29 AM EDT Radha Jones, RN 6. Suicidal Behavior (Lifetime) No 7:29 AM EDT Radha Jones, RN documented as of this encounter Plan of Treatment Not on file documented as of this encounter Visit Diagnoses Not on filedocumented in this encounter Care Teams Small Craft Operator Relationship Specialty Start Date End Date Pcp, Unknown PCP - General 12/27/21 documented as of this encounter Additional Source Comments The information contained in this document represents components of the legal health record. It is not the complete legal health record.[facility]
== END 2025-03-04 13:14 | disposition home or self-care (01) ==
LOC: HO.HGS 12:53
PROVIDERS: PCP Internal Medicine; Visit Provider Surgery
DX: Z93.3 Colostomy status (principal)
CPT/HCPCS: 99214

== ENCOUNTER → 2025-03-04 12:53 | Outpatient (BNVA) | payer MEDICAID, SELFPAY | PROVIDERS: PCP Internal Medicine; Visit Provider Surgery | DX: Z93.3 Colostomy status (principal) | CPT/HCPCS: 99212 ==

== ENCOUNTER 2025-05-17 06:05 | Outpatient (REF) | payer MEDICAID, OTHER, SELFPAY ==
--- NOTE | ~2025-05-17 | CT_ITS ---
CLINICAL HISTORY: Z93.3 - Colostomy status CT abdomen and pelvis with contrast Comparison: CT/REG/CO/SR - CT ABDOMEN PELVIS WITH IV CONTRAST - 06/17/24 09:17 EST Findings: No consolidation or effusion. The gallbladder and solid organs are within normal limits. No renal stones. Diverting colostomy is again noted in the left lower quadrant unchanged from prior exams. A Jill's pouch is again noted. Small bowel anastomosis is seen in the left midabdomen. The rest of the GI tract is unremarkable. Pelvic contents unremarkable. Normal appendix. The bones are intact. No complications are noted. IMPRESSION: No acute findings or interval changes. Stable postoperative changes. This document has been electronically signed by: Artemio Moya MD on 05/17/2025 13:04:06
--- OUTSIDE RECORDS SUMMARY | 2025-05-17 06:09 | XMS_ITS | Clinical Summary ---
Author Organization [employer] Address [address] [place] [address] 7[address] [place] [address] Care Team Providers Care Worker'S Compensation Claims Examiner Name Role Phone Rafael Carroll MD Primary Care Prov ider Allergies No known active allergies Medications No known medications Active Problems Problem Noted Date Diagnosed Date S/P colostomy ([facility]) 12/05/2023 Assessment & Plan (12/05/2023 12:29 PM [...] patient's age to complete this topic Insurance Existence Before [employer] FULL Care Teams Worker'S Compensation Claims Examiner Relationship Specialty Start Date End Date Rafael Carroll MD [address] [place] [address] PCP - General Internal Medicine 12/05/23
--- OUTSIDE RECORDS SUMMARY | 2025-05-17 06:09 | XMS_ITS | Encounter Summary ---
Author Organization [facility] Address [address] [place] [address] Phone Care Team Providers Care Banana Carrier Name Role Phone Pcp, Unknown Primary Care Provider Unavailabl e Encounter Details Date Type Department Care Team ([facility] st Contact Info) Description 12/28/2021 Procedure Pass [facility] Admitting Dept Virtual Department [address] [place] [address] Social History Tobacco Use Types Packs/Day Years [...] on filedocumented in this encounter Care Teams Banana Carrier Relationship Specialty Start Date End Date Pcp, Unknown PCP - General 12/27/21 documented as of this encounter Additional Source Comments The information contained in this document represents components of the legal health record. It is not the complete legal health record.[facility]
--- OUTSIDE RECORDS SUMMARY | 2025-05-17 06:09 | XMS_ITS | Encounter Summary ---
Author Organization [facility] Address [address] [place] [address] Phone Care Team Providers Care Oxygen Equipment Technician Name Role Phone Pcp, Unknown Primary Care Provider Unavailabl e Encounter Details Date Type Department Care Team (Late st Contact Info) Description 11/05/2023 Procedure Pass [facility], Ct Scan - [facility] [address] [place] [address] Social History Tobacco Use Types Packs/Day Years [...] 7:43 PM EDT Silva Renee RN * [place] Suicide Severity Rating Scale (Screener/Recent Self-Report) Question [...] on filedocumented in this encounter Care Teams Oxygen Equipment Technician Relationship Specialty Start Date End Date Pcp, Unknown PCP - General 12/27/21 documented as of this encounter Additional Source Comments The information contained in this document represents components of the legal health record. It is not the complete legal health record.[facility]
--- OUTSIDE RECORDS SUMMARY | 2025-05-17 06:09 | XMS_ITS | Clinical Summary ---
Author Organization [facility] Address [address] [place] [address] Phone Care Team Providers Care Watch Parts Grinder Name Role Phone Pcp, Unknown Primary Care [...] bowel obstruction. Status post colonoscopy with Dr. Santiago, biopsies taken. Dr. Santiago does not think colon cancer is present [...] HIV ONE-TIME SCREENING (18-6 5 YEARS) 02/17/1998 INFLUENZA VACCINE (#1) 2025 COLOGUARD 02/17/2025 FIT TEST 02/17/2025 FOBT 02/17/2025 SIGMOIDOSCOPY 02/17/2025 VIRTUAL COLONOSCOPY 02/17/2025 COVID-19 VACCINE (2024-2 6 season) 2025 COLONOSCOPY 12/29/2031 12/28/2021 COLORECTAL CANCER SCREENING 12/29/2031 SMOKING STATUS SCREENING (On ce After 26 Yrs) Completed 12/27/2021 HEPATITIS A VACCINES Aged Out No long er eligible based on patient's age to complete this topic HIB VACCINES Aged Out No longer eligi ble based on patient's age to complete this topic IPV VACCINES Aged Out No longer eligi ble [...] this topic Medical Devices Not on file Procedures Procedure Name Priority Date/Time Associated Diagnosis Comments ENDOSCOPY, COLON 12/28/2021 2:36 PM EDT from Last 3 Months or Most Recently Relevant to Health Maintenance Results * ENDOSCOPY, COLON (12/28/2021 2:36 PM EDT) Narrative Transcriptions Michele Santiago MD - 12/28/2021 2:36 PM EDT Patient Name: Bernardo Whalen Attending MD:: MICHELE SANTIAGO MD Procedure Date: 12/28/2021 2:36 PM Date of : 1980 Age: 41 Admit Type: Inpatient Gender: Male Room: [facility] Referring MD: Unknown Unknown Exam Type: Colonoscopy Indications: Abnormal CT of the GI tract Medications: Monitored Anesthesia Care Procedure: Informed consent was obtained from the patientafter discussion of the indications, limitations, alternatives, benefits, and risks of the procedure. Risks specifically discussed include but are not limited to medication reactions, missed lesions, bleeding, perforation, or the need for emergent surgery. Throughout the procedure, the patient's blood pressure, pulse, end-tidal CO2, and oxygensaturations were monitored continuously. The Olympus adult variable colonoscope CF-SD101T #5 was introduced through the anus and advanced to the terminal ileum, with identification of theappendiceal orifice and IC valve. The colonoscopy was performed without difficulty. The patient tolerated the procedure well. The quality of the bowelpreparation was good. The terminal ileum, ileocecal valve, appendiceal orifice, and rectum werephotographed. Complications: No immediate complications. Estimated blood loss:None. Findings: The terminal ileum appeared normal. Examination of the right colon was repeated in retroflexion and again in NBI. Retroflexion wasalso performed in the rectum. Normal mucosa was found in the descending colon.This was biopsied with a cold forceps for histology. An area of grossly congested mucosa was found inthe proximal sigmoid colon. This was especiallydifficult to insuflate as there were significant spasms inthis area (and not so much in the rest of the colon).The mucosal pit pattern appeared to be normal with a possible hyperplastic polyp in this region. Thiswas biopsied with a cold forceps for histology. further hyperplastic polyps were also noted distally. The exam was otherwise without abnormality. Impression: - The examined portion of the ileum was normal. - Normal mucosa in the descending colon.Biopsied. - Congested mucosa in the proximal sigmoid colon. Biopsied. - The examination was otherwise normal. No colon cancer. cause of mucosal congestionunclear but likely related to CT findings and correlate toCT location. Recommendation: - Await pathology results. - Return to GI office in 3 weeks. Michele Santiago MICHELE SANTIAGO MD 12/28/2021 3:32:45 PM This report has been signed electronically. Number of Addenda: 0 Note Initiated On: 12/28/2021 2:36 PM Procedure Code(s): --- Professional --- 33734, Colonoscopy, flexible; with biopsy, single or multiple --- Technical --- 49921, Colonoscopy, flexible; with biopsy, single or multiple CPT copyright 2020 [employer]. All rights reserved. The codes documented in this report are preliminary and upon dialysis tech reviewmay be revised to meet current compliance requirements. Procedure Date: 12/28/2021 2:36:[address] [place] [address] us Unknown Unknown GI PROCEDURE ORDERABLES Edite d Result - Final from Last 3 Months or Most Recently Relevant to Health Maintenance Insurance HEALTH SAFETY NET FULL Member Subscriber Plan / Payer (Ef fective 2021-Present) Name:Bernardo Wasserman Relation to Subscriber:Self Name:Bernardo Wasserman Payer ID:Not on file Group ID:Not on file Type:Medicaid Address: [address] LIMITED HEALTH SAFETY NET FULL [facility] LIMITED HEALTH [facility] NET FULL [facility] NET FULL HEALTH SAFETY NET [place] [address] [place] [address] [place] [address] SAFETY NET FULL Member Subscriber Plan / Payer (Ef fective 2021-Present) Name:Dominique Wassermanvin Relation to Subscriber:Self Name:Dominique Wassermanvin Payer ID:Not on file Group ID:Not on file Type:Medicaid Address: [address] LIMITED FULL Member Subscriber Plan / Payer (Ef fective 2021-Present) Name:Artis Bernardo Whalen Relation to Subscriber:Self Name:Artis Whalen Bernardo Payer ID:Not on file Group ID:Not on file Type:Medicaid Address: [address] LIMITED NET FULL [facility] Advance Directives For more information, please contact: [phone] (9AM - 5PM [place], Saturday-Saturday) * Full Code (Latest Code Status on File) Date Activated Date Inactivated Comments 12/27/2021 2:45 PM Question Answer Comments Code Status Confirmed With: Patient Care Teams Watch Parts Grinder Relationship Specialty Start Date End Date Pcp, Unknown PCP - General 12/27/21 Additional Source Comments The information contained in this document represents components of the legal health record. It is not the complete legal health record.[facility]
--- OUTSIDE RECORDS SUMMARY | 2025-05-17 06:09 | XMS_ITS | Encounter Summary ---
Author Organization [facility] Address [address] [place] [address] Phone Care Team Providers Care Citizenship Teacher Name Role Phone Pcp, Unknown Primary Care Provider Unavailabl e Encounter Details Date Type Department Care Team (Late st Contact Info) Description 12/27/2021 Procedure Pass [facility], Ct Scan - [facility] [address] [place] [address] Social History Tobacco Use Types Packs/Day Years [...] 7:29 AM EDT Radha Jones, PASCUAL * [place] Suicide Severity Rating Scale (Screener/Recent Self-Report) Question [...] on filedocumented in this encounter Care Teams Citizenship Teacher Relationship Specialty Start Date End Date Pcp, Unknown PCP - General 12/27/21 documented as of this encounter Additional Source Comments The information contained in this document represents components of the legal health record. It is not the complete legal health record.[facility]
[2025-05-17] MEDS: iohexoL 350 MG/ML 100 ML INFUS..BTL IV (08:21)
== END 2025-05-17 06:06 | disposition home or self-care (01) ==
LOC: HO.CT 06:05
PROVIDERS: Visit Provider Surgery
DX: Z93.3 Colostomy status (principal)
CPT/HCPCS: 74177; Q9967

== ENCOUNTER → 2025-05-17 06:08 | Outpatient (BNV) | payer SELFPAY | PROVIDERS: Visit Provider Radiology Diagnostic Radiology | DX: Z93.3 Colostomy status (principal) | CPT/HCPCS: 74177 ==

== ENCOUNTER 2025-05-26 08:51 | Outpatient (AMB) | payer MEDICAID, SELFPAY ==
--- NOTE | 2025-05-26 08:55 | A.OFFVIS_ITS ---
Vital Signs 05/26/25 09:00 Height 5 ft 5 in Weight 199 lb 2 oz BMI 33.1 BP 149/77 H Blood Pressure Location Rt brachial Position Sitting Pulse 80 Intake Visit Reasons: CT Results Intake Note: Patient presents for Ct-scan follow-up. Pt c/o: reports no complaints. Clinical Manager Home Care Required: Yes Clinical Manager Home Care Language: Automotive Parts Specialist Services: Clinical Manager Home Care Present Clinical Manager Home Care Name: Dm Information Interpreted: non-clinical & clinical Accompanied by: Self / Same As Patient Allergies No Known Allergies Allergy (Verified 05/26/25 09:19) Medication List - Last Reconciled 05/26/25 by Dakota Brooks MD No Known Home Meds HPI HPI CT Results: Details: 45-year-old male here for a follow-up for his colostomy. 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 He has had issues with his insurance he says and has had problems with follow up and workup. I had sent him for a CAT scan of the abdomen and pelvis in preparation for reversal of his colostomy and initially had problems scheduling this but was able to do it last week. This has not reveal any new pathology He does not have any problems with this colostomy so far and he this has been functioning well. [facility] Medical History Colostomy in place Colon obstruction Diverticulitis Surgical History Hx of surgical procedure (~11/07/23) Hx of appendectomy Social History Household Members: Family Housing: House Do you presently have visiting nurse or other home services: No Alcohol intake: never Comment: resting in bed, eyes closed Patient Tobacco Use Status: Never used Tobacco Second Hand Smoke Exposure: Yes service: No Current occupational status: unemployed Review of Systems Const Denies chills and Denies fever(s) Card Denies chest pain, Denies dyspnea and Denies dyspnea on exertion Resp Denies cough, Denies dyspnea and Denies dyspnea on exertion GI Denies hematochezia and Denies change in bowel habits Denies hematuria and Denies difficulty urinating Musc Denies back pain and Denies limited range of motion Neuro Denies focal weakness and Denies convulsions Psych Denies depression and Denies mood swings Physical Exam Vital Signs: Last Vital Signs Pulse 80 05/26/25 09:00 BP 149/77 H 05/26/25 09:00 BMI result Body Mass Index 33.1 Const General: comfortable and no acute distress Nutritional Appearance: obese Orientation/consciousness: patient oriented x3 Neck Neck: Yes no lymphadenopathy Resp Auscultation: clear to auscultation bilaterally Cardio Rhythm: regular rhythm GI Other: Colostomy in the left side Palpation (GI): Soft to palpation, nontender and no guarding Neuro General: patient oriented x3 Assessment & Plan Assessment & Plan (1) Colostomy in place: Code(s): Z93.3 - Colostomy status Category: Medical Plan: Review of his records show that he had a colonoscopy in [address] Marinelli. He was noted to have some colitis as well as suboptimal bowel prep at that time and was recommended to undergo follow up colonoscopy within 5 years. He is therefore due for a colonoscopy I told him about the technique of colonoscopy via the stoma and the rectum. I explained the risks including but not limited to bleeding, infections, perforation, as well as the benefits and alternatives. We will have to do this prior to doing reversal of his colostomy. He is having issues with this health insurance currently but we will assist him with this. I will continue to follow him in the office. Review of his CAT scan from 2 weeks ago does not suggest any new pathology Coding Level of Care Code Est Pt Level 3 (81770) Diagnoses Colostomy in place Z93.3
[2025-05-26 09:00] VITALS: BP 149/77; PULSE 80; BMI 33.1
--- OUTSIDE RECORDS SUMMARY | 2025-05-26 09:20 | XMS_ITS | Encounter Summary ---
Author Organization [facility] Address [address] [place] [address] Phone Care Team Providers Care Web Marketing Analyst Name Role Phone Pcp, Unknown Primary Care Provider Unavailabl e Encounter Details Date Type Department Care Team ([facility] st Contact Info) Description 12/28/2021 Procedure Pass [facility] Endoscopy Admitting Dept Virtual Department [address] [place] [address] Social History Tobacco Use Types Packs/Day Years [...] on filedocumented in this encounter Care Teams Web Marketing Analyst Relationship Specialty Start Date End Date Pcp, Unknown PCP - General 12/27/21 documented as of this encounter Additional Source Comments The information contained in this document represents components of the legal health record. It is not the complete legal health record.[facility]
--- OUTSIDE RECORDS SUMMARY | 2025-05-26 09:20 | XMS_ITS | Encounter Summary ---
Author Organization [employer] Address [address] 7t [place] [address] Care Team Providers Care Loan Funder Name Role Phone Rafael Carroll MD Primary Care Prov ider Encounter Details Date Type Department Care Team (Latest Contact Info) Description 05/21/2025 Travel Social History Tobacco Use Types Packs/Day Years [...] Orientation Straight 12/05/2023 4: 39 PM EDT documented as of this encounter Plan of Treatment Upcoming Encounters Date Type Department Care Team (Late st Contact Info) Description 05/31/2025 1:15 PM EST Telemedicine [facility] [address] [place] [address] Rafael Carroll MD [address] [place] [address] documented as of this encounter Visit Diagnoses Not on filedocumented in this encounter Additional Health Concerns Assessment Noted Time PHQ-9 Depression Total Score: 0 12/05/19 24 10:11 AM EDT documented as of this encounter Care Teams Loan Funder Relationship Specialty Start Date End Date Rafael Carroll MD [address] [place] [address] PCP - General Internal Medicine 12/05/23 documented as of this encounter
--- OUTSIDE RECORDS SUMMARY | 2025-05-26 09:20 | XMS_ITS | Encounter Summary ---
Author Organization [facility] Address [address] [place] [address] Phone Care Team Providers Care Network Technical Analyst Name Role Phone Pcp, Unknown Primary Care Provider Unavailabl e Encounter Details Date Type Department Care Team (Late st Contact Info) Description 12/27/2021 Procedure Pass [facility], Ct Scan - [facility] [address] [place] [address] Social History Tobacco Use Types Packs/Day Years [...] 7:29 AM EDT Radha Jones, PASCUAL * [place] Suicide Severity Rating Scale (Screener/Recent Self-Report) Question [...] on filedocumented in this encounter Care Teams Network Technical Analyst Relationship Specialty Start Date End Date Pcp, Unknown PCP - General 12/27/21 documented as of this encounter Additional Source Comments The information contained in this document represents components of the legal health record. It is not the complete legal health record.[facility]
--- OUTSIDE RECORDS SUMMARY | 2025-05-26 09:20 | XMS_ITS | Clinical Summary ---
Author Organization [facility] Address [address] [place] [phone] Phone Care Team Providers Care Lithograph Operator Name Role Phone Pcp, Unknown Primary [...] 41 Admit Type: Inpatient Gender: Male Room: [place] [address] Referring MD: Unknown Unknown Exam Type: Colonoscopy [...] monitored continuously. The Olympus adult variable colonoscope [id number] #5 was introduced through the anus and [...] 2:36 PM Procedure Code(s): --- Professional --- 79309, Colonoscopy, flexible; with biopsy, single or multiple --- Technical --- 93127, Colonoscopy, flexible; with biopsy, single or multiple CPT copyright 2020 [employer]. All rights reserved. The codes documented in this report are preliminary and upon cone trucker reviewmay be revised to meet current compliance requirements. Procedure Date: 12/28/2021 2:36:[address] [place] [id number] us Unknown Unknown GI PROCEDURE ORDERABLES Edite d Result - Final from Last 3 Months or Most Recently Relevant to Health Maintenance Insurance [employer] NET FULL Member Subscriber Plan / Payer (Ef fective 2021-Present) Name:Bernardo Wasserman Relation to Subscriber:Self Name:Bernardo Wasserman Payer ID:Not on file Group ID:Not on file Type:Medicaid Address: [address] LIMITED HEALTH SAFETY NET FULL [facility] LIMITED Member Subscriber Plan / Payer (Ef fective 2023-Present) Name:Artis Bernardo Whalen Relation to Subscriber:Self Name:Artis Bernardo Whalen Payer ID:[id number] Group ID:Not on file Type:Medicaid Address: [place] [id number] HEALTH SAFETY NET FULL HE[employer] SAF[employer] NET FULL FULL Member Subscriber Plan / Payer (Ef fective 2021-Present) Name:Bernardo Wasserman Relation to Subscriber:Self Name:Bernardo Wasserman Payer ID:Not on file Group ID:Not on file Type:Medicaid Address: [address] LIMITED FULL FULL Member Subscriber Plan / Payer (Ef fective 2021-Present) Name:Bernardo Wasserman Relation to Subscriber:Self Name:Bernardo Wasserman Payer ID:Not on file Group ID:Not on file Type:Medicaid Address: [address] LIMITED FULL Member Subscriber Plan / Payer (Ef fective 2021-Present) Name:Bernardo Wasserman Relation to Subscriber:Self Name:Artis WhalenDominiqueBernardo Payer ID:Not on file Group ID:Not on file Type:Medicaid Address: [address] LIMITED [facility] Advance Directives For more information, please contact: [phone] (9AM - 5PM [facility], Saturday-Saturday) * Full Code (Latest Code Status on File) Date Activated Date Inactivated Comments 12/27/2021 2:45 PM Question Answer Comments Code Status Confirmed With: Patient Care Teams Lithograph Operator Relationship Specialty Start Date End Date Pcp, Unknown PCP - General 12/27/21 Additional Source Comments The information contained in this document represents components of the legal health record. It is not the complete legal health record.[facility]
--- OUTSIDE RECORDS SUMMARY | 2025-05-26 09:20 | XMS_ITS | Clinical Summary ---
Author Organization [employer] Address [address] [place] [address] [address] [place] [address] Care Team Providers Care Tearoom Host Name Role Phone Rafael Carroll MD Primary Care Prov ider Allergies No known active allergies Medications No known medications Active Problems Problem Noted Date Diagnosed Date S/P colostomy ([facility]) 12/05/2023 Assessment & Plan (12/05/2023 12:29 PM [...] s/p colostomy 2023 Allergies: none Meds: None Encounters Date Type Department Care Team Description 05/21/2025 Travel 05/17/2025 Orders Only [facility] External Provider, [facility] from Last 3 Months Immunizations Immunization Administration Dates Next Due Tdap [...] 02/05/2024 9:17 AM EDT Plan of Treatment Upcoming Encounters Date Type Department Care Team (Late st Contact Info) Description 05/31/2025 1:15 PM EST Telemedicine [facility] [address] [place] [address] Rafael Carroll MD [address] [place] [address] Health Maintenance Due Date Last Done Comments [...] on patient's age to complete this topic Procedures Procedure Name Priority Date/Time Associated Diagnosis Comments CT ABDOMEN PELVIS W CONTRAST Routine 05/17/2025 1:04 PM EST from Last 3 Months Results * CT Abdomen Pelvis w/ Contrast (05/17/2025 1:04 PM EST) Anatomical Region Laterality Modality Body, Pelvis, Abdomen Computed T omography 05/17/2025 1:04 PM EST Narrative 05/17/2025 1:05 PM EST [address] [address] [address] Scan Report Signed Patient: Bernardo Artis MR#: [id number] : 1980 Acct:[id number] Age/Sex: 45 / M ADM Date: 05/17/25 Loc: HO.CT Attending Dr: Dakota Brooks MD Ordering Physician: Dakota Brooks MD Date of Service: 05/17/25 Procedure(s): CT abdomen pelvis w IV con Accession Number(s): [id number] cc: Rafael Carroll MD; Dakota Brooks MD Report Number: [id number]: Total DLP = 469.00 mGy-cm Reason for Exam: Z93.3 - Colostomy status CLINICAL HISTORY: Z93.3 - Colostomy status CT abdomen and pelvis with contrast Comparison: CT/REG/MN/SR - CT ABDOMEN PELVIS WITH IV CONTRAST - 06/17/24 09:17 EST Findings: No consolidation or effusion. The gallbladder and solid organs are within normal limits. No renal stones. Diverting colostomy is again noted in the left lower quadrant unchanged from prior exams. A Jill's pouch is again noted. Small bowel anastomosis is seen in the left midabdomen. The rest of the GI tract is unremarkable. Pelvic contents unremarkable. Normal appendix. The bones are intact. No complications are noted. IMPRESSION: No acute findings or interval changes. Stable postoperative changes. This document has been electronically signed by: Artemio Moya MD on 05/17/2025 13:04:06 Dictated By: Artemio Moya MD Signed By: <Electronically signed by Artemio Moya MD in OV> 05/17/25 130 DD/ 03 TD/TT: 05/17/251303 Paradichlorobenzene Machine Operator: Procedure Note Donotuseinterpreter, Image - 05/17/[address] [address] [address] Scan Report Signed Patient: Bernardo Artis EMR#: [id number] : 1980Acct:[id number] Age/Sex: 45 / MADM Date: 05/17/25 Loc: HO.CT Attending Dr: Dakota Brooks MD Ordering Physician: Dakota Brooks MD Date of Service: 05/17/25 Procedure(s): CT abdomen pelvis w IV con Accession Number(s): [id number] cc: Rafael Carroll MD; Dakota Brooks MD Report Number: [id number]: Total DLP = 469.00 mGy-cm Reason for Exam: Z93.3 - Colostomy status CLINICAL HISTORY: Z93.3 - Colostomy status CT abdomen and pelvis with contrast Comparison: CT/REG/MN/SR - CT ABDOMEN PELVIS WITH IV CONTRAST - 06/17/24 09:17 EST Findings: No consolidation or effusion. The gallbladder and solid organs are within normal limits. No renal stones. Diverting colostomy is again noted in the left lower quadrant unchanged from prior exams. A Jill's pouch is again noted. Small bowel anastomosis is seen in the left midabdomen. The rest of the GI tract is unremarkable. Pelvic contents unremarkable. Normal appendix. The bones are intact. No complications are noted. IMPRESSION: No acute findings or interval changes. Stable postoperative changes. This document has been electronically signed by: Artemio Moya MD on 05/17/2025 13:04:06 Dictated By: Artemio Moya MD Signed By: <Electronically signed by Artemio Moya MD in OV> 05/17/25 1305 DD/ 130 TD/TT: 11/17/25 1304 Paradichlorobenzene Machine Operator: [facility] External Provider IMG CT PROCEDURES Final Result from Last 3 Months Insurance [facility] LIMITED HSN FULL Care Teams Tearoom Host Relationship Specialty Start Date End Date Rafael Carroll MD [address] [place] [id number] PCP - General Internal Medicine 12/05/23
--- OUTSIDE RECORDS SUMMARY | 2025-05-26 09:20 | XMS_ITS | Encounter Summary ---
Author Organization [facility] Address [address] [place] [phone] Phone Care Team Providers Care Cattle Tester Name Role Phone Pcp, Unknown Primary Care Provider Unavailabl e Encounter Details Date Type Department Care Team (Late st Contact Info) Description 11/05/2023 Procedure [facility], Ct Scan - [facility] [address] [place] [address] Social History Tobacco Use Types Packs/Day Years [...] 7:43 PM EDT Silva Renee RN * [place] Suicide Severity Rating Scale (Screener/Recent Self-Report) Question [...] on filedocumented in this encounter Care Teams Cattle Tester Relationship Specialty Start Date End Date Pcp, Unknown PCP - General 12/27/21 documented as of this encounter Additional Source Comments The information contained in this document represents components of the legal health record. It is not the complete legal health record.[facility]
== END 2025-05-26 09:22 | disposition home or self-care (01) ==
PROVIDERS: PCP Internal Medicine; Visit Provider Surgery
DX: Z93.3 Colostomy status (principal)
CPT/HCPCS: 99213

== ENCOUNTER → 2025-05-26 08:51 | Outpatient (BNVA) | payer MEDICAID, OTHER, SELFPAY | PROVIDERS: Visit Provider Surgery | DX: Z48.815 Encounter for surgical aftercare following surgery on the digestive system (principal); Z93.3 Colostomy status | CPT/HCPCS: 99212 ==